=== PATIENT | male | born 1955 | race Two or more races ===

== ENCOUNTER 2022-03-31 22:49 | Emergency (ER) | payer MEDICARE, OTHER, SELFPAY ==
[2022-03-31 23:06] VITALS: BP 132/69; PULSE 73; RESP 18; TEMP 36.6; O2SAT 99; BMI 29.4
--- NOTE | 2022-04-01 00:48 | PC.NURSE ---
Pt said that he passed stool and that he no longer wanted to wait to be seen in the ER so he and his family LWBS
== END 2022-04-01 01:15 | disposition left against medical advice (07) ==
PROVIDERS: Emergency Provider Emergency Medicine; PCP Registered Nurse
DX: R10.9 Unspecified abdominal pain (principal); K59.00 Constipation, unspecified
CPT/HCPCS: 99282

== ENCOUNTER 2024-06-20 00:32 | Emergency (ER) | payer MEDICARE, OTHER, SELFPAY ==
[2024-06-20] VITALS (9 sets, daily range): BP systolic 130–186; BP diastolic 54–70; PULSE 74–101; RESP 12–17; TEMP 36.7–36.8; O2SAT 96–99; BMI 30.9
--- NOTE | ~2024-06-20 | CT_ITS ---
EXAMINATION: CT HEAD WITHOUT CONTRAST (STROKE PROTOCOL) CLINICAL INFORMATION: Stroke protocol. COMPARISON: None available. TECHNIQUE: Contiguous axial imaging was performed from the skull base to vertex without intravenous administration of contrast. This CT examination was performed using dose optimization techniques as appropriate, variously including the following: *Automated exposure control *Adjustment of mA and/or kV according to patient size (this includes techniques or standardized protocols for targeted exams where dose is matched to indication/reason for exam; i.e. extremities or head) *Use of iterative reconstruction technique DLP: 751 mGy-cm FINDINGS: There is a 2.2 x 1.8 x 3.4 cm left thalamic hemorrhage with mild surrounding diminished attenuation consistent with adjacent edema. There is hemorrhagic extension into the left lateral and third ventricle. There is underlying mild cerebral volume loss with prominence of the lateral and the third ventricles. The cortical sulci are widened appropriately. The fourth ventricle and basal cisterns are normally outlined. There is moderate bilateral periventricular and central white matter diminished attenuation. There is no midline shift. Calvarium/scalp: Intact. Maxillofacial sinuses and mastoids: There is a lobular right sphenoid sinus opacity likely a cyst or polyp. There is also a lobular mucosal thickening of the maxillary sinuses. Remaining maxillofacial sinuses and mastoids are clear. CT/CT head for stroke IMPRESSION: 1. 2.2 x 1.8 x 3.4 cm left thalamic hemorrhage with hemorrhagic extension into the left lateral and third ventricles. Mild surrounding edema. 2. Underlying mild cerebral volume loss. Moderate bilateral periventricular and central white matter diminished attenuation consistent with small vessel ischemic disease. This critical result was discussed with Dr. Tino Ambrose at 12:58 PM hours on 06/20/2024. It was ascertained that the content and urgency of the report was understood at the time of direct communication.
--- NOTE | 2024-06-20 00:36 | ECG_ITS ---
Test Reason : RULE OUT STROKE Blood Pressure : / mmHG Vent. Rate : 080 BPM Atrial Rate : 080 BPM P-R Int : 136 ms QRS Dur : 078 ms QT Int : 396 ms P-R-T Axes : 073 048 040 degrees QTc Int : 456 ms Normal sinus rhythm with sinus arrhythmia Possible Left atrial enlargement Septal infarct , age undetermined Abnormal ECG No previous ECGs available Referred By: Tino Ambrose Electronically Signed By:BRADLY AUSTIN MD
[2024-06-20 00:42] LABS: Glucose, Whole Blood 126 mg/dL (60-115)
--- NOTE | 2024-06-20 00:46 | ED.NEUROSD ---
HPI - Neuro Symptoms/Deficit General Chief Complaint: Stroke Stated Complaint: STROKE ALERT Time Seen by Provider: 06/20/24 00:35 Source: EMS Mode of arrival: EMS Limitations: no limitations History of Present Illness ED Provider: daniel GARCIA Narrative: Patient with history of diabetes, Parkinson disease with right upper extremity spasm ambulatory without assistance patient tried to walk at around 23:00 slumped down saw him going down no head injury tried to lift him up but noticed right side was weak and patient could not stand up in the past he does have right upper extremity spasm but able to move no history of CVA in the past not on any blood thinner on arrival patient had a right facial droop with significant weakness of the right side no headache patient not on any anticoagulant Related Data Home Medications ?Medication ?Instructions ?Recorded ?Confirmed aspirin 81 mg tablet 81 mg PO DAILY 03/31/22 03/31/22 atorvastatin 80 mg tablet (Lipitor) 80 mg PO DAILY 03/31/22 03/31/22 carbidopa 25 mg-levodopa 100 mg 2 tab PO TID 03/31/22 03/31/22 tablet (Sinemet) clonazepam 0.5 mg tablet 0.5 mg PO BEDTIME 03/31/22 03/31/22 insulin lispro 100 unit/mL 1 sliding scale dose subcut 03/31/22 03/31/22 subcutaneous cartridge (Humalog USEASDIRECTD U-100 Insulin) memantine 10 mg tablet 10 mg PO QPM 03/31/22 03/31/22 Allergies Allergy/AdvReac Type Severity Reaction Status Date / Time No Known Allergies Allergy Verified 06/20/24 00:41 Review of Systems Review of Systems: Yes all other systems are reviewed and are negative [facility] Past Medical History Medical History (Updated 06/20/24 @ 01:10 by Tino Ambrose MD) Hypertension Parkinsons disease Social History Social History Advance Directives: No Advance Directives Information Provided: Yes Do you have a plan to hurt others: No Plan Physical Exam Vital Signs: Vital Signs: Last Vital Signs Temp 98.3 F 06/20/24 03:14 Pulse 80 06/20/24 03:14 Resp 14 06/20/24 03:14 BP 130/55 L 06/20/24 03:14 Pulse Ox 97 06/20/24 03:14 O2 Del Method Room Air 06/20/24 03:14 BMI result Body Mass Index 30.9 Appearance: Alert. Oriented X3. No acute distress. Eyes: PERRLA, No Nystagmus ENT: Pharynx normal. Oral Mucosa moist Neck: Normal inspection. Neck supple. CVS: Normal heart rate and rhythm. Pulses normal. Respiratory: No respiratory distress. Equal air entry bilateral, no wheezing/rales/rhonchi Abdomen: Soft and nontender. Bowel sounds are present, no mass palpable, no CVA tenderness Skin: Skin warm and dry. Normal skin color. Normal skin turgor. Extremities: No lower extremity edema. No calf tenderness Neuro: Oriented X 3. right facial droop right sided dense hemiparesis Medications Administered Discontinued Medications Generic Name Dose Route Start Last Admin Trade Name Freq PRN Reason Stop Dose Admin Labetalol HCl 10 mg 06/20/24 00:55 06/20/24 01:02 Labetalol Hcl 100 Mg/20 Ml Vial IVPUSH 06/20/24 00:56 10 mg ONCE ONE Administration Labetalol HCl 10 mg 06/20/24 02:38 06/20/24 02:43 Labetalol Hcl 100 Mg/20 Ml Vial IVPUSH 06/20/24 02:39 10 mg ONCE ONE Administration Medical Decision Making Medical Decision Making [facility] Narrative: 02:30 Patient with history of hypertension and Parkinson disease comes here with right-sided dense hemiparesis CT scan showed left thalamic bleed extending to lateral ventricle blood pressure on arrival 186/66 patient not taking aspirin for last few days no other anticoagulation GCS of 15 case discussed with [facility] accepted by Dr. Shreya Art to MICU patient received 10 mg of labetalol earlier will repeat 10 more mg of labetalol for blood pressure 149/77 with target to keep systolic blood pressure in 120 range Differential Diagnosis Differential Diagnoses: The differential diagnosis associated with the presentation includes CVA/bleed/brain tumor Admission/Observation Consideration of admission/observation: Escalation of care including admission/observation considered Lab Data [facility] Lab Attestation statement: I reviewed the patient's lab results. 06/20/24 00:51 06/20/24 00:51 Labs: Lab Results 06/20/24 06/20/24 06/20/24 Range/Units 00:37 00:41 00:51 WBC 9.7 (4.8-10.8) X10*3/uL RBC 4.28 L (4.60-5.80) X10*6/uL Hgb 13.4 L (14.0-18.0) g/dl Hct 38.0 L (42.0-52.0) % MCV 88.8 (80.0-98.0) fL MCH 31.3 (27.0-33.0) pg MCHC 35.3 (31.0-36.0) g/dl RDW 13.3 (11.0-16.0) % Plt Count 145 L (160-400) X10*3/uL MPV 10.7 (9.4-12.4) fL Immature Gran % (Auto) 0.3 (0.0-0.4) % Neut % (Auto) 76.9 H (45-73) % Lymph % (Auto) 13.9 L (20-40) % [place] % (Auto) 5.9 (2-11) % Eos % (Auto) 2.3 (0-4) % Baso % (Auto) 0.7 (0-2) % Lymph # (Auto) 1.4 (1.2-4.9) X10*3/uL [place] # (Auto) 0.6 (0.1-1.2) X10*3/uL Eos # (Auto) 0.2 (0.0-0.4) X10*3/uL Baso # (Auto) 0.1 (0.0-0.2) X10*3/uL Abs Immat Gran (auto) 0.03 (0.00-0.03) X10*3/uL Absolute Neuts (auto) 7.5 (2.0-8.3) x10*3/uL Absolute Nucleated RBC 0.000 (0.0-0.012) X10*3/uL Nucleated RBC % (auto) 0.0 (0.0-0.2) /100WBC Hold Purple Top SEE NOTE PT 10.5 L (11.1-13.3) SEC Whole Blood PT 12.0 (11.1-13.5) sec INR 0.9 (0.9-1.1) Whole Blood INR 1.0 (0.9-1.1) APTT 30.0 (26.0-36.8) SEC Sodium 143 (135-145) mmol/L Potassium 3.9 (3.3-5.1) mmol/L Chloride 107 (96-108) mmol/L Carbon Dioxide 28 (22-29) mmol/L Anion Gap 12 (12-20) BUN 19 H (9-16) mg/dL Creatinine 0.96 (0.5-1.4) mg/dL Estim Creat Clear Calc 87.4 Estimated GFR > 60 POC Glucose 126 H (60-115) mg/dL Random Glucose 116 H (60-115) mg/dL Calcium 9.5 (8.4-10.2) mg/dL Troponin I High Sens 7.6 (<3.5-35.0) ng/L Triglycerides 113 (<150) mg/dL Cholesterol 146 (<200) mg/dL LDL Cholesterol, Calc 61 (<100) mg/dL HDL Cholesterol 63 (>40) mg/dL Independent Interpretation I performed an independent interpretation of an: EKG and CT Scan Interpretation: Normal sinus rhythm heart rate 80 beats per minute normal intervals normal axis poor progression of R-wave in anterior leads no acute ischemia Radiology Impression Discussion of test interpretation with radiology: I discussed test interpretation with the radiologist and I have reviewed the radiologist's reading. Radiologist Impression: [place] [id number] CT Scan Report Signed Patient: Viktor Giron MR#: [id number] : 1955 Acct:[id number] Age/Sex: 68 / M ADM Date: 06/20/24 Loc: .ED Attending Dr: Ordering Physician: Tino Ambrose MD Date of Service: 06/20/24 Procedure(s): CT head for stroke Accession Number(s): [id number] cc: Eduardo Escalera MD; Tino Ambrose MD~ EXAMINATION: CT HEAD WITHOUT CONTRAST (STROKE PROTOCOL) CLINICAL INFORMATION: Stroke protocol. COMPARISON: None available. TECHNIQUE: Contiguous axial imaging was performed from the skull base to vertex without intravenous administration of contrast. This CT examination was performed using dose optimization techniques as appropriate, variously including the following: *Automated exposure control *Adjustment of mA and/or kV according to patient size (this includes techniques or standardized protocols for targeted exams where dose is matched to indication/reason for exam; i.e. extremities or head) *Use of iterative reconstruction technique DLP: 751 mGy-cm FINDINGS: There is a 2.2 x 1.8 x 3.4 cm left thalamic hemorrhage with mild surrounding diminished attenuation consistent with adjacent edema. There is hemorrhagic extension into the left lateral and third ventricle. There is underlying mild cerebral volume loss with prominence of the lateral and the third ventricles. The cortical sulci are widened appropriately. The fourth ventricle and basal cisterns are normally outlined. There is moderate bilateral periventricular and central white matter diminished attenuation. There is no midline shift. Calvarium/scalp: Intact. Maxillofacial sinuses and mastoids: There is a lobular right sphenoid sinus opacity likely a cyst or polyp. There is also a lobular mucosal thickening of the maxillary sinuses. Remaining maxillofacial sinuses and mastoids are clear. CT/CT head for stroke IMPRESSION: 1. 2.2 x 1.8 x 3.4 cm left thalamic hemorrhage with hemorrhagic extension into the left lateral and third ventricles. Mild surrounding edema. 2. Underlying mild cerebral volume loss. Moderate bilateral periventricular and central white matter diminished attenuation consistent with small vessel ischemic disease. This critical result was discussed with Dr. Tino Ambrose at 12:58 PM hours on 06/20/2024. It was ascertained that the content and urgency of the report was understood at the time of direct communication. Dictated By: Sebastian Cavazos MD Signed By: <Electronically signed by Sebastian Cavazos MD in OV> 06/20/24 0101 NIH Stroke Scale Internal: Initial- Upon Arrival Time: 00:36 Level of Consciousness: Alert Level of Consciousness Questions: Answers both questions correctly Level of Consciousness Commands: Performs both tasks correctly Best Gaze: Normal Visual: No visual loss Facial Palsy: Partial paralysis Motor Arm (Right): No movement Motor Arm (Left): No drift Motor Leg (Right): No movement Motor Leg (Left): No drift Limb Ataxia: Absent Sensory: Normal Best Language: Mild to moderate aphasia Dysarthia: Normal Extinction and Inattention: No abnormality Score: 11 Critical Care Time Critical Care Time Critical Care Time: Yes Total Critical Care Time: 55 Attestation: The patient was critically ill with a high probability of imminent or life threatening deterioration. I spent greater than 60 ???minutes of discontinuous time evaluating the patient,delivering critical care at the bedside, discussing and evaluating pertinent data with consultants. Critical care time does not include time spent performing separately billable procedures or teaching. Total time spent performing critical care was 55???minutes. Discharge Plan Discharge Clinical Impression: Cerebrovascular accident Patient Disposition: [facility] Transfer Details: To [facility] MICU Dr. Art Prescriptions: No Action atorvastatin [Lipitor] 80 mg Tablet 80 mg PO DAILY clonazepam 0.5 mg Tablet 0.5 mg PO BEDTIME Rx Instructions: administer 30 minutes before bedtime aspirin 81 mg Tablet 81 mg PO DAILY carbidopa-levodopa [Sinemet] 25-100 mg Tablet 2 tab PO TID Humalog U-100 Insulin 100 unit/mL Cartridge 1 sliding scale dose SUBCUT USEASDIRECTD memantine 10 mg Tablet 10 mg PO QPM Interventions: Acute Care Transfer Worksheet (ED) Last Done: 06/20/24 03:14 Discharge Date/Time: 06/20/24 03:21 Print Language: Macedonian
[2024-06-20 00:56] LABS: Basophils Absolute Auto 0.1 X10*3/uL (0.0-0.2); Basophils Percent Auto 0.7 % (0-2); Eosinophils Absolute Auto 0.2 X10*3/uL (0.0-0.4); Eosinophils Percent Auto 2.3 % (0-4); Hemoglobin 13.4 g/dl (14.0-18.0); Imm Gran Abs Auto 0.03 X10*3/uL (0.00-0.03); Imm Gran Pct Auto 0.3 % (0.0-0.4); Lymphocytes Absolute Auto 1.4 X10*3/uL (1.2-4.9); Lymphocytes Percent Auto 13.9 % (20-40); MANUAL DIFF FLAG NO; Mean Corpuscular HGB Conc 35.3 g/dl (31.0-36.0); Mean Corpuscular Hemoglobin 31.3 pg (27.0-33.0); Mean Corpuscular Volume 88.8 fL (80.0-98.0); Mean Platelet Volume 10.7 fL (9.4-12.4); Monocytes Absolute Auto 0.6 X10*3/uL (0.1-1.2); Monocytes Percent Auto 5.9 % (2-11); Neutrophils Absolute Auto 7.5 x10*3/uL (2.0-8.3); Neutrophils Percent Auto 76.9 % (45-73); Platelet Count 145 X10*3/uL (160-400); Red Blood Count 4.28 X10*6/uL (4.60-5.80); Red Cell Distribution Width 13.3 % (11.0-16.0); White Blood Count 9.7 X10*3/uL (4.8-10.8)
[2024-06-20 01:01] LABS: INTERNATIONAL NORM RATIO 0.9 (0.9-1.1); Prothrombin Time 10.5 SEC (11.1-13.3)
[2024-06-20] MEDS: Labetalol HCL 100 MG/20 ML VIAL 10 MG IVPUSH ×2 (01:02→02:43)
[2024-06-20 01:07] LABS: Stroke Lab Use COMPLETE
[2024-06-20 01:09] LABS: Anion Gap 12 (12-20); Blood Urea Nitrogen 19 mg/dL (9-16); Calcium 9.5 mg/dL (8.4-10.2); Carbon Dioxide 28 mmol/L (22-29); Chloride 107 mmol/L (96-108); Cholesterol 146 mg/dL (<200); Creatinine Clr Calc Pharmacy 87.4; Estimated Glomerular Filt Rate > 60; Glucose Random 116 mg/dL (60-115); HDL Cholesterol 63 mg/dL (>40); LDL Cholesterol Calculated 61 mg/dL (<100); Potassium 3.9 mmol/L (3.3-5.1); Sodium 143 mmol/L (135-145); Triglycerides 113 mg/dL (<150)
[2024-06-20 01:15] LABS: Troponin-I High Sensitivity 7.6 ng/L (<3.5-35.0)
--- NOTE | 2024-06-20 01:39 | PC.NURSE ---
Patient BIB [facility] for evaluation of possible stroke. Patient fell at home around 11:00 pm, after the fall family noted right sided facial droop, slurred speech, and new weakness in right lower leg. Patient has history of Parkinson's Disease with baseline weakness in right upper arm. Patient arrived to ED with 18 G IV line in L AC. Dr. Nick assessed patient, patient taken to CT scan.
--- NOTE | 2024-06-20 01:40 | PC.NURSE ---
Patient returned from CT scan, patient placed on child monitor, changed into a hospital attire, labs drawn and sent to lab for processing. Per Dr. Dexter, patient has brain bleed. BP remains high 171/66. Patient medicated with Labetalol 10 mg IV push. Family at bedside, call willard in patient's/family reach.
--- NOTE | 2024-06-20 02:59 | PC.NURSE ---
Nurse to nurse report called to FRANK Guerra at MICU, [facility], patient to be transported to [facility]U by [facility].
== END 2024-06-20 03:21 | disposition short-term general hospital (02) ==
PROVIDERS: Emergency Provider Internal Medicine; PCP Family Medicine
DX: I61.0 Nontraumatic intracerebral hemorrhage in hemisphere, subcortical (principal); R29.810 Facial weakness; G81.91 Hemiplegia, unspecified affecting right dominant side; R29.711 NIHSS score 11; I10 Essential (primary) hypertension; G20.A1 Parkinson's disease without dyskinesia, without mention of fluctuations; Z79.82 Long term (current) use of aspirin; Z79.02 Long term (current) use of antithrombotics/antiplatelets; Z79.4 Long term (current) use of insulin
CPT/HCPCS: 36415; 70450; 80048; 80061; 82947; 84484; 85025; 85610; 85730; 93005; 96374; 96376; 99285; J1920

== ENCOUNTER → 2024-06-20 00:36 | Outpatient (BNV) | payer MEDICARE, OTHER, SELFPAY | PROVIDERS: Emergency Provider Internal Medicine; PCP Family Medicine; Visit Provider Internal Medicine Cardiovascular Disease | DX: R94.31 Abnormal electrocardiogram [ECG] [EKG] (principal) | CPT/HCPCS: 93010 ==

== ENCOUNTER 2024-07-27 17:49 | Emergency (ER) | payer MEDICARE, OTHER, SELFPAY ==
--- NOTE | ~2024-07-27 | CT_ITS ---
EXAMINATION: CT brain and CT cervical spine without contrast. CLINICAL INDICATION: Fall, injury. COMPARISON: CT brain 06/20/2024. TECHNIQUE: 2 mm in axial and reformatted 2 mm in sagittal coronal images of brain were obtained without contrast. Subsequently axial 3 mm and reformatted 2 mm in sagittal coronal images of cervical spine were obtained. DLP [id number] examination was performed using dose optimization technique as appropriate, variously including the following: Automated exposure control Adjustment of MA and/or KV according to patient size(this includes techniques or standardized protocols for targeted exams where dose is matched to indication/reason for exam; extremities or head. Use of iterative reconstruction techniques. FINDINGS: There is no acute intra-axial, extra-axial bleed, masses or midline shift. There is a hypodensity left thalamus from an old hemorrhagic infarct/edema. No acute infarction or lesion seen. The bartholomew-white matter differentiation is maintained normal. The lateral ventricles are symmetrical in size and configuration enlarged. Bone windows reveal no calvarial abnormality. There is no scalp soft tissue abnormality. Bilateral paranasal sinuses are well aerated with a small polyp or retention cyst right sphenoid sinus. Minimal dependent mucosal thickening seen in bilateral maxillary sinuses. Rest of the sinuses and mastoid air cells are clear. No scalp soft tissue abnormality seen. Cervical spine: There is mild reversal of cervical lordosis. There is an old C2 dens fracture with hypertrophic bony changes posterior to the dens. This results in mild narrowing of the spinal canal. No acute fracture, dislocation or subluxation seen. There is posterior C5-6 and C6/7 annular ligament calcification. There is moderate to significant right C4/5 facet joint hypertrophy and arthropathy. No aggressive lytic or sclerotic process is seen. The prevertebral and paravertebral soft tissues are normal. Thyroid lobes are symmetrical and normal. The central trachea and bronchi are widely patent. CT/CT cervical spine wo IV con IMPRESSION: No acute bleed or infarct seen. 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 There is mild reversal cervical lordosis. 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 There is hypertrophic calcification of dental ligament posterior to C2 dens. This results in minimal to mild AP canal narrowing. If patient has clinical pain or neurological weakness and MRI of this area can be performed as an outpatient. There is no acute fracture or dislocation. Electronically signed by: Zach Phan MD 07/27/2024 09:07 PM EDT RP
[2024-07-27 18:01] VITALS: BP 118/49; PULSE 70; RESP 18; TEMP 36.3; O2SAT 97; BMI 28.4
--- NOTE | 2024-07-27 18:01 | ED_ITS ---
HPI - General Adult General Chief complaint: Fall Stated complaint: fall, had stroke last month Source: patient and family (patient's and son) Mode of arrival: wheelchair Limitations: no limitations History of Present Illness ED Provider: Sandy Colvin PA-C HPI narrative: Patient is a 68 year old assigned male at with a history of recent hemorrhagic stroke with right sided deficit presenting to the emergency department today after a fall. Patient states that he got up out of bed to go to the bathroom and fell, hitting the right side of his head. Patient denies any dizziness, lightheadedness, abdominal pain, nausea, vomiting, fever, chills, blurry vision, double vision, loss of vision, chest pain, difficulty breathing, shortness of breath, back pain, night sweats, pain with urination, increased urinary frequency, increased urinary urgency, blood in his urine or stool, syncope or a near syncopal episode, bowel incontinence, bladder incontinence, or any other complaints at this time. Location: head Relieving factors: none Exacerbating factors: none Associated symptoms: denies other symptoms Treatments prior to arrival: none Related Data Home Medications ?Medication ?Instructions ?Recorded ?Confirmed aspirin 81 mg tablet 81 mg PO DAILY 03/31/22 03/31/22 atorvastatin 80 mg tablet (Lipitor) 80 mg PO DAILY 03/31/22 03/31/22 carbidopa 25 mg-levodopa 100 mg 2 tab PO TID 03/31/22 03/31/22 tablet (Sinemet) clonazepam 0.5 mg tablet 0.5 mg PO BEDTIME 03/31/22 03/31/22 insulin lispro 100 unit/mL 1 sliding scale dose subcut 03/31/22 03/31/22 subcutaneous cartridge (Humalog USEASDIRECTD U-100 Insulin) memantine 10 mg tablet 10 mg PO QPM 03/31/22 03/31/22 Allergies Allergy/AdvReac Type Severity Reaction Status Date / Time No Known Allergies Allergy Verified 07/27/24 18:05 Review of Systems Constitutional: Constitutional: Reports no additional constitutional complaints, Denies chills, Denies fever(s), Reports headache(s) and Denies night sweats Eyes: Eyes: Reports no additional eye complaints, Denies blurry vision, Denies change in vision, Denies diplopia, Denies eye discharge, Denies loss of vision and Denies eye pain ENT: Denies dizziness and Reports headache(s) Cardiovascular: Cardiovascular: Reports no additional cardiovascular complaints, Denies chest pain, Denies lightheadedness, Denies Loss of Consciousness and Denies dyspnea Respiratory: Respiratory: Reports no additional respiratory complaints and Denies dyspnea Gastrointestinal: Gastrointestinal: Reports no additional gastrointestinal complaints, Denies abdominal pain, Denies melena, Denies hematochezia, Denies change in bowel habits and Denies change in stool character Genitourinary: Genitourinary: Reports no additional male genitourinary complaints, Denies hematuria, Denies oliguria, Denies difficulty urinating, Denies dysuria, Denies urinary frequency, Denies urinary hesitancy, Denies urinary incontinence and Denies urinary urgency Musculoskeletal: Musculoskeletal: Reports no additional musculoskeletal complaints, Denies numbness and Denies tingling Neurologic: Denies dizziness, Reports headache(s), Denies loss of vision, Denies numbness and Denies tingling Comments: right sided deficit post previous hemorrhagic stroke Psychiatric: Psychiatric: Reports no additional psychiatric complaints Endocrine: Endocrine: Reports no additional endocrine complaints Hematologic/Lymphatic: Hematologic/Lymphatic: Reports no additional hematologic/lymphatic complaints Allergic/Immunologic: Allergic/Immunologic: Reports no additional allergic/immunologic complaints PMFSH Past Medical History Attestation statement: The following information was validated with the patient. (all information validated with the patient's son and ) Source: old records reviewed, obtained from family (patient's son and provided additional history and confirmed the history provided by the patient) and nursing notes reviewed Medical History Hypertension Parkinsons disease Social History Social History Advance Directives: No Advance Directives Information Provided: No Do you have a plan to hurt others: No Plan Physical Exam ED Vital Signs: BMI result Body Mass Index 28.4 Const General: cooperative, no acute distress, alert and awake Nutritional Appearance: well nourished Orientation/consciousness: patient oriented x3 Limitations: no limitations HENMT Head: Yes normal to inspection and Yes atraumatic Ears: hearing grossly normal bilaterally and external ears normal General nose exam: Normal external nose present, no nasal discharge noted and no epistaxis Face and sinus: Yes normal facial exam, No abrasion and No laceration Mouth: Normal oral and palatal mucosa present, no drooling and no muffled voice Eyes General: appearance normal, both eyes and all related structures Periorbital: periorbital findings normal Eyelids: Yes eyelids normal Conjunctivae: conjunctivae normal Pupils: Equal, round and reactive pupils present EOM: EOMs intact bilaterally Neck Neck: Yes normal visual inspection, Yes full ROM and Yes no lymphadenopathy Chest Chest palpation & inspection: normal inspection of the chest Resp Effort & Inspection: normal respiratory effort and able to speak in complete sentences GI Inspection: Yes normal to inspection Neuro Other: chronic right sided deficit post hemorrhagic sroke General: patient oriented x3 and moves all extremities Cranial nerves: Yes Equal, round and reactive pupils present Cognition (Neuro): normal cognition Extrem General: Yes normal to inspection, Yes full ROM and Yes capillary refill normal Psych Appearance: grossly normal Mental Status: mental status grossly normal Affect: normal affect Attitude: cooperative Thought process: Normal thought process present Thought content: Normal thought content present Insight: Good insight present (Psych) Course Course Course Narrative: RME performed by Sandy Colvin PA-C. Patient is a 68 year old assigned male at presenting to the emergency department after a fall. Patient states he was here a month ago for a hemorrhagic stroke and has right sided deficit. Detailed physical exam and review of systems are deferred to the targeting acquisition officer. Imaging ordered. Patient placed back in the waiting room pending room availability and results. Medical Decision Making Medical Decision Making MDM Narrative: Patient is a 68 year old assigned male at with a history of recent hemorrhagic stroke presenting to the emergency department today after a fall. Patient's limited physical exam performed in triage was unremarkable and consistent with right sided deficit post hemorrhagic CVA. Patient's CT head and c-spine showed no acute process. Patient left the department without completing treatment. Patient left the department before myself or any of the other emergency department clinicians could explain to or review with the patient; physical exam findings, test results, need or lack there of for additional testing, need or lack there of for a procedure to be performed, need or lack there of for hospital admission / transfer, need or lack there of for prescription medication, treatment options, or a treatment plan. Differential Diagnosis Differential Diagnoses: The differential diagnosis associated with the presentation includes Fall Concussion Headache Intracranial injury Admission/Observation Consideration of admission/observation: Escalation of care including admission/observation considered Patient would have been admitted to the hospital had he completed his work up and it had any findings where hospital admission was appropriate, his clinical presentation warranted hospital admission, had myself or any other emergency astronomy department chair had the ability to discuss need or lack there of for hospital admission, and the patient hadn't left the department without complet ing treatment. Independent Interpretation I performed an independent interpretation of an: CT Scan Interpretation: My interpretation is in agreement with the radiologist's impression of these imaging studies. EXAMINATION: CT brain and CT cervical spine without contrast. CLINICAL INDICATION: Fall, injury. COMPARISON: CT brain 06/20/2024. TECHNIQUE: 2 mm in axial and reformatted 2 mm in sagittal coronal images of brain were obtained without contrast. Subsequently axial 3 mm and reformatted 2 mm in sagittal coronal images of cervical spine were obtained. DLP [id number] examination was performed using dose optimization technique as appropriate, variously including the following: Automated exposure control Adjustment of MA and/or KV according to patient size(this includes techniques or standardized protocols for targeted exams where dose is matched to indication/reason for exam; extremities or head. Use of iterative reconstruction techniques. FINDINGS: There is no acute intra-axial, extra-axial bleed, masses or midline shift. There is a hypodensity left thalamus from an old hemorrhagic infarct/edema. No acute infarction or lesion seen. The bartholomew-white matter differentiation is maintained normal. The lateral ventricles are symmetrical in size and configuration enlarged. Bone windows reveal no calvarial abnormality. There is no scalp soft tissue abnormality. Bilateral paranasal sinuses are well aerated with a small polyp or retention cyst right sphenoid sinus. Minimal dependent mucosal thickening seen in bilateral maxillary sinuses. Rest of the sinuses and mastoid air cells are clear. No scalp soft tissue abnormality seen. Cervical spine: There is mild reversal of cervical lordosis. There is an old C2 dens fracture with hypertrophic bony changes posterior to the dens. This results in mild narrowing of the spinal canal. No acute fracture, dislocation or subluxation seen. There is posterior C5-6 and C6/7 annular ligament calcification. There is moderate to significant right C4/5 facet joint hypertrophy and arthropathy. No aggressive lytic or sclerotic process is seen. The prevertebral and paravertebral soft tissues are normal. Thyroid lobes are symmetrical and normal. The central trachea and bronchi are widely patent. CT/CT cervical spine wo IV con IMPRESSION: No acute bleed or infarct seen. 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 There is mild reversal cervical lordosis. 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 There is hypertrophic calcification of dental ligament posterior to C2 dens. This results in minimal to mild AP canal narrowing. If patient has clinical pain or neurological weakness and MRI of this area can be performed as an outpatient. There is no acute fracture or dislocation. Electronically signed by: Zach Phan MD 07/27/2024 09:07 PM EDT RP Dictated By: Zach Phan MD Signed By: Electronically signed by Zach Phan MD 07/27/242106 Radiology Impression Discussion of test interpretation with radiology: I have reviewed the radiologist's reading. Independent Historian Clinical information obtained from an independent historian. History obtained from or confirmed by: Other (patient's and son provided additional history and confirmed the history provided by the patient.) Discharge Plan Discharge Clinical Impression: Fall, Headache Patient Disposition: Left W/O Completing Treatment Prescriptions: No Action atorvastatin [Lipitor] 80 mg Tablet 80 mg PO DAILY clonazepam 0.5 mg Tablet 0.5 mg PO BEDTIME Rx Instructions: administer 30 minutes before bedtime aspirin 81 mg Tablet 81 mg PO DAILY carbidopa-levodopa [Sinemet] 25-100 mg Tablet 2 tab PO TID Humalog U-100 Insulin 100 unit/mL Cartridge 1 sliding scale dose SUBCUT USEASDIRECTD memantine 10 mg Tablet 10 mg PO QPM Discharge Date/Time: 07/28/24 00:55
--- OUTSIDE RECORDS SUMMARY | 2024-07-27 22:08 | XMS_ITS | Continuity of Care Document ---
Author Organization [facility] Carmelo Green Tk lt Address [address] [place] [address]- Care Team Providers Care Pharmaceutical Sales Specialist Name Role Phone Lali BARBER, Eduardo Clayton Primary Care Physician Encounter [facility] Date(s): 05/28/24 - 06/27/24 [facility] Adult [address] [place] [address]- Allergies, Adverse Reactions, Alerts Substance Reaction Severity Status Jardiance Active Immunizations Given and Recorded Vaccine Date Status Refusal Reason influenza virus vaccine, inactivated 09/11/23 Bernabe rded influenza virus vaccine, inactivated 1 09/07/22 Gi janelle influenza virus vaccine, inactivated 09/26/21 Give n influenza virus vaccine, inactivated 09/01/20 Give n influenza virus vaccine, inactivated 2 10/26/13 Gi janelle SARS-CoV-2(COVID-19)mRNA-LNP vac([id number]) 09/11/23 Recorded [id number] bivalent booster vax 08/23/22 Recorded SARS-CoV-2 (COVID-19) mRNA-1273 vaccine 04/10/22 R ecorded SARS-CoV-2 (COVID-19) mRNA-1273 vaccine 10/31/21 R ecorded SARS-CoV-2 (COVID-19) mRNA-1273 vaccine 03/14/21 R ecorded SARS-CoV-2 (COVID-19) mRNA-1273 vaccine 02/12/21 R ecorded pneumococcal 13-valent vaccine 09/26/21 Given tetanus/diphtheria/pertussis, acel(Tdap) 04/22/13 Given Influenza Inactive (IM) (oldterm) 10/27/09 Given Influenza Inactive (IM) (oldterm) 3 10/10/08 Given Pneumococcal Vaccine (oldterm) 12/10/08 Given tetanus-diphtheria toxoids (Td) 08/04/07 Given 1Result Comment: [facility] 2[place] [id number] 2Admin Note: pt declines 3Admin Note: rcvd elsewhere Medications amLODIPine 10 mg oral tablet 10 mg, By Mouth, Daily, Refills 0, Maintenance, 06/27/24 12:03:00 EDT, Partial fill upon patient request if the prescription is for a schedule II opioid drug. Start Date: 06/27/24 Status: Ordered atorvastatin 80 mg oral tablet See Instructions, TAKE ONE TABLET BY MOUTH EVERY DAY, # 90 tablet, 3 Refills, Maintenance, 244:14:00 EST, [facility], 177.8, cm, 10/16/23 15:08:00 EST, Height Start Date: 02/08/24 Status: Ordered Clonazepam = 0.25 mg, By Mouth, Daily at bedtime, 0 Refills, Maintenance, 12/03/17 6:47:50 Start Date: 12/03/17 Status: Ordered FREESTYLE VICKIE 14 MEDI-B Miscellaneous FREESTYLE VICKIE 14 MEDI-B Miscellaneous, See Instructions, # 1 Unknown, 5 Refills, Maintenance, CHANGE EVERY 14 DAYS, 06/23/24 12:55:00 EDT, 175, cm, 06/20/24 3:40:00 EDT, Height, 94.5, kg, 06/20/24 3:40:00 EDT, Dry Weight Start Date: 06/23/24 Status: Ordered Freestyle Vickie 14 sensor Freestyle Vickie 14 sensor, See Instructions, # 6 each, Refills 11, Tot. Refills 11, Maintenance, DM2 E11.9 3 months supply change every 14 days, 1 hour warm up, 06/25/24 4:08:00 EDT, 3 month supply, Compound, 175, cm, 06/20/24 3:40:00 EDT, Height, 94... Start Date: 06/25/24 Status: Ordered hydrALAZINE 25 mg oral tablet 50 mg, By Mouth, 3 times a day, Refills 0, Maintenance, 06/27/24 12:03:00 EDT, Partial fill upon patient request if the prescription is for a schedule II opioid drug. Start Date: 06/27/24 Status: Ordered Insulin Glargine Inj 0.42 mL = 42 units, Subcutaneous Injection, Daily, 0 Refills, Maintenance, 06/27/24 12:05:00 EDT, Injection, Partial fill upon patient request if the prescription is for a schedule II opioid drug. Start Date: 06/27/24 Status: Ordered insulin lispro 100 units/mL injectable solution 3-13 units, Subcutaneous Injection, 3 times a day before meals, << Sliding Scale Comments >> 100 - 149 3 units Call if less than 70 150 - 199 5 units 200 - 249 7 units 250 - 299 9 units 300 - 349 11 units 350 - 399 13 units Call... Start Date: 06/27/24 Status: Ordered Insulin LISPRO Inj 0.02 mL = 2 units, Subcutaneous Injection, Daily at bedtime, PRN Other, prn for bedtime snack, 0 Refills, Maintenance, 06/27/24 12:03:00 EDT, Injection, Partial fill upon patient request if the prescription is for a schedule II opioid drug. Start Date: 06/27/24 Status: Ordered lisinopril 20 mg oral tablet 40 mg, By Mouth, Daily, Refills 0, Maintenance, 06/27/24 12:03:00 EDT, Partial fill upon patient request if the prescription is for a schedule II opioid drug. Start Date: 06/27/24 Status: Ordered melatonin 3 mg oral tablet = 3 mg, By Mouth, Daily at bedtime, PRN Insomnia, 0 Refills, Maintenance, 06/27/24 12:04:00 EDT, Tablet, Partial fill upon patient request if the prescription is for a schedule II opioid drug. Start Date: 06/27/24 Status: Ordered memantine 10 mg oral tablet 1 tablet = 10 mg, By Mouth, Daily, # 90 tablet, 3 Refills, Maintenance, 04/12/23 7:26:00 EDT, Tablet, [facility], Partial fill upon patient request if the prescription is for a schedule II opioid drug., 177.8, cm, 04/12/23 6:48:00 EDT... Start Date: 5/12/23 Status: Ordered Sinemet 25 mg-100 mg oral tablet 2 tablet, By Mouth, 3 times a day, # 90 tablet, 0 Refills, Maintenance, 08/19/17 7:00:26, Tablet Start Date: 08/19/17 Status: Ordered traZODone 50 mg oral tablet 25 mg, By Mouth, Daily at bedtime, Refills 0, Maintenance, 06/27/24 12:04:00 EDT, Partial fill uponpatient request if the prescription is for a schedule II opioid drug. Start Date: 06/27/24 Status: Ordered Tylenol 325 mg oral tablet 325 mg, By Mouth, Every 4 hours, PRN, Refills 0, Maintenance, Pain , Mild, 06/27/24 12:04:00 EDT, Partial fill upon patient request if the prescription is for a schedule II opioid drug. Start Date: 06/27/24 Status: Ordered Zoloft 100 mg oral tablet 1 tablet = 100 mg, By Mouth, Daily, 0 Refills, Maintenance, 05/06/24 15:11:00 EDT, Partial fill upon patient request if the prescription is for a schedule II opioid drug. Start Date: 05/06/24 Status: Ordered Problem List Condition Confirmation Course Effective Dates Status Health Status Informant Aortic insufficiency trace 1 Confirmed 08/08/17 Active Aortic stenosis mild echo 2019 2021 Confirmed 02/08/20 Active Diabetes Mellitus without Mention of Complication 2 Confirmed 01/14/06 Active Diverticulosis Confirmed Active Erectile dysfunction/urology Confirmed Active History of herpes zoster c& RT Confirmed 08/10/19 Active Hypercholesterolemia Confirmed Active Insulin long-term use Confirmed Active Obese class I Confirmed Active PD (Parkinson's disease) 3, 4 Confirmed Active 1refer echocardiogram 2DR Karosconyi Endocrinology managing 3MRI brain and JAYJAY scan pending 4diagnosed by neurology 09/2016. started on azilect Social History Social History Type Response Smoking Status Former smoker; Type: Cigarettes; Other: quit 2015; Tobacco use times per day: 0.5 PPD; Number of years: 28; Total pack years: 14; Started at age: 25; entered on: 07/03/16 Sex Patient Care team information Care Team Personnel Name: Elin Franz NP Position: S PCO Associate Professional Member Role: Lifetime Consulting Provider Address: Address: [address] [place] [id number]- Name: Jonny Portillo RN Position: S RN Member Role: Primary Care Nurse Name: Eduardo Escalera MD Position: [facility] Physician - Primary Care Member Role: PCP Address: Address: [address] [place] [address]- Name: Doris Hamilton RN Position: S RN Member Role: Primary Care Nurse Name: Manuel Melgar RN Position: S RN Member Role: Primary Care Nurse Name: Aliza Lorenzo RN Position: S RN Member Role: Primary Care Nurse Care Team Related Persons Name: GABINOSHONNA BEBETO Address: home [address] [place] [address]
--- OUTSIDE RECORDS SUMMARY | 2024-07-27 22:08 | XMS_ITS | Continuity of Care Document ---
Author Organization [facility] [address] Address [address] [place] [address]- Care Team Providers Care Doorkeeper Name Role Phone Francesco Dobbins MD Primary Care Physician [phone] Encounter [facility] Date(s): 09/30/19 - 01/28/20 [facility] Adult [address] [place] [address]- [facility] Attending Physician: Francesco Dobbins MD Allergies, Adverse Reactions, Alerts Substance Reaction Severity Status Jardiance Active Immunizations Given and Recorded Vaccine Date Status Refusal Reason influenza virus vaccine, inactivated 1 10/26/13 Gi janelle tetanus/diphtheria/pertussis, acel(Tdap) 04/22/13 Given Influenza Inactive (IM) (oldterm) 10/27/09 Given Influenza Inactive (IM) (oldterm) 2 10/10/08 Given Pneumococcal Vaccine (oldterm) 12/10/08 Given tetanus-diphtheria toxoids (Td) 08/04/07 Given 1Admin Note: pt declines 2Admin Note: rcvd elsewhere Medications aspirin 81 mg oral enteric coated tablet See Instructions, 0, 0, 01/14/06 17:25:16, By Mouth Daily, Print LISSET Number, Constant Indicator Start Date: 01/14/06 Status: Ordered atorvastatin 80 mg oral tablet See Instructions, # 90 tablet, Refills 1 Tot. Refills 1, TAKE 1 TABLET BY MOUTH EVERY DAY, [id number] Start Date: 09/21/19 Status: Ordered Azilect = 1 mg, By Mouth, Daily, 0 Refills, Maintenance, 05/17/17 6:55:53 Start Date: 05/17/17 Status: Ordered Botox 0 Refills, Maintenance, 04/21/18 14:35:54 EDT Start Date: 04/21/18 Status: Ordered Clonazepam = 0.25 mg, By Mouth, Daily at bedtime, 0 Refills, Maintenance, 12/03/17 6:47:50 Start Date: 12/03/17 Status: Ordered Free Style 14 day reader Free Style 14 day reader, See Instructions, # 1 each, Refills 0, Tot. Refills 0, Maintenance, DM2 E11.9 REPLACING 7 DAY READER, 02/13/19 10:39:30 EDT, Compound Start Date: 02/13/19 Status: Ordered Freestyle Vickie 14 sensor Freestyle Vickie 14 sensor, See Instructions, # 6 each, Refills 11, Tot. Refills 11, Maintenance, DM2 E11.9 3 months supply change every 14 days, 1 hour warm up, 08/27/19 15:28:47 EDT, 3 month supply,Compound Start Date: 08/27/19 Status: Ordered Glucose Test Strips See Instructions, 50, 5, 5, 01/14/06 17:13:54, daily, diabetes, [facility], [address] [place] [id number] Start Date: 01/14/06 Status: Ordered Humalog 100 u/ml subcutaneous injection See Instructions, MAX DOSE 100 to be used daily with VGO 30 DX: E11.9, # 3 vials, 11 Refills, Maintenance, 03/31/19 8:18:10 EDT Start Date: 03/31/19 Status: Ordered Insulin Syringe, BD Ultra-Fine 1 cc 31 G x 8 mm (5/16in) See Instructions, # 300 applicator, Refills 1, Tot. Refills 1, Maintenance, dx: 250.00 for insulin use 3-4x/day, 08/22/15 16:14:18, Compound Start Date: 08/22/15 Status: Ordered Insulin Syringe, BD Ultra-Fine 1 cc 31 G x 8 mm (5/16in) See Instructions, # 100 units, Refills 6, Tot. Refills 6, USE TO GIVE INSULIN, 11/23/09 13:35:21, [place], [facility] Start Date: 11/23/09 Status: Ordered metFORMIN 500 mg oral tablet, extended release 2 tablet = 1,000 mg, By Mouth, 2 times a day, # 360 tablet, 2 Refills, Maintenance, 08/09/17 9:11:19, ER Tablet Start Date: 08/09/17 Stop Date: 05/06/18 Status: Ordered [facility] Rx Jardiance 10mg, See Instructions, # 90 Doses, Refills 2, Tot. Refills 2, Maintenance, one pill oncea day by mouth. REPLACES 30 DAY SUPPLY, 08/22/15 15:44:28, Compound Start Date: 08/22/15 Status: Ordered nitroglycerin 0.4 mg sublingual tablet 1 tablet = 0.4 mg, Sublingual, Every 5 minutes, PRN for chest pain, If chest pain not relieved in 5minutes after first dose, seek immediate medical attention, # 25 tablet, 0 Refills, Maintenance, 01/07/20 14:50:00 EST, Tablet, [facility][id number], 176... Start Date: 01/07/20 Status: Ordered One Touch Ultra Test Strips See Instructions, # 300 strip(s), Maintenance, use to test BS 3-4 times a day for DX 250.00, 11/15/17 9:11:42, Compound Start Date: 11/15/17 Stop Date: 02/13/18 Status: Ordered One Touch Ultra Test Strips See Instructions, # 3 box, Refills 3, Tot. Refills 3, Maintenance, test sugar three times daily as directed, diabetes, 05/27/14 14:37:44 Start Date: 05/27/14 Stop Date: 05/27/15 Status: Ordered [place], 31 G x 5 mm BD Ultra Fine III See Instructions, # 30 pack/packet, Refills 11, Tot. Refills 11, use with lantus solostar, diabetes, 07/13/09 15:43:10, [facility] Start Date: 07/13/09 Status: Ordered pregabalin 75 mg oral capsule See Instructions, 1 hs 7 days then stop, # 90 capsule, 0 Refills, Maintenance, 01/07/20 14:57:00 EST, Capsule Start Date: 01/07/20 Status: Ordered Sinemet 25 mg-100 mg oral tablet 2 tablet, By Mouth, 3 times a day, # 90 tablet, 0 Refills, Maintenance, 08/19/17 7:00:26, Tablet Start Date: 08/19/17 Status: Ordered trihexyphenidyl 2 mg oral tablet TAKE 1/2 TABLET BY MOUTH AT BEDTIME FOR 7 DAYS THEN TAKE 1/2 TABLET TWICE A DAY Start Date: 06/15/19 Status: Ordered V-GO 40 V-GO 40, See Instructions, # 90 each, Refills 6, Tot. Refills 6, Maintenance, V- GO delivery 40 VGO pharmacy contact [phone] to be used daily with humalog, 08/27/19 15:29:21 EDT, 3 months supply VGO 40, Compound Start Date: 08/27/19 Status: Ordered Problem List Condition Effective Dates Status Health Status Inform ant Aortic insufficiency trace(C onfirmed) 1 08/08/17 Active Chest pain(Confirmed) Active Diabetes Mellitus without Me ntion of Complication(Confirmed) 2 01/14/06 Active Diverticulosis(Confirmed) Active History of herpes zoster c& RT(Confirmed) 08/10/19 Active Hypercholesterolemia(Confirmed) Active Ineffective self health management(Confirmed) 3 Active Neck pain(Confirmed) Active PD (Parkinson's disease)(Con firmed) 4, 5 Active Joint synovitis rt wrist(Confirmed) Active 1refer echocardiogram 2DR [facility] Endocrin[facility] managing 3refer gain;colonoscopy aware Cancer screening 4MRI brain and JAYJAY scan pending 5diagnosed by neurology 09/2016. started on azilect Social History Social History Type Response Smoking Status Former smoker; Type: Cigarettes; Other: quit 2015; Tobacco use times per day: 0.5 PPD; Number of years: 28; Total pack years: 14; Started at age: 25; entered on: 07/03/16 Sex
--- OUTSIDE RECORDS SUMMARY | 2024-07-27 22:08 | XMS_ITS | Continuity of Care Document ---
Author Organization [facility] Carmelo Green Tk Address [address] [place] [address]- Care Team Providers Care Regulatory Compliance Engineer Name Role Phone Eduardo Escalera MD Primary Care Physician [phone] Encounter [facility] [place](s): 05/06/24 - 05/13/24 [facility] Adult [address] [place] [address]- Encounter Diagnosis Fatigue(Discharge Diagnosis) - 05/06/24 Diabetes Mellitus without Mention of Complication(Discharge Diagnosis) - 05/06/24 PD (Parkinson's disease)(Discharge Diagnosis) - 05/06/24 Hypercholesterolemia(Discharge Diagnosis) - 05/06/24 Aortic stenosis mild echo 2019 2021(Discharge Diagnosis) - 05/06/24 Attending Physician: Eduardo Escalera MD Allergies, Adverse Reactions, Alerts Substance Reaction Severity Status Jardiance Active Immunizations Given and Recorded Vaccine Date Status Refusal Reason influenza virus vaccine, inactivated 09/11/23 Bernabe rded influenza virus vaccine, inactivated 1 09/07/22 Gi janelle influenza virus vaccine, inactivated 09/26/21 Give n influenza virus vaccine, inactivated 09/01/20 Give n influenza virus vaccine, inactivated 2 10/26/13 Gi janelle SARS-CoV-2(COVID-19)mRNA-LNP vac([id number]) 09/11/23 Recorded [id number] bivalent booster vax 08/23/22 Recorded SARS-CoV-2 (COVID-19) [...] tetanus-diphtheria toxoids (Td) 08/04/07 Given 1Result Comment: [facility] [id number] 2Admin Note: pt declines 3Admin Note: rcvd elsewhere Medications aspirin 81 mg oral enteric coated tablet See Instructions, 0, 0, 01/14/06 17:25:16, By Mouth Daily, Print LISSET Number, Constant Indicator Start Date: 01/14/06 Status: Ordered atorvastatin 80 mg oral tablet See Instructions, TAKE ONE TABLET BY MOUTH EVERY DAY, # 90 tablet, 3 Refills, Maintenance, 244:14:00 EST, [facility], 177.8, cm, 10/16/23 15:08:00 EST, Height Start Date: 02/08/24 Status: Ordered atorvastatin 80 mg oral tablet 1 tablet, By Mouth, Daily, # 90 tablet, 1 Refills, Maintenance, 07/24/23 20:26:00 EDT, [facility], 177.8, cm, 04/12/23 6:48:00 EDT, Height Start Date: 07/24/23 Status: Ordered Botox 0 Refills, Maintenance, 04/21/18 [...] EDT, Compound Start Date: 02/13/19 Status: Ordered Free Style VICKIE SENSORS Free Style VICKIE SENSORS, See Instructions, # 6 each, Refills 5, Tot. Refills 5, Maintenance, Free Style Vickie SENSORS-90 day supply change every 14 days DM 2 , E11.9, 04/17/23 11:12:00 EDT, emailed the [facility] also, Supply, 177.8, cm, 04/12/23 6:48:00... Start Date: 04/17/23 Status: Ordered FREESTYLE VICKIE 14 MEDI-B Miscellaneous FREESTYLE VICKIE 14 MEDI-B Miscellaneous, See Instructions, # 1 Unknown, 5 Refills, Maintenance, CHANGE EVERY 14 DAYS, 04/21/24 12:37:00 EDT, 177.8, cm, 10/16/23 15:08:00 EST, Height Start Date: 04/21/24 Status: Ordered Freestyle Vickie 14 sensor Freestyle Vickie 14 sensor, See Instructions, # 6 each, Refills 1, Tot. Refills 1, Maintenance, DM2 E11.9 3 months supply change every 14 days, 1 hour warm up, 05/11/22 11:16:00 EDT, 3 month supply, Compound, 176, cm, 04/04/22 11:11:00 EDT, Height Start Date: 05/11/22 Status: Ordered FREESTYLE VICKIE SENSOR MEDB Miscellaneous FREESTYLE VICKIE SENSOR MEDB Miscellaneous, See Instructions, # 1 Unknown, 11 Refills, CHANGE EVERY 14 DAYS, 176, cm, 04/04/22 11:11:00 EDT, Height Start Date: 05/11/22 Status: Ordered FREESTYLE VICKIE SENSOR MEDB Miscellaneous FREESTYLE VICKIE SENSOR MEDB Miscellaneous, See Instructions, # 1 Unknown, 11 Refills, Maintenance, CHANGE EVERY 14 DAYS, 1 HOUR WARM UP, 176, cm, 05/02/21 10:38:00 EDT, Height Start Date: 05/02/21 Status: Ordered Glucose Test Strips See Instructions, 50, 5, 5, 01/14/06 17:13:54, daily, diabetes, [facility], [address] [place] [address] Start Date: 01/14/06 Status: Ordered Humalog 100 u/ml subcutaneous injection See Instructions, use with VGO 30 up to 100 units a day vials LISPRO please dispense lispro generic, # 90 mL, 11 Refills, Maintenance, 08/01/23 7:46:00 EDT, [facility] #[id number], Partial fill upon patient request if the prescription is for a... Start Date: 08/01/23 Status: Ordered insulin lispro 100 u/ml subcutaneous injection See Instructions, USE WITH VGO 30 UP TO 100 UNITS A DAY, # 90 mL, 0 Refills, Maintenance, 08/02/23 5:04:00 EDT, [facility] #[id number], 177.8, cm, 04/12/23 6:48:00 EDT, Height Start Date: 08/02/23 Status: Ordered Insulin Syringe, BD Ultra-Fine 1 [...] 6, USE TO GIVE INSULIN, 11/23/09 13:35:21, Bethel Cummings, [facility] Start Date: 11/23/09 Status: Ordered memantine 10 mg oral tablet 1 tablet = 10 mg, By Mouth, Daily, # 90 tablet, 3 Refills, Maintenance, 04/12/23 7:26:00 EDT, Tablet, [facility], Partial fill upon patient request if the prescription is for a schedule II opioid drug., 177.8, cm, 04/12/23 6:48:00 EDT... Start Date: 04/12/23 Status: Ordered Misc Rx Jardiance 10mg, See Instructions, # 90 Doses, Refills 2, Tot. Refills 2, Maintenance, one pill oncea day by mouth. REPLACES 30 DAY SUPPLY, 08/22/15 15:44:28, Compound Start Date: 08/22/15 Status: Ordered One Touch Ultra Test Strips See Instructions, # 3 box, Refills 3, Tot. Refills 3, Maintenance, test sugar three times daily as directed, diabetes, 05/27/14 14:37:44 Start Date: 05/27/14 Stop Date: 05/27/15 Status: Ordered One Touch Ultra Test Strips See Instructions, # 300 strip(s), Maintenance, use to test BS 3-4 times a day for DX 250.00, 11/15/17 9:11:42, Compound Start Date: 11/15/17 Stop Date: 02/13/18 Status: Ordered Pen [place], 31 G x 5 mm BD Ultra Fine III See Instructions, # 30 pack/packet, Refills 11, Tot. Refills 11, use with lantus solelierar, diabetes, 07/13/09 15:43:10, [facility] Start Date: 07/13/09 Status: Ordered sildenafil 100 mg oral tablet 1 tablet = 100 mg, By Mouth, Daily, Take 1 hour before sexual activity as instructed. Start with 1/2 tablet. Use not more than once daily, # 30 tablet, 3 Refills, Maintenance, 11/01/23 8:05:00 EST, Tablet, [facility] # [id number], Partial fill upon pa... Start Date: 11/01/23 Status: Ordered Sinemet 25 mg-100 mg oral tablet 2 tablet, By Mouth, 3 times a day, # 90 tablet, 0 Refills, Maintenance, 08/19/17 7:00:26, Tablet Start Date: 08/19/17 Status: Ordered V-GO 30 V-GO 30, See Instructions, # 90 each, Refills 6, Tot. Refills 6, Maintenance, V- GO delivery 30 O pharmacy contact [phone] to be used daily with Novolog, 10/04/22 15:30:00 EDT, he is switching to VGO 30, Compound, 176, cm, 09/07/22 7:30:00 EDT... Start Date: 10/04/22 Status: Ordered Zoloft 100 mg oral tablet [...] 4diagnosed by neurology 09/2016. started on azilect Diagnosis Diagnosis Type Effective Dates Health Status Clinical Service Informant Fatigue Discharge Diagnosis 05/06/24 Diabetes Mellitus without Mention of Complication Discharge Diagnosis 05/06/24 PD (Parkinson's disease) Discharge Diagnosis 05/06/24 Hypercholesterolemia Discharge Diagnosis 05/06/24 Aortic stenosis mild echo 2019 2021 Discharge Diagnosis 05/06/24 Vital Signs Most recent to oldest [Reference Range]: 1 2 3 Height 177.8 cm (05/07/24 9:24 AM) 177.8 cm (05/06/24 3:15 PM) 177.8 cm (05/06/24 3:11 PM) Weight 98.7 kg (05/07/24 9:24 AM) 98.7 kg (05/06/24 3:11 PM) Oxygen Saturation [94-100 %] 99 % (05/06/24 3:11 PM) Pulse Rate [55-90 bpm] 70 bpm (05/06/24 3:11 PM) Body Mass Index [18.5-24.99 kg/m2] 31.22 kg/m2 *>HHI* (05/06/24 3:11 PM) Blood Pressure [90-138/55-84 mm Hg] 137/62mm Hg (05/06/24 3:15 PM) 148/62mm Hg *H* (05/06/24 3:11 PM) Mode of Delivery (Oxygen) Room air (05/06/24 3:11 PM) Blood pressure sites Arm, right (05/06/24 3:15 PM) Arm, right (05/06/24 3:11 PM) Weight Obtained Via Standing scale (05/06/24 3:11 PM) Social History Social History Type Response Smoking Status Former smoker; Type: Cigarettes; Other: quit 2015; Tobacco use times per day: 0.5 PPD; Number of years: 28; Total pack years: 14; Started at age: 25; entered on: 07/03/16 Sex Note * Rose Huerta: PERFORM Event Display: Patient Education/Instruction Authored Date: [id number] Ambulatory Adult Visit Summary [facility] [address] [place] [address] Name: MILKA DE DIOS : 1955?? Visit: 05/06/2024 15:04?? Ambulatory Visit Instructions ?? Your Care Team Primary Care Provider Eduardo Escalera MD? This Visit Provider Eduardo Escalera MD Your Diagnosis Fatigue Diabetes Mellitus without Mention of Complication PD (Parkinson's disease) Hypercholesterolemia Aortic stenosis mild echo 2019 2021 Vitals Signs Pulse Rate: 70 bpm Height: 177.8 cm Systolic Blood Pressure: 137 mm Hg Weight: 98.7 kg Diastolic Blood Pressure: 62 mm Hg Body Mass Index:??31.22 kg/m2??Critical Oxygen Saturation: 99 % Body surface area: 2.21 What to do next Follow-Up Appointments Follow Up with??Eduardo Escalera MD Why: 6 months Where: [address] [place] [id number]- Future Orders PSA - Once, *Est. 08/29/24 +/- 28 days, Single or Recurring Future Order?? CBC w/ Differential - Routine, Once, *Est. 03/18/24, Future Order?? Comprehensive Metabolic Panel - Routine, Once, *Est. 03/18/24, Future Order?? Hemoglobin A1C (Monitoring) - Routine, Once, *Est. 03/18/24, Future Order?? Lipid Panel - Routine, Once, *Est. 03/18/24, Future Order?? CBC w/ Differential - Routine, Once, 05/06/24 15:36:00 EDT, Order for Today, [facility], Blood?? Comprehensive Metabolic Panel - Routine, Once, 05/06/24 15:36:00 EDT, Order for Today, [facility], Blood?? Hemoglobin A1C (Monitoring) - Routine, Once, 05/06/24 15:36:00 EDT, Order for Today, [facility], Blood?? TSH Rfx on Abnormal to Free T4 - Routine, Once, 05/06/24 15:36:00 EDT, Order for Today, [facility], Blood?? Ferritin - Routine, Once, 05/06/24 15:36:00 EDT, Order for Today, [facility], Blood?? Folate Level - Routine, Once, 05/06/24 15:36:00 EDT, Order for Today, [facility], Blood?? Iron + Iron Binding Capacity - Routine, Once, 05/06/24 15:36:00 EDT, Order for Today, [facility], Blood?? Vitamin B12 Level - Routine, Once, 05/06/24 15:36:00 EDT, Order for Today, [facility], Blood?? Methylmalonic Acid - Routine, Once, 05/06/24 15:37:00 EDT, Order for Today, [facility], Blood?? Medications The list below reflects the information in our records and provided by you today along with any changes made during this visit. Please continue your medications until treatment is completed or stopped by your provider. If this is different from the information you have or there are other questions,please contact the prescribing provider. What How Much When Why Instructions Unchanged Aspirin (aspirin 81 mg oral enteric coated tablet) See Instructions By Mouth Daily ?? Unchanged Atorvastatin (atorvastatin 80 mg oral tablet) 1 tab(s) Oral Daily Unchanged Atorvastatin (atorvastatin 80 mg oral tablet) See instructions TAKE ONE TABLET BY MOUTH EVERY DAY ?? Unchanged Carbidopa-Levodopa (Sinemet 25 mg-100 mg oral tablet) 2 tab(s) Oral 3 times a day Unchanged Clonazepam 0.25 Milligram Oral Daily at Bedtime Unchanged Durable Medical Equipment (Free Style VICKIE SENSORS) See instructions Free Style Vickie SENSORS-90 day supply change every 14 days DM 2 , E11.9 ?? Unchanged Durable Medical Equipment (Glucose Test Strips) See Instructions diabetes daily ?? Unchanged Durable Medical Equipment (Insulin Syringe, BD Ultra-Fine 1 cc 31 G x 8 mm (5/ 16in)) Seeinstructions dx: 250.00 for insulin use 3-4x/ day ?? Unchanged Durable Medical Equipment (Insulin Syringe, BD Ultra-Fine 1 cc 31 G x 8 mm (5/ 16in)) SeeInstructions USE TO GIVE INSULIN ?? Unchanged Durable Medical Equipment (One Touch Ultra Test Strips) See instructions diabetes test sugar three times daily as directed ?? Unchanged Durable Medical Equipment (One Touch Ultra Test Strips) See instructions Duration: 90 Days use to test BS 3-4 times a day for DX 250.00 ?? Unchanged Durable Medical Equipment (Pen [place], 31 G x 5 mm BD Ultra Fine III) See Instructions diabetes use with lantus solostar ?? Unchanged Durable Medical Equipment (V-GO 30) See instructions V-GO delivery 30 VGO pharmacy contact [phone] to be used daily with Novolog ?? Unchanged Insulin Lispro (Humalog 100 u/ ml subcutaneous injection) See instructions Type 2 diabetes mellitus use with VGO 30 up to 100 units a day vials LISPRO please dispense lispro generic ?? Unchanged Insulin Lispro (insulin lispro 100 u/ ml subcutaneous injection) See instructions USE WITH VGO 30 UP TO 100 UNITS A DAY ?? Unchanged Memantine (memantine 10 mg oral tablet) 1 tab(s) Oral Daily Memory deficit PD (Parkinson's disease) Unchanged Miscellaneous Rx (Free Style 14 day reader) See instructions DM2 E11.9 REPLACING 7 DAY READER ?? Unchanged Miscellaneous Rx (FREESTYLE VICKIE 14 MEDI-B Miscellaneous) See instructions CHANGE EVERY 14 DAYS ?? Unchanged Miscellaneous Rx (Freestyle Vickie 14 sensor) See instructions DM2 E11.9 3 months supply change every 14 days, 1 hour warm up ?? Unchanged Miscellaneous Rx (FREESTYLE VICKIE SENSOR MEDB Miscellaneous) See instructions CHANGE EVERY 14 DAYS, 1 HOUR WARM UP ?? Unchanged Miscellaneous Rx (FREESTYLE VICKIE SENSOR MEDB Miscellaneous) See instructions CHANGE EVERY 14 DAYS ?? Unchanged Miscellaneous Rx (Misc Rx) See instructions one pill once a day by mouth. REPLACES 30 DAY SUPPLY ?? Unchanged onabotulinumtoxinA (Botox) Unchanged Sertraline (Zoloft 100 mg oral tablet) 1 tab(s) Oral Daily Unchanged Sildenafil (sildenafil 100 mg oral tablet) 1 tab(s) Oral Daily Take 1 hour before sexual activity as instructed. ??Start with 1/ 2 tablet. ??Use not more than once daily ?? Test Performed Below is a partial list of the tests performed during your Visit. You may have had other tests and procedures not included in this list. Please discuss all test results with your provider. CBC w/ Differential?-- Results Pending -- Comprehensive Metabolic Panel?-- Results Pending -- Ferritin?-- Results Pending -- Folate Level?-- Results Pending -- Hemoglobin A1C (Monitoring)?-- Results Pending -- Iron + Iron Binding Capacity?-- Results Pending -- Methylmalonic Acid?-- Results Pending -- TSH Rfx on Abnormal to Free T4?-- Results Pending -- Vitamin B12 Level?-- Results Pending -- You will be contacted within 72 hours with your results. Medications and Immunizations Administered Medications Given During Visit No medications given during this visit.?? Allergies (NKA means No Known Allergies) Jardiance Common Emergency Awareness Tips IS IT A STROKE? Act FAST and Check for these signs: FACE Does the face look uneven? ARM Does one arm drift down? SPEECH Does their speech sound strange? TIME Call at any sign of stroke ?? Heart Attack Signs Chest discomfort: Most heart attacks involve discomfort in the center of the chest and lasts more than a few minutes, or goes away and comes back. It can feel like uncomfortable pressure, squeezing, fullness or pain. Discomfort in upper body: Symptoms can include pain or discomfort in one or both arms, back, neck, jaw or stomach. Shortness of breath: With or without discomfort. Other signs: Breaking out in a cold sweat, nausea, or lightheaded. Remember, MINUTES DO MATTER. If you experience any of these heart attack warning signs, call to get immediate medical attention! ?? Smoking can increase your chances of developing chronic health problems and can cause harmful effects to other family members in your house. If you smoke, you are strongly encouraged to quit. Please call [facility] at [phone] or [phone] ([phone]) or log in to [email or web address] for referrals to smoking cessation programs. ?? The National Suicide Prevention Hotline is available 24/06 if you or someone you know needs to find a reason to keep living. By calling 5-209-958-dneg (7945) you'll be connected to a skilled, trained counselor at a crisis center in your area. [facility] Portal You can view and manage your care through the patient portal or by using a health care alida of your choosing. [email or web address] is a website that allows you to securely view your medical information including your hospital discharge summary, office visit summaries, medications and follow-up visits. You can also request appointments, renew medications, and request access to your medical information using a health care alida of your choosing, or just ask a question. You can enroll at [email or web address] or register during your next office visit. [facility], in keeping with [facility] guidance, no longer requires face masks for staff, patientsor visitors in most situations. Similiar to time spent indoors at other locations, there is the chance that you were exposed to repiratory viruses during your time with us (such as flu or COVID-19). If you develop symptoms concerning for a viral respiratory infection, please seek testing (and treatment if indicated) from your medical provider or home test kit. ?? Disclaimer: The information provided is of a general nature and is intended to be used in conjunction with the recommendations and advice of your health care practitioner. Every effort has been made to ensure that the information provided is accurate and complete at the time it is provided to you however, as your needs change, or, as new information becomes available, different or additional instructions may be required. ?? If you have questions, please consult with your primary care provider or pharmacist, as appropriate. This information is not intended to serve as substitution for assessment and evaluation by a qualified health care provider. If you do not have a primary care provider, you may find a [facility] provider by calling [facility] at [phone]. Patient Care team information Care Team Personnel Name: Elin Franz NP Position: [facility] PCO Associate Professional Member Role: [employer] Provider Address: Address: [address] [place] [id number]- [place] Name: Eduardo Escalera MD Position: [facility] Physician - Primary Care Member Role: PCP Address: Address: [address] [place] [address]- Care Team Related Persons Name: BEBETO WIN Address: home [address] [place] [address]
--- OUTSIDE RECORDS SUMMARY | 2024-07-27 22:08 | XMS_ITS | Continuity of Care Document ---
Author Organization [facility] Carmelo Green Tk lt Address [address] [place] [address]- Care Team Providers Care Beer Cooler Name Role Phone Francesco Dobbins MD Primary Care Physician [phone] [facility] [facility] [place]13[place]21 - 03/20/21 [facility] Carmelo Green Adult [address] [place] [address]- Encounter Diagnosis Welcome to Medicare preventive visit(Discharge Diagnosis) - 03/12/21 Diabetes Mellitus without Mention of Complication(Discharge Diagnosis) - 03/12/21 Hypercholesterolemia(Discharge Diagnosis) - 03/12/21 PD (Parkinson's disease)(Discharge Diagnosis) - 03/12/21 Aortic stenosis mild(Discharge Diagnosis) - 03/12/21 Aortic insufficiency trace(Discharge Diagnosis) - 03/12/21 Diverticulosis(Discharge Diagnosis) - 03/12/21 Attending Physician: Francesco Dobbins MD Allergies, Adverse Reactions, Alerts Substance Reaction Severity Status Jardiance Active Immunizations Given and Recorded Vaccine Date Status Refusal Reason SARS-CoV-2 (COVID-19) mRNA-1273 vaccine 03/14/21 R ecorded SARS-CoV-2 (COVID-19) mRNA-1273 vaccine 02/12/21 R ecorded influenza virus vaccine, inactivated 09/01/20 Give n influenza virus vaccine, inactivated 1 10/26/13 Gi janelle tetanus/diphtheria/pertussis, acel(Tdap) 04/22/13 Given Influenza Inactive (IM) (oldterm) 10/27/09 Given Influenza Inactive (IM) (oldterm) 2 10/10/08 Given Pneumococcal Vaccine (oldterm) 1/9/09 Given tetanus-diphtheria toxoids (Td) 08/04/07 Given 1Admin Note: pt declines 2Admin Note: rcvd elsewhere Medications aspirin 81 mg oral enteric coated tablet See Instructions, 0, 0, 01/14/06 17:25:16, By Mouth Daily, Print LISSET Number, Constant Indicator Start Date: 01/14/06 Status: Ordered atorvastatin 80 mg oral tablet 1 tablet, By Mouth, Daily, # 90 tablet, 1 Refills, Maintenance, 01/11/21 10:48:00 EST, [facility], 176, cm, 09/01/20 11:23:00 EDT, Height Start Date: 01/11/21 Status: Ordered Botox 0 Refills, Maintenance, 04/21/18 [...] every 14 days, 1 hour warm up, 04/13/20 15:37:00 EDT, 3 month supply,Compound, 176, cm, 02/17/20 15:52:00 EDT, Height Start Date: 04/13/20 Status: Ordered Glucose Test Strips See Instructions, 50, 5, 5, 01/14/06 17:13:54, daily, diabetes, ADS [facility], [address] [place] [address] Start Date: 01/14/06 Status: Ordered insulin lispro 100 u/ml subcutaneous injection See Instructions, generic insulin lispro ONLY use with V-go up to 100 units per day, # 60 mL, 11 Refills, Maintenance, 10/10/20 12:29:00 EST, [facility], generic insulin lispro ONLY;replacing brand name humalog, 176, cm, 09/01/20 11... Start Date: 10/10/20 Status: Ordered Insulin Syringe, BD Ultra-Fine 1 [...] 6, USE TO GIVE INSULIN, 11/23/09 13:35:21, Carmelo Singer [address] Start Date: 11/23/09 Status: Ordered memantine 10 mg oral tablet 1 tablet = 10 mg, By Mouth, Daily, # 30 tablet, 0 Refills, Maintenance, 03/13/21 13:52:00 EDT, Tablet, Partial fill upon patient request if the prescription is for a schedule II opioid drug. Start Date: 03/13/21 Status: Or[place] [facility] [place]ardiance 10mg, See Instructions, # 90 [...] Refills, Maintenance, 01/07/20 14:50:00 EST, Tablet, [facility] #[id number], 176... Start Date: 01/07/20 Status: Ordered One Touch Ultra Test Strips See Instructions, # 3 box, Refills 3, Tot. Refills 3, Maintenance, test sugar three times daily as directed, diabetes, 05/27/14 14:37:44 Start Date: 05/27/14 Stop Date: 05/27/15 Status: Ordered One Touch Ultra Test Strips See Instructions, # 300 strip(s), Maintenance, use to test BS 3-4 times a day for DX 250.00, 12/15/17 9:11:42, Compound Start Date: 11/15/17 Stop Date: 02/13/18 Status: Ordered Pen [place], 31 G x 5 mm BD Ultra Fine III See Instructions, # 30 pack/packet, Refills 11, Tot. Refills 11, use with lantus solostar, diabetes, 07/13/09 15:43:10, [facility] [address] Start Date: 07/13/09 Status: Ordered Sinemet 25 mg-100 mg oral [...] V- GO delivery 40 VGO pharmacy contact [phone] to be used daily with humalog dx:e11.9, 04/13/20 15:36:00 EDT, 3 months supply VGO 40, Compound, 176, cm, 02/17/20... Start Date: 04/13/20 Status: Ordered Problem List Condition Effective Dates Status Health Status Inform ant Aortic insufficiency trace(C onfirmed) 1 08/08/17 Active Aortic stenosis mild(Confirmed) 02/08/20 Active Diabetes Mellitus without Me ntion of Complication(Confirmed) 2 01/14/06 Active Diverticulosis(Confirmed) Active History of herpes zoster c& RT(Confirmed) 08/10/19 Active Hypercholesterolemia(Confirmed) Active Ineffective self health management(Confirmed) 3 Active Neck pain(Confirmed) Active PD (Parkinson's disease)(Con firmed) 4, 5 Active Peripheral edema(Confirmed) Active Joint synovitis rt wrist(Confirmed) Active 1refer echocardiogram 2DR Karosconyi Endocrinology managing 3refer gain;colonoscopy aware Cancer screening 4MRI brain and JAYJAY scan pending 5diagnosed by neurology 09/2016. started on azilect Diagnosis Diagnosis Type Effective Dates Health Status Clinical Service Informant Welcome to Medicare preventive visit Discharge Diagnosis 03/12/21 Diabetes Mellitus without Mention of Complication Discharge Diagnosis 03/12/21 Hypercholesterolemia Discharge Diagnosis 03/12/21 PD (Parkinson's disease) Discharge Diagnosis 03/12/21 Aortic stenosis mild Discharge Diagnosis 03/12/21 Aortic insufficiency trace Discharge Diagnosis 03/12/21 Diverticulosis Discharge Diagnosis 03/12/21 Vital Signs Most recent to oldest [Reference Range]: 1 2 3 Height 176.00 cm (03/13/21 2:22 PM) 176.00 cm (03/13/21 1:55 PM) 176.00 cm (03/13/21 1:49 PM) Weight 104.7 kg (03/13/21 1:49 PM) Oxygen Saturation [94-100 %] 98 % (03/13/21 1:49 PM) Pulse Rate [55-90 bpm] 82 bpm (03/13/21 1:49 PM) Body Mass Index [18.5-24.99] 33.8 *>HHI* (03/13/21 1:49 PM) Blood Pressure [90-138/55-84 mm Hg] 120/58mm Hg (03/13/21 2:22 PM) 154/76mm Hg *H* (03/13/21 1:55 PM) 158/60mm Hg *H* (03/13/21 1:49 PM) Respiratory Rate [16-30 br/min] 16 br/min (03/13/21 1:49 PM) Blood pressure sites Arm, left (03/13/21 2:22 PM) Arm, left (03/13/21 1:55 PM) Arm, left (03/13/21 1:49 PM) Social History Social History Type Response Smoking Status Former smoker; Type: Cigarettes; Other: quit 2015; Tobacco use times per day: 0.5 PPD; Number of years: 28; Total pack years: 14; Started at age: 25; entered on: 07/03/16 Sex
--- OUTSIDE RECORDS SUMMARY | 2024-07-27 22:08 | XMS_ITS | Continuity of Care Document ---
Author Organization [facility] Address [address] [place] [address]- Care Team Providers Care Lay Out Technician Name Role Phone Lali BARBER, Eduardo Clayton Primary Care Physician [phone] [place] [facility](s): 12/04/22 - 01/03/23 [facility] [address] [place] [address]- [place] Allergies, Adverse Reactions, Alerts Substance Reaction Severity Status Jardiance Active Immunizations Given and Recorded Vaccine Date Status Refusal Reason influenza virus vaccine, inactivated 1 09/07/22 Gi janelle influenza virus vaccine, inactivated 09/26/21 Give n influenza virus vaccine, inactivated 09/01/20 Give n influenza virus vaccine, inactivated 2 10/26/13 Gi janelle SARS-CoV-2 (COVID-19) mRNA-1273 vaccine 04/10/22 R ecorded SARS-CoV-2 (COVID-19) mRNA-1273 vaccine 10/31/21 R ecorded SARS-CoV-2 (COVID-19) mRNA-1273 vaccine 03/14/21 R ecorded SARS-CoV-2 (COVID-19) mRNA-1273 vaccine 02/12/21 R ecorded pneumococcal 13-valent vaccine 09/26/21 Given tetanus/diphtheria/pertussis, acel(Tdap) 04/22/13 Given Influenza Inactive (IM) (oldterm) 10/27/09 Given Influenza Inactive (IM) (oldterm) 3 10/10/08 Given Pneumococcal Vaccine (oldterm) 12/10/08 Given tetanus-diphtheria toxoids (Td) 08/04/07 Given 1Result Comment: [facility] [id number] 2Admin Note: pt declines 3Admin Note: rcvd elsewhere Medications aspirin 81 mg oral enteric coated tablet See Instructions, 0, 0, 01/14/06 17:25:16, By Mouth Daily, Print LISSET Number, Constant Indicator Start Date: 01/14/06 Status: Ordered atorvastatin 80 mg oral tablet 1 tablet, By Mouth, Daily, # 90 tablet, 1 Refills, Maintenance, 12/14/22 13:31:00 EST, [id number], 177.8, cm, 11/30/22 8:00:00 EST, Height Start Date: 12/14/22 Status: Ordered Botox 0 Refills, Maintenance, 04/21/18 [...] SENSORS, See Instructions, # 6 each, Refills 11, Tot. Refills 11, Maintenance, Free Style Vickie SENSORS-90 day supply change every 14 days DM 2 , E11.9, 05/15/22 10:31:00 EDT, emailed the O also, Supply, 176, cm, 04/04/22 11:11:00... Start Date: 05/15/22 Status: Ordered Freestyle Vickie 14 sensor Freestyle [...] 5, 5, 01/14/06 17:13:54, daily, diabetes, ADS [facility], [address] [place] [address] Start Date: 01/14/06 Status: Ordered Humalog 100 u/ml subcutaneous injection See Instructions, use with VGO 30 up to 100 units a day vials LISPRO please dispense lispro generic, # 90 mL, 11 Refills, Maintenance, 03/07/22 13:34:00 EDT, [facility] #[id number], Partial fillupon patient request if the prescription is for a... Start Date: 03/07/22 Status: Ordered Insulin Syringe, BD Ultra-Fine 1 [...] USE TO GIVE INSULIN, 11/23/09 13:35:21, [place] , [facility] Start Date: 11/23/09 Status: Ordered memantine 10 mg oral tablet 1 tablet = 10 mg, By Mouth, Daily, # 30 tablet, 0 Refills, Maintenance, 03/13/21 13:52:00 EDT, Tablet, Partial fill upon patient request if the prescription is for a schedule II opioid drug. Start Date: 03/13/21 Status: Ordered Misc Rx Jardiance 10mg, See [...] 11/15/17 Stop Date: 02/13/18 Status: Ordered Pen [place], 31 G x 5 mm BD Ultra Fine III See Instructions, # 30 pack/packet, Refills 11, Tot. Refills 11, use with lantus mahajan, diabetes, 07/13/09 15:43:10, Herb and Ike Girard [facility] Start Date: 07/13/09 Status: Ordered sildenafil 100 mg oral tablet 1 tablet = 100 mg, By Mouth, Daily, Take 1 hour before sexual activity as instructed. Start with 1/2 tablet. Use not more than once daily, # 30 tablet, 3 Refills, Maintenance, 08/29/22 14:04:00 EDT, Tablet, [facility] # [id number], Partial fill upon p... Start Date: 08/29/22 Status: Ordered Sinemet 25 mg-100 mg oral tablet 2 tablet, By Mouth, 3 times a day, # 90 tablet, 0 Refills, Maintenance, 08/19/17 7:00:26, Tablet Start Date: 08/19/17 Status: Ordered V-GO 30 V-GO 30, See Instructions, # 90 each, Refills 6, Tot. Refills 6, Maintenance, V- GO delivery 30 O pharmacy contact [phone] to be used daily with Novolog, 10/04/22 15:30:00 EDT, he is switching to VGO 30, Compound, 176, cm, 09/07/22 7:30:00 EDT... Start Date: 10/04/22 Status: Ordered Problem List Condition Confirmation Course Effective Dates Status Health Status Informant Aortic insufficiency trace 1 Confirmed 08/08/17 Active Aortic stenosis mild echo 2019 2021 Confirmed 02/08/20 Active Diabetes Mellitus without Mention of Complication 2 Confirmed 01/14/06 Active Diverticulosis Confirmed Active Erectile dysfunction/urology Confirmed Active History of herpes zoster c& RT Confirmed 08/10/19 Active Hypercholesterolemia Confirmed Active Insulin long-term use Confirmed Active PD (Parkinson's disease) 3, 4 [...] Team Personnel Name: Elin Franz NP Position: [facility] PCO Associate Professional Member Role: Lifetime Consulting Provider Address: Address: [address] [place] [address]- Name: Eduardo Escalera MD Position: [facility] Primary Care Physician Member Role: PCP Address: Address: [address] [place] [address]- Care Team Related Persons Name: BEBETO WIN Address: home [address] [place] [id number]
--- OUTSIDE RECORDS SUMMARY | 2024-07-27 22:08 | XMS_ITS | Continuity of Care Document ---
Author Organization [facility] Peter Tk Address [address] [place] [address]- Care Team Providers Care Headhunter Name Role Phone Lali BARBER, Eduardo Clayton Primary Care Physician [phone] [place] [facility] [place](s): 04/21/24 - 05/21/24 [facility] Adult [address] [place] [address]- Allergies, Adverse Reactions, Alerts Substance Reaction Severity Status Jardiance Active Immunizations Given and Recorded Vaccine Date Status Refusal Reason influenza virus vaccine, inactivated 09/11/23 Bernabe rded influenza virus vaccine, inactivated 1 09/07/22 Gi janelle influenza virus vaccine, inactivated 09/26/21 Give n influenza virus vaccine, inactivated 09/01/20 Give n influenza virus vaccine, inactivated 2 10/26/13 Gi janelle SARS-CoV-2(COVID-19)mRNA-LNP vac([id number]) 09/11/23 Recorded [id number] bivalent booster vax 08/23/22 Recorded SARS-CoV-2 (COVID-19) [...] tetanus-diphtheria toxoids (Td) 08/04/07 Given 1Result Comment: [facility] [id number] 2Admin Note: pt declines 3Admin Note: rcvd elsewhere Medications aspirin 81 mg oral enteric coated tablet See Instructions, 0, 0, 01/14/06 17:25:16, By Mouth Daily, Print LISSET Number, Constant Indicator Start Date: 01/14/06 Status: Ordered atorvastatin 80 mg oral tablet See Instructions, TAKE ONE TABLET BY MOUTH EVERY DAY, # 90 tablet, 3 Refills, Maintenance, 244:14:00 EST, [id number], 177.8, cm, 10/16/23 15:08:00 EST, Height Start Date: 02/08/24 Status: Ordered atorvastatin 80 mg oral tablet 1 tablet, By Mouth, Daily, # 90 tablet, 1 Refills, Maintenance, 07/24/23 20:26:00 EDT, [facility], 177.8, cm, 04/12/23 6:48:00 EDT, [...] , E11.9, 04/17/23 11:12:00 EDT, emailed the O also, Supply, 177.8, cm, 04/12/23 6:48:00... Start Date: 04/17/23 Status: Ordered FREESTYLE VICKEI 14 MEDI-B Miscellaneous FREESTYLE VICKIE 14 MEDI-B [...] 5, 5, 01/14/06 17:13:54, daily, diabetes, [facility] [address] [place] [address] Start Date: 01/14/06 Status: Ordered Humalog 100 u/ml subcutaneous injection See Instructions, use with VGO 30 up to 100 units a day vials LISPRO please dispense lispro generic, # 90 mL, 11 Refills, Maintenance, 08/01/23 7:46:00 EDT, [facility][id number], Partial fill upon patient request if the prescription is for a... Start Date: 08/01/23 Status: Ordered insulin lispro 100 u/ml subcutaneous injection See Instructions, USE WITH VGO 30 UP TO 100 UNITS A DAY, # 90 mL, 0 Refills, Maintenance, 08/02/23 5:04:00 EDT, [id number], 177.8, cm, 04/12/23 6:48:00 EDT, Height Start [...] TO GIVE INSULIN, 11/23/09 13:35:21, Carmelo Singer [facility] Start Date: 11/23/09 Status: Ordered memantine 10 mg oral tablet 1 tablet = 10 mg, By Mouth, Daily, # 90 tablet, 3 Refills, Maintenance, 04/12/23 7:26:00 EDT, Tablet, [facility], Partial fill upon patient [...] 11/15/17 Stop Date: 02/13/18 Status: Ordered Pen [place], 31 G x 5 mm BD Ultra Fine III See Instructions, # 30 pack/packet, Refills 11, Tot. Refills 11, use with lantus solostar, diabetes, 07/13/09 15:43:10, [facility] Ike [facility] Start Date: 07/13/09 Status: Ordered sildenafil 100 mg oral tablet 1 tablet = 100 mg, By Mouth, Daily, Take 1 hour before sexual activity as instructed. Start with 1/2 tablet. Use not more than once daily, # 30 tablet, 3 Refills, Maintenance, 11/01/23 8:05:00 EST, Tablet, [facility] # [id number], Partial fill upon pa... Start Date: 11/01/23 Status: Ordered Sinemet 25 mg-100 mg oral tablet 2 tablet, By Mouth, 3 times a day, # 90 tablet, 0 Refills, Maintenance, 08/19/17 7:00:26, Tablet Start Date: 08/19/17 Status: Ordered V-GO 30 V-GO 30, See Instructions, # 90 each, Refills 6, Tot. Refills 6, Maintenance, V- GO delivery 30 O pharmacy contact [phone] to be used daily with Novolog, 10/04/22 [...] Care team information Care Team Personnel Name: Osei CHURCHILL, Elin Lang Position: [facility] PCO Associate Professional Member Role: Lifetime Consulting Provider Address: Address: [address] [place] [address]- Name: Eduardo Escalera MD Position: [facility] Physician - Primary Care Member Role: PCP Address: Address: [address] [place] [address]- Care Team Related Persons Name: BEBETO WIN Address: home [address] [place] [address]
--- OUTSIDE RECORDS SUMMARY | 2024-07-27 22:08 | XMS_ITS | Continuity of Care Document ---
Author Organization [facility] Peter Tk Address [address] [place] [address]- Care Team Providers Care Sample Collector Name Role Phone Mu BARBER, Francesco Llanes Primary Care Physician [phone] [place] [facility] [place](s): 03/30/20 - 04/29/20 [facility] Adult [address] [place] [address]- [facility] Attending Physician: Admtr, Ar8 Admitting Physician: Admtr, Ar8 Referring Physician: Admtr, Ar8 Allergies, Adverse Reactions, Alerts Substance Reaction Severity [...] Daily, # 90 tablet, 1 Refills, Maintenance, 03/10/20 11:48:00 EDT, [id number], 176, cm, 02/17/20 15:52:00 EDT, Height Start Date: 03/10/20 Status: Ordered Botox 0 Refills, Maintenance, 04/21/18 [...] 5, 5, 01/14/06 17:13:54, daily, diabetes, [facility] [address] [place] [address] Start Date: 01/14/06 Status: Ordered Humalog 100 u/ml subcutaneous injection See Instructions, MAX DOSE 100 to be used daily with VGO 30 DX: E11.9, # 15 mL, 11 Refills, Maintenance, 04/14/20 10:59:00 EDT, [facility], 176, cm, 02/17/20 15:52:00 EDT, Height Start Date: 04/14/20 Status: Ordered Insulin Syringe, BD Ultra-Fine 1 [...] TO GIVE INSULIN, 11/23/09 13:35:21, Bethel Cummings, Carmelo Green, Natanael Spann Start Date: 11/23/09 Status: Ordered [facility] [place] Jardiance 10mg, See Instructions, # 90 [...] 0 Refills, Maintenance, 01/07/20 14:50:00 EST, Tablet, [facility] #[id number], 176... Start Date: 01/07/20 Status: Ordered [...] 05/27/14 Stop Date: 05/27/15 Status: Ordered Pen [place], 31 G x 5 mm BD Ultra Fine III See Instructions, # 30 pack/packet, Refills 11, Tot. Refills 11, use with lantus solostar, diabetes, 07/13/09 15:43:10, [facility] Ike [facility] Start Date: 07/13/09 Status: Ordered Sinemet 25 [...] V- GO delivery 40 VGO pharmacy contact [phone] to be used daily with humalog dx:e11.9, 04/13/20 15:36:00 EDT, 3 months supply VGO 40, Compound, 176, cm, 02/17/20... Start Date: 04/13/20 Status: Ordered Problem List Condition Effective Dates Status Health Status Inform ant Aortic insufficiency trace(C onfirmed) 1 08/08/17 Active Aortic stenosis mild(Confirmed) 02/08/20 Active Chest pain(Confirmed) Active Diabetes Mellitus without [...] 5diagnosed by neurology 09/2016. started on azilect Procedures Procedure Date Related Diagnosis Body Site Status Reference (Outside) Laboratory 1, 2 05/14/11 Completed Reference (Outside) Laboratory 3 07/18/10 Completed Reference (Outside) Laboratory 4, 5 03/14/10 Completed labs 6 11/15/09 Completed labs 7 09/15/09 Completed 1fbs 113 ldl 109 tg 66 hdl 61 ualb neg no lfts done 2a1c 7.3 3a1c 7.2 4lfts normal,,neg Ualb, tc 167, TG 85, LDL 98, HDL 52 5a1c 7.0 6A1C 7.0.psa 0.9 7A1c 7.3 Ualb neg,creat 0.9, ldl 104,hdl 58.TG 77.lfts normal, Social History Social History Type Response Smoking Status Former smoker; Type: Cigarettes; Other: quit 2015; Tobacco use times per day: 0.5 PPD; Number of years: 28; Total pack years: 14; Started at age: 25; entered on: 07/03/16 Sex
--- OUTSIDE RECORDS SUMMARY | 2024-07-27 22:08 | XMS_ITS | Continuity of Care Document ---
Author Organization [facility] Carmelo Freeman Tk Address [address] [place] [address]- Care Team Providers Care Investigative Research Specialist Name Role Phone Lali BARBER, Eduardo Clayton Primary Care Physician Encounter [facility] Date(s): 10/02/22 - 11/01/22 [facility] Adult [address] [place] [address]- Allergies, Adverse Reactions, Alerts Substance Reaction Severity [...] tetanus-diphtheria toxoids (Td) 08/04/07 Given 1Result Comment: [facility] [id number] 2Admin Note: pt declines 3Admin Note: rcvd elsewhere Medications aspirin 81 mg oral enteric coated tablet See Instructions, 0, 0, 01/14/06 17:25:16, By Mouth Daily, Print LISSET Number, Constant Indicator Start Date: 01/14/06 Status: Ordered atorvastatin 80 mg oral tablet 1 tablet, By Mouth, Daily, # 90 tablet, 1 Refills, Maintenance, 05/23/22 12:26:00 EDT, [facility] #[id number], 176, cm, 04/04/22 11:11:00 EDT, Height Start Date: 05/23/22 Status: Ordered Botox 0 Refills, Maintenance, 04/21/18 [...] 11, Tot. Refills 11, Maintenance, Free Style Vcikie SENSORS-90 day supply change every 14 days DM 2 , E11.9, 05/15/22 10:31:00 EDT, emailed the [facility] also, Supply, 176, cm, 04/04/22 11:11:00... Start [...] 5, 5, 01/14/06 17:13:54, daily, diabetes, [facility], [address] [place] [address] Start Date: 01/14/06 Status: Ordered Humalog 100 u/ml subcutaneous injection See Instructions, use with VGO 30 up to 100 units a day vials LISPRO please dispense lispro generic, # 90 mL, 11 Refills, Maintenance, 03/07/22 13:34:00 EDT, [id number], Partial fillupon patient request if the prescription [...] GIVE INSULIN, 11/23/09 13:35:21, Carmelo [facility] Start Date: 11/23/09 Status: Ordered memantine 10 [...] 15:44:28, Compound Start Date: 08/22/15 Status: Ordered NuLYTELY with Flavor Packs oral powder for reconstitution See Instructions, Drink 240mL every 15-20 minutes until first half is gone. Repeat 6 hours prior toprocedure., # 4,000 mL, 0 Refills, Maintenance, 06/26/22 11:46:00 EDT, [facility] #[id number],Partial fill upon patient request if the prescript... Start Date: 06/26/22 Status: Ordered One Touch Ultra Test Strips [...] 11/15/17 Stop Date: 02/13/18 Status: Ordered Pen [place], 31 G x 5 mm BD Ultra Fine III See Instructions, # 30 pack/packet, Refills 11, Tot. Refills 11, use with lantus solostar, diabetes, 07/13/09 15:43:10, Herb and Ike [facility]ard [facility] Start Date: 07/13/09 Status: Ordered sildenafil 100 mg oral tablet 1 tablet = 100 mg, By Mouth, Daily, Take 1 hour before sexual activity as instructed. Start with 1/2 tablet. Use not more than once daily, # 30 tablet, 3 Refills, Maintenance, 08/29/22 14:04:00 EDT, Tablet, [facility] # [id number], Partial fill upon p... [...] DAY Start Date: 06/15/19 Status: Ordered V-GO 30 V-GO 30, See Instructions, # 90 each, Refills 6, Tot. Refills 6, Maintenance, V- GO delivery 30 VGO pharmacy contact [phone] to be used daily with Novolog, 10/04/22 [...] Team Personnel Name: Elin Franz NP Position: [facility] PCO Associate Professional Member Role: Lifetime Consulting Provider Address: Address: [address] [place] [address]- Name: Eduardo Escalera MD Position: [facility] Primary Care Physician Member Role: PCP Address: Address: [address] [place] [address]- Care Team Related Persons Name: BEBETO WIN Address: [address] [place] [address]
--- OUTSIDE RECORDS SUMMARY | 2024-07-27 22:08 | XMS_ITS | Continuity of Care Document ---
Author Organization [facility] Tk Address [address] [place] [address]- Care Team Providers Care Transit Vehicle Inspector Name Role Phone Mu BARBER, Francesco Llanes Primary Care Physician [phone] Encounter [facility] Date(s): 05/11/22 - 06/10/22 [facility] Adult [address] [place] [address]- Allergies, Adverse Reactions, Alerts Substance Reaction Severity Status Jardiance Active Immunizations Given and Recorded Vaccine Date Status Refusal Reason SARS-CoV-2 (COVID-19) mRNA-1273 vaccine 10/31/21 R ecorded SARS-CoV-2 (COVID-19) mRNA-1273 vaccine 03/14/21 R ecorded SARS-CoV-2 (COVID-19) mRNA-1273 vaccine 02/12/21 R ecorded pneumococcal 13-valent vaccine 09/26/21 Given influenza virus vaccine, inactivated 09/26/21 Give n [...] enteric coated tablet See Instructions, 0, 0, 02/13/06 17:25:16, By Mouth Daily, Print LISSET Number, Constant Indicator Start Date: 01/14/06 Status: Ordered atorvastatin 80 mg oral tablet 1 tablet, By Mouth, Daily, # 90 tablet, 1 Refills, Maintenance, 05/23/22 12:26:00 EDT, [facility] #[id number], 176, cm, 04/04/22 11:11:00 EDT, Height Start [...] , E11.9, 05/15/22 10:31:00 EDT, emailed the [facility] also, Supply, 176, cm, 04/04/22 11:11:00... [...] 5, 5, 01/14/06 17:13:54, daily, diabetes, ADS OPPTHS, [address] [place] [address] Start Date: 01/14/06 Status: Ordered Humalog 100 u/ml subcutaneous injection See Instructions, use with VGO 30 up to 100 units a day vials LISPRO please dispense lispro generic, # 90 mL, 11 Refills, Maintenance, 03/07/22 13:34:00 EDT, [facility] #[id number], Partial fillupon patient request if the prescription [...] TO GIVE INSULIN, 11/23/09 13:35:21, [place] , [facility] Start Date: 11/23/09 Status: Ordered memantine [...] 11/15/17 Stop Date: 02/13/18 Status: Ordered Pen [place], 31 G x 5 mm BD Ultra Fine III See Instructions, # 30 pack/packet, Refills 11, Tot. Refills 11, use with lantus solostar, diabetes, 07/13/09 15:43:10, [facility] Start Date: 07/13/09 Status: Ordered sildenafil 100 mg oral tablet 1 tablet = 100 mg, By Mouth, Daily, Take 1 hour before sexual activity as instructed. Start with 1/2 tablet. Use not more than once daily, # 10 tablet, 3 Refills, Maintenance, 05/02/21 15:56:00 EDT, Tablet, [facility], Partial fill... Start Date: 05/02/21 Status: Ordered Sinemet 25 mg-100 mg oral [...] Refills 6, Maintenance, V- GO delivery 30 [facility] pharmacy contact [phone] to be used daily with Novolog, 07/18/21 11:17:00 EDT, he is switching to VGO 30, Compound, 176, cm, 05/02/21 10:38:00 ED... Start Date: 07/18/21 Status: Ordered Problem List Condition Effective Dates Status Health Status Inform ant Aortic insufficiency trace(C onfirmed) 1 08/08/17 Active Aortic stenosis mild echo 2020(Confirmed) 02/08/20 Active Diabetes Mellitus without Me ntion of Complication(Confirmed) 2 01/14/06 Active Diverticulosis(Confirmed) Active Erectile dysfunction/urology(Confirmed) Active History of herpes zoster c& RT(Confirmed) 08/10/19 Active Hypercholesterolemia(Confirmed) Active Insulin long-term use(Confirmed) Active PD (Parkinson's disease)(Con firmed) 3, 4 Active 1refer echocardiogram 2DR Karosconyi Endocrinology managing [...]
--- OUTSIDE RECORDS SUMMARY | 2024-07-27 22:08 | XMS_ITS | Continuity of Care Document ---
Author Organization [facility] Carmelo Green Tk lt Address [address] [place] [address]- Care Team Providers Care Car Rental Clerk Name Role Phone Lali BARBER, Eduardo Clayton Primary Care Physician Encounter [facility] Date(s): 09/07/22 - 09/14/22 [facility] Carmelo Adameley Adult [address] [place] [address]- Encounter Diagnosis Diabetes Mellitus without Mention of Complication(Discharge Diagnosis) - 09/05/22 Hypercholesterolemia(Discharge Diagnosis) - 09/05/22 Insulin long-term use(Discharge Diagnosis) - 09/05/22 Aortic stenosis mild echo 2019 2021(Discharge Diagnosis) - 09/05/22 Attending Physician: Francesco Dobbins MD Allergies, Adverse [...] tetanus-diphtheria toxoids (Td) 08/04/07 Given 1Result Comment: [facility] [id number] 2Admin Note: pt declines 3Admin Note: rcvd elsewhere Medications aspirin 81 mg oral enteric coated tablet See Instructions, 0, 0, 01/14/06 17:25:16, By Mouth Daily, Print LISSET Number, Constant Indicator Start Date: 01/14/06 Status: Ordered atorvastatin 80 mg oral tablet 1 tablet, By Mouth, Daily, # 90 tablet, 1 Refills, Maintenance, 05/23/22 12:26:00 EDT, [facility] #[id number], 176, cm, 04/04/22 11:11:00 EDT, Height Start [...] , E11.9, 05/15/22 10:31:00 EDT, emailed the [facility] also, Supply, 176, cm, 04/04/22 11:11:00... Start [...] 5, 01/14/06 17:13:54, daily, diabetes, ADS OPPTHS, [address] [place] [address] Start Date: 01/14/06 Status: Ordered Humalog 100 u/ml subcutaneous injection See Instructions, use with VGO 30 up to 100 units a day vials LISPRO please dispense lispro generic, # 90 mL, 11 Refills, Maintenance, 03/07/22 13:34:00 EDT, [facility] #[id number], Partial fillupon patient request if the prescription [...] USE TO GIVE INSULIN, 11/23/09 13:35:21, [place] [facility] [address] Start Date: 11/23/09 Status: Ordered memantine 10 mg oral tablet 1 tablet = 10 mg, By Mouth, Daily, # 30 tablet, 0 Refills, Maintenance, 03/13/21 13:52:00 EDT, Tablet, Partial fill upon patient request if the prescription is for a schedule II opioid drug. Start Date: 03/13/21 Status: Ordered [facility] Rx Jardiance 10mg, See Instructions, # 90 [...] mL, 0 Refills, Maintenance, 06/26/22 11:46:00 EDT, [facility] #[id number],Partial fill upon patient request if the prescript... [...] 11/15/17 Stop Date: 02/13/18 Status: Ordered Pen [place], 31 G x 5 mm BD Ultra [...] 3 Refills, Maintenance, 08/29/22 14:04:00 EDT, Tablet, [facility] # [id number], Partial fill upon p... [...] V- GO delivery 30 VGO pharmacy contact [phone] to be used daily with Novolog, 07/18/21 11:17:00 EDT, he is switching to VGO 30, Compound, 176, cm, 05/02/21 10:38:00 ED... Start Date: 07/18/21 Status: Ordered Problem List Condition Confirmation Course [...] Effective Dates Health Status Clinical Service Informant Diabetes Mellitus without Mention of Complication Discharge Diagnosis 09/05/22 Hypercholesterolemia Discharge Diagnosis 09/05/22 Insulin long-term use Discharge Diagnosis 09/05/22 Aortic stenosis mild echo 2019 2021 Discharge Diagnosis 09/05/22 Vital Signs Most recent to oldest [Reference Range]: 1 Height 176 cm (09/07/22 7:30 AM) Weight 96.3 kg (09/07/22 7:30 AM) Oxygen Saturation [94-100 %] 97 % (09/07/22 7:30 AM) Pulse Rate [55-90 bpm] 68 bpm (09/07/22 7:30 AM) Body Mass Index [18.5-24.99 kg/m2] 31.09 kg/m2 *>HHI* (09/07/22 7:30 AM) Blood Pressure [90-138/55-84 mm Hg] 120/ 78mm Hg (09/07/22 7:30 AM) Mode of Delivery (Oxygen) Room air (09/07/22 7:30 AM) Blood pressure sites Arm, right (09/07/22 7:30 AM) Weight Obtained Via Standing scale (09/07/22 7:30 AM) Social History Social History Type Response Smoking Status Former smoker; Type: Cigarettes; Other: quit 2015; Tobacco use times per day: 0.5 PPD; Number of years: 28; Total pack years: 14; Started at age: 25; entered on: 07/03/16 Sex Patient Care team information Personnel Name: Lali BARBER, Eduardo Clayton Address: Address: [address] [place] [address]
--- OUTSIDE RECORDS SUMMARY | 2024-07-27 22:08 | XMS_ITS | Continuity of Care Document ---
Author Organization [facility] ter Address [address] [place] [address]- Care Team Providers Care Police Manager Name Role Phone Francesco Dobbins MD Primary Care Physician [place] [id number] Date(s): 01/04/20 - 01/04/[address] [address]- [facility] Attending Physician: Francesco Dobbins MD [...] TAKE 1 TABLET BY MOUTH EVERY DAY, [facility]/pharmacy #[id number] Start Date: 09/21/19 Status: Ordered Azilect [...] 5, 01/14/06 17:13:54, daily, diabetes, ADS OPPTHS, [address] [place] [address] Start Date: 01/14/06 Status: Ordered Humalog 100 [...] TO GIVE INSULIN, 11/23/09 13:35:21, [place] [facility] Start Date: 11/23/09 Status: Ordered metFORMIN 500 mg oral tablet, extended release 2 tablet = 1,000 mg, By Mouth, 2 times a day, # 360 tablet, 2 Refills, Maintenance, 08/09/17 9:11:19, ER Tablet Start Date: 08/09/17 Stop Date: 05/06/18 Status: Ordered Misc Rx Jardiance 10mg, See [...] 05/27/14 Stop Date: 05/27/15 Status: Ordered Pen [place], 31 G x 5 mm BD Ultra Fine III See Instructions, # 30 pack/packet, Refills 11, Tot. Refills 11, use with lantus solostar, diabetes, 07/13/09 15:43:10, [facility] Start Date: 07/13/09 Status: Ordered pregabalin 75 mg oral capsule See Instructions, 1 capsule By Mouth 2 times a day for 1 week. If pain inadequately controlled, call office for titration instructions., # 90 capsule, 0 Refills, Maintenance, 08/13/19 12:41:03 EDT, Capsule Start Date: 08/13/19 Status: Ordered Sinemet 25 mg-100 mg oral [...] Refills 6, Maintenance, V- GO delivery 40 O pharmacy contact [phone] to be used daily with humalog, 08/27/19 15:29:21 EDT, 3 months supply VGO 40, Compound Start Date: 08/27/19 Status: Ordered Problem List Condition Effective Dates Status Health Status Inform ant Aortic insufficiency trace(C onfirmed) 1 08/08/17 Active Diabetes Mellitus without Me ntion of Complication(Confirmed) 2 01/14/06 Active Diverticulosis(Confirmed) Active Hypercholesterolemia(Confirmed) Active Ineffective self health management(Confirmed) [...]
--- OUTSIDE RECORDS SUMMARY | 2024-07-27 22:08 | XMS_ITS | Continuity of Care Document ---
Author Organization [facility] Carmelo Green Tk lt Address [address] [place] [address]- Care Team Providers Care Head Machinist Name Role Phone Mu BARBER, Francesco Llanes Primary Care Physician Encounter [facility] Date(s): 03/09/21 - 04/08/21 [facility] Adult [address] [place] [address]- Allergies, Adverse Reactions, Alerts Substance Reaction Severity [...] tablet, 1 Refills, Maintenance, 01/11/21 10:48:00 EST, [facility], 176, cm, 09/01/20 11:23:00 EDT, Height [...] 01/14/06 17:13:54, daily, diabetes, ADS OPPTHS, [address] [place] [address] Start Date: 01/14/06 Status: Ordered insulin lispro 100 u/ml subcutaneous injection See Instructions, generic insulin lispro ONLY use with V-go up to 100 units per day, # 60 mL, 11 Refills, Maintenance, 10/10/20 12:29:00 EST, [facility], generic insulin lispro ONLY;replacing brand name humalog, 176, meredith, 09/01/20 11... Start Date: 10/10/20 Status: Ordered [...] USE TO GIVE INSULIN, 11/23/09 13:35:21, Bethel Emiliano Carmelo Natanael Green Start Date: 11/23/09 Status: Ordered memantine 10 mg oral tablet 1 tablet = 10 mg, By Mouth, Daily, # 30 tablet, 0 Refills, Maintenance, 03/13/21 13:52:00 EDT, Tablet, Partial fill upon patient request if the prescription is for a schedule II opioid drug. Start Date: 03/13/21 Status: Ordered [facility] Rx Jardiance 10mg, See Instructions, # 90 [...] 0 Refills, Maintenance, 01/07/20 14:50:00 EST, Tablet, [facility]/pharmacy #[id number], 176... Start Date: 01/07/20 Status: Ordered One [...] 11/15/17 Stop Date: 02/13/18 Status: Ordered Pen [place], 31 G x 5 mm BD Ultra [...] V- GO delivery 40 VGO pharmacy contact [phone] to be used daily with humalog dx:e11.9, [...]
--- OUTSIDE RECORDS SUMMARY | 2024-07-27 22:08 | XMS_ITS | Continuity of Care Document ---
Author Organization [facility] Peter Tk lt Address [address] [place] [address]- Care Team Providers Care Train Starter Name Role Phone Lali BARBER, Eduardo Clayton Primary Care Physician [place] [facility] [place] 04/21/24 - 05/21/24 [facility] Adult [address] [place] [address]- Allergies, Adverse Reactions, Alerts Substance Reaction Severity Status Jardiance Active Immunizations Given and Recorded Vaccine Date Status Refusal Reason influenza virus vaccine, inactivated 09/11/23 Bernabe rded influenza virus vaccine, inactivated 1 09/07/22 Gi janelle influenza virus vaccine, inactivated 09/26/21 Give n influenza virus vaccine, inactivated 09/01/20 Give n influenza virus vaccine, inactivated 2 10/26/13 Gi janelle SARS-CoV-2(COVID-19)mRNA-LNP vac([id number]) 09/11/23 Recorded [id number] bivalent booster vax 08/23/22 Recorded SARS-CoV-2 (COVID-19) mRNA-1273 vaccine 04/10/22 R ecorded SARS-CoV-2 (COVID-19) mRNA-1273 vaccine 10/31/21 R ecorded SARS-CoV-2 (COVID-19) mRNA-1273 vaccine 03/14/21 R ecorded SARS-CoV-2 (COVID-19) mRNA-1273 vaccine 02/12/21 R ecorded pneumococcal 13-valent vaccine 09/26/21 Given tetanus/diphtheria/pertussis, acel(Tdap) 5/22/13 Given Influenza Inactive (IM) (oldterm) 10/27/09 Given Influenza Inactive (IM) (oldterm) 3 10/10/08 Given Pneumococcal Vaccine (oldterm) 12/10/08 Given tetanus-diphtheria toxoids (Td) 08/04/07 Given 1Result Comment: [facility] [id number] 2Admin Note: pt declines 3Admin Note: rcvd elsewhere Medications aspirin 81 mg oral enteric coated tablet See Instructions, 0, 0, 01/14/06 17:25:16, By Mouth Daily, Print LISSET Number, Constant Indicator Start Date: 01/14/06 Status: Ordered atorvastatin 80 mg oral tablet See Instructions, TAKE ONE TABLET BY MOUTH EVERY DAY, # 90 tablet, 3 Refills, Maintenance, 244:14:00 EST, [facility] #[id number], 177.8, cm, 10/16/23 15:08:00 EST, Height Start Date: 02/08/24 Status: Ordered atorvastatin 80 mg oral tablet 1 tablet, By Mouth, Daily, # 90 tablet, 1 Refills, Maintenance, 07/24/23 20:26:00 EDT, [facility] #[id number], 177.8, cm, 04/12/23 6:48:00 EDT, [...] , E11.9, 04/17/23 11:12:00 EDT, emailed the [facility] also, Supply, 177.8, cm, 04/12/23 6:48:00... Start [...] 5, 5, 01/14/06 17:13:54, daily, diabetes, [facility], [address] [place] [address] Start Date: 01/14/06 Status: Ordered Humalog 100 u/ml subcutaneous injection See Instructions, use with VGO 30 up to 100 units a day vials LISPRO please dispense lispro generic, # 90 mL, 11 Refills, Maintenance, 08/01/23 7:46:00 EDT, [facility] #[id number], Partial fill upon patient request if the prescription is for a... Start Date: 08/01/23 Status: Ordered insulin lispro 100 u/ml subcutaneous injection See Instructions, USE WITH VGO 30 UP TO 100 UNITS A DAY, # 90 mL, 0 Refills, Maintenance, 08/02/23 5:04:00 EDT, [id number], 177.8, cm, 04/12/23 6:48:00 EDT, Height Start [...] TO GIVE INSULIN, 11/23/09 13:35:21, Carmelo Singer [facility] Start Date: 11/23/09 Status: Ordered memantine 10 mg oral tablet 1 tablet = 10 mg, By Mouth, Daily, # 90 tablet, 3 Refills, Maintenance, 04/12/23 7:26:00 EDT, Tablet, [facility], Partial fill upon patient [...] 11/15/17 Stop Date: 02/13/18 Status: Ordered Pen [place], 31 G x 5 mm BD Ultra Fine III See Instructions, # 30 pack/packet, Refills 11, Tot. Refills 11, use with lant solostar, diabetes, 07/13/09 15:43:10[facility] Start Date: 07/13/09 Status: Ordered sildenafil 100 mg oral tablet 1 tablet = 100 mg, By Mouth, Daily, Take 1 hour before sexual activity as instructed. Start with 1/2 tablet. Use not more than once daily, # 30 tablet, 3 Refills, Maintenance, 11/01/23 8:05:00 EST, Tablet, [id number], Partial fill upon pa... Start Date: 11/01/23 Status: Ordered Sinemet 25 mg-100 mg oral tablet 2 tablet, By Mouth, 3 times a day, # 90 tablet, 0 Refills, Maintenance, 08/19/17 7:00:26, Tablet Start Date: 08/19/17 Status: Ordered V-GO 30 V-GO 30, See Instructions, # 90 each, Refills 6, Tot. Refills 6, Maintenance, V- GO delivery 30 VGO pharmacy contact [phone] to be used daily with Novolog, 10/04/22 [...] Personnel Name: Osei CHURCHILL, Elin Lang Position: [facility] PCO Associate Professional Member Role: Lifetime Consulting Provider Address: Address: [address] [place] [id number]- Name: Eduardo Escalera MD Position: [facility] Physician - Primary Care Member Role: PCP Address: Address: [address] [place] [address]- Care Team Related Persons Name: BEBETO WIN Address: home [address] [place] [id number]
--- OUTSIDE RECORDS SUMMARY | 2024-07-27 22:08 | XMS_ITS | Continuity of Care Document ---
Author Organization [facility] Carmelo Freeman Tk lt Address [address] [place] [address]- Care Team Providers Care Professor Of Literature Name Role Phone Lali BARBER, Eduardo Clayton Primary Care Physician En[facility] Date(s): 10/02/22 - 11/01/22 [facility] Adult [address] [place] [address]- Allergies, Adverse Reactions, Alerts Substance Reaction Severity [...] tetanus-diphtheria toxoids (Td) 08/04/07 Given 1Result Comment: [facility] [id number] 2Admin Note: pt declines 3Admin Note: rcvd elsewhere Medications aspirin 81 mg oral enteric coated tablet See Instructions, 0, 0, 01/14/06 17:25:16, By Mouth Daily, Print LISSET Number, Constant Indicator Start Date: 01/14/06 Status: Ordered atorvastatin 80 mg oral tablet 1 tablet, By Mouth, Daily, # 90 tablet, 1 Refills, Maintenance, 05/23/22 12:26:00 EDT, [facility] #[id number], 176, cm, 04/04/22 11:11:00 EDT, Height Start [...] , E11.9, 05/15/22 10:31:00 EDT, emailed the [facility] also, Supply, 176, cm, 04/04/22 11:11:00... [...] 5, 5, 01/14/06 17:13:54, daily, diabetes, [facility], [address] [place] [address] Start Date: 01/14/06 Status: Ordered Humalog 100 u/ml subcutaneous injection See Instructions, use with VGO 30 up to 100 units a day vials LISPRO please dispense lispro generic, # 90 mL, 11 Refills, Maintenance, 03/07/22 13:34:00 EDT, [facility] #[id number], Partial fillupon patient request if the prescription [...] mL, 0 Refills, Maintenance, 06/26/22 11:46:00 EDT, [facility] #[id number],Partial fill upon patient request if the prescript... [...] 11/15/17 Stop Date: 02/13/18 Status: Ordered Pen [place], 31 G x 5 mm BD Ultra [...] Refills, Maintenance, 08/29/22 14:04:00 EDT, Tablet, [facility] # [id number], Partial fill upon [...] V- GO delivery 30 VGO pharmacy contact [phone] to be used daily with Novolog, 10/04/22 [...] Personnel Name: Osei CHURCHILL, Elin Lang Position: [facility] PCO Associate Professional Member Role: Lifetime Consulting Provider Address: Address: [address] [place] [id number]- Name: Eduardo Escalera MD Position: [facility] Primary Care Physician Member Role: PCP Address: Address: [address] [place] [address]- Care Team Related Persons Name: BEBETO WIN Address: [address] [place] [address]
--- OUTSIDE RECORDS SUMMARY | 2024-07-27 22:08 | XMS_ITS | Continuity of Care Document ---
Author Organization [facility] Peter Tk lt Address [address] [place] [address]- Care Team Providers Care It Portfolio Manager Name Role Phone Mu BARBER, Francesco Llanes Primary Care Physician Encounter [facility] Date(s): 05/04/21 - 06/03/21 [facility] Adult [address] [place] [address]- Allergies, Adverse Reactions, Alerts Substance Reaction Severity [...] tablet, 1 Refills, Maintenance, 01/11/21 10:48:00 EST, [facility], 176, cm, 09/01/20 11:23:00 [...] every 14 days, 1 hour warm up, 05/02/21 13:44:00 EDT, 3 month supply,Compound, 176, cm, 05/02/21 10:38:00 EDT, Height Start Date: 05/02/21 Status: Ordered [facility] Miscellaneous [facility] Miscellaneous, See Instructions, # 1 Unknown, 11 Refills, Maintenance, CHANGE EVERY 14 DAYS, 1 HOUR WARM UP, 176, cm, 05/02/21 10:38:00 EDT, Height Start Date: 05/02/21 Status: Ordered Glucose Test Strips See Instructions, 50, 5, 5, 01/14/06 17:13:54, daily, diabetes, [facility] [address] [place] [address] Start Date: 01/14/06 Status: Ordered insulin lispro 100 u/ml subcutaneous injection See Instructions, generic insulin lispro ONLY use with V-go up to 100 units per day, # 60 mL, 11 Refills, Maintenance, 10/10/20 12:29:00 EST, [facility], generic insulin lispro ONLY;replacing [...] TO GIVE INSULIN, 11/23/09 13:35:21, Carmelo Singer [facility] Start Date: 11/23/09 Status: Ordered memantine 10 mg oral tablet 1 tablet = 10 mg, By Mouth, Daily, # 30 tablet, 0 Refills, Maintenance, 03/13/21 13:52:00 EDT, Tablet, Partial fill upon patient request if the prescription is for a schedule II opioid drug. Start Date: 03/13/21 Status: Ordered [facility] Rx Jardiance 10mg, [...] 11/15/17 Stop Date: 02/13/18 Status: Ordered Pen [place], 31 G x 5 mm BD Ultra [...] 3 Refills, Maintenance, 05/02/21 15:56:00 EDT, Tablet, [facility], Partial fill... Start Date: [...] V- GO delivery 40 VGO pharmacy contact [phone] to be used daily with humalog dx:e11.9, [...]
--- OUTSIDE RECORDS SUMMARY | 2024-07-27 22:08 | XMS_ITS | Continuity of Care Document ---
Author Organization [facility] Peter Tk lt Address [address] [place] [address]- Care Team Providers Care Meteorologist Liaison Name Role Phone Mu BARBER, Francesco Llanes Primary Care Physician [facility] Date(s): 07/18/21 - 08/17/21 [facility] Adult [address] [place] [address]- Allergies, Adverse Reactions, Alerts Substance Reaction Severity [...] Daily, # 90 tablet, 1 Refills, Maintenance, 07/20/21 11:01:00 EDT, [facility], 176, cm, 05/02/21 10:38:00 EDT, Height Start Date: 07/20/21 Status: Ordered Botox 0 Refills, Maintenance, 04/21/18 [...] 01/14/06 17:13:54, daily, diabetes, [facility] [address] [place] [address] Start Date: 01/14/06 Status: Ordered insulin lispro 100 u/ml subcutaneous injection See Instructions, generic insulin lispro ONLY use with V-go up to 100 units per day, # 60 mL, 11 Refills, Maintenance, 10/10/20 12:29:00 EST, [facility], generic insulin lispro [...] 11/15/17 Stop Date: 02/13/18 Status: Ordered Pen [place], 31 G x 5 mm BD Ultra [...] 3 Refills, Maintenance, 05/02/21 15:56:00 EDT, Tablet, [facility], Partial fill... Start [...] V- GO delivery 30 VGO pharmacy contact [phone] to be used daily with Novolog, 07/18/21 [...]
--- OUTSIDE RECORDS SUMMARY | 2024-07-27 22:08 | XMS_ITS | Continuity of Care Document ---
Author Organization [facility]rol[facility] Address [address] [facility] [place] [address]- Care Team Providers Care Electrical Tests Supervisor Name Role Phone Francesco Dobbins MD Primary Care Physician Encounter [facility] [place] Date(s): 08/29/22 - 09/05/22 [facility] [address] [place] [address]- Attending Physician: Tong Cedeno MD Admitting Physician: Tong Cedeno MD Referring Physician: Francesco Dobbins MD Allergies, Adverse Reactions, [...] tablet, 1 Refills, Maintenance, 05/23/22 12:26:00 EDT, [facility] #[id number], 176, cm, 04/04/22 11:11:00 EDT, Height Start [...] 5, 5, 01/14/06 17:13:54, daily, diabetes, [facility] [address] [place] [address] Start Date: 01/14/06 Status: Ordered Humalog 100 u/ml subcutaneous injection See Instructions, use with VGO 30 up to 100 units a day vials LISPRO please dispense lispro generic, # 90 mL, 11 Refills, Maintenance, 03/07/22 13:34:00 EDT, [facility] #[id number], Partial fillupon patient request if the prescription [...] TO GIVE INSULIN, 11/23/09 13:35:21, Bethel Cummings, [place], [facility] Start Date: 11/23/09 Status: Ordered memantine [...] mL, 0 Refills, Maintenance, 06/26/22 11:46:00 EDT, [facility] #[id number],Partial fill upon patient request if the prescript... [...] 11/15/17 Stop Date: 02/13/18 Status: Ordered Pen [place], 31 G x 5 mm BD Ultra Fine III See Instructions, # 30 pack/packet, Refills 11, Tot. Refills 11, use with lantus solostar, diabetes, 07/13/09 15:43:10[facility] Start Date: 07/13/09 Status: Ordered sildenafil 100 mg oral tablet 1 tablet = 100 mg, By Mouth, Daily, Take 1 hour before sexual activity as instructed. Start with 1/2 tablet. Use not more than once daily, # 30 tablet, 3 Refills, Maintenance, 08/29/22 14:04:00 EDT, Tablet, [facility] # [id number], Partial fill upon p... [...] V- GO delivery 30 VGO pharmacy contact [phone] to be used daily with Novolog, 07/18/21 [...] 4diagnosed by neurology 09/2016. started on azilect Vital Signs Most recent to oldest [Reference Range]: 1 Height 176 cm (08/29/22 1:53 PM) Social History Social History Type Response Smoking Status Former smoker; Type: Cigarettes; Other: quit 2015; Tobacco use times per day: 0.5 PPD; Number of years: 28; Total pack years: 14; Started at age: 25; entered on: 07/03/16 Sex Patient Care team information Personnel Name: Mu BARBER, Francesco Llanes Address: Address: [address] [place] [id number]
--- OUTSIDE RECORDS SUMMARY | 2024-07-27 22:08 | XMS_ITS | Continuity of Care Document ---
Author Organization [facility] Tk lt Address [address] [place] [address]- Care Team Providers Care Marketing Operations Intern Name Role Phone Mu BARBER, Francesco Llanes Primary Care Physician [phone] Encounter [facility] [place] Date(s): 09/26/21 - 10/26/21 [facility] Adult [address] [place] [address]- Allergies, Adverse Reactions, Alerts Substance Reaction Severity Status Jardiance Active Immunizations Given and Recorded Vaccine Date Status Refusal Reason pneumococcal 13-valent vaccine 09/26/21 Given influenza virus vaccine, inactivated 09/26/21 Give n influenza virus vaccine, inactivated 09/01/20 Give n influenza virus vaccine, inactivated 1 10/26/13 Gi janelle SARS-CoV-2 (COVID-19) mRNA-1273 vaccine 03/14/21 R ecorded SARS-CoV-2 (COVID-19) mRNA-1273 vaccine 02/12/21 R ecorded tetanus/diphtheria/pertussis, acel(Tdap) 04/22/13 Given Influenza Inactive (IM) [...] tablet, 1 Refills, Maintenance, 07/20/21 11:01:00 EDT, [facility], 176, cm, 05/02/21 10:38:00 [...] 01/14/06 17:13:54, daily, diabetes, ADS OPP[facility], [address] [place] [address] Start Date: 01/14/06 Status: Ordered insulin lispro 100 u/ml subcutaneous injection See Instructions, generic insulin lispro ONLY use with V-go up to 100 units per day, # 60 mL, 11 Refills, Maintenance, 10/10/20 12:29:00 EST, [facility], generic insulin lispro ONLY;replacing [...] opioid drug. Start Date: 03/13/21 Status: Ordered [facility] Rx Jardiance 10mg, See Instructions, # [...] 11/15/17 Stop Date: 02/13/18 Status: Ordered Pen [place], 31 G x 5 mm BD Ultra [...] 3 Refills, Maintenance, 05/02/21 15:56:00 EDT, Tablet, [facility], Partial fill... Start Date: [...] V- GO delivery 30 VGO pharmacy contact [phone] to be used daily with Novolog, 07/18/21 [...] Active Ineffective self health management(Confirmed) 3 Active Insulin long-term use(Confirmed) Active Neck pain(Confirmed) Active PD (Parkinson's disease)(Con [...]
--- OUTSIDE RECORDS SUMMARY | 2024-07-27 22:09 | XMS_ITS | Continuity of Care Document ---
Author Organization [facility] Address [address] [facility] [place] [address]- Care Team Providers Care Content Creation Manager Name Role Phone Lali BARBER, Eduardo Clayton Primary Care Physician Encounter [facility] [place] Date(s): 11/01/23 - 12/01/23 [facility] [address] [place] [address]- Allergies, Adverse Reactions, Alerts Substance Reaction Severity Status Jardiance Active Immunizations Given and Recorded Vaccine Date Status Refusal Reason influenza virus vaccine, inactivated 09/11/23 Bernabe rded influenza virus vaccine, inactivated 1 09/07/22 Gi janelle influenza virus vaccine, inactivated 09/26/21 Give n influenza virus vaccine, inactivated 09/01/20 Give n influenza virus vaccine, inactivated 2 10/26/13 Gi janelle SARS-CoV-2(COVID-19)mRNA-LNP vac([id number]) 09/11/23 Recorded [id number] bivalent booster vax 08/23/22 Recorded SARS-CoV-2 (COVID-19) [...] tetanus-diphtheria toxoids (Td) 08/04/07 Given 1Result Comment: [facility] [id number] 2Admin Note: pt declines 3Admin Note: rcvd elsewhere Medications aspirin 81 mg oral enteric coated tablet See Instructions, 0, 0, 01/14/06 17:25:16, By Mouth Daily, Print LISSET Number, Constant Indicator Start Date: 01/14/06 Status: Ordered atorvastatin 80 mg oral tablet 1 tablet, By Mouth, Daily, # 90 tablet, 1 Refills, Maintenance, 07/24/23 20:26:00 EDT, [facility] #[id number], 177.8, cm, 04/12/23 6:48:00 EDT, [...] , E11.9, 04/17/23 11:12:00 EDT, emailed the [facility] also, Supply, 177.8, cm, 04/12/23 6:48:00... Start Date: 04/17/23 Status: Ordered Freestyle Vickie 14 sensor Freestyle [...] 5, 5, 01/14/06 17:13:54, daily, diabetes, [facility], [address] [place] [address] Start Date: 01/14/06 Status: Ordered Humalog 100 u/ml subcutaneous injection See Instructions, use with VGO 30 up to 100 units a day vials LISPRO please dispense lispro generic, # 90 mL, 11 Refills, Maintenance, 08/01/23 7:46:00 EDT, [facility] #[id number], Partial fill upon patient request if the prescription is for a... Start Date: 08/01/23 Status: Ordered insulin lispro 100 u/ml subcutaneous injection See Instructions, USE WITH VGO 30 UP TO 100 UNITS A DAY, # 90 mL, 0 Refills, Maintenance, 08/02/23 5:04:00 EDT, [facility] #[id number], 177.8, cm, 04/12/23 6:48:00 EDT, Height Start [...] GIVE INSULIN, 11/23/09 13:35:21, Bethel Emiliano Carmelo Green [facility] Start Date: 11/23/09 Status: Ordered memantine 10 mg oral tablet 1 tablet = 10 mg, By Mouth, Daily, # 90 tablet, 3 Refills, Maintenance, 04/12/23 7:26:00 EDT, Tablet, [facility], Partial fill upon patient request if the prescription is for a schedule II opioid drug., 177.8, cm, 04/12/23 6:48:00 EDT... Start Date: 04/12/23 Status: Ordered [facility] Rx Jardiance 10mg, See [...] 11/15/17 Stop Date: 02/13/18 Status: Ordered Pen [place], 31 G x 5 mm BD Ultra [...] 3 Refills, Maintenance, 11/01/23 8:05:00 EST, Tablet, [facility] # [id number], Partial fill upon pa... Start Date: 11/01/23 Status: Ordered Sinemet 25 mg-100 mg oral tablet 2 tablet, By Mouth, 3 times a day, # 90 tablet, 0 Refills, Maintenance, 08/19/17 7:00:26, Tablet Start Date: 08/19/17 Status: Ordered V-GO 30 V-GO 30, See Instructions, # 90 each, Refills 6, Tot. Refills 6, Maintenance, V- GO delivery 30 VGO pharmacy contact [phone] to be used daily with Novolog, 10/04/22 [...] Team Personnel Name: Elin Franz NP Position: [facility] PCO Associate Professional Member Role: Lifetime Consulting Provider Address: Address: [address] [place] [address]- Name: Eduardo Escalera MD Position: [facility] Physician - Primary Care Member Role: PCP Address: Address: [address] [place] [address]- Care Team Related Persons Name: BEBETO WIN Address: home [address] [place] [address]
--- OUTSIDE RECORDS SUMMARY | 2024-07-27 22:09 | XMS_ITS | Continuity of Care Document ---
Author Organization [facility] Tk Address [address] [place] [address]- Care Team Providers Care Correspondent Name Role Phone Mu BARBER, Francesco Llanes Primary Care Physician Encounter [facility] [place] Date(s): 05/14/22 - 06/13/22 [facility] Adult [address] [place] [address]- Allergies, Adverse Reactions, Alerts Substance Reaction Severity [...] tablet, 1 Refills, Maintenance, 05/23/22 12:26:00 EDT, [facility] #[id number], 176, cm, 04/04/22 11:11:00 EDT, Height Start [...] , E11.9, 05/15/22 10:31:00 EDT, emailed the [facility] also, Supply, 176, cm, 04/04/22 11:11:00... [...] 01/14/06 17:13:54, daily, diabetes, ADS [facility], [address] [place] [address] Start Date: 01/14/06 Status: Ordered Humalog 100 u/ml subcutaneous injection See Instructions, use with VGO 30 up to 100 units a day vials LISPRO please dispense lispro generic, # 90 mL, 11 Refills, Maintenance, 03/07/22 13:34:00 EDT, [facility] #[id number], Partial fillupon patient request if the prescription [...] 6, USE TO GIVE INSULIN, 11/23/09 13:35:21, [facility] Start Date: 11/23/09 Status: Ordered memantine 10 [...] 11/15/17 Stop Date: 02/13/18 Status: Ordered Pen [place], 31 G x 5 mm BD Ultra [...] 3 Refills, Maintenance, 05/02/21 15:56:00 EDT, Tablet, [facility], Partial fill... Start Date: 05/02/21 [...] Refills 6, Maintenance, V- GO delivery 30 [facility] pharmacy contact [phone] to be used daily with Novolog, 07/18/21 [...]
--- OUTSIDE RECORDS SUMMARY | 2024-07-27 22:09 | XMS_ITS | Continuity of Care Document ---
Author Organization [facility] Tk Address [address] [place] [address]- Care Team Providers Care Tar Worker Name Role Phone Mu BARBER, Francesco Llanes Primary Care Physician [phone] [place] [facility] [place] 02/15/20 [facility] Adult [address] [place] [address]- [facility] Attending Physician: Admtr, Ar8 Admitting Physician: Admtr, [...] 01/14/06 17:13:54, daily, diabetes, ADS [facility], [address] [place] [address] Start Date: 01/14/06 Status: Ordered Humalog 100 u/ml subcutaneous injection See Instructions, MAX DOSE 100 to be used daily with VGO 30 DX: E11.9, # 15 mL, 11 Refills, Maintenance, 02/15/20 8:15:00 EDT, [facility] #[id number], 176, cm, 01/07/20 14:33:00 EST, Height Start Date: 02/15/20 Status: Ordered Insulin Syringe, BD Ultra-Fine 1 [...] USE TO GIVE INSULIN, 11/23/09 13:35:21, Carmelo Singer, [place] Start Date: 11/23/09 Status: Ordered metFORMIN 500 [...] 0 Refills, Maintenance, 01/07/20 14:50:00 EST, Tablet, [facility] #[id number], 176... Start Date: 01/07/20 Status: [...] 05/27/14 Stop Date: 05/27/15 Status: Ordered Pen [place], 31 G x 5 mm BD Ultra [...] V- GO delivery 40 VGO pharmacy contact [phone] to be used daily with humalog, 08/27/19 [...]
--- OUTSIDE RECORDS SUMMARY | 2024-07-27 22:09 | XMS_ITS | Continuity of Care Document ---
Author Organization [facility] Address [address] [facility] [place] [address]- Care Team Providers Care Storage Consultant Name Role Phone Francesco Dobbins MD Primary Care Physician Encounter [facility] [place] Date(s): 05/02/21 - 05/09/21 [facility] [address] [facility] [place] [address]- Attending Physician: Tong Cedeno MD Admitting Physician: [...] tablet, 1 Refills, Maintenance, 01/11/21 10:48:00 EST, [facility], 176, cm, 09/01/20 11:23:00 [...] 01/14/06 17:13:54, daily, diabetes, ADS OPPT, [address] [place] [address] Start Date: 01/14/06 Status: Ordered insulin lispro 100 u/ml subcutaneous injection See Instructions, generic insulin lispro ONLY use with V-go up to 100 units per day, # 60 mL, 11 Refills, Maintenance, 10/10/20 12:29:00 EST, [facility], generic insulin lispro ONLY;replacing [...] opioid drug. Start Date: 03/13/21 Status: Ordered [facility] Rx Jardiance 10mg, See Instructions, # 90 [...] 11/15/17 Stop Date: 02/13/18 Status: Ordered Pen [place], 31 G x 5 mm BD Ultra [...] 3 Refills, Maintenance, 05/02/21 15:56:00 EDT, Tablet, [facility], Partial fill... Start Date: [...] V- GO delivery 40 VGO pharmacy contact [phone] to be used daily with humalog dx:e11.9, [...] 5diagnosed by neurology 09/2016. started on azilect Vital Signs Most recent to oldest [Reference Range]: 1 Height 176.00 cm (05/02/21 10:38 AM) Pulse Rate [55-90 bpm] 55 bpm (05/02/21 10:38 AM) Blood Pressure [90-138/55-84 mm Hg] 140/ 67mm Hg *H* (05/02/21 10:38 AM) Respiratory Rate [16-30 br/min] 16 br/mi n (05/02/21 10:38 AM) Temperature [96.8-100.4 DegF] 97.6 DegF (05/02/21 10:38 AM) Blood pressure sites Arm, right (05/02/21 10:38 AM) Temperature Route Oral (05/02/21 10:38 AM) Social History Social History Type Response Smoking Status Former smoker; Type: Cigarettes; Other: quit 2015; Tobacco use times per day: 0.5 PPD; Number of years: 28; Total pack years: 14; Started at age: 25; entered on: 07/03/16 Sex
--- OUTSIDE RECORDS SUMMARY | 2024-07-27 22:09 | XMS_ITS | Continuity of Care Document ---
Author Organization [facility] Tk Address [address] [place] [address]- Care Team Providers Care Scientific Programmer Analyst Name Role Phone Mu BARBER, Francesco Llanes Primary Care Physician [phone] En[place] [facility] [place] Date(s): 03/07/22 - 04/06/22 [facility] Adult [address] [place] [address]- Allergies, Adverse Reactions, Alerts Substance Reaction Severity [...] tablet, 1 Refills, Maintenance, 07/20/21 11:01:00 EDT, [facility], 176, cm, 05/02/21 10:38:00 EDT, [...] 01/14/06 17:13:54, daily, diabetes, [facility] [address] [place] [address] Start Date: 01/14/06 Status: Ordered Humalog 100 u/ml subcutaneous injection See Instructions, use with VGO 30 up to 100 units a day vials LISPRO please dispense lispro generic, # 90 mL, 11 Refills, Maintenance, 03/07/22 13:34:00 EDT, [facility] #[id number], Partial fillupon patient request if the prescription [...] TO GIVE INSULIN, 11/23/09 13:35:21, Carmelo Singer Peter, [facility] Start Date: 11/23/09 Status: Ordered memantine 10 [...] 11/15/17 Stop Date: 02/13/18 Status: Ordered Pen [place], 31 G x 5 mm BD Ultra Fine III See Instructions, # 30 pack/packet, Refills 11, Tot. Refills 11, use with lantus solostar, diabetes, 07/13/09 15:43:10, [facility] Start Date: 07/13/09 Status: Ordered sildenafil 100 mg oral tablet 1 tablet = 100 mg, By Mouth, Daily, Take 1 hour before sexual activity as instructed. Start with 1/2 tablet. Use not more than once daily, # 10 tablet, 3 Refills, Maintenance, 05/02/21 15:56:00 EDT, Tablet, [facility], Partial fill... Start Date: 05/02/21 [...] V- GO delivery 30 VGO pharmacy contact [phone] to be used daily with Novolog, 07/18/21 [...]
--- OUTSIDE RECORDS SUMMARY | 2024-07-27 22:09 | XMS_ITS | Continuity of Care Document ---
Author Organization [facility] Carmelo Green Tk lt Address [address] [place] [address]- Care Team Providers Care Microbiology Technologist Name Role Phone Eduardo Escalera MD Primary Care Physician Encounter [facility] [place] Date(s): 10/16/23 - 10/23/23 [facility] Carmelo Adameley Adult [address] [place] [address]- Encounter Diagnosis Medicare annual wellness visit, subsequent(Discharge Diagnosis) - 10/20/23 PD (Parkinson's disease)(Discharge Diagnosis) - 10/20/23 Diabetes Mellitus without Mention of Complication(Discharge Diagnosis) - 10/20/23 Insulin long-term use(Discharge Diagnosis) - 10/20/23 Aortic stenosis mild echo 2019 2021(Discharge Diagnosis) - 10/20/23 Attending Physician: Eduardo Escalera MD Allergies, Adverse Reactions, Alerts Substance Reaction Severity Status Jardiance Active Immunizations Given and Recorded Vaccine Date Status Refusal Reason influenza virus vaccine, inactivated 09/11/23 Bernabe rded influenza virus vaccine, inactivated 1 09/07/22 Gi janelle influenza virus vaccine, inactivated 09/26/21 Give n influenza virus vaccine, inactivated 09/01/20 Give n influenza virus vaccine, inactivated 2 10/26/13 Gi janelle SARS-CoV-2(COVID-19)mRNA-LNP vac([id number]) 09/11/23 Recorded [id number] bivalent booster vax 08/23/22 Recorded SARS-CoV-2 (COVID-19) [...] 08/04/07 Given 1Result Comment: [facility] [id number] 2Admin Note: pt declines 3Admin Note: rcvd [...] , E11.9, 04/17/23 11:12:00 EDT, emailed the [facility] also, Supply, 177.8, cm, 04/12/23 6:48:00... Start [...] 5, 01/14/06 17:13:54, daily, diabetes, ADS OPPTHS, [address] [place] [address] Start Date: 01/14/06 Status: Ordered Humalog 100 u/ml subcutaneous injection See Instructions, use with VGO 30 up to 100 units a day vials LISPRO please dispense lispro generic, # 90 mL, 11 Refills, Maintenance, 08/01/23 7:46:00 EDT, [facility] #[id number], Partial fill upon patient request if the prescription is for a... Start Date: 08/01/23 Status: Ordered insulin lispro 100 u/ml subcutaneous injection See Instructions, USE WITH VGO 30 UP TO 100 UNITS A DAY, # 90 mL, 0 Refills, Maintenance, 08/02/23 5:04:00 EDT, [facility] #[id number], 177.8, cm, 04/12/23 6:48:00 EDT, Height Start [...] Singer, [place] Start Date: 11/23/09 Status: Ordered memantine 10 mg oral tablet 1 tablet = 10 mg, By Mouth, Daily, # 90 tablet, 3 Refills, Maintenance, 04/12/23 7:26:00 EDT, Tablet, [facility], Partial fill upon patient [...] 11/15/17 Stop Date: 02/13/18 Status: Ordered Pen [place], 31 G x 5 mm BD Ultra [...] daily, # 30 tablet, 3 Refills, Maintenance, 08/29/23 13:18:00 EDT, Tablet, [facility] # [id number], Partial fill upon p... Start Date: 08/29/23 Status: Ordered Sinemet 25 mg-100 mg oral tablet 2 tablet, By Mouth, 3 times a day, # 90 tablet, 0 Refills, Maintenance, 08/19/17 7:00:26, Tablet Start Date: 08/19/17 Status: Ordered V-GO 30 V-GO 30, See Instructions, # 90 each, Refills 6, Tot. Refills 6, Maintenance, V- GO delivery 30 VGO pharmacy contact [phone] to be used daily with Novolog, 10/04/22 [...] Effective Dates Health Status Clinical Service Informant Medicare annual wellness visit, subsequent Discharge Diagnosis 10/20/23 PD (Parkinson's disease) Discharge Diagnosis 10/20/23 Diabetes Mellitus without Mention of Complication Discharge Diagnosis 10/20/23 Insulin long-term use Discharge Diagnosis 10/20/23 Aortic stenosis mild echo 2019 2021 Discharge Diagnosis 10/20/23 Vital Signs Most recent to oldest [Reference Range]: 1 2 Height 177.8 cm (10/16/23 3:08 PM) 177.8 cm (10/16/23 2:58 PM) Weight 95.6 kg (10/16/23 2:58 PM) Oxygen Saturation [94-100 %] 99 % (10/16/23 2:58 PM) Pulse Rate [55-90 bpm] 64 bpm (10/16/23 2:58 PM) Body Mass Index [18.5-24.99 kg/m2] 30.24 kg/m2 *>HHI* (10/16/23 2:58 PM) Blood Pressure [90-138/55-84 mm Hg] 146/ 65mm Hg *H* (10/16/23 3:08 PM) 150/69mm Hg *H* (10/16/23 2:58 PM) Mode of Delivery (Oxygen) Room air (10/16/23 2:58 PM) Blood pressure sites Arm, right (10/16/23 3:08 PM) Arm, right (10/16/23 2:58 PM) Weight Obtained Via Standing scale (10/16/23 2:58 PM) Social History Social History Type Response Smoking Status Former smoker; Type: Cigarettes; Other: quit 2015; Tobacco use times per day: 0.5 PPD; Number of years: 28; Total pack years: 14; Started at age: 25; entered on: 07/03/16 Sex Patient Care team information Care Team Personnel Name: Elin Franz NP Position: [facility] PCO Associate Professional Member Role: Lifetime Consulting Provider Address: Address: [address] [place] [address]- Name: Eduardo Escalera MD Position: [facility] Physician - Primary Care Member Role: PCP Address: Address: [address] [place] [address]- Care Team Related Persons Name: BEBETO WIN Address: home [address] [place] [address]
--- OUTSIDE RECORDS SUMMARY | 2024-07-27 22:09 | XMS_ITS | Continuity of Care Document ---
Author Organization [facility]rol[facility] Address [address] [facility] [place] [address]- Care Team Providers Care Varnish Maker Name Role Phone Francesco Dobbins MD Primary Care Physician [place] [facility] [facility] [place] - 06/01/22 [facility] [address] [place] [address]- Attending Physician: Tong Cedeno MD Admitting Physician: [...] tablet, 1 Refills, Maintenance, 05/23/22 12:26:00 EDT, [facility] #[id number], 176, cm, 04/04/22 11:11:00 EDT, Height Start [...] , E11.9, 05/15/22 10:31:00 EDT, emailed the [facility] also, Supply, 176, cm, 04/04/22 11:11:00... [...] 5, 01/14/06 17:13:54, daily, diabetes, [facility], [address] [place] [address] Start Date: 01/14/06 Status: Ordered Humalog 100 u/ml subcutaneous injection See Instructions, use with VGO 30 up to 100 units a day vials LISPRO please dispense lispro generic, # 90 mL, 11 Refills, Maintenance, 03/07/22 13:34:00 EDT, [facility] #[id number], Partial fillupon patient request if the prescription [...] 11/15/17 Stop Date: 02/13/18 Status: Ordered Pen [place], 31 G x 5 mm BD Ultra Fine III See Instructions, # 30 pack/packet, Refills 11, Tot. Refills 11, use with lantus zaina, diabetes, 07/13/09 15:43:10, [facility] Ike Gir[facility] Start Date: 07/13/09 Status: Ordered sildenafil 100 mg oral tablet 1 tablet = 100 mg, By Mouth, Daily, Take 1 hour before sexual activity as instructed. Start with 1/2 tablet. Use not more than once daily, # 10 tablet, 3 Refills, Maintenance, 05/02/21 15:56:00 EDT, Tablet, [facility], Partial fill... Start Date: [...] Refills 6, Maintenance, V- GO delivery 30 [facility] pharmacy contact [phone] to be used daily with Novolog, 07/18/21 [...]
--- OUTSIDE RECORDS SUMMARY | 2024-07-27 22:09 | XMS_ITS | Continuity of Care Document ---
Author Organization [facility] Carmelo Green Tk lt Address [address] [place] [address]- Care Team Providers Care Milieu Technician Name Role Phone Lali BARBER, Eduardo Clayton Primary Care Physician [phone] Encounter [facility] Date(s): 08/01/23 - 08/31/23 [facility] Adult [address] [place] [address]- Allergies, Adverse Reactions, Alerts Substance Reaction Severity [...] tetanus-diphtheria toxoids (Td) 08/04/07 Given 1Result Comment: [facility] [id number] 2Admin Note: pt declines 3Admin Note: rcvd [...] , E11.9, 04/17/23 11:12:00 EDT, emailed the [facility] also, Supply, 177.8, cm, 04/12/23 6:48:00... Start Date: 04/17/23 Status: Ordered Freestyle Vickie 14 sensor Freestyle Vicike 14 sensor, See Instructions, # 6 each, [...] 5, 01/14/06 17:13:54, daily, diabetes, ADS OPP[facility]S, [address] [place] [id number] Start Date: 01/14/06 Status: Ordered Humalog 100 u/ml subcutaneous injection See Instructions, use with VGO 30 up to 100 units a day vials LISPRO please dispense lispro generic, # 90 mL, 11 Refills, Maintenance, 08/01/23 7:46:00 EDT, [facility] #[id number], Partial fill upon patient request if the prescription is for a... Start Date: 08/01/23 Status: Ordered insulin lispro 100 u/ml subcutaneous injection See Instructions, USE WITH VGO 30 UP TO 100 UNITS A DAY, # 90 mL, 0 Refills, Maintenance, 08/02/23 5:04:00 EDT, [facility] #[id number], 177.8, cm, 04/12/23 6:48:00 EDT, Height Start [...] 3 Refills, Maintenance, 04/12/23 7:26:00 EDT, Tablet, [facility], Partial fill upon patient request if the prescription is for a schedule II opioid drug., 177.8, cm, 04/12/23 6:48:00 EDT... Start Date: 04/12/23 Status: Ordered [facility] Rx Jardiance 10mg, See [...] 11/15/17 Stop Date: 02/13/18 Status: Ordered Pen [place], 31 G x 5 mm BD Ultra Fine III See Instructions, # 30 pack/packet, Refills 11, Tot. Refills 11, use with lantus solblaise, diabetes, 07/13/09 15:43:10, [facility] Start Date: 07/13/09 Status: Ordered sildenafil 100 mg oral tablet 1 tablet = 100 mg, By Mouth, Daily, Take 1 hour before sexual activity as instructed. Start with 1/2 tablet. Use not more than once daily, # 30 tablet, 3 Refills, Maintenance, 08/29/23 13:18:00 EDT, Tablet, [facility] # [id number], Partial fill upon p... Start Date: 08/29/23 Status: Ordered Sinemet 25 mg-100 mg oral tablet 2 tablet, By Mouth, 3 times a day, # 90 tablet, 0 Refills, Maintenance, 08/19/17 7:00:26, Tablet Start Date: 08/19/17 Status: Ordered V-GO 30 V-GO 30, See Instructions, # 90 each, Refills 6, Tot. Refills 6, Maintenance, V- GO delivery 30 VGO pharmacy contact [phone] to be used daily with Novolog, 10/04/22 [...] Team Personnel Name: Elin Franz NP Position: [facility] PCO Associate Professional Member Role: Lifetime Consulting Provider Address: Address: [address] [place] [address]- Name: Eduardo Escalera MD Position: [facility] Physician - Primary Care Member Role: PCP Address: Address: [address] [place] [address]- Care Team Related Persons Name: CELESTERUDYSHONNA BEBETO Address: home [address] [place] [address]
--- OUTSIDE RECORDS SUMMARY | 2024-07-27 22:09 | XMS_ITS | Continuity of Care Document ---
Author Organization [facility] Tk lt Address [address] [place] [address]- Care Team Providers Care Assistant Community Manager Name Role Phone Lali BARBER, Eduardo Clayton Primary Care Physician [phone] Encounter [facility] Date(s): 10/29/23 - 11/28/23 [facility] Adult [address] [place] [address]- Allergies, Adverse Reactions, Alerts Substance Reaction Severity Status Jardiance Active Immunizations Given and Recorded Vaccine Date Status Refusal Reason influenza virus vaccine, inactivated 09/11/23 Bernabe rded influenza virus vaccine, inactivated 1 09/07/22 Gi janelle influenza virus vaccine, inactivated 09/26/21 Give n influenza virus vaccine, inactivated 09/01/20 Give n influenza virus vaccine, inactivated 2 10/26/13 Gi janelle SARS-CoV-2(COVID-19)mRNA-LNP vac([id number]) 09/11/23 Recorded [id number] bivalent booster vax 08/23/22 Recorded SARS-CoV-2 (COVID-19) [...] tetanus-diphtheria toxoids (Td) 08/04/07 Given 1Result Comment: [facility] [id number] 2Admin Note: pt declines 3Admin Note: rcvd [...] Ordered FREESTYLE VICKIE SENSOR MEDB Miscellaneous FREESTYLE VICKEI SENSOR MEDB Miscellaneous, See Instructions, # 1 [...] 5, 5, 01/14/06 17:13:54, daily, diabetes, [facility], [address] [place] [address] Start Date: 01/14/06 Status: Ordered Humalog 100 u/ml subcutaneous injection See Instructions, use with VGO 30 up to 100 units a day vials LISPRO please dispense lispro generic, # 90 mL, 11 Refills, Maintenance, 08/01/23 7:46:00 EDT, [facility] #[id number], Partial fill upon patient request if the prescription is for a... Start Date: 08/01/23 Status: Ordered insulin lispro 100 u/ml subcutaneous injection See Instructions, USE WITH VGO 30 UP TO 100 UNITS A DAY, # 90 mL, 0 Refills, Maintenance, 08/02/23 5:04:00 EDT, [facility] #[id number], 177.8, cm, 04/12/23 6:48:00 EDT, Height Start [...] GIVE INSULIN, 11/23/09 13:35:21, [facility] Carmelo GreenNatanael Start Date: 11/23/09 Status: Ordered memantine 10 mg oral tablet 1 tablet = 10 mg, By Mouth, Daily, # 90 tablet, 3 Refills, Maintenance, 04/12/23 7:26:00 EDT, Tablet, [facility], Partial fill upon patient request if the prescription is for a schedule II opioid drug., 177.8, cm, 04/12/23 6:48:00 EDT... Start Date: 04/12/23 Status: Ordered [facility] Rx Jardiance 10mg, See Instructions, # 90 [...] 11/15/17 Stop Date: 02/13/18 Status: Ordered Pen [place], 31 G x 5 mm BD Ultra [...] 3 Refills, Maintenance, 11/01/23 8:05:00 EST, Tablet, [facility] # [id number], Partial fill upon pa... Start Date: 11/01/23 Status: Ordered Sinemet 25 mg-100 mg oral tablet 2 tablet, By Mouth, 3 times a day, # 90 tablet, 0 Refills, Maintenance, 08/19/17 7:00:26, Tablet Start Date: 08/19/17 Status: Ordered V-GO 30 V-GO 30, See Instructions, # 90 each, Refills 6, Tot. Refills 6, Maintenance, V- GO delivery 30 VGO pharmacy contact [phone] to be used daily with Novolog, 10/04/22 [...] Team Personnel Name: Elin Franz NP Position: [facility] PCO Associate Professional Member Role: Lifetime Consulting Provider Address: Address: [address] [place] [address]- Name: Eduardo Escalera MD Position: [facility] Physician - Primary Care Member Role: PCP Address: Address: [address] [place] [address]- Care Team Related Persons Name: BEBETO WIN Address: home [address] [place] [address]
--- OUTSIDE RECORDS SUMMARY | 2024-07-27 22:09 | XMS_ITS | Continuity of Care Document ---
Author Organization [facility] Carmelo Green Tk lt Address [address] [place] [address]- Care Team Providers Care Fork Assembler Name Role Phone Eduardo Escalera MD Primary Care Physician En[place] [facility] Date(s): 04/12/23 - 04/19/23 [facility] Adult [address] [place] [address]- Encounter Diagnosis Aortic stenosis mild echo 2019 2021(Discharge Diagnosis) - 04/12/23 Diabetes Mellitus without Mention of Complication(Discharge Diagnosis) - 04/12/23 Insulin long-term use(Discharge Diagnosis) - 04/12/23 PD (Parkinson's disease)(Discharge Diagnosis) - 04/12/23 Memory deficit(Discharge Diagnosis) - 04/12/23 Attending Physician: Eduardo Escalera MD Allergies, Adverse [...] tetanus-diphtheria toxoids (Td) 08/04/07 Given 1Result Comment: [facility] [id number] 2Admin Note: pt declines 3Admin Note: rcvd elsewhere Medications aspirin 81 mg oral enteric coated tablet See Instructions, 0, 0, 01/14/06 17:25:16, By Mouth Daily, Print LISSET Number, Constant Indicator Start Date: 01/14/06 Status: Ordered atorvastatin 80 mg oral tablet 1 tablet, By Mouth, Daily, # 90 tablet, 1 Refills, Maintenance, 12/14/22 13:31:00 EST, [facility] #[id number], 177.8, cm, 11/30/22 8:00:00 EST, Height Start [...] 01/14/06 17:13:54, daily, diabetes, ADS OPPTHS, [address] [place] [address] Start Date: 01/14/06 Status: Ordered Humalog 100 u/ml subcutaneous injection See Instructions, use with VGO 30 up to 100 units a day vials LISPRO please dispense lispro generic, # 90 mL, 11 Refills, Maintenance, 04/12/23 7:00:00 EDT, [facility] #[id number], Partial fill upon patient request if the prescription is for a... Start Date: 04/12/23 Status: Ordered Insulin Syringe, BD Ultra-Fine 1 [...] TO GIVE INSULIN, 11/23/09 13:35:21, [facility] [place], Carmelo Green, [place] Start Date: 11/23/09 Status: Ordered memantine 10 mg oral tablet 1 tablet = 10 mg, By Mouth, Daily, # 90 tablet, 3 Refills, Maintenance, 04/12/23 7:26:00 EDT, Tablet, [facility], Partial fill upon patient request [...] 11/15/17 Stop Date: 02/13/18 Status: Ordered Pen [place], 31 G x 5 mm BD Ultra Fine III See Instructions, # 30 pack/packet, Refills 11, Tot. Refills 11, use with lantus solostcecilia, diabetes, 07/13/09 15:43:10, [facility] Start Date: 07/13/09 Status: Ordered sildenafil 100 mg oral tablet 1 tablet = 100 mg, By Mouth, Daily, Take 1 hour before sexual activity as instructed. Start with 1/2 tablet. Use not more than once daily, # 30 tablet, 3 Refills, Maintenance, 08/29/22 14:04:00 EDT, Tablet, [facility] # 302, Partial fill upon p... Start Date: 08/29/22 Status: Ordered Sinemet 25 mg-100 mg oral tablet 2 tablet, By Mouth, 3 times a day, # 90 tablet, 0 Refills, Maintenance, 08/19/17 7:00:26, Tablet Start Date: 08/19/17 Status: Ordered V-GO 30 V-GO 30, See Instructions, # 90 each, Refills 6, Tot. Refills 6, Maintenance, V- GO delivery 30 VGO pharmacy contact [phone] to be used daily with Novolog, 10/04/22 [...] Effective Dates Health Status Clinical Service Informant Aortic stenosis mild echo 2019 2021 Discharge Diagnosis 04/12/23 Diabetes Mellitus without Mention of Complication Discharge Diagnosis 04/12/23 Insulin long-term use Discharge Diagnosis 04/12/23 PD (Parkinson's disease) Discharge Diagnosis 04/12/23 Memory deficit Discharge Diagnosis 04/12/23 Vital Signs Most recent to oldest [Reference Range]: 1 Height 177.8 cm (04/12/23 6:48 AM) Weight 94.8 kg (04/12/23 6:48 AM) Oxygen Saturation [94-100 %] 97 % (04/12/23 6:48 AM) Pulse Rate [55-90 bpm] 64 bpm (04/12/23 6:48 AM) Body Mass Index [18.5-24.99 kg/m2] 29.99 kg/m2 *H* (04/12/23 6:48 AM) Blood Pressure [90-138/55-84 mm Hg] 130/ 60mm Hg (04/12/23 6:48 AM) Blood pressure sites Arm, left (04/12/23 6:48 AM) Weight Obtained Via Standing scale (04/12/23 6:48 AM) Social History Social History Type Response Smoking Status Former smoker; Type: Cigarettes; Other: quit 2015; Tobacco use times per day: 0.5 PPD; Number of years: 28; Total pack years: 14; Started at age: 25; entered on: 07/03/16 Sex Patient Care team information Care Team Personnel Name: Elin Franz NP Position: [facility] PCO Associate Professional Member Role: Lifetime Consulting Provider Address: Address: [address] [place] [address]- Name: Eduardo Escalera MD Position: [facility] Primary Care Physician Member Role: PCP Address: Address: [address] [place] [address] Care Team Related Persons Name: BEBETO WIN Address: home [address] [place] [id number]
--- OUTSIDE RECORDS SUMMARY | 2024-07-27 22:09 | XMS_ITS | Continuity of Care Document ---
Author Organization [facility] [place] Address [address] [place] [address]- Care Team Providers Care Corporate Travel Expert Name Role Phone Mu BARBER, Francesco Llanes Primary Care Physician Encounter [facility] Date(s): 06/26/22 - 07/26/22 [facility] [address] [place], [place] [address] Attending Physician: Admtr, Ar8 Admitting Physician: Admtr, [...] tablet, 1 Refills, Maintenance, 05/23/22 12:26:00 EDT, [facility] #[id number], 176, cm, 04/04/22 11:11:00 EDT, Height Start [...] 5, 5, 01/14/06 17:13:54, daily, diabetes, [facility] [address] [place] [address] Start Date: 01/14/06 Status: Ordered Humalog 100 u/ml subcutaneous injection See Instructions, use with VGO 30 up to 100 units a day vials LISPRO please dispense lispro generic, # 90 mL, 11 Refills, Maintenance, 03/07/22 13:34:00 EDT, [facility] #[id number], Partial fillupon patient request if the prescription [...] TO GIVE INSULIN, 11/23/09 13:35:21, [facility] Cummings, [place], [facility] Start Date: 11/23/09 Status: Ordered [...] mL, 0 Refills, Maintenance, 06/26/22 11:46:00 EDT, [facility] #[id number],Partial fill upon patient request if the prescript... [...] 11/15/17 Stop Date: 02/13/18 Status: Ordered Pen [place], 31 G x 5 mm BD Ultra Fine III See Instructions, # 30 pack/packet, Refills 11, Tot. Refills 11, use with lantus solostar, diabetes, 07/13/09 15:43:10, [facility] Start Date: 07/13/09 Status: Ordered sildenafil 100 mg oral tablet 1 tablet = 100 mg, By Mouth, Daily, Take 1 hour before sexual activity as instructed. Start with 1/2 tablet. Use not more than once daily, # 10 tablet, 3 Refills, Maintenance, 05/02/21 15:56:00 EDT, Tablet, [facility], Partial fill... Start Date: [...] V- GO delivery 30 VGO pharmacy contact [phone] to be used daily with Novolog, 07/18/21 11:17:00 EDT, he is switching to VGO 30, Compound, 176, cm, 05/02/21 10:38:00 ED... Start Date: 07/18/21 Status: Ordered Problem List Condition Effective Dates Status Health Status Inform ant Aortic insufficiency trace(C onfirmed) 1 08/08/17 Active Aortic stenosis mild echo 2021(Confirmed) 02/08/20 Active Diabetes Mellitus without Me ntion [...] at age: 25; entered on: 07/03/16 Sex Care Team Personnel Name: Mu BARBER, Francesco Llanes Address: [address] [place] [address]
--- OUTSIDE RECORDS SUMMARY | 2024-07-27 22:09 | XMS_ITS | Continuity of Care Document ---
Author Organization [facility] Carmelo Green Tk lt Address [address] [place] [address]- Care Team Providers Care Breakfast Cook Name Role Phone Francesco Dobbins MD Primary Care Physician [phone] [place] [facility] [place]/07/20 - 01/14/20 [facility] Carmelo Green Adult [address] [place] [address]- [facility] Encounter Diagnosis Diabetes Mellitus without Mention of Complication(Discharge Diagnosis) - 01/05/20 Hypercholesterolemia(Discharge Diagnosis) - 01/05/20 Aortic insufficiency trace(Discharge Diagnosis) - 01/05/20 Diverticulosis(Discharge Diagnosis) - 01/05/20 PD (Parkinson's disease)(Discharge Diagnosis) - 01/05/20 Chest pain(Discharge Diagnosis) - 01/07/20 Edema leg(Discharge Diagnosis) - 01/07/20 Attending Physician: Francesco Dobbins MD Allergies, Adverse [...] TAKE 1 TABLET BY MOUTH EVERY DAY, [facility]/pharmacy #[id number] Start Date: 09/21/19 Status: Ordered [...] 01/14/06 17:13:54, daily, diabetes, ADS OPPT, [address] [place] [address] Start Date: 01/14/06 Status: Ordered Humalog 100 [...] TO GIVE INSULIN, 11/23/09 13:35:21, [facility] Cumm[facility] Carmelo GreenNatanael Start Date: 11/23/09 Status: Ordered metFORMIN 500 [...] 0 Refills, Maintenance, 01/07/20 14:50:00 EST, Tablet, [facility]/pharmacy #[id number], 176... Start Date: 01/07/20 Status: Ordered One [...] 05/27/14 Stop Date: 05/27/15 Status: Ordered Pen [place], 31 G x 5 mm BD Ultra [...] V- GO delivery 40 VGO pharmacy contact [phone] to be used daily with humalog, 08/27/19 [...] Mellitus without Mention of Complication Discharge Diagnosis 01/05/20 Hypercholesterolemia Discharge Diagnosis 01/05/20 Aortic insufficiency trace Discharge Diagnosis 01/05/20 Diverticulosis Discharge Diagnosis 01/05/20 PD (Parkinson's disease) Discharge Diagnosis 01/05/20 Chest pain Discharge Diagnosis 01/07/20 Edema leg Discharge Diagnosis 01/07/20 Vital Signs Most recent to oldest [Reference Range]: 1 2 Height 176.00 cm (01/07/20 2:33 PM) 176.00 cm (01/07/20 2:13 PM) Weight 103.1 kg (01/07/20 2:13 PM) Oxygen Saturation [94-100 %] 98 % (01/07/20 2:13 PM) Pulse Rate [55-90 bpm] 68 bpm (01/07/20 2:13 PM) Body Mass Index [18.5-24.99] 33.28 *>HHI* (01/07/20 2:13 PM) Blood Pressure [90-138/55-84 mm Hg] 136/ 68mm Hg (01/07/20 2:33 PM) 144/62mm Hg *H* (01/07/20 2:13 PM) Respiratory Rate [16-30 br/min] 18 br/mi n (01/07/20 2:13 PM) Blood pressure sites Arm, left (01/07/20 2:33 PM) Arm, left (01/07/20 2:13 PM) Social History Social History Type Response Smoking Status Former smoker; Type: Cigarettes; Other: quit 2015; Tobacco use times per day: 0.5 PPD; Number of years: 28; Total pack years: 14; Started at age: 25; entered on: 07/03/16 Sex
--- OUTSIDE RECORDS SUMMARY | 2024-07-27 22:09 | XMS_ITS | Continuity of Care Document ---
Author Organization [facility] Peter [facility] Address [address] [place] [address]- Care Team Providers Care Battery Container Finishing Hand Name Role Phone Francesco Dobbins MD Primary Care Physician [phone] [place] [facility] [place]04[place]22 [place] 04/11/22 [facility] Adult [address] [place] [address]- Encounter Diagnosis Medicare annual wellness visit, subsequent(Discharge Diagnosis) - 04/02/22 Diabetes Mellitus without Mention of Complication(Discharge Diagnosis) - 04/02/22 Insulin long-term use(Discharge Diagnosis) - 04/02/22 Hypercholesterolemia(Discharge Diagnosis) - 04/02/22 PD (Parkinson's disease)(Discharge Diagnosis) - 04/02/22 Diverticulosis(Discharge Diagnosis) - 04/02/22 Aortic stenosis mild echo 2020(Discharge Diagnosis) - 04/02/22 Aortic insufficiency trace(Discharge Diagnosis) - 04/02/22 Blood in stool(Discharge Diagnosis) - 04/04/22 Grief(Discharge Diagnosis) - 04/04/22 Impacted cerumen of right ear(Discharge Diagnosis) - 04/04/22 Erectile dysfunction/urology(Discharge Diagnosis) - 04/04/22 Attending Physician: Francesco Dobbins MD Allergies, Adverse [...] tablet, 1 Refills, Maintenance, 07/20/21 11:01:00 EDT, [facility], 176, cm, 05/02/21 10:38:00 EDT, [...] 01/14/06 17:13:54, daily, diabetes, ADS OPPTHS, [address] [place] [address] Start Date: 01/14/06 Status: Ordered Humalog 100 u/ml subcutaneous injection See Instructions, use with VGO 30 up to 100 units a day vials LISPRO please dispense lispro generic, # 90 mL, 11 Refills, Maintenance, 03/07/22 13:34:00 EDT, [facility] #[id number], Partial fillupon patient request if the prescription [...] TO GIVE INSULIN, 11/23/09 13:35:21, Bethel Cummings, [place], [facility] Start Date: 11/23/09 Status: Ordered [...] 11/15/17 Stop Date: 02/13/18 Status: Ordered Pen [place], 31 G x 5 mm BD Ultra Fine III See Instructions, # 30 pack/packet, Refills 11, Tot. Refills 11, use with lantus solostar, diabetes, 07/13/09 15:43:10, [facility] Start Date: 07/13/09 Status: Ordered sildenafil 100 mg oral tablet 1 tablet = 100 mg, By Mouth, Daily, Take 1 hour before sexual activity as instructed. Start with 1/2 tablet. Use not more than once daily, # 10 tablet, 3 Refills, Maintenance, 05/02/21 15:56:00 EDT, Tablet, [facility], Partial fill... Start Date: 05/02/21 [...] V- GO delivery 30 O pharmacy contact [phone] to be used daily with Novolog, 07/18/21 11:17:00 EDT, he is switching to VGO 30, Compound, 176, cm, 05/02/21 10:38:00 ED... Start Date: 07/18/21 Status: Ordered Problem List Condition Effective Dates Status Health Status Inform ant Aortic insufficiency trace(C onfirmed) 1 08/08/17 Active Aortic stenosis mild echo 2019(Confirmed) 02/08/20 Active Diabetes Mellitus without Me ntion [...] Medicare annual wellness visit, subsequent Discharge Diagnosis 04/02/22 Diabetes Mellitus without Mention of Complication Discharge Diagnosis 04/02/22 Insulin long-term use Discharge Diagnosis 04/02/22 Hypercholesterolemia Discharge Diagnosis 04/02/22 PD (Parkinson's disease) Discharge Diagnosis 04/02/22 Diverticulosis Discharge Diagnosis 04/02/22 Aortic stenosis mild echo 2019 Discharge Diagnosis 04/02/22 Aortic insufficiency trace Discharge Diagnosis 04/02/22 Blood in stool Discharge Diagnosis 04/04/22 Grief Discharge Diagnosis 04/04/22 Impacted cerumen of right ear Discharge Diagnosis 04/04/22 Erectile dysfunction/urology Discharge Diagnosis 04/04/22 Vital Signs Most recent to oldest [Reference Range]: 1 2 Height 176 cm (04/04/22 11:11 AM) 176.00 cm (04/04/22 7:25 AM) Weight 92.6 kg (04/04/22 11:11 AM) 92.6 kg (04/04/22 7:25 AM) Oxygen Saturation [94-100 %] 98 % (04/04/22 7:25 AM) Pulse Rate [55-90 bpm] 62 bpm (04/04/22 7:25 AM) Body Mass Index [18.5-24.99] 29.89 *H* (04/04/22 7:25 AM) Blood Pressure [90-138/55-84 mm Hg] 118/ 60mm Hg (04/04/22 7:25 AM) Respiratory Rate [16-30 br/min] 14 br/mi n *L* (04/04/22 7:25 AM) Temperature [96.8-100.4 DegF] 98.4 DegF (04/04/22 7:25 AM) Mode of Delivery (Oxygen) Room air (04/04/22 7:25 AM) Blood pressure sites Arm, right (04/04/22 7:25 AM) Temperature Route Oral (04/04/22 7:25 AM) Weight Obtained Via Standing scale (04/04/22 7:25 AM) Social History Social History Type Response Smoking Status Former smoker; Type: Cigarettes; Other: quit 2015; Tobacco use times per day: 0.5 PPD; Number of years: 28; Total pack years: 14; Started at age: 25; entered on: 07/03/16 Sex
--- OUTSIDE RECORDS SUMMARY | 2024-07-27 22:09 | XMS_ITS | Continuity of Care Document ---
Author Organization [facility] Carmelo Green Tk lt Address [address] [place] [address]- Care Team Providers Care Painting Supervisor Name Role Phone Francesco Dobbins MD Primary Care Physician [phone] Encounter [facility] Date(s): 09/01/20 - 09/08/20 [facility] Carmelo Green Adult [address] [place] [address]- [facility] Encounter Diagnosis Diabetes Mellitus without Mention of Complication(Discharge Diagnosis) - 08/30/20 Hypercholesterolemia(Discharge Diagnosis) - 08/30/20 Aortic insufficiency trace(Discharge Diagnosis) - 08/30/20 Aortic stenosis mild(Discharge Diagnosis) - 08/30/20 Diverticulosis(Discharge Diagnosis) - 08/30/20 BMI 33.0-33.9,adult(Discharge Diagnosis) - 09/01/20 Attending Physician: Francesco Dobbins MD Allergies, Adverse Reactions, Alerts Substance Reaction Severity Status Jardiance Active Immunizations Given and Recorded Vaccine Date Status Refusal Reason influenza virus vaccine, inactivated 09/01/20 Give n [...] Daily, # 90 tablet, 1 Refills, Maintenance, 05/19/20 15:38:00 EDT, [facility], 176, cm, 02/17/20 15:52:00 EDT, Height Start Date: 05/19/20 Status: Ordered Botox 0 Refills, Maintenance, 04/21/18 [...] 17:13:54, daily, diabetes, [facility], [address] [place] [id number] Start Date: 01/14/06 Status: Ordered Humalog 100 u/ml subcutaneous injection See Instructions, MAX DOSE 100 to be used daily with VGO 30 DX: E11.9, # 15 mL, 11 Refills, Maintenance, 04/14/20 10:59:00 EDT, [facility], 176, cm, 02/17/20 15:52:00 EDT, Height [...] USE TO GIVE INSULIN, 11/23/09 13:35:21, [place] EmilianoCarmelo PeterNatanael Start Date: 11/23/09 Status: Ordered Misc Rx Jardiance 10mg, See [...] 0 Refills, Maintenance, 01/07/20 14:50:00 EST, Tablet, [facility] #[id number], 176... Start Date: 01/07/20 Status: Ordered [...] 05/27/14 Stop Date: 05/27/15 Status: Ordered Pen [place], 31 G x 5 mm BD Ultra Fine III See Instructions, # 30 pack/packet, Refills 11, Tot. Refills 11, use with lantus solostar, diabetes, 07/13/09 15:43:10, Ike Ferrara [facility] Start Date: 07/13/09 Status: Ordered Sinemet [...] V- GO delivery 40 VGO pharmacy contact [phone] to be used daily with humalog dx:e11.9, [...] Mellitus without Mention of Complication Discharge Diagnosis 08/30/20 Hypercholesterolemia Discharge Diagnosis 08/30/20 Aortic insufficiency trace Discharge Diagnosis 08/30/20 Aortic stenosis mild Discharge Diagnosis 08/30/20 Diverticulosis Discharge Diagnosis 08/30/20 BMI 33.0-33.9,adult Discharge Diagnosis 09/01/20 Vital Signs Most recent to oldest [Reference Range]: 1 Height 176.00 cm (09/01/20 11:23 AM) Weight 104.5 kg (09/01/20 11:23 AM) Oxygen Saturation [94-100 %] 98 % (09/01/20 11:23 AM) Pulse Rate [55-90 bpm] 64 bpm (09/01/20 11:23 AM) Body Mass Index [18.5-24.99] 33.74 *>HHI* (09/01/20 11:23 AM) Blood Pressure [90-138/55-84 mm Hg] 136/ 60mm Hg (09/01/20 11:23 AM) Respiratory Rate [16-30 br/min] 16 br/mi n (09/01/20 11:23 AM) Temperature [96.8-100.4 DegF] 97.8 DegF (09/01/20 11:23 AM) Blood pressure sites Arm, left (09/01/20 11:23 AM) Temperature Route Oral (09/01/20 11:23 AM) Social History Social History Type Response Smoking Status Former smoker; Type: Cigarettes; Other: quit 2015; Tobacco use times per day: 0.5 PPD; Number of years: 28; Total pack years: 14; Started at age: 25; entered on: 07/03/16 Sex
--- OUTSIDE RECORDS SUMMARY | 2024-07-27 22:09 | XMS_ITS | Continuity of Care Document ---
Author Organization [facility] Peter Tk Address [address] [place] [address]- Care Team Providers Care Ob Gyn Name Role Phone Lali BARBER, Eduardo Clayton Primary Care Physician [phone] Encounter [facility] Date(s): 02/04/24 - 03/05/24 [facility] [place] Adult [address] [place] [address]- Allergies, Adverse Reactions, Alerts Substance Reaction Severity Status Jardiance Active Immunizations Given and Recorded Vaccine Date Status Refusal Reason influenza virus vaccine, inactivated 09/11/23 Bernabe rded influenza virus vaccine, inactivated 1 09/07/22 Gi janelle influenza virus vaccine, inactivated 09/26/21 Give n influenza virus vaccine, inactivated 09/01/20 Give n influenza virus vaccine, inactivated 2 10/26/13 Gi janelle SARS-CoV-2(COVID-19)mRNA-LNP vac([id number]) 09/11/23 Recorded [id number] bivalent booster vax 08/23/22 Recorded SARS-CoV-2 (COVID-19) [...] tetanus-diphtheria toxoids (Td) 08/04/07 Given 1Result Comment: [facility] [id number] 2Admin Note: pt declines 3Admin Note: rcvd elsewhere Medications aspirin 81 mg oral enteric coated tablet See Instructions, 0, 0, 01/14/06 17:25:16, By Mouth Daily, Print LISSET Number, Constant Indicator Start Date: 01/14/06 Status: Ordered atorvastatin 80 mg oral tablet See Instructions, TAKE ONE TABLET BY MOUTH EVERY DAY, # 90 tablet, 3 Refills, Maintenance, 244:14:00 EST, [id number], 177.8, cm, 10/16/23 15:08:00 EST, Height Start Date: 02/08/24 Status: Ordered atorvastatin 80 mg oral tablet 1 tablet, By Mouth, Daily, # 90 tablet, 1 Refills, Maintenance, 07/24/23 20:26:00 EDT, [facility], 177.8, cm, 04/12/23 6:48:00 EDT, [...] 5, 5, 01/14/06 17:13:54, daily, diabetes, [facility], [address] [place] [address] Start Date: 01/14/06 Status: Ordered Humalog 100 u/ml subcutaneous injection See Instructions, use with VGO 30 up to 100 units a day vials LISPRO please dispense lispro generic, # 90 mL, 11 Refills, Maintenance, 08/01/23 7:46:00 EDT, [id number], Partial fill upon patient request if the prescription is for a... Start Date: 08/01/23 Status: Ordered insulin lispro 100 u/ml subcutaneous injection See Instructions, USE WITH VGO 30 UP TO 100 UNITS A DAY, # 90 mL, 0 Refills, Maintenance, 08/02/23 5:04:00 EDT, [facility][id number], 177.8, cm, 04/12/23 6:48:00 EDT, Height Start [...] GIVE INSULIN, 11/23/09 13:35:21, Bethel Cummings, Carmelo Livingston [facility] Start Date: 11/23/09 Status: Ordered memantine 10 mg oral tablet 1 tablet = 10 mg, By Mouth, Daily, # 90 tablet, 3 Refills, Maintenance, 04/12/23 7:26:00 EDT, Tablet, [facility], Partial fill upon patient request if the prescription is for a schedule II opioid drug., 177.8, cm, 04/12/23 6:48:00 EDT... Start Date: 04/12/23 Status: Ordered [facility] Rx Jardiance 10mg, [...] 11/15/17 Stop Date: 02/13/18 Status: Ordered Pen [place], 31 G x 5 mm BD Ultra [...] 3 Refills, Maintenance, 11/01/23 8:05:00 EST, Tablet, [facility] # [id number], Partial fill upon pa... Start Date: 11/01/23 Status: Ordered Sinemet 25 mg-100 mg oral tablet 2 tablet, By Mouth, 3 times a day, # 90 tablet, 0 Refills, Maintenance, 08/19/17 7:00:26, Tablet Start Date: 08/19/17 Status: Ordered V-GO 30 V-GO 30, See Instructions, # 90 each, Refills 6, Tot. Refills 6, Maintenance, V- GO delivery 30 VGO pharmacy contact [phone] to be used daily with Novolog, 10/04/22 [...] Member Role: Lifetime Consulting Provider Address: Address: [address] [place] [id number] Name: Lali BARBER, Eduardo Clayton Position: S Physician - Primary Care Member Role: PCP Address: Address: [address] [facility] [place], [facility] [place] [address]- Care Team Related Persons Name: BEBETO WIN Address: home [address] [place] [address]
--- OUTSIDE RECORDS SUMMARY | 2024-07-27 22:09 | XMS_ITS | Continuity of Care Document ---
Author Organization [facility] Peter Tk lt Address [address] [place] [address]- Care Team Providers Care Sales Project Manager Name Role Phone Mu BARBER, Francesco Llanes Primary Care Physician En[place] [facility] Date(s): 05/02/21 - 06/01/21 [facility] Peter Adult [address] [place] [address]- Allergies, Adverse Reactions, Alerts Substance Reaction Severity [...] tablet, 1 Refills, Maintenance, 01/11/21 10:48:00 EST, [facility], 176, cm, 09/01/20 11:23:00 [...] [facility], [address] [place] [address] Start Date: 01/14/06 Status: Ordered insulin lispro 100 u/ml subcutaneous injection See Instructions, generic insulin lispro ONLY use with V-go up to 100 units per day, # 60 mL, 11 Refills, Maintenance, 10/10/20 12:29:00 EST, [facility], generic insulin lispro ONLY;replacing [...] GIVE INSULIN, 11/23/09 13:35:21, Carmelo Singer Peter, [facility] Start Date: 11/23/09 Status: Ordered memantine 10 [...] 11/15/17 Stop Date: 02/13/18 Status: Ordered Pen [place], 31 G x 5 mm BD Ultra [...] 3 Refills, Maintenance, 05/02/21 15:56:00 EDT, Tablet, [facility], Partial fill... Start Date: [...] V- GO delivery 40 VGO pharmacy contact [phone] to be used daily with humalog dx:e11.9, [...]
--- OUTSIDE RECORDS SUMMARY | 2024-07-27 22:09 | XMS_ITS | Continuity of Care Document ---
Author Organization [facility] Address [address] [facility] [place] [address]- Care Team Providers Care Maid Supervisor Name Role Phone Mu BARBER, Francesco Llanes Primary Care Physician En[facility] Date(s): 05/02/22 - 06/01/22 [facility] [address] [place] [address]- Attending Physician: Admtr, [id number] Admitting Physician: Admtr, [...] tablet, 1 Refills, Maintenance, 05/23/22 12:26:00 EDT, [facility] #[id number], 176, cm, 04/04/22 11:11:00 EDT, Height Start [...] 5, 01/14/06 17:13:54, daily, diabetes, ADS [facility], [address] [place] [address] Start Date: 01/14/06 Status: Ordered Humalog 100 u/ml subcutaneous injection See Instructions, use with VGO 30 up to 100 units a day vials LISPRO please dispense lispro generic, # 90 mL, 11 Refills, Maintenance, 03/07/22 13:34:00 EDT, [facility] #[id number], Partial fillupon patient request if the prescription [...] 11/15/17 Stop Date: 02/13/18 Status: Ordered Pen [place], 31 G x 5 mm BD Ultra Fine III See Instructions, # 30 pack/packet, Refills 11, Tot. Refills 11, use with lantus zaina, diabetes, 07/13/09 15:43:10, Herb and Ike Girard [facility] Start Date: 07/13/09 Status: Ordered sildenafil 100 mg oral tablet 1 tablet = 100 mg, By Mouth, Daily, Take 1 hour before sexual activity as instructed. Start with 1/2 tablet. Use not more than once daily, # 10 tablet, 3 Refills, Maintenance, 05/02/21 15:56:00 EDT, Tablet, [facility], Partial fill... Start Date: [...] Refills 6, Maintenance, V- GO delivery 30 [facility] pharmacy contact [phone] to be used daily with Novolog, 07/18/21 [...]
--- OUTSIDE RECORDS SUMMARY | 2024-07-27 22:09 | XMS_ITS | Continuity of Care Document ---
Author Organization [facility] Tk Address [address] [place] [address]- Care Team Providers Care Wood Veneer Taper Name Role Phone Mu BARBER, Francesco Llanes Primary Care Physician Encounter [facility] Date(s): 05/14/22 - 06/13/22 [facility] Adult [address] [place] [address]- Allergies, Adverse Reactions, Alerts Substance Reaction Severity [...] tablet, 1 Refills, Maintenance, 05/23/22 12:26:00 EDT, [facility] #[id number], 176, cm, 04/04/22 11:11:00 EDT, Height Start [...] , E11.9, 05/15/22 10:31:00 EDT, emailed the [facility] also, Supply, 176, cm, 04/04/22 11:11:00... [...] 01/14/06 17:13:54, daily, diabetes, ADS [facility], [address] [place] [address] Start Date: 01/14/06 Status: Ordered Humalog 100 u/ml subcutaneous injection See Instructions, use with VGO 30 up to 100 units a day vials LISPRO please dispense lispro generic, # 90 mL, 11 Refills, Maintenance, 03/07/22 13:34:00 EDT, [facility] #[id number], Partial fillupon patient request if the prescription [...] 6, USE TO GIVE INSULIN, 11/23/09 13:35:21, [facility] Start Date: 11/23/09 Status: Ordered memantine 10 [...] 11/15/17 Stop Date: 02/13/18 Status: Ordered Pen [place], 31 G x 5 mm BD Ultra [...] 3 Refills, Maintenance, 05/02/21 15:56:00 EDT, Tablet, [facility], Partial fill... Start [...] Refills 6, Maintenance, V- GO delivery 30 [facility] pharmacy contact [phone] to be used daily with Novolog, 07/18/21 [...]
--- OUTSIDE RECORDS SUMMARY | 2024-07-27 22:09 | XMS_ITS | Continuity of Care Document ---
Author Organization [facility] Tk Address [address] [place] [address]- Care Team Providers Care Manager Art Name Role Phone Mu BARBER, Francesco Llanes Primary Care Physician [facility] Date(s): 05/21/22 - 06/20/22 [facility] Adult [address] [place] [address]- Allergies, Adverse Reactions, Alerts Substance Reaction Severity [...] tablet, 1 Refills, Maintenance, 05/23/22 12:26:00 EDT, [facility] #[id number], 176, cm, 04/04/22 11:11:00 EDT, Height Start [...] , E11.9, 05/15/22 10:31:00 EDT, emailed the [facility] also, Supply, 176, cm, 04/04/22 11:11:00... [...] 01/14/06 17:13:54, daily, diabetes, ADS [facility], [address] [place] [address] Start Date: 01/14/06 Status: Ordered Humalog 100 u/ml subcutaneous injection See Instructions, use with VGO 30 up to 100 units a day vials LISPRO please dispense lispro generic, # 90 mL, 11 Refills, Maintenance, 03/07/22 13:34:00 EDT, [facility] #[id number], Partial fillupon patient request if the prescription [...] TO GIVE INSULIN, 11/23/09 13:35:21, [place] , [facility] Start Date: 11/23/09 Status: Ordered memantine 10 [...] 11/15/17 Stop Date: 02/13/18 Status: Ordered Pen [place], 31 G x 5 mm BD Ultra Fine III See Instructions, # 30 pack/packet, Refills 11, Tot. Refills 11, use with lantus solostar, diabetes, 07/13/09 15:43:10, Herb and Ike Girard [facility] Start Date: 07/13/09 Status: Ordered sildenafil 100 mg oral tablet 1 tablet = 100 mg, By Mouth, Daily, Take 1 hour before sexual activity as instructed. Start with 1/2 tablet. Use not more than once daily, # 10 tablet, 3 Refills, Maintenance, 05/02/21 15:56:00 EDT, Tablet, [facility], Partial fill... Start Date: [...] Refills 6, Maintenance, V- GO delivery 30 [facility] pharmacy contact [phone] to be used daily with Novolog, 07/18/21 [...]
--- OUTSIDE RECORDS SUMMARY | 2024-07-27 22:09 | XMS_ITS | Continuity of Care Document ---
Author Organization [facility] Tk Address [address] [place] [address]- Care Team Providers Care Supervisor [place] Name Role Phone Mu BAREBR, Francesco Llanes Primary Care Physician [place] [facility] [place] 12/05/21 - 01/04/22 [facility] [address] [place] [address]- Allergies, Adverse Reactions, Alerts Substance Reaction Severity [...] tablet, 1 Refills, Maintenance, 07/20/21 11:01:00 EDT, [facility], 176, cm, 05/02/21 10:38:00 EDT, [...] 5, 5, 01/14/06 17:13:54, daily, diabetes, [facility], [address] [place] [address] Start Date: 01/14/06 Status: Ordered Humalog 100 u/ml subcutaneous injection See Instructions, use with VGO 30 up to 100 units a day replaces lispro, # 60 mL, 11 Refills, Maintenance, 11/28/21 14:25:00 EST, [facility], Partial fill upon patient request if theprescription is for a schedule II opioid drug. rep... Start Date: 11/28/21 Status: Ordered Insulin Syringe, BD Ultra-Fine 1 [...] 11/15/17 Stop Date: 02/13/18 Status: Ordered Pen [place], 31 G x 5 mm BD Ultra [...] 3 Refills, Maintenance, 05/02/21 15:56:00 EDT, Tablet, [facility], Partial fill... Start [...] V- GO delivery 30 [facility] pharmacy contact [phone] to be used daily with Novolog, 07/18/21 [...]
--- OUTSIDE RECORDS SUMMARY | 2024-07-27 22:09 | XMS_ITS | Continuity of Care Document ---
Author Organization [facility] Peter Tk lt Address [address] [place] [address]- Care Team Providers Care Supervisor Fertilizer Processing Name Role Phone Francesco Dobbins MD Primary Care Phys[id number] Adult [address] [place] [address]- [facility] Attending Physician: Francesco Dobbins MD Allergies, Adverse [...] [id number] Start Date: 09/21/19 Status: Ordered Botox 0 Refills, Maintenance, 04/21/18 [...] 01/14/06 17:13:54, daily, diabetes, [facility]S [facility], [address] [place] [address] Start Date: 01/14/06 Status: Ordered Humalog 100 u/ml subcutaneous injection See Instructions, MAX DOSE 100 to be used daily with VGO 30 DX: E11.9, # 15 mL, 11 Refills, Maintenance, 02/15/20 8:15:00 EDT, [facility] #[id number], 176, cm, 01/07/20 14:33:00 EST, Height [...] TO GIVE INSULIN, 11/23/09 13:35:21, Bethel Cummings, [facility] Start Date: 11/23/09 Status: Ordered Misc Rx [...] 0 Refills, Maintenance, 01/07/20 14:50:00 EST, Tablet, [facility] #[id number], 176... Start Date: 01/07/20 Status: [...] 05/27/14 Stop Date: 05/27/15 Status: Ordered Pen [place], 31 G x 5 mm BD Ultra Fine III See Instructions, # 30 pack/packet, Refills 11, Tot. Refills 11, use with lanrachel mahajan, diabetes, 07/13/09 15:43:10[facility] Start Date: 07/13/09 Status: Ordered Sinemet [...] V- GO delivery 40 [facility] pharmacy contact [phone] to be used daily with humalog, 08/27/19 [...]
--- OUTSIDE RECORDS SUMMARY | 2024-07-27 22:10 | XMS_ITS | Continuity of Care Document ---
Author Organization [facility] Peter Tk Address [address] [place] [address]- Care Team Providers Care Slag Mixer Name Role Phone Lali BARBER, Eduardo Clayton Primary Care Physician Encounter [facility] Date(s): 02/03/24 - 03/04/24 [facility] Adult [address] [place] [address]- Allergies, Adverse Reactions, Alerts Substance Reaction Severity Status Jardiance Active Immunizations Given and Recorded Vaccine Date Status Refusal Reason influenza virus vaccine, inactivated 09/11/23 Bernabe rded influenza virus vaccine, inactivated 1 09/07/22 Gi janelle influenza virus vaccine, inactivated 09/26/21 Give n influenza virus vaccine, inactivated 09/01/20 Give n influenza virus vaccine, inactivated 2 10/26/13 Gi janelle SARS-CoV-2(COVID-19)mRNA-LNP vac([id number]) 09/11/23 Recorded [id number] bivalent booster vax 08/23/22 Recorded SARS-CoV-2 (COVID-19) [...] toxoids (Td) 08/04/07 Given 1Result Comment: [facility] [id number] 2Admin Note: pt declines 3Admin Note: rcvd elsewhere Medications aspirin 81 mg oral enteric coated tablet See Instructions, 0, 0, 01/14/06 17:25:16, By Mouth Daily, Print LISSET Number, Constant Indicator Start Date: 01/14/06 Status: Ordered atorvastatin 80 mg oral tablet See Instructions, TAKE ONE TABLET BY MOUTH EVERY DAY, # 90 tablet, 3 Refills, Maintenance, 244:14:00 EST, [facility], 177.8, cm, 10/16/23 15:08:00 EST, Height Start Date: 02/08/24 Status: Ordered atorvastatin 80 mg oral tablet 1 tablet, By Mouth, Daily, # 90 tablet, 1 Refills, Maintenance, 07/24/23 20:26:00 EDT, [facility], 177.8, cm, 04/12/23 6:48:00 EDT, [...] 5, 01/14/06 17:13:54, daily, diabetes, [facility], [address] [place] [address] Start Date: 01/14/06 Status: Ordered Humalog 100 u/ml subcutaneous injection See Instructions, use with VGO 30 up to 100 units a day vials LISPRO please dispense lispro generic, # 90 mL, 11 Refills, Maintenance, 08/01/23 7:46:00 EDT, [facility] #[id number], Partial fill upon patient request if the prescription is for a... Start Date: 08/01/23 Status: Ordered insulin lispro 100 u/ml subcutaneous injection See Instructions, USE WITH VGO 30 UP TO 100 UNITS A DAY, # 90 mL, 0 Refills, Maintenance, 08/02/23 5:04:00 EDT, [facility] #[id number], 177.8, cm, 04/12/23 6:48:00 EDT, Height Start [...] GIVE INSULIN, 11/23/09 13:35:21, Bethel Cummings, Carmelo Covelo [facility] Start Date: 11/23/09 Status: Ordered memantine 10 mg oral tablet 1 tablet = 10 mg, By Mouth, Daily, # 90 tablet, 3 Refills, Maintenance, 04/12/23 7:26:00 EDT, Tablet, [facility], Partial fill upon patient request if the prescription is for a schedule II opioid drug., 177.8, cm, 04/12/23 6:48:00 EDT... Start Date: 04/12/23 Status: Ordered [facility] [place] Jardiance 10mg, See Instructions, # 90 [...] 11/15/17 Stop Date: 02/13/18 Status: Ordered Pen [place], 31 G x 5 mm BD Ultra [...] 3 Refills, Maintenance, 11/01/23 8:05:00 EST, Tablet, [facility] # [id number], Partial fill upon pa... Start Date: 11/01/23 Status: Ordered Sinemet 25 mg-100 mg oral tablet 2 tablet, By Mouth, 3 times a day, # 90 tablet, 0 Refills, Maintenance, 08/19/17 7:00:26, Tablet Start Date: 08/19/17 Status: Ordered V-GO 30 V-GO 30, See Instructions, # 90 each, Refills 6, Tot. Refills 6, Maintenance, V- GO delivery 30 [facility] pharmacy contact [phone] to be used daily with Novolog, 10/04/22 [...] Member Role: Lifetime Consulting Provider Address: Address: [address] [place] [id number] Name: Lali BARBER, Eduardo Clayton Position: S Physician - Primary Care Member Role: PCP Address: Address: [address] [facility] [place] [address]- Care Team Related Persons Name: BEBETO WIN Address: home [address] [place] [address]
--- OUTSIDE RECORDS SUMMARY | 2024-07-27 22:10 | XMS_ITS | Continuity of Care Document ---
Author Organization [facility] [address]elo Green Tk lt Address [address] [place] [address]- Care Team Providers Care Airport Location Manager Name Role Phone Lali BARBER, Eduardo Clayton Primary Care Physician [phone] Encounter [facility] Date(s): 05/29/24 - 06/28/24 [facility] [address] [place] [address]- Allergies, Adverse Reactions, Alerts Substance Reaction Severity Status Jardiance Active Immunizations Given and Recorded Vaccine Date Status Refusal Reason influenza virus vaccine, inactivated 09/11/23 Bernabe rded influenza virus vaccine, inactivated 1 09/07/22 Gi janelle influenza virus vaccine, inactivated 09/26/21 Give n influenza virus vaccine, inactivated 09/01/20 Give n influenza virus vaccine, inactivated 2 10/26/13 Gi janelle SARS-CoV-2(COVID-19)mRNA-LNP vac([id number]) 09/11/23 Recorded [id number] bivalent booster vax 08/23/22 Recorded SARS-CoV-2 (COVID-19) [...] tetanus-diphtheria toxoids (Td) 08/04/07 Given 1Result Comment: [facility] [id number] 2Admin Note: pt declines 3Admin Note: rcvd [...] 3 Refills, Maintenance, 04/12/23 7:26:00 EDT, Tablet, [facility], Partial fill upon patient request [...] Member Role: Lifetime Consulting Provider Address: Address: [address] [place] [id number]- Name: Jonny Portillo RN Position: S RN Member Role: Primary Care Nurse Name: Eduardo Escalera MD Position: [facility] Physician - Primary Care Member Role: PCP Address: Address: [address] [place] [address]- Name: Doris Hamilton RN Position: S RN Member Role: Primary Care Nurse Name: Manuel Melgar RN Position: S RN Member Role: Primary Care Nurse Name: Aliza Lorenzo RN Position: S RN Member Role: Primary Care Nurse Care Team Related Persons Name: GABINOSHONNA BEBETO Address: home [address] [place] [address]
--- OUTSIDE RECORDS SUMMARY | 2024-07-27 22:10 | XMS_ITS | Continuity of Care Document ---
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 Name Role Phone Lali BARBER, Eduardo Clayton Primary Care Physician Encounter [facility] NBR [id number] Date(s): 06/20/24 - 06/27/[address] [id number] Encounter Diagnosis Memory deficit(Discharge Diagnosis) - 06/20/24 PD (Parkinson's disease)(Discharge Diagnosis) - 06/20/24 Discharge Disposition: Transferred to short-term general hospit Attending Physician: Wilian Sarabia MD Admitting Physician: Ovi Cash MD Referring Physician: Ovi Cash MD Allergies, Adverse Reactions, Alerts Substance Reaction Severity Status Jardiance Active Immunizations Given and Recorded Vaccine Date Status Refusal Reason influenza virus vaccine, inactivated 09/11/23 Bernabe rded influenza virus vaccine, inactivated 1 09/07/22 Gi janelle influenza virus vaccine, inactivated 09/26/21 Give n influenza virus vaccine, inactivated 09/01/20 Give n influenza virus vaccine, inactivated 2 10/26/13 Gi janelle SARS-CoV-2(COVID-19)mRNA-LNP vac([id number]) 09/11/23 Recorded [id number] bivalent booster vax 08/23/22 Recorded SARS-CoV-2 (COVID-19) [...] toxoids (Td) 08/04/07 Given 1Result Comment: [facility] [id number] 2Admin Note: pt declines 3Admin Note: rcvd elsewhere Medications amLODIPine 10 mg oral tablet 10 mg, Tablet, By Mouth, 06/27/24 9:00:00 EDT Start Date: 06/27/24 Stop Date: 06/27/24 Status: Completed amLODIPine 10 mg oral tablet 10 mg, [...] 6:47:50 Start Date: 12/03/17 Status: Ordered FREESTYLE ALYX 14 MEDI-B Miscellaneous FREESTYLE ALYX 14 MEDI-B Miscellaneous, See Instructions, # 1 Unknown, 5 Refills, Maintenance, CHANGE EVERY 14 DAYS, 06/23/24 12:55:00 EDT, 175, cm, 06/20/24 3:40:00 EDT, Height, 94.5, kg, 06/20/24 3:40:00 EDT, Dry Weight Start Date: 06/23/24 Status: Ordered Freestyle Alyx 14 sensor Freestyle Alyx 14 sensor, See Instructions, # 6 each, Refills 11, Tot. Refills 11, Maintenance, DM2 E11.9 3 months supply change every 14 days, 1 hour warm up, 06/25/24 4:08:00 EDT, 3 month supply, Compound, 175, cm, 06/20/24 3:40:00 EDT, Height, 94... Start Date: 06/25/24 Status: Ordered hydrALAZINE 25 mg oral tablet 50 mg, Tablet, By Mouth, 06/27/24 9:00:00 EDT Start Date: 06/27/24 Stop Date: 06/27/24 Status: Completed hydrALAZINE 25 mg oral tablet 50 mg, [...] lisinopril 20 mg oral tablet 40 mg, Tablet, By Mouth, 06/27/24 9:00:00 EDT, Stop date 06/27/24 9:00:00 EDT Start Date: 06/27/24 Stop Date: 06/27/24 Status: Completed lisinopril 20 mg oral tablet 40 mg, [...] 3 Refills, Maintenance, 04/12/23 7:26:00 EDT, Tablet, [facility], Partial fill upon patient request if the prescription is for a schedule II opioid drug., 177.8, cm, 04/12/23 6:48:00 EDT... Start Date: 04/12/23 Status: Ordered Sinemet 25 mg-100 mg oral [...] 3, 4 Confirmed Active 1[facility] echocardi[facility] 3MRI brain and JAYJAY scan pending 4diagnosed by neurology 09/2016. started on azilect Diagnosis Diagnosis Type Effective Dates Health Status Cl inical Service Informant Memory deficit Discharge Diagnosis 06/20/24 Non-Specified PD (Parkinson's disease) Discharge Diagnosis 06/20/24 Non-Specified Results Radiology Reports * Exam Date Time Procedure Performing Provider Status 06/26/24 9:[address] Head/Brain W/O Contrast Giana-Amie Segovia (Verified) Notes: (CT Head/Brain W/O Contrast) Reason For Exam: Change in mentation - Left thalamic IPH;Other: RESULT: CT Head/Brain W/O Contrast CT of the head dated June 26, 2024. Comparison films are from June 20, 2024. HISTORY: Change in mental status. Follow-up intraparenchymal hemorrhage. FINDINGS: CT imaging was performed with multislice acquisition from the foramen magnum through the vertex. No intravenous contrast material was utilized. Axial, coronal, and sagittal reconstruction was performed. A weight based protocol using automatic tube modulation was used to optimize exposure parameters. Examination of the posterior fossa shows a normal size midline fourth ventricle. No mass, hemorrhage, or abnormal extra axial fluid collection is identified. Supratentorially, there is a persistent left thalamic intraparenchymal hemorrhage. The angle of theslices different on today's examination however, measuring as closely as I can with the original itmeasures 2.8 x 1.3 x 2.6 cm compared with 2.3 x 1.6 x 2.8 cm this is not significantly changed. There is slightly more surrounding edema. Once again, there is extension into the left lateral and third ventricles with some dependent blood within the atria of the lateral ventricles bilaterally. This is slightly more prominent on the left. No new hemorrhage is seen. There is a mild amount of mass effect with a minimal 2 mm [id number] midline shift. Overall, the density of the hemorrhage has decreased. Today, it measures approximately 49 Hounsfield units compared with 67 Hounsfield units on the previous study. The paranasal sinuses once again show mild mucosal thickening and mucous retention cysts in the maxillary, sphenoid, and ethmoid sinuses. The mastoid air cells are clear. IMPRESSION: Overall, no significant interval change. There is slightly more edema surrounding the thalamic hemorrhage. Mass effect is unchanged. Slight increase in blood in the dependent portion of the left lateral ventricle. Examination [id number]. Thank you for allowing me to participate in the care of this patient. WSN: [id number] Ordering Physician: Joyce Randhawa Dictated By: Johnathon Perez MD Dictated Date/Time: 06/26/24 10:12 a Reviewed By: Johnathon Perez MD Signed By: Johnathon Perez MD Signed Date/Time: 06/26/24 10:12 am Transcribed By: LASHAUN Transcribed Date/Time: 06/26/24 9:58 am * Exam Date Time Procedure Performing Provider Status 06/25/24 4:11 AM MRI Cervical Spine W/O Contrast Karyna Sunshine; Maryam (Verified) Notes: (MRI Cervical Spine W/O Contrast) Reason For Exam: weakness, ?cord compression on CTA;Other: RESULT: MRI Cervical Spine W/O Contrast MRI Cervical Spine W/O Contrast Reason: Other:; weakness, ?cord compression on CTA; Clinical Question(s): Cord Cauda Equina Compression; Order Comment: Please see Reference Text for complete list of contraindications Cord/Cauda Equina Compression TECHNIQUE: MRI of the cervical spine was performed without intravenous contrast utilizing sagittal T1, sagittal T2, sagittal STIR, axial gradient echo, axial T1, and axial T2-weighted sequences. COMPARISON: CTA neck 06/20/2024. FINDINGS: Multiple images are degraded by motion artifact, which obscures fine detail. LOCALIZER: Localizer images include large [id number] sagittal T2 weighted sequence through the entire spine. The thoracic and lumbar spine on the localizer images demonstrates preserved vertebral body heights, morphology, and alignment, with no evidence of high-grade spinal stenosis. 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 No epidural fluid collection is seen. In the remainder of the cervical spine, there is straightening of the typical cervical lordosis without subluxation. Vertebral body heights are preserved. There is no gross marrow signal abnormality. Intervertebral discs are desiccated but fairly well maintained in height. POSTERIOR FOSSA AND CORD: Visualized posterior fossa is normal. The cervical cord is slightly posterior deflected at the level of C1-C2, but remains normal in signal and caliber throughout. PARASPINAL TISSUES: Grossly unremarkable. FINDINGS BY LEVEL: C1-C2: Posterior positioning of the os odontoideum and adjacent dural calcification results in moderate central stenosis, as seen on CT. There is posterior deflection of the cord, but no evidence of cord compression or cord signal abnormality, with preserved surrounding rim of CSF space. There is no significant central spinal stenosis at any other level in the cervical spine. Small posterior disc bulges are noted at C4-5 and C5-6. Neural foramina are not well assessed due to motion on axial images. IMPRESSION: Posterior positioning of the os odontoideum with adjacent calcification results in moderate centralstenosis with slight posterior deflection of the cord, but preserved rim of CSF space surrounding the cord, with no cord compression or cord signal abnormality. WSN: [id number] Ordering Physician: Sunil Read Dictated By: Saumya Norman MD Dictated Date/Time: 06/25/24 10:01 a Reviewed By: Saumya Norman MD Signed By: Saumya Norman MD Signed Date/Time: 06/25/24 10:01 am Transcribed By: LASHAUN Transcribed Date/Time: 06/25/24 9:53 am * Exam Date Time Procedure Performing Provider Status 06/25/24 4:11 AM MRI Brain W+W/O Contrast Taran Brid; Auth (Verified) Notes: (MRI Brain W+W/O Contrast) Reason For Exam: R weakness, parkinson's disease. Recent thalamic IPH;Hemiparesis RESULT: MRI Brain W+W/O Contrast MRI Brain W+W/O Contrast INDICATION / CLINICAL QUESTION: Reason: Hemiparesis; R weakness, parkinson's disease. Recent thalamic IPH; Clinical Question(s): Infarction; Order Comment: Please see Reference Text for complete listof contraindications Infarction TECHNIQUE: MRI of the brain was performed with and without contrast utilizing sagittal and axial T1, axial T2, axial FLAIR, axial SWAN, and axial DWI sequences, and post-contrast 3D T1 TAN with multiplanar reformats. 20 mL of Clariscan was administered intravenously. COMPARISON: CT head 06/20/2024 FINDINGS: Examination is moderately degraded by motion, which obscures fine detail. BRAIN and EXTRA-AXIAL SPACES: Intraparenchymal hemorrhage is present in the left thalamus, as seen on CT, predominantly T2 hypointense with mixed T1 hyperintense and isointense signal. This measures approximately 2.6 x 1.9 x 2.8 cm, fairly similar to prior CT examination when accounting for difference in slice angulation and modality. Approximately 3 mm rightward shift of the septum pellucidum is again noted. There is no effacement of basal cisterns. There is surrounding edema in the thalamus and adjacent deep white matter,including the posterior limb of left internal capsule. Extension of hemorrhage into the left lateral ventricle is again noted, with redistributed layering blood noted in both occipital horns. No gross abnormal enhancement is seen, though sensitivity is significantly degraded by motion artifact on the postcontrast series. On diffusion weighted imaging, there is distortion of signal by susceptibility effect from the above-described areas of hemorrhage, but no regions of true parenchymal restricted diffusion to indicatean acute or subacute infarct. Moderate patchy foci of T2 prolongation are seen in the periventricular, deep, and subcortical white matter. The midline structures are unremarkable. Ventricles, cisterns, and sulci are mildly prominent, consistent with volume loss. There is no change in ventricular size to suggest hydrocephalus. No abnormal extra-axial fluid collections are seen.Meningeal surfaces are normal. Major intracranial flow voids are present. EXTRACRANIAL SOFT TISSUES: Orbits are unremarkable. Right maxillary mucous retention cyst and surrounding mucosal thickening is noted. There is minimal scattered mucosal thickening in the remaining paranasal sinuses. Mastoids are unremarkable. BONES: Marrow signal is preserved. IMPRESSION: Acute/early subacute left thalamic hematoma again noted, with surrounding edema and intraventricular extension of hemorrhage, similar to the prior study. WSN: [id number] Ordering Physician: Sunil Read Dictated By: Saumya Norman MD Dictated Date/Time: 06/25/24 10:02 a Reviewed By: Saumya Norman MD Signed By: Saumya Norman MD Signed Date/Time: 06/25/24 10:02 am Transcribed By: LASHAUN Transcribed Date/Time: 06/25/24 9:50 am * Exam Date Time Procedure Performing Provider Status 06/20/24 6:[address] Angio Head Meenakshi Prater; Auth (Verified) Notes: (CT Angio Head) Reason For Exam: Hemorrahgic stroke;Other: RESULT: CT Angio Head CT Angio Neck, CT Angio Head Reason: Other:; hemorrhagic stroke; Clinical Question(s): Other: / Other: TECHNIQUE: CT angiogram of the head and neck was performed after bolus administration of intravenous contrast. 100 mL of Omnipaque 300 was administered intravenously. Coronal and sagittal MIP reformatted images were obtained. Additional 3-D images were created on a separate workstation under concurrent supervision by the attending radiologist. All stenoses are measured using NASCET criteria. Weight-based protocol using automatic tube modulation was used to optimize exposure parameters. RADIATION DOSE PARAMETERS: CTDIvol Head: 42.01 mGy, DLP Head: 1357 mGy*cm. COMPARISON: CT scan of the head 06/20/2024. FINDINGS: Multiple images are degraded by patient motion which diminishes detail, and interpretation was made in light of this technical confine. CTA OF THE NECK: Arch: There is a three vessel aortic arch. There is mild atherosclerotic plaque of the aortic arch,but origins of the supra aortic vessels are patent. Right carotid system: The right common carotid artery is patent. The right carotid bulb and proximal right ICA are degraded by motion artifact. Calcification of the right carotid bulb and proximal right ICA. The right carotid bulb and proximal right ICA cannot be accurately assessed due to motion, but mild stenosis may be present. The remainder of the cervical right ICA is unremarkable. Left carotid system: Calcification of the proximal left common carotid artery. The left common carotid arteries are patent. The distal left CCA and left carotid bifurcation are significantly degradedby motion and cannot be accurately assessed. Calcification is noted. The more distal cervical left ICA is unremarkable (0% stenosis by NASCET criteria). Right vertebral: Calcification at the origin, which is blurred. Severe stenosis may be present. Theremainder of the cervical right vertebral artery is unremarkable. Left vertebral: Calcification is noted at the origin, which is mildly enlarged. The remainder of the cervical left vertebral artery is unremarkable. Other: Soft tissues and bones: No evidence of lymphadenopathy or mass. The thyroid is unremarkable. The lungs are degraded by motion, but emphysematous changes are noted. Left coronary artery calcification. An os odontoideum is noted. Calcification/ossification behind the C2 vertebra measures 14 mm SI by 6 mm AP. This results in moderate central canal narrowing and possible cord compression. CTA OF THE HEAD: Anterior circulation: Multifocal calcifications of the intracranial internal carotid arteries. There is moderate stenosis of the horizontal petrous right ICA. Mild-moderate narrowing of the distal ophthalmic right ICA. At least moderate stenosis of the cavernous segment of the left ICA. Mild-moderate to moderate stenosis of the ophthalmic left ICA. The ICA termini are maintained, and the A1 and A2 segments of the anterior cerebral arteries are patent. The M1 segments of the middle cerebral arteries and M2 branch origins are patent. Posterior circulation: The intracranial vertebral arteries and basilar artery are patent. There is a near type right posterior cerebral artery, which is patent. Severe focal stenosis of the P3 segment of the left posterior cerebral artery. Veins: Major dural venous sinuses are patent. Other: Soft tissues and bones: A left thalamic intra-axial hematoma with surrounding edema and intraventricular extension is again noted. This measures up to 25 mm. There is no evidence of active extravasation of contrast related to the hematoma. There is an 8 mm soft tissue nodule involving the left inferior periorbital soft tissues/eyelid. This can be correlated with physical examination. Scattered retention cysts. IMPRESSION: 1. No evidence of active extravasation of contrast related to a LEFT thalamic intra-axial hematoma. 2. 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 Severe focal stenosis of the P3 segment of the left posterior cerebral artery. 3. Motion degraded CTA of the neck. 4. 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 Mild cord compression is suspected. MRI of the cervical spine can be obtained for further evaluation. A preliminary report was issued to the emergency room by the [facility] service 06/20/2024 at 8:27 PM. This did not note the finding in impression #4. An actionable message ([place]) has been communicated via the [employer] system on 06/21/2024 9:54 AM, Message ID [id number]. WSN: [id number] Ordering Physician: Alvino Dias Dictated By: Chay Carrera MD Dictated Date/Time: 06/21/24 9:55 am Reviewed By: Chay Carrera MD Signed By: Chay Carrera MD Signed Date/Time: 06/21/24 9:55 am Transcribed By: LASHAUN Transcribed Date/Time: 06/21/24 9:25 am * Exam Date Time Procedure Performing Provider Status 06/20/24 6:[address] Angio Neck Meenakshi Prater; Auth (Verified) Notes: (CT Angio Neck) Reason For Exam: hemorrhagic stroke;Other: RESULT: CT Angio Neck CT Angio Neck, CT Angio Head Reason: Other:; hemorrhagic stroke; Clinical Question(s): Other: / Other: TECHNIQUE: CT angiogram of the head and neck was performed after bolus administration of intravenous contrast. 100 mL of Omnipaque 300 was administered intravenously. Coronal and sagittal MIP reformatted images were obtained. Additional 3-D images were created on a separate workstation under concurrent supervision by the attending radiologist. All stenoses are measured using NASCET criteria. Weight-based protocol using automatic tube modulation was used to optimize exposure parameters. RADIATION DOSE PARAMETERS: CTDIvol Head: 42.01 mGy, DLP Head: 1357 mGy*cm. COMPARISON: CT scan of the head 06/20/2024. FINDINGS: Multiple images are degraded by patient motion which diminishes detail, and interpretation was made in light of this technical confine. CTA OF THE NECK: Arch: There is a three vessel aortic arch. There is mild atherosclerotic plaque of the aortic arch,but origins of the supra aortic vessels are patent. Right carotid system: The right common carotid artery is patent. The right carotid bulb and proximal right ICA are degraded by motion artifact. Calcification of the right carotid bulb and proximal right ICA. The right carotid bulb and proximal right ICA cannot be accurately assessed due to motion, but mild stenosis may be present. The remainder of the cervical right ICA is unremarkable. Left carotid system: Calcification of the proximal left common carotid artery. The left common carotid arteries are patent. The distal left CCA and left carotid bifurcation are significantly degradedby motion and cannot be accurately assessed. Calcification is noted. The more distal cervical left ICA is unremarkable (0% stenosis by NASCET criteria). Right vertebral: Calcification at the origin, which is blurred. Severe stenosis may be present. Theremainder of the cervical right vertebral artery is unremarkable. Left vertebral: Calcification is noted at the origin, which is mildly enlarged. The remainder of the cervical left vertebral artery is unremarkable. Other: Soft tissues and bones: No evidence of lymphadenopathy or mass. The thyroid is unremarkable. The lungs are degraded by motion, but emphysematous changes are noted. Left coronary artery calcification. An os odontoideum is noted. Calcification/ossification behind the C2 vertebra measures 14 mm SI by 6 mm AP. This results in moderate central canal narrowing and possible cord compression. CTA OF THE HEAD: Anterior circulation: Multifocal calcifications of the intracranial internal carotid arteries. There is moderate stenosis of the horizontal petrous right ICA. Mild-moderate narrowing of the distal ophthalmic right ICA. At least moderate stenosis of the cavernous segment of the left ICA. Mild-moderate to moderate stenosis of the ophthalmic left ICA. The ICA termini are maintained, and the A1 and A2 segments of the anterior cerebral arteries are patent. The M1 segments of the middle cerebral arteries and M2 branch origins are patent. Posterior circulation: The intracranial vertebral arteries and basilar artery are patent. There is a near type right posterior cerebral artery, which is patent. Severe focal stenosis of the P3 segment of the left posterior cerebral artery. Veins: Major dural venous sinuses are patent. Other: Soft tissues and bones: A left thalamic intra-axial hematoma with surrounding edema and intraventricular extension is again noted. This measures up to 25 mm. There is no evidence of active extravasation of contrast related to the hematoma. There is an 8 mm soft tissue nodule involving the left inferior periorbital soft tissues/eyelid. This can be correlated with physical examination. Scattered retention cysts. IMPRESSION: 1. No evidence of active extravasation of contrast related to a LEFT thalamic intra-axial hematoma. 2. 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 Severe focal stenosis of the P3 segment of the left posterior cerebral artery. 3. Motion degraded CTA of the neck. 4. 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 Mild cord compression is suspected. MRI of the cervical spine can be obtained for further evaluation. A preliminary report was issued to the emergency room by the [facility] service 06/20/2024 at 8:27 PM. This did not note the finding in impression #4. An actionable message ([place]) has been communicated via the [employer] system on 06/21/2024 9:54 AM, Message ID [id number]. WSN: [id number] Ordering Physician: Alvino Dias Dictated By: Chay Carrera MD Dictated Date/Time: 06/21/24 9:55 am Reviewed By: Chay Carrera MD Signed By: Chay Carrera MD Signed Date/Time: 06/21/24 9:55 am Transcribed By: LASHAUN Transcribed Date/Time: 06/21/24 9:25 am * Exam Date Time Procedure Performing Provider Status 06/20/24 5:[address] Head/Brain W/O Contrast Michelle Campbell n; Auth (Verified) Notes: (CT Head/Brain W/O Contrast) Reason For Exam: Hemiparesis RESULT: CT Head/Brain W/O Contrast CT Head/Brain W/O Contrast INDICATION: Reason: Hemiparesis; Clinical Question(s): Other:; intrathalamic bleed; Order Comment: TECHNIQUE: Noncontrast head CT using axial technique and reconstructed in axial and coronal planes.Iterative reconstruction techniques are used to optimize dose and image quality. CTDIvol Head: 45.40 mGy, DLP Head: 773 mGy*cm. COMPARISON: [facility] images series 06/20/2024. FINDINGS: BRAIN AND EXTRA-AXIAL SPACES: Similar to 2.3 x 1.6 x 2.8 cm left thalamic bleed with ventricular extension into the left lateral ventricle and third ventricle. (Series 202, image 63) (series 205, image 30). (Previously measured 2.5 x 1.6 x 2.8 cm when measured in same plane) Similar severe effacement of the body of the left lateral ventricle with approximately 3 mm midlineshift at the level of the septum pellucidum. Negative insular ribbon sign. Atherosclerotic vascular calcification of the carotid arteries but negative hyperdense vessel sign. No subarachnoid hemorrhage. No subdural or epidural collection. CALVARIUM, SKULL BASE, AND SOFT TISSUES: No fractures or suspicious bony lesions. Mild mucosal thickening of bilateral ethmoidal, left frontal, right sphenoidal and right maxillary sinuses. Visualized orbits and globes are intact. The extracranial soft tissues are unremarkable. IMPRESSION: Similar 2.8 cm left thalamic hemorrhage with ventricular extension into the left lateral and third ventricle with effacement of the body of left lateral ventricle and 3 mm right-sided midline shift at the level of septum pellucidum. Preliminary results were conveyed via secure message by Dr. Lemus to Dr. Cely Guadarrama DO on 06/20/2024 at 5:32 AM with understanding acknowledged. I have personally reviewed the images and I agree with this report. WSN: [id number] Ordering Physician: Cely Guadarrama Dictated By: Marcy Lemus MD Dictated Date/Time: 06/20/24 6:44 am Reviewed By: Bhumi Fernandez MD Signed By: Bhumi Fernandez MD Signed Date/Time: 06/20/24 6:49 am Transcribed By: LASHAUN Transcribed Date/Time: 06/20/24 5:34 am Vital Signs Most recent to oldest [Reference Range]: 1 2 3 4 5 Height 175 cm (06/27/24 3:00 PM) 175 cm (06/27/24 11:00 AM) 175 cm (06/27/24 7:00 AM) Weight 94.7 kg (06/25/24 5:00 PM) 98.9 kg (06/23/24 8:00 AM) 97.4 kg (06/20/24 3:38 AM) Oxygen Saturation [94-100 %] 98 % (06/27/24 3:00 PM) 100 % (06/27/24 11:00 AM) 100 % (06/27/24 7:00 AM) Pulse Rate [55-90 bpm] 78 bpm (06/27/24 3:00 PM) 69 bpm (06/27/24 11:00 AM) 77 bpm (06/27/24 7:00 AM) Body Mass Index [18.5-24.99 kg/m2] 31.8 kg/m2 *>HHI* (06/20/24 3:38 AM) Blood Pressure [90-138/55-84 mm Hg] 156/75mm Hg *H* (06/27/24 3:00 PM) 133/83mm Hg (06/27/24 11:00 AM) 161/57mm Hg *H* (06/27/24 8:11 AM) 161/57mm Hg *H* (06/27/24 8:11 AM) 161/57mm Hg *H* (06/27/24 8:11 AM) Respiratory Rate [16-30 br/min] 18 br/min (06/27/24 3:00 PM) 18 br/min (06/27/24 11:00 AM) 19 br/min (06/27/24 7:00 AM) Temperature [96.8-100.4 DegF] 97.6 DegF (06/27/24 3:00 PM) 97.5 DegF (06/27/24 11:00 AM) 97.2 DegF (06/27/24 7:00 AM) Mode of Delivery (Oxygen) Room air (06/27/24 3:00 PM) Room air (06/27/24 11:00 AM) Room air (06/27/24 7:00 AM) Blood pressure sites Arm, left (06/27/24 3:00 PM) Leg, left (06/27/24 11:00 AM) Arm, left (06/27/24 7:00 AM) Temperature Route Temporal (06/27/24 3:00 PM) Temporal (06/27/24 11:00 AM) Temporal (06/27/24 7:00 AM) Dry Weight 94.5 kg (06/20/24 3:38 AM) Weight Obtained Via Bed scale (06/23/24 8:00 AM) Bed scale (06/20/24 3:38 AM) Dry Weight Obtained Via Patient/family stated (06/20/24 3:38 AM) Social History Social History Type Response Smoking Status Former smoker; Type: Cigarettes; Other: quit 2016; Tobacco use times per day: 0.5 PPD; Number of years: 28; Total pack years: 14; Started at age: 25; entered on: 07/03/16 Sex Admission evaluation note * Doretha Guzman DO: PERFORM, MODIFY, MODIFY, MODIFY, MODIFY, MODIFY, MODIFY, MODIFY, MODIFY, MODIFY, MODIFY, MODIFY Event Display: Admission Note Authored Date: [id number] Patient: ??MLIKA SANTORO ? Age:??68 Years?Sex:??Male?:??1955?? 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 SBP was 185. CTH images reviewed showed an acute 5cc L thalamic IPH withL ventricular IVH, some ventriculomegaly (ex vacuo) but no hydrocephalus. He was transferred to [facility] for further management. Repeat CTH images reviewed show stable IPH and IVH volume with no increase in ventricle size. Weaned of Nicardipine gtt and optimizing PO EUSEBIO. Downgrade to acute medicinefor q4h neuro checks. ?? Milka is feeling well, no complaints. No headache, dizziness, new neurological defects that he can appreciate, pain. ?? Review of Systems Pertinent negative and positives included in subjective above.?? Objective Vital Signs?? Temperature: 98.6 DegF (06/25/24 12:00:00) Temperature Route: Oral (06/25/24 12:00:00) Heart Rate Monitored: 72 bpm (06/25/24 12:00:00) Respiratory Rate:??13 br/min??Low (06/25/24 12:00:00) Systolic Blood Pressure: 132 mm Hg (06/25/24 12:00:00) Diastolic Blood Pressure: 68 mm Hg (06/25/24 12:00:00) Blood pressure sites: Arm, left (06/25/24 12:00:00) Pulse Pressure: 64 mm Hg (06/25/24 12:00:00) Oxygen Saturation: 99 % (06/25/24 12:00:00) Mode of Delivery (Oxygen): Room air (06/25/24 12:00:00) Early Warning Score: 0 (06/25/24 16:40:37) ? Intake/Output? 06/20 03:33 06/25 07:00 06/24 07:00 06/23 07:00 06/22 07:00 ?? 06/25 17:54 06/25 17:54 06/25 06:59 06/24 06:59 06/23 06:59 Intake ? 4294.3 ?677 ?780 ?334.6 ? 1336.7 Output ? 6750 ?300 ? 2000 ? 1750 ?700 Net Total ?-2455.7 ?377 ?-1220 ?-1415.4 ?636.7 ? Urine Count ?8 ?0 ?0 ?1 ?3 ?? Physical Exam Constitutional: Alert, in no distress. Mental Status: Oriented to person, place Respiratory: Breathing comfortably on room air. Lungs clear to auscultation. Cardiovascular: S1 S2 regular.??+Systolic murmur. Gastrointestinal: Abdomen soft, non-tender, non-distended. Normal bowel sounds. Neurologic: Speech is fluent, appropriate?? but with moderate dysarthria. Names well. Follows simple and complex commands. Cranial Nerves: PERRL, EOMI without nystagmus, VFF. R facial droop Motor: 5/5 LUE, LLE/ 3/5 RUE, RLE.?R??pronator drift. Normal bulk and tone.?? Psychiatric: Normal mood and affect. 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 SBP was 185. CTH images reviewed showed an acute 5cc L thalamic IPH withL ventricular IVH, some ventriculomegaly (ex vacuo) but no hydrocephalus. He was transferred to [facility] for further management. Repeat CTH images reviewed show stable IPH and IVH volume with no increase in ventricle size. Weaned of Nicardipine gtt and optimizing PO EUSEBIO. Downgrade to acute medicinefor q4h neuro checks. ?? 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 Per family, may have fractured the C2 vertebrae 35 years ago in an accident of some sort left thalamic IPH with IVH, location most consistent with hypertensive hemorrhage. CTA with no underlying vascular malformation, possible left [employer]ELDER stenosis, cannot rule out stroke with hemorrhagic conversion??vs??amyloid angiopathy. MRI consistent with acute/early subacute left thalamic hematoma with surrounding edema and intraventricular extension of the hemorrhage similar to before, MRI cervical spine shows os odontoideum withadjacent calcification results in moderate central stenosis with slight posterior deflection of thecord, but preserved rim of CSF space surrounding the cord, with no cord compression or cord signal abnormality. ?? PLAN: -Continue to hold home Aspirin- appears to be for primary prophylaxis, recommend discontinuing upondischarge -DVT??ppx with??Heparin -Goal SBP <150, optimize to Lisinopril 40mg PO QD -Dysphagia level??3 diet per speech rechs -q4 hour neuro=checks -Continue home Carbidopa 25mg/Levodopa 100mg, Memantine 10mg, Sertraline 100mg daily -PT/OT and PMR following -FU with stroke clinic, neurology to arrange ?? Hypertension (I10) Murmur??(R01.1) Likely had baseline hypertension that may have lead to hemorrhagic stroke, although??son does not believe there was??concern of serious HTN. Due to hemorrhagic stroke will need to keep SBP <150, s/p??Nicardipine drip. Previous??ECHO in??2022 showed mild , repeat ECHO done here unremarkable. Given??difficulty controlling??blood pressure with oral medication,??MICU??decided to investigate??causes of secondary HTN although do not have high concern for this given that BP is controlled on one agent and would anticipate elevated BP after??brain bleed. ?? PLAN: -Lisinopril 40mg PO QD, goal SBP <150 -Renal duplex ordered ?? T2DM (E11.9) Uses insulin pump due to difficulty controlling sugars with basal/bolus insulin. A1c 6.1%. S/p ICU Insulin gtt in ggt. BIDS consulted, appreciate recommendations ?? PLAN: -Lantus 42U daily with sliding scale??(MICU touched base with??BIDS??fellow, they will see effect of Lantus 42U and recommend further) -POC glucose??TID before meals and at bedtime with ISS -Hypoglycemia emergency protocol??ordered ? [employer]: Code Status: FULL VTE ppx: Heparin subQ TID Diet: Dysphagia level 3 with 1:1 assist AM labs: CBC, BMP, Mg, Phos OMN:??Hemorrhagic stroke Dispo: Likely home w/ services in 1-2 days, PT consulted ? Patient reviewed with supervising??attending Dr. Hill. ?? Doretha Guzman, DO Internal Medicine, PGY-3 Pager# [phone] Histories Allergies Allergies ?(Active and Proposed Allergies Only) Jardiance? (Severity: Unknown severity, Onset: Unknown) ? Past Medical History/Problem List Active Problems(10) Aortic insufficiency trace Aortic stenosis mild echo 2019 2021 Diabetes Mellitus without Mention of Complication Diverticulosis Erectile dysfunction/urology History of herpes zoster c& RT Hypercholesterolemia Insulin long-term use Obese class I PD (Parkinson's disease) ? Past Surgical History Colonoscopy and extirpation of lesion of colon: 11/30/22 Echocardiogram ef 60-65% mild aortic stenosis: 06/20/22 Electrocardiogram sinsu: 03/13/21 Reference laboratory nomrmal bone alk phos: 01/18/21 Chest X-ray lefvt ribs: 03/30/20 Echocardiogram mild as ef 65-70%: 02/08/20 Radioisotope myocardial perfusion stress study normal: 01/25/20 Polysomnogram: 11/11/18 Cardiac echo: 08/08/17 Hand X-ray right: 03/11/17 Abnormal brain MRI spect: 09/26/16 MRI of brain and brain stem: 09/14/16 EMG - Electromyography normal: 08/31/16 MRI of cervical spine: 07/19/16 Radiologic examination, spine, cervical; 3 views or less: 07/05/16 Chest X-ray: 07/05/16 Right wrist X-RAY: 07/05/16 Electrocardiogram, routine ECG with at least 12 leads; with interpretation and report: 06/19/11 Reference (Outside) Laboratory: 05/14/11 Reference (Outside) Laboratory: 07/18/10 Reference (Outside) Laboratory: 03/14/10 labs: 11/15/09 labs: 09/15/09 [id number]/[id number]/03 ? Social History Alcohol Details:??Use: Never. Employment/School Details:??Status: Disabled. 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 Exercise Details:??Self assessment: Good condition. ??Other: WALKS DAILY. ??Regular exercise: No. ??Exercisefrequency: Daily. ??Exercise type: Walking. Home/Environment Details:??Living situation: Home/Independent. ??Lives with: Spouse. ??Feels unsafe at home: No. Nutrition/Health Details:??Diet: Regular, Diabetic. Other Details:??Name: uses seat belt. Substance Abuse Details:??Use: Never. Tobacco Details:??Former smoker, Other: quit 2016. ??Type: Cigarettes. ??Tobacco use times per day: 0.5 ??PPD. ??28 Number of years:. ??Total pack years: 14. ??Started at age: 25 Years. ? Family History Father??(): ASHD - Atherosclerotic heart disease; Hyperlipidemia Brother??(): Diabetes mellitus type II; Hyperlipidemia Other: Diabetes mellitus type II (mutiple on fathrtrs side) ? Medications Home Medications Aspirin (aspirin 81 mg oral enteric coated tablet)?See Instructions?By Mouth Daily Atorvastatin (atorvastatin 80 mg oral tablet)?See Instructions?TAKE ONE TABLET BY MOUTH EVERYDAY Carbidopa-Levodopa (Sinemet 25 mg-100 mg oral tablet)?2?tab(s)?By Mouth?3 times a day Clonazepam?0.25?Milligram?By Mouth?Daily at bedtime Insulin Lispro (insulin lispro 100 u/ml subcutaneous injection)?See Instructions?USE WITH VGO30 UP TO 100 UNITS A DAY Memantine (memantine 10 mg oral tablet)?1?tab(s)?10?Milligram?By Mouth?Daily Miscellaneous Rx (FREESTYLE ALYX 14 MEDI-B Miscellaneous)?See Instructions?CHANGE EVERY 14 DAYS Miscellaneous Rx (Freestyle Alyx 14 sensor)?See Instructions?DM2 E11.9 3 months supplychangeevery 14 days, 1 hour warm up Sertraline (Zoloft 100 mg oral tablet)?1?tab(s)?100?Milligram?By Mouth?Daily ? Inpatient Medications Medications (19) Active SCHEDULED: (11) Atorvastatin 80 mg Tablet (atorvastatin 80 mg oral tablet) ??80 mg, By Mouth, Daily at bedtime Carbidopa 25 mg / Levodopa 100 mg Tablet (Sinemet 25 mg-100 mg oral tablet) ??2 tablet, By Mouth, 3times a day Clonazepam 0.5 mg Tablet (clonazePAM 0.5 mg oral tablet) ??0.25 mg, By Mouth, Daily at bedtime Heparin 5000 units/mL Inj (1 mL) (Heparin Inj) ??5,000 units 1 mL, Subcutaneous Injection, 3 times a day Insulin Glargine 100 units/mL Inj (Insulin Glargine Inj) ??42 units 0.42 mL, Subcutaneous Injection, Daily Insulin Lispro 100 units/mL Inj (Insulin LISPRO Sliding Scale) ??3-15 units, Subcutaneous Injection, 3 times a day before meals Lisinopril 20 mg Tablet (lisinopril 20 mg oral tablet) ??40 mg, By Mouth, Daily Memantine 10 mg Tablet (memantine 10 mg oral tablet) ??10 mg, By Mouth, Daily Polyethylene Glycol 17 Gm Powder (Polyethylene Glycol Powder) ??17 Gm 1 pack/packet, By Mouth, Daily Senna Tablet (Senna 8.6 mg oral tablet) ??17.2 mg 2 tablet, By Mouth, Daily Sertraline 50 mg Tablet (Zoloft 50 mg oral tablet) ??100 mg, By Mouth, Daily CONTINUOUS: (0) PRN: (8) Acetaminophen 325 mg Tablet (Tylenol 325 mg oral tablet) ??325 mg, By Mouth, Every 4 hours Dextrose Inj Syringe (Dextrose 50% Inj Syringe (25Gm)) ??12.5 Gm, IV Push Slowly, Every 20 minutes Dextrose Inj Syringe (Dextrose 50% Inj Syringe (25Gm)) ??25 Gm, IV Push Slowly, Every 15 minutes Glucagon 1 mg Inj (Glucagon Inj) ??1 mg, Intramuscular, Once Glucose 40% Gel (15 Gm) (Glucose Gel) ??15 Gm, By Mouth, Every 20 minutes Glucose 40% Gel (15 Gm) (Glucose Gel) ??30 Gm, By Mouth, Every 20 minutes Melatonin 3 mg Tablet (Melatonin Tablet) ??3 mg, By Mouth, Daily at bedtime NaCl 0.9% Flush 3ml (NaCL 0.9% Flush) ??3 mL, IV Push, Every 8 hours ? Results Recent Labs BLOOD COUNT & DIFF WBC 7.3 k/mm3 ()?? 06/25/2024 04:50 RBC 4.45 m/mm3 (Low)?? 06/25/2024 04:50 Hgb 13.4 Gm/dL (Low)?? 06/25/2024 04:50 Hct 39.6 % (Low)?? 06/25/2024 04:50 MCV 89.0 femtoliters ()?? 06/25/2024 04:50 MCH 30.1 pg ()?? 06/25/2024 04:50 MCHC 33.8 g/dL ()?? 06/25/2024 04:50 Platelet Count 182 k/mm3 ()?? 06/25/2024 04:50 RDW-SD 42.8 femtoliters ()?? 06/25/2024 04:50 MPV 11.6 femtoliters ()?? 06/25/2024 04:50 Nucleated RBC (Automated) 0.0 #/100 WBC'S ()?? 06/25/2024 04:50 Abs. NRBC 0.0 k/mm3 ()?? 06/25/2024 04:50 Abs. Neut 5.3 k/mm3 ()?? 06/25/2024 04:50 Abs. Lymph 1.2 k/mm3 ()?? 06/25/2024 04:50 Abs. Howell 0.6 k/mm3 ()?? 06/25/2024 04:50 Abs. Eo 0.1 k/mm3 ()?? 06/25/2024 04:50 Abs. Baso 0.0 k/mm3 ()?? 06/25/2024 04:50 Neut % 73.1 % ()?? 06/25/2024 04:50 Lymph % 16.6 % ()?? 06/25/2024 04:50 Howell % 8.0 % ()?? 06/25/2024 04:50 Eos % 1.4 % ()?? 06/25/2024 04:50 Baso % 0.6 % ()?? 06/25/2024 04:50 Imm Gran 0.3 % ()?? 06/25/2024 04:50 Abs. Imm Gran 0.0 k/mm3 ()?? 06/25/2024 04:50 ?? CHEM GENERAL Sodium 138 mmol/L ()?? 06/25/2024 04:50 Potassium 4.6 mmol/L ()?? 06/25/2024 04:50 Chloride 100 mmol/L ()?? 06/25/2024 04:50 Bicarbonate Level 26 mmol/L ()?? 06/25/2024 04:50 Anion Gap 12 ()?? 06/25/2024 04:50 Glucose Level 127 mg/dL (High)?? 06/25/2024 04:50 Glucose, POC 129 mg/dL (High)?? 06/25/2024 16:38 BUN 18 mg/dL ()?? 06/25/2024 04:50 Creatinine-Blood 0.83 mg/dL ()?? 06/25/2024 04:50 Estimated GFR Creatinine 96 ML/MIN/1.73 M2 ()?? 06/25/2024 04:50 Calcium 9.1 mg/dL ()?? 06/25/2024 04:50 Phosphorus 3.2 mg/dL ()?? 06/25/2024 04:50 Magnesium 1.7 mg/dL ()?? 06/25/2024 04:50 Protein, Total 6.7 Gm/dL ()?? 06/24/2024 07:00 Albumin 3.8 Gm/dL ()?? 06/24/2024 07:00 AG Ratio 1.3 ()?? 06/24/2024 07:00 Alkaline Phosphatase 72 units/L ()?? 06/24/2024 07:00 AST (SGOT) 43 units/L (High)?? 06/24/2024 07:00 ALT (SGPT) 15 units/L ()?? 06/24/2024 07:00 Bilirubin, Total 0.6 mg/dL ()?? 06/24/2024 07:00 ?? URINE OTHER Est Creatinine Clearance 86.08 mL/min ()?? 06/25/2024 05:45 ? * Cely Guadarrama DO: PERFORM, MODIFY, MODIFY, MODIFY, MODIFY Event Display: Admission Note Authored Date: Patient: ??MILKA SANTORO ? Age:??68 Years?Sex:??Male?:??1955?? Chief Complaint/Reason for Consultation intrathalamic bleed History of Present Illness Patient is a 53-year-old male with a history of diabetes, Parkinson's disease who was trying to walk around 2300 and slumped down.? 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 His son is an Anesthesiologist currently doing a??pain program/fellowship in [place]. ?? His saw him and denies any head injury.?She noted his??right side was weak and patient cannot stand prompting call to EMS and transfer to [place]. ?? He does have history of right upper extremity spasm but no history of CVA in the past.?? On any blood thinners, just on aspirin.?? Also had right facial droop.?? Was taken to CT scan which showed a left thalamic bleed extended lateral ventricle mild surrounding edema was present.?? Blood pressure was 186/66 on arrival, he received 2 labetalol pushes at [place].?? Due to intrathalamic hemorrhage she was transferred to [facility] ICU. ?? On presentation to [facility], patient is speaking, speech slightly slurred.?? Not reporting any chest pain, shortness of breath, flank pain, leg swelling.?? He reports his right arm feels heavy but he still has sensation. Review of Systems A full review of systems was completed and is otherwise negative except as mentioned in history of present illness. Objective Vital Signs?? Temperature: 98.5 DegF (06/20/24 03:38:00) Temperature Route: Oral (06/20/24 03:38:00) Pulse Rate: 80 bpm (06/20/24 03:38:00) Respiratory Rate: 18 br/min (06/20/24 03:38:00) Systolic Blood Pressure:??167 mm Hg??High (06/20/24 03:38:00) Diastolic Blood Pressure: 78 mm Hg (06/20/24 03:38:00) Blood pressure sites: Arm, right (06/20/24 03:38:00) Mean Arterial Pressure: 108 mm Hg (06/20/24 03:38:00) Pulse Pressure: 89 mm Hg (06/20/24 03:38:00) Oxygen Saturation: 98 % (06/20/24 03:38:00) Mode of Delivery (Oxygen): Room air (06/20/24 03:38:00) ? Physical Exam ?? General: Patient in no acute distress?? HEENT: normocephalic, atraumatic, Respiratory: bilateral equal air entry, clear to auscultation with no wheezes or crackles. Adequaterespiratory rate and effort on room air.?? CVS: regular rate and rhythm, S1 and S2 present, presented decrescendo murmur??right upper sternal border Abdomen: soft, non tender, non distended, Extremities: no cyanosis. No edema noted b/l.?? Neuro: alert and oriented x3. Cranial nerves II-XII grossly intact. weakness on right side, 4/5 in lower extremitiy, weaked in upper extremity. Sensation intact in upper and lower extremity. Slight right sided facial droop. Derm: No signs of infection, surrounding skin is intact with no evidence of erythema, no purulent discharge, no tenderness?? Psych: Normal mood and affect?? Assessment/Plan Patient is a 68-year-old male with a history of diabetes, Parkinson's who was noted to have new onset right-sided weakness at 23:00 presented to the [place] emergency room where he was found to have intra and thalamic hemorrhage which was transferred to [facility] ICU. ?? Intra thalamic hemorrhage with extension into the ventricle Patient??only on aspirin??no other anticoagulation at home. Acute??hemorrhagic stroke??at 2300??appreciated on CT at [place]. Right-sided weakness and facial droop, patient??able to speak and alert and oriented. ?Repeat stat CT head Noncon ??? Nicardipine drip for blood pressure goal 120-140 ?Hold aspirin ??? Every hour neurochecks ??? N.p.o. until swallow eval ??? Continue high-dose statin??when able to swallow ?? DM2 Patient on an insulin pump at home with a hemoglobin A1c of 6.1. With acute hemorrhagic stroke, will hold off on the insulin pump while he is here. ??? Slight scale insulin ?? Lines/Tubes/Prevention Head of bed >30 degrees: y DVT: pcds, holding chemical with intrathalamic hemorrhage Diet: npo until swallow Code:??full ?? Patient discussed with attending physician, Dr. Shreya Guadarrama, DO Internal Medicine PGY3 ?? Histories Allergies Allergies ?(Active and Proposed Allergies Only) Jardiance? (Severity: Unknown severity, Onset: Unknown) ? Past Medical History/Problem List Active Problems(10) Aortic insufficiency trace Aortic stenosis mild echo 2019 2021 Diabetes Mellitus without Mention of Complication Diverticulosis Erectile dysfunction/urology History of herpes zoster c& RT Hypercholesterolemia Insulin long-term use Obese class I PD (Parkinson's disease) ? Past Surgical History Colonoscopy and extirpation of lesion of colon: 11/30/22 Echocardiogram ef 60-65% mild aortic stenosis: 06/20/22 Electrocardiogram sinsu: 03/13/21 Reference laboratory nomrmal bone alk phos: 01/18/21 Chest X-ray lefvt ribs: 03/30/20 Echocardiogram mild as ef 65-70%: 02/08/20 Radioisotope myocardial perfusion stress study normal: 01/25/20 Polysomnogram: 11/11/18 Cardiac echo: 08/08/17 Hand X-ray right: 03/11/17 Abnormal brain MRI spect: 09/26/16 MRI of brain and brain stem: 09/14/16 EMG - Electromyography normal: 08/31/16 MRI of cervical spine: 07/19/16 Radiologic examination, spine, cervical; 3 views or less: 07/05/16 Chest X-ray: 07/05/16 Right wrist X-RAY: 07/05/16 Electrocardiogram, routine ECG with at least 12 leads; with interpretation and report: 06/19/11 Reference (Outside) Laboratory: 05/14/11 Reference (Outside) Laboratory: 07/18/10 Reference (Outside) Laboratory: 03/14/10 labs: 11/15/09 labs: 09/15/09 [id number]/[id number]/03 ? Social History Alcohol Details:??Use: Never. Employment/School Details:??Status: Disabled. 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 Exercise Details:??Self assessment: Good condition. ??Other: WALKS DAILY. ??Regular exercise: No. ??Exercisefrequency: Daily. ??Exercise type: Walking. Home/Environment Details:??Living situation: Home/Independent. ??Lives with: Spouse. ??Feels unsafe at home: No. Nutrition/Health Details:??Diet: Regular, Diabetic. Other Details:??Name: uses seat belt. Substance Abuse Details:??Use: Never. Tobacco Details:??Former smoker, Other: quit 2016. ??Type: Cigarettes. ??Tobacco use times per day: 0.5 ??PPD. ??28 Number of years:. ??Total pack years: 14. ??Started at age: 25 Years. ? Family History Father??(): ASHD - Atherosclerotic heart disease; Hyperlipidemia Brother??(): Diabetes mellitus type II; Hyperlipidemia Other: Diabetes mellitus type II (mutiple on fathrtrs side) ? Medications Home Medications Aspirin (aspirin 81 mg oral enteric coated tablet)?See Instructions?By Mouth Daily Atorvastatin (atorvastatin 80 mg oral tablet)?See Instructions?TAKE ONE TABLET BY MOUTH EVERYDAY Carbidopa-Levodopa (Sinemet 25 mg-100 mg oral tablet)?2?tab(s)?By Mouth?3 times a day Clonazepam?0.25?Milligram?By Mouth?Daily at bedtime Insulin Lispro (insulin lispro 100 u/ml subcutaneous injection)?See Instructions?USE WITH VGO30 UP TO 100 UNITS A DAY Memantine (memantine 10 mg oral tablet)?1?tab(s)?10?Milligram?By Mouth?Daily Sertraline (Zoloft 100 mg oral tablet)?1?tab(s)?100?Milligram?By Mouth?Daily ? Inpatient Medications Medications (10) Active SCHEDULED: (8) Atorvastatin 80 mg Tablet (atorvastatin 80 mg oral tablet) ??80 mg, By Mouth, Daily at bedtime Carbidopa 25 mg / Levodopa 100 mg Tablet (Sinemet 25 mg-100 mg oral tablet) ??2 tablet, By Mouth, 3times a day Clonazepam 0.5 mg Tablet (clonazePAM 0.5 mg oral tablet) ??0.25 mg, By Mouth, Daily at bedtime Insulin Lispro 100 units/mL Inj (Insulin LISPRO Sliding Scale) ??2-10 units, Subcutaneous Injection, Every 6 hours Memantine 10 mg Tablet (memantine 10 mg oral tablet) ??10 mg, By Mouth, Daily Polyethylene Glycol 17 Gm Powder (Polyethylene Glycol Powder) ??17 Gm 1 pack/packet, By Mouth, Daily Senna Tablet (Senna 8.6 mg oral tablet) ??17.2 mg 2 tablet, By Mouth, Daily Sertraline 50 mg Tablet (Zoloft 50 mg oral tablet) ??100 mg, By Mouth, Daily CONTINUOUS: (1) NICARdipine 2.5 mg/mL Cont IV 25 mg + NaCL 0.9% (250 mL) Cont IV 250 mL (NiCARDipine Cont IV 25 mg + NaCL 0.9% for Titration 250 mL) ??250 mL, IV Infusion PRN: (1) NaCl 0.9% Flush 3ml (NaCL 0.9% Flush) ??3 mL, IV Push, Every 8 hours ? Results Recent Labs CHEM GENERAL Glucose, POC 213 mg/dL (High)?? 06/20/2024 04:01 ? * Shreya BARBER, Ovi Piña: PERFORM Event Display: Admission Note Authored Date: MICU Attending Attestation ?? I have seen and evaluated??MILKA DE DIOS. I have personally reviewed the HPI, PMFSH, and ROS. I have personally reviewed the lab, radiography, and study results from this admission. Reviewed outside hospital??CT head.??I have discussed the case with Dr. Guadarrama and agree with the findings, assessment, and plan as documented below with the following highlights, clarifications, and addenda. ?? 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 ?? Assessment: # Left Thalamic Intraparenchymal Hemorrhage with Ventricular Extension: Right- sided weakness and paresthesias plus expressive aphasia noted on examination. Likely due to uncontrolled hypertension in this location. # Hypertensive Emergency: Complicated by intraparenchymal hemorrhage as above requiring nicardipineinfusion to maintain SBP at goal 120-140mmHg. # Diabetes Mellitus Type 2: Hyperglycemic on admission but well controlled at baseline (HgbA1c 6.1%). # Parkinson's Disease: Chronic with functional impairment at baseline. ?? Plan: - q1h neuro checks - continue home carbidopa-levodopa - Neuro crit consult - Nicardipine gtt??goal SBP 120-140mmHg - Hold home ASA - PM&R and NEEDLE LOOM TENDER - Keep insulin pump off for now - SSI, monitor glucose and consider glargine if needed - VTE Prophylaxis: SCDs ?? I discussed with patient's and son at the bedside upon arrival to the MICU. ?? Remainder as below ?? NASSER SILVER DE DIOS??is critically ill due to the problems and diagnoses listed above, with a high probability of life-threatening deterioration or . I personally spent??45 minutes of non-overlapping critical care time evaluating and managing the patient, excluding time spent teaching??or performing separately billable procedures. ?? Ovi Cash MD Critical Care Medicine Attending [facility] * Event Display: Echocardiogram - Complete Authored Date: [id number] Transthoracic Echocardiography Report (TTE) Patient Demographics Patient Name MILKA SANTORO Date of Study 06/25/2024 Corporate Gender Male Facility Race Ethnicity Date of 1955 Height: 68.9 inches Age 68 year(s) Weight: 218.26 pounds Accession Number [id number] BSA: 2.14 m2 Room Number [id number] BMI: 32.33 kg/m2 Referring Physician Jacek Barber MD Interpreting Lilliam CASH Physician OVI Piña Injection Molding Machine Tender Megan Ndiaye Indications CVA. Clinical History , CVA, obesity Study Data Type of Study TTE procedure:Echo Complete-Doppler, Colorflow, M-Mode. Study Date06/25/2024 Start Time: 07:23 AM Study Location: [facility] Echo Study Status: ICU/CCU Patient Status: Routine Technical Quality: Adequate Blood Pressure:146/73 mmHg EKG: Normal sinus rhythm HR: 76 bpm 2D Measurements LV Diastolic Dimension: 4.7 cm LV Systolic Dimension: 3 cm LV Septum Diastolic: 0.9 cm LV PW Diastolic: 1 cm AO Root Dimension: 3.7 cm LA Dimension: 3.5 cm LA ESV (BP):45.4 ml LVOT Stroke Volume: 75.76 ml LA ESV Index: 21 ml/m2 Stroke Volume Index35.4 ml/m2 LVOT: 2.2 cm Cardiac Index:2.69 l/min/m2 Ascending Aorta:3.3 cm Doppler Measurements AV Peak Velocity: 261 cm/s MV Peak E-Wave: 63.7 cm/s AV Peak Gradient: 27.25 mmHg MV Peak A-Wave: 60.9 cm/s AV Mean Gradient: 14 mmHg MV E/A Ratio: 1.05 AV VTI:56.1 cm MV P1/2t: 75 msec LVOT Peak Velocity: 106 cm/s LVOT VTI19.94 cm MV Deceleration Time: 256 msec AV Area (Continuity):1.35 cm2 MV Area (PHT): 2.93 cm2 E' Septal Velocity: 7.29 cm/s E' Lateral Velocity: 12.8 cm/s E/Med E':[id number] E/Lat E':4.319873 Cardiac Anatomy Left Ventricle/Interventricular Septum The left ventricular size is normal. Left ventricular wall thickness is normal. Normal LV systolic function. Ejection fraction is 55-65%. There are no regional wall motion abnormalities. Normal diastolic function. Left Atrium/Interatrial Septum The left atrium is normal in size (foreshortened images). Aortic Valve The aortic valve is poorly visualized. The aortic valve appears moderately calcified. There is mild aortic stenosis. The mean gradient is 14 mmHg. Mitral Valve The mitral valve appears grossly normal. There is trace mitral regurgitation. Aorta The aortic root is normal in size. The ascending aorta is not well visualized. Right Ventricle The right ventricle is normal in size and function. Right Atrium The right atrium is normal in size. Pulmonic Valve The pulmonic valve is poorly visualized. Tricuspid Valve The tricuspid valve is poorly visualized. Pumonary Artery An accurate pulmonary artery pressure could not be obtained. Venous Structures The inferior vena cava appears normal. Pericardium/Extracardiac There is no significant pericardial effusion. Summary The left ventricular size is normal. Left ventricular wall thickness is normal. Normal LV systolic function. Ejection fraction is 55-65%. There are no regional wall motion abnormalities. Normal diastolic function. The aortic valve is poorly visualized. The aortic valve appears moderately calcified. There is mild aortic stenosis. The mean gradient is 14 mmHg. The right ventricle is normal in size and function. There is no significant pericardial effusion. Comparison Comparison is made to the study report of May 25, 2024. There is no significant change, images not available. Signature * Event Display: Echocardiogram - Complete Authored Date: [id number] Cardiology * Event Display: Cardiac Rhythm Strips Authored Date: * Event Display: VL Renal Artery Doppler Authored Date: [id number] Demographics Procedure Information Patient name: SILVER JARQUIN Procedure date: 06/26/2024 8:38 AM Corporate Proc. sub type: Abdominal: Renal, Arterial Duplex Complete Renal. Gender: Male Accession No: [id number] Date of : 1955 Account No: [id number] Age: 68 year(s) Patient status: Routine Admit Status: Inpatient Procedure Staff Probe: C 1-6 Ordering physician: Jacek Barber MD Technical quality: Poor visualization Referring Physician: Jacek Piña Limitation reason: Poor patient cooperation Attending Physician: SHREYA Piña Facility: [facility] Admitting Physician: SHREYA Piña Study location: [facility] [facility] Additional report to: SHREYA Piña Procedure consent obtained: Injection Molding Machine Tender: Herb Jurado Interpreting physician: Ynes Mcguire Indications Hypertension. Aorta Findings AP DIAM Location PSV (cm/s) EDV (cm/s) (cm) Trans Diam (cm) Wave Description Prox Aorta 136.7 Renal Artery Findings Right Left Location PSV (cm/s) EDV (cm/s) RAR PSV (cm/s) EDV (cm/s) RAR Dist Renal 97.2 25.9 0.71 Right kidney RAR: 0.71 Arcuate Arteries Right kidney length: 10.65 cm Physician Conclusions Summary: Right side: There is stenosis < 60% within the distal Renal Artery, based on peak systolic velocities and Renal / Aortic Ratio. The Renal/ Aortic Ratio is normal . Renal parenchymal size is normal . The Renal Vein is patent. The right proximal/ mid renal artery is not seen. The left renal artery and kidney is not seen due to shadowing. Limited exam heavy bowel gas and poor patient cooperation. * Event Display: VL Renal Artery Doppler Authored Date: [id number] * Event Display: Cardiac Rhythm Strips Authored Date: Hospital Progress note * Moise Lucio MDwi: PERFORM Event Display: Progress Note Hospital Authored Date: Patient: ??MILAK SANTORO ? Age:??68 Years?Sex:??Male?:??1955?? 68-year-old male with past medical history of type 2 diabetes mellitus, Parkinson's disease currently admitted to the hospital for management intrathalamic hemorrhage in the setting of uncontrolled hypertension. [facility] has been consulted for assistance with management of patient's type 2 diabetes gracy itus. ?? Current Inpatient glycemic history and management: -Basal insulin:??Lantus 42 units to -Prandial insulin:??Humalog sliding scale starting at 3 units for blood sugar 100mg/dL??with interval increase of 2 units for every 50mg/dL,??3 times daily AC -Diet:??Dysphagia diet ?? Glycemic trends reviewed: Patient has blood sugars ranging between??128-344mg/dL in the past 24 hours. His??FBS this morning was 274mg/dL from 128mg/dL yesterday. He received a total of 42u of??Lantus and??18U of Humalog in the past 24 hours. ?? Type 2 diabetes mellitus Patient has highly variable??oral intake due to which??there is an insulin carbohydrate mismatch leading to highly variable blood sugars. ?Continue Lantus 42 units daily ??? Continue Humalog sliding scale starting at 3 units for blood sugar 100mg/dL??with interval increase of 2 units for every 50mg/dL,??3 times daily AC ??? Add Humalog 2 units??as needed for bedtime snack ?? Plan of care discussed with Dr. Casarez, addendum to follow. ?? Leanne Lucio MD PGY V Endocrinology, Diabetes, & Metabolism?? * Yajaira Oneill: VERIFY, PERFORM, SIGN Event Display: Progress Note Hospital Authored Date: Patient: MILKA SANTORO Age: 68 years Sex: Male : 1955 Associated Diagnoses: None Author: Yajaira Oneill Findings Problem Related to Alteration in Neurological : Alteration in Neurological Function/new 06/26/2024 20:00 EDT Alteration in Neuro status Related to Other: left thalamic IPH Goals & Outcomes, Neurological Pt is safe with transfers & activities, Pt will be hemodynamically stable, Pt will be Neurologically stable, Pt will maintain intact skin integrity, Pt/caregiver will state understanding of rehab plan, Pt/caregiver will state strategies to reduce risk factors,Pt/caregiver will state understanding aspiration precautions, Pt/caregiver will state understandingdietary modifications Interventions, Neurological Assess/monitor for increased Intracranial Pressure, Assess/monitor neurologic status, Assess/monitor VS per unit standards & prn, Call/Report variances in assessments to provider, Collaborate w/ provider to implement appropriate guidelines, Collaborate with Nutrition, Collaborate with provider re: medication regime, Document & Monitor O2 Sats; Administer O2 as o rdered, Emergency airway equipment at bedside, Identify psychosocial issues related to diagnosis/illness, If no bowel movement in 3 days activate bowel regime, [place] alternate means of communication, Keep patient's head & body in good alignment, Maintain HOB at least 30 deg, Maintain normothermia, report temp >101.5 F, Maintain patient safety if unsteady gait, Maintain strict intake & output, Monitor Fluid & Electrolytes, Serum Osmolarity, Monitor for headaches, nausea, vomiting, Monitor speech fluency, aphasia, word finding difficulty, Physical assessment per unit standards, Provide emotional support to Pt/caregiver, Resolved problem, Interventions no longer in effect, Teach & encourage deep breath & cough exercises, Teach and encourage use of Incentive spirometer, Teach pt/caregiver on plan of care, treatment, s/s & meds, Teach pt/caregiver on use of pain scale BH Goals/Interventions, Neurological Yes Neurological, Problem Start 06/20/2024 7:00 Reviewed plan with, Neurological Patient Patient Progression, Neurological Pt progressing according to plan . Nursing Data Neurological Data. : Neurological Data. 06/26/2024 20:15 EDT Tongue Disposition Midline Neurological Symptoms Alteration in level of consciousness, Difficulty swallowing, Memory loss, Unsteady gait/Ataxia, Weakness or loss of muscle strength Level of Consciousness Confusion Orientated to person, place, time Person, Place Facial Symmetry Intact Characteristics of Speech Clear and normal Swallowing Difficulty None Pupil description, left Regular Pupil description, right Regular Pupil reaction, left Brisk Pupil reaction, right Brisk Pupil Size, Left 3 mm Pupil Size, Right 3 mm Strength LUE 5-Active movement against gravity & full resistance Strength RUE 3-Active movement against gravity Strength LLE 5-Active movement against gravity & full resistance Strength RLE 4-Active movement against gravity & some resistance Tone LUE Normal Tone RUE Normal Tone LLE Normal Tone RLE Normal Sensation LUE Intact Sensation RUE Intact Sensation LLE Intact Sensation RLE Intact Movement LUE Spontaneous, To command Movement RUE Spontaneous, To command Movement LLE Spontaneous, To command Movement RLE Spontaneous, To command Gait Unable to assess Response Eye Opening Spontaneously Motor Response-Adult Obeys commands Verbal Response-Adult Disoriented and converses Gulshan Coma Score 14 1 - 10 Pain Scale Score 0 Neuro WNL except Corneal/Blink Reflex Intact right, Intact left Eyes and Movements Conjugate gaze: Move in same direction at same speed Memory Short term loss Swallow - Neuro Normal . Evaluation Pt awake and alert to self; otherwise confused.pt occasionally gets impulsive, but redirectable. Ptable to follow simple command. Face and smile symmetric with tongue midline. pt denies numbness, tingling, or pain. Lungs sounds clear on room air, pt denies sob or chest pain. No distress noted. pt move all ext spontaneous and to commands. Right side weakness noted.pt able to move RUE/RLE 3/5 and LUE/LLE 5/5; unable to assess gait. Active bowel sounds x4, soft and non-tender abd. pt tolerates a dysphagia diet and take meds crush in apple sauce. No acute event noted or reported during shift. Bed in the lowest position, call willard within reach. Safety maintained . * Arelis Stuart MD: PERFORM Event Display: Progress Note Hospital Authored Date: [id number] Patient: ??MILKA SANTORO ? Age:??68 Years?Sex:??Male?:??1955?? 53-year-old male with a history of??T2DM on VG30, Parkinson's disease who was transferred from [place] to [facility] for management of intraparenchymal bleed likely due to uncontrolled hypertension.?? BIDS controlled for management of hyperglycemia in a patient who normally uses a pump at??home.Patient was??initially managed with ??on insulin drip and now on??basal bolus regimen??as pump is currently ??off.x ?? Current Inpatient glycemic history and management: -Basal insulin:42 -Prandial insulin: plus -Diet:thin liquid ?? Glycemic trends reviewed: Patient has blood sugars ranging between 72 and 196?mg/dL in the past 24 hours. His??FBS this morning was 157??mg/dL from mg/dL 197yesterday. He received a total of 42??Lantus and??9 of Humalog in the past 24 hours. ?? Assessment:Patient had a low yesterday before lunch probably because the patient is??not eating as much as he will normally do..Will adjust his correction factor and continue to monitor closely ?? Recommendations?? -Continue Lantus??42 units daily. For??prandial insulin, 3 units lispro for blood sugar 100 and??2 units lispro for every 50 mg/dL increase in blood sugar. -Patient will need??outpatient follow up with us which will be arranged on discharge -We will continue to follow glycemic??trends and??make??changes as necessary. -Discussed with Dr. Casarez ? Arelis Stuart MD PGY-4 Endocrinology, Diabetes and Metabolism? Note * Henrique Hanson RN: PERFORM Event Display: Discharge/Transfer Note Hospital Authored Date: [id number] Nursing Discharge Note Entered On: 06/27/2024 12:49 EDT Performed On: 06/27/2024 12:49 EDT by Henrique Hanson RN Nursing Discharge Note 2 Discharge Time : 06/27/2024 15:40 EDT Henrique Hanson RN - 06/27/2024 15:40 EDT Discharge Level of Care at Discharge : Inpatient Rehab Facility/Unit Discharge Nursing Homes/Rehab Facilities : [facility] Patient Left Unit Via : Ambulance Patient Accompanied Off Unit with : Ambulance/Chair Van Personnel Handover Given to Transport Personnel : Yes DC Instructions Provided & Signed by Pt : No Patient Understands D/C Instructions : No Patient Instructions Discharge Signed : No Did Pt have Specialty Bed or Wound Vac : No Henrique Hanson RN - 06/27/2024 12:49 EDT * Linsey BARBER, Bryce Arguelles: PERFORM Event Display: Discharge/Transfer Note Hospital Authored Date: Patient: ??MILKA SANTORO ? Age:??68 Years?Sex:??Male?:??1955?? Patient Information Discharge Location: D5A Primary Care Physician: Eduardo Escalera MD Admit Date/Time: 06/20/24 03:33 Discharge Disposition Discharge Disposition: Shelter Facility/Rehab Discharge Diagnosis ?? Primary diagnosis: ?? 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, midline shift (I62.9) ?? PD (Parkinson's disease) (G20.A1) Parkinson's disease without dyskinesia, unspecified whether manifestations fluctuate (G20.A1) Impaired mobility and activities of daily living (Z74.09) Other specified health status (Z78.9) Spasticity (R25.2) Oropharyngeal dysphagia (R13.12) Intracranial hemorrhage (I62.9) Anxiety (F41.9) Depression (F32.A) Cord compression (G95.20) Hypertension (I10) Murmur (R01.1) Type 2 diabetes mellitus (E11.9) Spondylolisthesis, cervical region (M43.12) Nontraumatic subcortical hemorrhage of left cerebral hemisphere (I61.0) Aphasia (R47.01) Intracranial bleed (I62.9) Memory deficit (R41.3) _ Discharge Medications Acetaminophen (Tylenol 325 mg oral tablet)?325?Milligram?By Mouth?Every 4 hours?as needed?Pain , Mild Amlodipine (amLODIPine 10 mg oral tablet)?10?Milligram?By Mouth?Daily Atorvastatin (atorvastatin 80 mg oral tablet)?See Instructions?TAKE ONE TABLET BY MOUTH EVERYDAY Carbidopa-Levodopa (Sinemet 25 mg-100 mg oral tablet)?2?tab(s)?By Mouth?3 times a day Clonazepam?0.25?Milligram?By Mouth?Daily at bedtime hydrALAZINE (hydrALAZINE 25 mg oral tablet)?50?Milligram?By Mouth?3 times a day Insulin Glargine (Insulin Glargine Inj)?0.42?Milliliter?42?unit(s)?Subcutaneous Injection?Daily Insulin Lispro (Insulin LISPRO Inj)?0.02?Milliliter?2?unit(s)?Subcutaneous Injection?Daily at bedtime?as needed?Other?prn for bedtime snack Insulin Lispro (insulin lispro 100 units/mL injectable solution)?3-13 units?Subcutaneous Injection?3 times a day before meals?<< Sliding Scale Comments >>100 - 149 ?? 3 units Call if less than [id number] - 199 ?? 5 units 200 - 249 ?? 7 units 250 - 299 ?? 9 units 300 - 349 ?? 11 units 350 - 399 ?? 13 units Call if greater than 400<< Sliding Scale Comments >> Lisinopril (lisinopril 20 mg oral tablet)?40?Milligram?By Mouth?Daily Melatonin (melatonin 3 mg oral tablet)?3?Milligram?By Mouth?Daily at bedtime?as needed?Insomnia Memantine (memantine 10 mg oral tablet)?1?tab(s)?10?Milligram?By Mouth?Daily Miscellaneous Rx (FREESTYLE ALYX 14 MEDI-B Miscellaneous)?See Instructions?CHANGE EVERY 14 DAYS Miscellaneous Rx (Freestyle Alyx 14 sensor)?See Instructions?DM2 E11.9 3 months supplychangeevery 14 days, 1 hour warm up Sertraline (Zoloft 100 mg oral tablet)?1?tab(s)?100?Milligram?By Mouth?Daily Trazodone (traZODone 50 mg oral tablet)?25?Milligram?By Mouth?Daily at bedtime ? Quality Measures Stroke Quality Measures:?Discharged on Antithrombotic Therapy:??Hemorrhagic Stroke ?Statin Prescribed at Discharge:??Hemorrhagic Stroke ? Medications Started Trazadone 25 mg daily at bedtime hydrALAZINE (hydrALAZINE 25 mg oral tablet)?50?Milligram?By Mouth?3 times a day Insulin Glargine (Insulin Glargine Inj)?0.42?Milliliter?42?unit(s)?Subcutaneous Injection?Daily Insulin Lispro (Insulin LISPRO Inj)?0.02?Milliliter?2?unit(s)?Subcutaneous Injection?Daily at bedtime?as needed?Other?prn for bedtime snack Insulin Lispro (insulin lispro 100 units/mL injectable solution)?3-13 units?Subcutaneous Injection?3 times a day before meals?<< Sliding Scale Comments >>100 - 149 ?? 3 units Call if less than [id number] - 199 ?? 5 units 200 - 249 ?? 7 units 250 - 299 ?? 9 units 300 - 349 ?? 11 units 350 - 399 ?? 13 units Call if greater than 400<< Sliding Scale Comments >> Amlodipine (amLODIPine 10 mg oral tablet) Lisinopril (lisinopril 20 mg oral tablet)?40?Milligram?By Mouth?Daily PCP Follow-Up/Heads-Up Please followup post rehab Future Appointments Saturday 12:30 PM EDT ?? With: Greg BARBER, Fco Where: [facility] [address] [facility] [address] Floor, [address] [place] [id number]- Status: Pending 2023 1:00 PM EDT ?? 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 SBP was 185. CTH images reviewed showed an acute 5cc L thalamic IPH with L ventricular IVH, some ventriculomegaly (ex vacuo) but no hydrocephalus. He was transferred to [facility] MICU for further management. Repeat CTH images reviewed show stable IPH and IVH volume with no increase in ventricle size. Weaned of Nicardipine gtt and optimizing PO EUSEBIO. Further managed for mild hyponatremia and hypertension. Prior to stroke patient used insulin pump however is not currently able tomanage it, so BIDS were consulted and have provided recommendations for insulin. Discharged to rehab. ?? 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 Per family, may have fractured the C2 vertebrae 35 years ago in an accident of some sort ??left thalamic IPH with IVH, location most consistent with hypertensive hemorrhage. CTA with no underlying vascular malformation, possible left MARINE STRUCTURAL WELDER stenosis, cannot rule out stroke with hemorrhagic conversion vs amyloid angiopathy. ??MRI consistent with acute/early subacute left thalamic hematoma with surrounding edema and intraventricular extension of the hemorrhage similar to before, MRI cervical spine shows os odontoideum with adjacent calcification results in moderate central stenosis with slight posterior deflection of the cord, but preserved rim of CSF space surrounding the cord, with no cord compression or cord signal abnormality. Had some concern for change in mental status on 06/[address] head??was stable??w/o changeand his mentition??improved quickly to baseline. ?? Recommendations: -D/c ASA as was for primary prevention, and patient had IPH. -Target normotension -Dysphagia level 3 diet per speech; cont to work on at rehab. -q4 hour neuro=checks -Continue home Carbidopa 25mg/Levodopa 100mg, Memantine 10mg, Sertraline 100mg daily -Trazadone 25 mg daily added for insomnia, titrate up if need be to 50 mg daily. ??-FU with stroke clinic, neurology to arrange ?? Hypertension (I10) Murmur (R01.1) Likely had baseline hypertension that may have lead to hemorrhagic stroke, although son does not believe there was concern of serious HTN. Due to hemorrhagic stroke will need to keep SBP <150, s/p Nicardipine drip. Previous ECHO in 2022 showed mild , repeat ECHO done here unremarkable. Given difficulty controlling blood pressure with oral medication, MICU decided to investigate causes of secondary HTN although do not have high concern for this given that BP is controlled on one agent and would anticipate elevated BP after brain bleed. ?? Recommendations: -Lisinopril 40mg PO daily -Amlodipine 10 mg daily - note will start to take effect over next couple of days. If SBP starts tobecome soft can decrease or stop hydralazine. -hydralazine 50 mg tid ? T2DM (E11.9) Uses insulin pump due to difficulty controlling sugars with basal/bolus insulin. A1c 6.1%. S/p ICU Insulin gtt in ggt. BIDS consulted, appreciate recommendations Patient has highly variable oral intake due to which there is an insulin carbohydrate mismatch leading to highly variable blood sugars. ??? Continue Lantus 42 units daily ??? Continue Humalog sliding scale starting at 3 units for blood sugar 100mg/dL with interval increase of 2 units for every 50mg/dL, 3 times daily AC ??? Add Humalog 2 units as needed for bedtime snack ?? Hyponatremia, mild Mild hyponatremia in setting of poor solute intake at moment and likely degree of perfusion independent ADH release -Encourage solute intake w/ food and ensures between meals if needed -Repeat Na in 1-2 days at rehab. -If Na down trending, start 1 L fluid restriction. ? Objective Assessment and Plan Discharge Planning:? Vital Signs?? Temperature: 97.5 DegF (06/27/24 11:00:00) Temperature Route: Temporal (06/27/24 11:00:00) Pulse Rate: 69 bpm (06/27/24 11:00:00) Respiratory Rate: 18 br/min (06/27/24 11:00:00) Systolic Blood Pressure: 133 mm Hg (06/27/24 11:00:00) Diastolic Blood Pressure: 83 mm Hg (06/27/24 11:00:00) Blood pressure sites: Leg, left (06/27/24 11:00:00) Mean Arterial Pressure: 100 mm Hg (06/27/24 11:00:00) Pulse Pressure: 50 mm Hg (06/27/24 11:00:00) Oxygen Saturation: 100 % (06/27/24 11:00:00) Mode of Delivery (Oxygen): Room air (06/27/24 11:00:00) Early Warning Score: 2 (06/27/24 12:01:53) ? . Physical Exam General Appearance: The patient appears stable Cardiovascular: S1 and S2 heard with no M/R/G. No JVD. Respiratory: ??Breath sounds clear to auscultation bilaterally. No added sounds, equal air entry GI: Soft. Nontender and nondistended. Normal bowel sounds present throughout abdomen.?? MS: ??No edema or erythema in the lower extremities. No wounds seen on the feet. Peripheral sensation intact.?? Neuro:?some expressive aphasia, some noted impairment to memory but follows along acutely in conversation. On my assessment he had??fair strength of RUE 3- 4/5, 5/5 LUE, /5 RLE, /5 LLE Psych: Alert. Likely some mild confusion from poor sleep and being in hopsital, difficult to??better qualify given his aphasia. ?? Consultants Chioma Salinas MD, Opal [facility], Amandeep - PM&R Pending Results No Pending Results Patient Instructions NEUROLOGY APPT ABOVE [address] [phone] Home Health Face to Face ^HomeHealthFTF Results Discharge Labs BLOOD COUNT & DIFF WBC 7.9 k/mm3 ()?? 06/26/2024 02:04 RBC 4.54 m/mm3 (Low)?? 06/26/2024 02:04 Hgb 13.7 Gm/dL ()?? 06/26/2024 02:04 Hct 39.9 % (Low)?? 06/26/2024 02:04 MCV 87.9 femtoliters ()?? 06/26/2024 02:04 MCH 30.2 pg ()?? 06/26/2024 02:04 MCHC 34.3 g/dL ()?? 06/26/2024 02:04 Platelet Count 171 k/mm3 ()?? 06/26/2024 02:04 RDW-SD 41.2 femtoliters ()?? 06/26/2024 02:04 MPV 11.7 femtoliters ()?? 06/26/2024 02:04 Nucleated RBC (Automated) 0.0 #/100 WBC'S ()?? 06/26/2024 02:04 Abs. NRBC 0.0 k/mm3 ()?? 06/26/2024 02:04 Abs. Neut 5.3 k/mm3 ()?? 06/25/2024 04:50 Abs. Lymph 1.2 k/mm3 ()?? 06/25/2024 04:50 Abs. Howell 0.6 k/mm3 ()?? 06/25/2024 04:50 Abs. Eo 0.1 k/mm3 ()?? 06/25/2024 04:50 Abs. Baso 0.0 k/mm3 ()?? 06/25/2024 04:50 Neut % 73.1 % ()?? 06/25/2024 04:50 Lymph % 16.6 % ()?? 06/25/2024 04:50 Howell % 8.0 % ()?? 06/25/2024 04:50 Eos % 1.4 % ()?? 06/25/2024 04:50 Baso % 0.6 % ()?? 06/25/2024 04:50 Imm Gran 0.3 % ()?? 06/25/2024 04:50 Abs. Imm Gran 0.0 k/mm3 ()?? 06/25/2024 04:50 ?? CHEM GENERAL Sodium 130 mmol/L (Low)?? 06/27/2024 02:13 Potassium 4.4 mmol/L ()?? 06/27/2024 02:13 Chloride 94 mmol/L (Low)?? 06/27/2024 02:13 Bicarbonate Level 23 mmol/L ()?? 06/27/2024 02:13 Anion Gap 13 ()?? 06/27/2024 02:13 Glucose Level 207 mg/dL (High)?? 06/27/2024 02:13 Glucose, POC 210 mg/dL (High)?? 06/27/2024 11:44 Hemoglobin A1C (Monitoring) 6.1 % (High)?? 06/20/2024 04:23 BUN 18 mg/dL ()?? 06/27/2024 02:13 Creatinine-Blood 0.80 mg/dL ()?? 06/27/2024 02:13 Estimated GFR Creatinine 97 ML/MIN/1.73 M2 ()?? 06/27/2024 02:13 Calcium 9.3 mg/dL ()?? 06/27/2024 02:13 Phosphorus 3.5 mg/dL ()?? 06/26/2024 02:04 Magnesium 1.7 mg/dL ()?? 06/26/2024 02:04 Protein, Total 6.7 Gm/dL ()?? 06/24/2024 07:00 Albumin 3.8 Gm/dL ()?? 06/24/2024 07:00 AG Ratio 1.3 ()?? 06/24/2024 07:00 Alkaline Phosphatase 72 units/L ()?? 06/24/2024 07:00 AST (SGOT) 43 units/L (High)?? 06/24/2024 07:00 ALT (SGPT) 15 units/L ()?? 06/24/2024 07:00 Bilirubin, Total 0.6 mg/dL ()?? 06/24/2024 07:00 Lactate 1.6 mmol/L ()?? 06/20/2024 04:23 ?? COAG INR 1.0 ()?? 06/21/2024 04:42 Protime (PT) 10.9 seconds ()?? 06/21/2024 04:42 ?? HEME OTHER Hold Lavender Top SPECIMEN DISCARDED AFTER 24 HOURS. ()?? 06/27/2024 02:13 ? URINE OTHER Est Creatinine Clearance 89.30 mL/min ()?? 06/27/2024 03:19 ? VIROLOGY COVID-19 PCR Specimen Source NASAL ()?? 06/20/2024 05:30 COVID-19 PCR Result NEGATIVE ()?? 06/20/2024 05:30 ? Microbiology ?? COVID-19 (2019 Novel Coronavirus) PCR?? Completed?? Source: Nasal Body Site: Nose Collected Dt/Tm: 06/20/2024 05:28 Last Updated Dt/Tm: 06/20/2024 06:16 ? Bryce Stiles MD Internal Medicine PGY3; Pager: #[phone] ?? Precepted with attending physician,??Dr. Sarabia ? _ minutes spent on discharge * Cornell BARBER, Wilian: PERFORM Event Display: Discharge/Transfer Note Hospital Authored Date: 68 year-old man with Parkinson's, insulin-dependent type 2 diabetes, who presented with acute rightweakness and dysarthria found to have??left thalamic intraparenchymal hemorrhage and left ventricular hemorrhage status post MICU course nicardipine drip discharged to rehab. ?? 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, midline shift Parkinson's disease Generalized anxiety disorder Major depressive disorder Insulin-dependent type 2 diabetes ?? Vitals reviewed and significant for Hypertension and otherwise unremarkable. Labwork reviewed and significant for??Hyponatremia with BMP otherwise unremarkable. I personally reviewed the Endocrinology consult note with the recommendations summarized as follows: 42U lantus QD, Humalog SSI, add Humalog 2U PRN bedtime snack. ?? Recommendations: ??- PCP FU in 3-5 days after DC from rehab ??- OP Neurology FU ?? PCP to repeat the following labwork at the next PCP appointment in 3-5 days: BMP. ?? I evaluated the patient on date of service 06/27/2024. I saw and evaluated this patient with Dr. Stiles and agree with the??resident???s findings and plan of care as documented by the resident or edited by me. I spent 37 minutes on the following: preparing to see the patient (eg, review of tests), obtaining and/or reviewing separately obtained history, performing a medically appropriate examination and/or evaluation and counseling and educating the patient/family/caregiver ?? * Parent Olivia MARIE: VERIFY, PERFORM, SIGN Event Display: Case Management Discharge Plan Authored Date: Patient: MILKA SANTORO Age: 68 years Sex: Male : 1955 Associated Diagnoses: None Author: Parent Olivia MARIE Discharge Plan Case Management Discharge Plan : Case Management Discharge Plan Data 06/27/2024 11:47 EDT Discharge Level of Care at Discharge Inpatient Rehab Facility/Unit Discharge Nursing Homes/Rehab Facilities [facility] [place] Discharge Transportation Arranged [facility] [id number] [phone] Discharge Arranged Transport Date/Time 06/27/2024 13:30 Mode of Transportation Arranged Ambulance Name of Agency #1 [facility] Service Categories #1 Occupational Therapy, Physical Therapy, Shelter Service Comments #1 You have been accepted to [facility] for post-acute rehab. An ambulance has beenarranged to bring you there today at 130p. Name of Person Notified of Transfer Patient's Bebeto Mata Henrique Hanson RN: PERFORM Event Display: Patient Education/Instruction Authored Date: Inpatient Adult Discharge Instructions. [address] [address] Name: MILKA DE DIOS : 1955?? Visit: 06/20/2024 03:33?? Current Date: 06/27/2024 12:21 ?? Account: [id number]?? Inpatient Adult Discharge Instructions We would like to thank you for allowing us to assist you with your healthcare needs. The following includes patient education materials and information regarding your injury/illness. Our entire staffstrives to provide an excellent experience for our patients and their families. PLEASE ENSURE YOU FOLLOW-UP PER THE INSTRUCTIONS BELOW! ?? YOUR OPINION IS IMPORTANT TO US! Please complete the survey you may receive by mail or email. Your feedback will be used to make improvements to the healthcare experiences of our patients and their families. Surveys are administered by [employer] ?? If further treatment with your primary care physician or another doctor is recommended, it is important for you to keep the appointment. Call your primary care physician or return to the Emergency Department immediately if your condition worsens, fails to improve, or new symptoms develop. If you need to find a doctor, you can call [facility] Link for a referral at [phone] or toll free at [phone]) or log in to [email or web address].. ?? [facility], in keeping with [facility] guidance, no longer requires face masks for [...] medical provider or home test kit. ?? You can view and manage your care through the patient portal or by using a health care alida of your choosing. [email or web address] is a website that allows you to securely view your medical information including your hospital discharge summary, office visit summaries, medications and follow-up visits. You can also request appointments, renew medications, and request access to your medical information using a health care alida of your choosing, or just ask a question. You can enroll at [email or web address] or register during your next office visit. You have been discharged from [facility], Patient Care Unit: D5A??. If you have any questions regarding these instructions, including results of studies pending, afteryou leave, please call us and we will be happy to assist you 24/06. [facility] Your Care Team Attending Physician Wilian Sarabia MD?? Consulting Providers Wilian Sarabia MD?? Discharging Providers Bryce Stiles MD Reason for Your Visit R weakness, dysarthria?? Your Diagnosis Parkinson's disease without dyskinesia, unspecified whether manifestations fluctuate PD (Parkinson's disease) Impaired mobility and activities of daily living Other specified health status Spasticity Oropharyngeal dysphagia Intracranial hemorrhage Anxiety Depression Cord compression Hypertension Murmur Type 2 diabetes mellitus Spondylolisthesis, cervical region Nontraumatic subcortical hemorrhage of left cerebral hemisphere Aphasia Intracranial bleed Memory deficit PD (Parkinson's disease) Tests Performed Below is a partial list of the tests performed during your hospitalization. You may have had other tests and procedures not included in this list. Please discuss all test results with your provider. Basic Metabolic Panel CBC CBC w/ Differential Comprehensive Metabolic Panel COVID-19 (2019 Novel Coronavirus) PCR GLUCOSE POC HEMOGLOBIN A1C HOLD LAVENDER TUBE Lactate Level Lytes Magnesium Level Phosphorus Level PT (INR) Cervical Spine MRI W/O Contrast CT Angio Head CT Angio Neck CT Head/Brain W/O Contrast CT Head/Brain W/O IV Contrast MRI Brain W+W/O Contrast Basic Metabolic Panel?? CBC?? CBC w/ Differential?? COVID-19 (2019 Novel Coronavirus) PCR?? CT Angio Head?? CT Angio Neck?? CT Head/Brain W/O Contrast?? Comprehensive Metabolic Panel?? Electrolytes (Lytes)?? Glucose POC?? Hemoglobin A1C (Monitoring) (HEMOGLOBIN A1C)?? Hold Lavender Top Tube (HOLD LAVENDER TUBE)?? INR (PT (INR))?? Lactic Acid Level (Lactate Level)?? MRI Brain W+W/O Contrast?? MRI Cervical Spine W/O Contrast (Cervical Spine MRI W/O Contrast)?? Magnesium Level?? Phosphorus Level?? Primary Care Provider Lali BARBER, Eduardo Clayton? Advance Directive Health Care Proxy on File Yes - Health Care Proxy Discharge Vitals Temperature: 97.5 DegF Height: 175 cm Pulse Rate: 69 bpm Weight: 94.7 kg Respiratory Rate: 18 br/min Body Mass Index:??31.8 kg/m2??Critical Systolic Blood Pressure: 133 mm Hg Body surface area: 2.18 Diastolic Blood Pressure: 83 mm Hg ?? Oxygen Saturation: 100 % ?? Studies Pending All studies ordered during this hospital stay have been completed unless listed below. Please discuss all pending results with your provider listed above in these instructions. ?? No incomplete studies found?? What to do next Instructions From Your Doctor NEUROLOGY APPT ABOVE [address] [facility]?? [address] [phone] ?? Orders? 06/27/24 12:19:00 EDT?? Scheduled Follow-Up Appointments Saturday 12:30 PM EDT ?? With: Greg BARBER, Fco Where: [facility] Neurology [address] [facility] 3rd Floor, [address] [place] [id number]- Status: Pending 2023 1:00 PM EDT ?? With: Wilian BARBER, Tong Reed Where: [facility] [address] [place] [address]- Status: Pending Discharge Medications MILKA SANTORO :1955 Visit Date:06/20/2024 Medications: Please continue your medications until treatment is completed or stopped by your provider. Medications not listed below should be discontinued. Discuss any questions related to medications with your provider. What How Much When Why Instructions Next Dose New Acetaminophen (Tylenol 325 mg oral tablet) 325 Milligram Oral Every 4 hours as needed for Pain , Mild As needed New Amlodipine (amLODIPine 10 mg oral tablet) 10 Milligram Oral Daily Tomorrow AM New hydrALAZINE (hydrALAZINE 25 mg oral tablet) 50 Milligram Oral 3 times a day Tonight New Insulin Glargine (Insulin Glargine Inj) 42 unit(s) Subcutaneous Injection Daily Tomorrow AM New Lisinopril (lisinopril 20 mg oral tablet) 40 Milligram Oral Daily Tomorrow AM New Melatonin (melatonin 3 mg oral tablet) 3 Milligram Oral Daily at Bedtime as needed for Insomnia Tonight New Trazodone (traZODone 50 mg oral tablet) 25 Milligram Oral Daily at Bedtime Tonight Changed Atorvastatin (atorvastatin 80 mg oral tablet) See instructions TAKE ONE TABLET BY MOUTH EVERY DAY ?? Tomorrow AM Changed Insulin Lispro (insulin lispro 100 units/ mL injectable solution) 3-13 units Subcutaneous Injection 3 times a day before meals << Sliding Scale Comments >> 100 - 149 ?? 3 units Call if less than 70 150 - 199 ?? 5 units 200 - 249 ?? 7 units 250 - 299 ?? 9 units 300 - 349 ?? 11 units 350 - 399 ?? 13 units Call if greater than 400 << Sliding Scale Comments >> ?? This evening before dinner Changed Insulin Lispro (Insulin LISPRO Inj) 2 unit(s) Subcutaneous Injection Daily at Bedtime as needed for Other prn for bedtime snack ?? Tonight Changed Miscellaneous Rx (FREESTYLE ALYX 14 MEDI-B Miscellaneous) See instructions CHANGE EVERY 14 DAYS ?? As instructed Changed Miscellaneous Rx (Freestyle Alyx 14 sensor) See instructions DM2 E11.9 3 months supply change every 14 days, 1 hour warm up ?? As instructed Unchanged Carbidopa-Levodopa (Sinemet 25 mg-100 mg oral tablet) 2 tab(s) Oral 3 times a day Tonight Unchanged Clonazepam 0.25 Milligram Oral Daily at Bedtime Tonight Unchanged Memantine (memantine 10 mg oral tablet) 1 tab(s) Oral Daily Memory deficit PD (Parkinson's disease) Tomorrow AM Unchanged Sertraline (Zoloft 100 mg oral tablet) 1 tab(s) Oral Daily Tomorrow AM ?? What How Much When Why Comments Stop Taking Aspirin (aspirin 81 mg oral enteric coated tablet) See Instructions By Mouth Daily ?? Stop Taking Durable Medical Equipment (Free Style ALYX SENSORS) See instructions Free Style Alyx SENSORS-90 day supply change every 14 days DM 2 , E11.9 ?? Stop Taking Durable Medical Equipment (Glucose Test Strips) See Instructions diabetes daily ?? Stop Taking Durable Medical Equipment (Insulin Syringe, BD Ultra-Fine 1 cc 31 G x 8 mm (5/ 16in)) See instructions dx: 250.00 for insulin use 3-4x/ day ?? Stop Taking Durable Medical Equipment (Insulin Syringe, BD Ultra-Fine 1 cc 31 G x 8 mm (5/ 16in)) See Instructions USE TO GIVE INSULIN ?? Stop Taking Durable Medical Equipment (One Touch Ultra Test Strips) See instructions diabetes test sugar three times daily as directed ?? Stop Taking Durable Medical Equipment (One Touch Ultra Test Strips) See instructions Duration: 90 Days use to test BS 3-4 times a day for DX 250.00 ?? Stop Taking Durable Medical Equipment ([place], 31 G x 5 mm BD Ultra Fine III) See Instructions diabetes use with lantus solostar ?? Stop Taking Durable Medical Equipment (V-GO 30) See instructions V-GO delivery 30 VGO pharmacy contact [phone] to be used daily with Novolog ?? Stop Taking onabotulinumtoxinA (Botox) Stop Taking Sildenafil (sildenafil 100 mg oral tablet) 1 tab(s) Oral Daily Take 1 hour before sexual activity as instructed. ??Start with 1/ 2 tablet. ??Use not more than once daily ?? Prescription Given During Visit No new medications prescribed at time of discharge.?? Laboratory Results Below is a partial list of the most recent Laboratory test results done prior to this discharge. You may have had other tests and procedures not included in this list. Please discuss all test resultswith your provider. Est Creatinine Clearance - 89.30 mL/min (06/27/2024) Basic Metabolic Panel (06/27/2024) ???Sodium - 130 mmol/L???Potassium - 4.4 mmol/L???Chloride - 94 mmol/L???Bicarbonate Level - 23 mmol/L???Anion Gap - 13???Glucose Level - 207 mg/dL???BUN - 18 mg/dL???Creatinine-Blood - 0.80 mg/dL???Estimated GFR Creatinine - 97 ML/MIN/1.73 M2???Calcium - 9.3 mg/dL CBC (06/26/2024) ???WBC - 7.9 k/mm3???RBC - 4.54 m/mm3???Hgb - 13.7 Gm/dL???Hct - 39.9 %???MCV - 87.9 femtoliters???MCH - 30.2 pg???MCHC - 34.3 g/dL???Platelet Count - 171 k/mm3???RDW-SD - 41.2 femtoliters???MPV - 11.7 femtoliters???Nucleated RBC (Automated) - 0.0 #/100 WBC'S???Abs. NRBC - 0.0 k/mm3 CBC w/ Differential (06/25/2024) ???WBC - 7.3 k/mm3???RBC - 4.45 m/mm3???Hgb - 13.4 Gm/dL???Hct - 39.6 %???MCV - 89.0 femtoliters???MCH - 30.1 pg???MCHC - 33.8 g/dL???Platelet Count - 182 k/mm3???RDW-SD - 42.8 femtoliters???MPV - 11.6 femtoliters???Nucleated RBC (Automated) - 0.0 #/100 WBC'S???Abs. NRBC - 0.0 k/mm3???Abs. Neut - 5.3 k/mm3???Abs. Lymph - 1.2 k/mm3???Abs. Howell - 0.6 k/mm3???Abs. Eo - 0.1 k/mm3???Abs. Baso - 0.0 k/mm3???Neut % - 73.1 %???Lymph % - 16.6 %???Howell % - 8.0 %???Eos % - 1.4 %???Baso % - 0.6 %???Imm Gran - 0.3 %???Abs. Imm Gran - 0.0 k/mm3 Comprehensive Metabolic Panel (06/24/2024) ???Sodium - 136 mmol/L???Potassium - 4.4 mmol/L???Chloride - 99 mmol/L???Bicarbonate Level - 25 mmol/L???Anion Gap - 12???Glucose Level - 142 mg/dL???BUN - 18 mg/dL???Creatinine-Blood - 0.71 mg/dL???Estimated GFR Creatinine - 101 ML/MIN/1.73 M2???Calcium - 9.1 mg/dL???Protein, Total - 6.7 Gm/dL???Albumin - 3.8 Gm/dL???AG Ratio - 1.3???Alkaline Phosphatase - 72 units/L???AST (SGOT) - 43 units/L???ALT (SGPT) - 15 units/L???Bilirubin, Total - 0.6 mg/dL COVID-19 (2019 Novel Coronavirus) PCR (06/20/2024) ???COVID-19 PCR Specimen Source - NASAL???COVID-19 PCR Result - NEGATIVE GLUCOSE POC (06/27/2024) ???Glucose, POC - 210 mg/dL HEMOGLOBIN A1C (06/20/2024) ???Hemoglobin A1C (Monitoring) - 6.1 % HOLD LAVENDER TUBE (06/27/2024) ???Hold Lavender Top - SPECIMEN DISCARDED AFTER 24 HOURS. Lactate Level (06/20/2024) ???Lactate - 1.6 mmol/L Lytes (06/26/2024) ???Sodium - 132 mmol/L???Potassium - 4.9 mmol/L???Chloride - 95 mmol/L???Bicarbonate Level - 21 mmol/L???Anion Gap - 16 Magnesium Level (06/26/2024) ???Magnesium - 1.7 mg/dL Phosphorus Level (06/26/2024) ???Phosphorus - 3.5 mg/dL PT (INR) (06/21/2024) ???INR - 1.0???Protime (PT) - 10.9 seconds You will be contacted within 72 hours with your results. Allergies (NKA means No Known Allergies) Jardiance Problems Active Problems??(11) Aortic insufficiency trace?? Aortic stenosis mild echo 2019 2021?? Diabetes Mellitus without Mention of Complication?? Diverticulosis?? Erectile dysfunction/urology?? History of herpes zoster c& RT?? Hypercholesterolemia?? Insulin long-term use?? Obese class I?? PD (Parkinson's disease)?? Presence of implanted infusion pump?? Education Materials Below is the list of Educational Leaflet Providered with your Discharge Instructions. Valuables and Belongings I fully understand and agree that [facility] accepts no responsibility for all my personal property including clothing, toilet articles, radios, jewelry, dentures, hearing aids, rings, money, or any other property that is in my possession or is brought to me after admission. I understand certain valuables may be placed in a hospital safe for a short period of time. I understand that the hospital is not liable for loss or damage due to accident, fire, or other natural occurrence while said property is in the safe. I accept full responsibility for any personal property that I keep with me, and will not hold the hospital responsible in case of loss or disappearance. I acknowledge that i have been encouraged to send valuables and belongings home. ?? Review of Valuable and Belonging List: With witness Date for Pt to Sign Valuables/Belongings: 06/27/24 12:20:00 ?? Other Discharge Information ? Case Management Discharge Plan?? Discharge Plan?? Discharge Agency Information?? Discharge Level of Care at Discharge: Inpatient Rehab Facility/Unit Name of Agency #1: [facility] Discharge Rx Program: Discharge Prescription Program Service Categories #1: Occupational Therapy, Physical Therapy, Shelter Discharge Transportation Arranged: [facility] [address] [phone] Service Comments #1: You have been accepted to [facility] for post-acute rehab. An ambulance has been arranged to bring you there today at 130p. Mode of Transportation Arranged: Ambulance Name of Person Notified of Transfer: Patient's Reem Discharge Arranged Transport Date/Time: 06/27/24 13:30:00 ?? Discharge Nursing Homes/Rehab Facilities: [facility] ? Pulmonary Rehab Status?? Pulmonary Rehab Discharge Status?? Respiratory Rate: 18 br/min ? Common Emergency Awareness Tips IS IT A [...] are strongly encouraged to quit. Please call [facility] Link at [phone] or [phone]) or log in to [email or web address] for referrals to smoking cessation programs. ?? 475 Suicide & Crisis Lifeline is available 24/06 if you or someone you know needs to find a reason to keep living. By calling 346 you'll be connected to a skilled, trained counselor at a crisis center in your area. INPATIENT DISCHARGE INSTRUCTIONS SIGNATURE PAGE MILKA SANTORO Location:[facility] Registration Date and Time:06/20/2024 03:33 EDT Primary Care Physician: Lali BARBER, Eduardo Clayton, Attending Physician: Wilian Sarabia MD, I MILKA SANTORO, have received the above patient education materials/instructions and have verbalized understanding. If ambulance or transport services are being used I further acknowledge being given a choice of service. ?? If you need to contact me, please call me at this number: . Patient/Electronic Tech Name: Patient/Electronic Tech Signature: Relationship to Patient: Witness Name/Signature: Date: * Event Display: Provider Clarification Note Please click on pdf link to open report Consult note * Arelis Stuart MD: PERFORM, MODIFY Event Display: Consultation Note Authored Date: Patient: ??SILVER JAIROMATT MILKA ? Age:??68 Years?Sex:??Male?:??1955?? Reason for Consultation Consult type:BIDS Reason for consultation:Hyperglycemia Requesting provider:Sunil Read MD History of Present Illness 53-year-old male with a history of?? T2DM on VG30, Parkinson's disease who was transferred from [place] to [facility] for management of intraparenchymal bleed likely due to uncontrolled hypertension.?? BIDS controlled for management of hyperglycemia in a patient who normally uses a pump at??home. Family was at bedside(Son and ) ? Review of Systems Slurred speech present,difficulty swallowing,right sided weakness Denies any?vision changes,,no sensory changes, no imbalance, no dizziness, no headaches, no numbness, no paresthesias? Diabetes History: Age of diagnosis/DM duration: Type 2 DM ?? Outpatient diabetes medications:?? Insulin pump:VGO 30 ?? Home blood glucose monitoring: Free style alyx ?? Home blood glucose control:?? NA ?? HbA1C:?? 6.1 ?? Hypoglycemia:?? NA Complications: Retinopathy:none Nephropathy:none Neuropathy: none Ulcer(s)/amputation(s):none ASCVD:HTN,,CVA Gastroparesis:none ?? Outpatient DM provider:Yes? Current Inpatient glycemic history and management: ?- Diet:Thin liquid,ground food ?- IVF: Insulin??drip at 5units/hr ?? Glycemic trends reviewed: Blood glucose range in the past 24 hours?? between 172 to 300 on insulin drip. ?? Review of Systems 12 point ROS was performed and is negative except for as mentioned above Physical Exam Vitals & Measurements T:??99.3?F?? TMIN:??97.7?F?? TMAX:??99.3?F?? HR:??87??(Monitored)?? RR:??18?? BP:??163/62?? SpO2:??98%?? Assessment/Plan Assessment:??53-year-old male with a history of??T2DM on VG30, Parkinson's disease who was transferred from [place] to [facility] for management of intraparenchymal bleed likely due to uncontrolled hypertension.?? BIDS controlled for management of hyperglycemia in a patient who normally uses a pump at??home.Patient was started on insulin drip as pump was off.Sugars have been running high but he is not in DKA therefore can be transitioned to SC later today ?? Recommendations?? -If patient is eating, transition to subcutaneous insulin. Can start with Lantus??42 units daily. For??prandial insulin, 3 units lispro for blood sugar 100 and 3 units lispro for every 50 mg/dL increase in blood sugar. -Patient will need??outpatient follow up with us which will be arranged on discharge -We will continue to follow glycemic??trends and??make??changes as necessary. -Discussed with Dr. Casarez ?? MICU team has been made aware of the above recommendations. ?? Arelis Stuart MD PGY-4 Endocrinology, Diabetes and Metabolism? Discharge Planning:? Problem List/Past Medical History Ongoing Aortic insufficiency trace Aortic stenosis mild echo 2019 2021 Diabetes Mellitus without Mention of Complication Diverticulosis Erectile dysfunction/urology Ex-cigarette smoker History of herpes zoster c& RT Hypercholesterolemia Insulin long-term use Obese class I PD (Parkinson's disease) Medications Inpatient atorvastatin 80 mg oral tablet, 80 mg, By Mouth, Daily at bedtime captopril 12.5 mg oral tablet, 18.75 mg, By Mouth, 3 times a day clonazePAM 0.5 mg oral tablet, 0.25 mg, By Mouth, Daily at bedtime Dextrose 50% Inj Syringe (25Gm), 12.5 Gm, IV Push Slowly, Every 20 minutes, PRN Dextrose 50% Inj Syringe (25Gm), 25 Gm, IV Push Slowly, Every 15 minutes, PRN Glucagon Inj, 1 mg, Intramuscular, Once, PRN Glucose Gel, 15 Gm, By Mouth, Every 20 minutes, PRN Glucose Gel, 30 Gm, By Mouth, Every 20 minutes, PRN Heparin Inj, 5000 units= 1 mL, Subcutaneous Injection, 3 times a day Insulin R 100 units in 100 mL Premix 100 units [2 units/hr] + NaCL 0.9% Premixed IV 100 mL memantine 10 mg oral tablet, 10 mg, By Mouth, Daily NaCL 0.9% Flush, 3 mL, IV Push, Every 8 hours, PRN NiCARDipine Cont IV 25 mg + NaCL 0.9% for Titration 250 mL Polyethylene Glycol Powder, 17 Gm= 1 pack/packet, By Mouth, Daily Senna 8.6 mg oral tablet, 17.2 mg= 2 tablet, By Mouth, Daily Sinemet 25 mg-100 mg oral tablet, 2 tablet, By Mouth, 3 times a day Tylenol 325 mg oral tablet, 325 mg, By Mouth, Every 4 hours, PRN Zoloft 50 mg oral tablet, 100 mg, By Mouth, Daily Home aspirin 81 mg oral enteric coated tablet, See Instructions atorvastatin 80 mg oral tablet, See Instructions, 3 refills Clonazepam, 0.25 mg, By Mouth, Daily at bedtime insulin lispro 100 u/ml subcutaneous injection, See Instructions memantine 10 mg oral tablet, 10 mg= 1 tablet, By Mouth, Daily, 3 refills Sinemet 25 mg-100 mg oral tablet, 2 tablet, By Mouth, 3 times a day Zoloft 100 mg oral tablet, 100 mg= 1 tablet, By Mouth, Daily Allergies Jardiance Social History Alcohol Use: Never. Employment/School Status: Disabled. 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 Exercise Self assessment: Good condition. Other: WALKS DAILY. Regular exercise: No. Exercise frequency: Daily. Exercise type: Walking. Home/Environment Living situation: Home/Independent. Lives with: Spouse. Feels unsafe at home: No. Nutrition/Health Diet: Regular, Diabetic. Other Name: uses seat belt. Substance Abuse Use: Never. Tobacco Former smoker, Other: quit 2015. Type: Cigarettes. Tobacco use times per day: 0.5 PPD. 28 Number ofyears:. Total pack years: 14. Started at age: 25 Years. Family History AAA - Abdominal aortic aneurysm: Negative: Mother, Father, Sister, Brother, Brother, Son, Son, Son and Other. ASHD - Atherosclerotic heart disease: Father. Alzheimer's disease: Negative: Mother, Father, Sister, Brother, Brother, Son, Son, Son and Other. Asthma: Negative: Mother, Father, Sister, Brother, Brother, Son, Son, Son and Other. COPD: Negative: Mother, Father, Sister, Brother, Brother, Son, Son, Son and Other. Cancer of breast: Negative: Mother, Father, Sister, Brother, Brother, Son, Son, Son and Other. Cancer of colon: Negative: Mother, Father, Sister, Brother, Brother, Son, Son, Son and Other. Cancer of prostate: Negative: Mother, Father, Sister, Brother, Brother, Son, Son, Son and Other. Depression: Negative: Mother, Father, Sister, Brother, Brother, Son, Son, Son and Other. Diabetes mellitus type II: Brother and Other. Hyperlipidemia: Father and Brother.Negative: Mother, Sister, Brother, Son, Son, Son and Other. Hypertension: Negative: Mother, Father, Sister, Brother, Brother, Son, Son, Son and Other. Stroke: Negative: Mother, Father, Sister, Brother, Brother, Son, Son, Son and Other. Thyroid disease: Negative: Mother, Father, Sister, Brother, Brother, Son, Son, Son and Other. Immunizations Vaccine Date Status influenza virus vaccine, inactivated 09/11/2023 Recorded SARS-CoV-2(COVID-19)mRNA-LNP vac([id number]) 09/11/2023 Recorded influenza virus vaccine, inactivated 09/07/2022 Given Comments : [facility] [id number] bivalent booster vax 08/23/2022 Recorded SARS-CoV-2 (COVID-19) mRNA-1273 vaccine 04/10/2022 Recorded SARS-CoV-2 (COVID-19) mRNA-1273 vaccine 10/31/2021 Recorded pneumococcal 13-valent vaccine 09/26/2021 Given influenza virus vaccine, inactivated 09/26/2021 Given SARS-CoV-2 (COVID-19) mRNA-1273 vaccine 03/14/2021 Recorded SARS-CoV-2 (COVID-19) mRNA-1273 vaccine 02/12/2021 Recorded influenza virus vaccine, inactivated 09/01/2020 Given influenza virus vaccine, inactivated 2013 Given Comments : pt declines tetanus/diphtheria/pertussis, acel(Tdap) 04/22/2013 Given Influenza Inactive (IM) (oldterm) 10/27/2009 Given Pneumococcal Vaccine (oldterm) 12/10/2008 Given Influenza Inactive (IM) (oldterm) 10/10/2008 Given Comments : rcvd elsewhere tetanus-diphtheria toxoids (Td) 08/04/2007 Given * Donna Casarez MD: PERFORM Event Display: Consultation Note Authored Date: ??I have seen and evaluated this patient. ??I have discussed the case and its management with the fellow ??and agree with the findings and plan as documented in the fellow s note. * Amandeep Diaz MD: PERFORM Event Display: Consultation Note Authored Date: Patient: ??SILVER VA MILKA ? Age:??68 Years?Sex:??Male?:??1955?? History of Present Illness 53-year-old male with a history of diabetes and??Parkinson's disease who was trying to walk around 2300 and slumped down.? 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 His son is an Anesthesiologist currently doing a??pain program/fellowship in [place]. ?? His saw him and denies any head injury.?She noted his??right side was weak, he had a right facial droop, and he could not stand prompting call to EMS and transfer to [place]. ?? He does have history of right upper extremity spasm but no history of CVA in the past.?? Not??on any blood thinners, just on aspirin.?? Also had right facial droop.?? Head??CT showed a left thalamic bleed extended lateral ventricle mild surrounding edema was present.?? Blood pressure was 186/66 on arrival, he received 2 labetalol pushes at [place].?? Due to intrathalamic hemorrhage she was transferred to [facility] ICU. ?? On presentation to [facility], patient is speaking, speech slightly slurred.?? Not reporting any chest pain, shortness of breath, flank pain, leg swelling.?? He reports his right arm feels heavy but he still has sensation. ?? Social history:??At baseline he has some mild??memory and word finding difficulties??and at least mild??mobility impairment though he is essentially independent.?? He lives with his and adultson. Physical Exam Vitals & Measurements T:??97.3?F?? HR:??86??(Monitored)?? RR:??18?? BP:??124/74?? SpO2:??96%?? HT:??175??cm?? WT:??97.4??kg?? BMI:??31.8?? Measurements?? Height: 175 cm (06/20/24) Weight: 97.4 kg (06/20/24) Dry Weight: 94.5 kg (06/20/24) Body Mass Index:??31.8 kg/m2??Critical (06/20/24) ?? General:??Slightly sleepy.?? No apparent distress. Psychiatric: Mood:??Affect Flat??Pleasant & Cooperative. ??A little restless. Oriented X 3??with cues except for year. ?? HEENT: Cranial Nerves II-XII:??Right Central Facial Droop.?? EOMI.?? Blinks to threat??minimal bilaterally Visual beckham:??Somewhat difficult and inconsistent exam but appears to be intact bilaterally??withsome right inattention and left gaze preference. ?? No disconjugate gaze. ??No nystagmus. ?? Tracks:??Bilaterally ?? Extremities:?? Edema:??None.?? Passive ROM:??Normal all limbs.? Neurologic? Follows Commands:??1 step well? Memory:??Mildly impaired??[_.?? Language:??Likely expressive aphasia. ?Naming:??Moderately Impaired.?Dysarthria:??Moderate. ??Dysphonia:??None.? Motor Exam:??Motor strength proximal 5/5??on left,??2-3 out of 5 right upper extremity??at least 3 out of 5 right lower extremity.?? Sensory Exam: light touch??extinction to double simultaneous stimulation right lower extremity, notright upper extremity.??_ Coordination Exam: Severely impaired in the right arm ?? Spasticity Exam:??MASh 2 right UE (versus rigidity but there is no cogwheeling and it does appear to be velocity dependent).? Mobility Exam: Deferred at this time Swallow(performed at:??1100): ?Purees:??Slight delay.?No signs or symptoms of aspiration ?He coughed on thin liquids ? Assessment/Plan Assessment:??53-year-old right-handed disabled??with diabetes and Parkinson's??(affecting right side)??presenting with??right hemiparesis,??altered mental status,??dysarthria??and some aphasia??and or opharyngeal dysphagia??due to left basal ganglia hemorrhage. ?? Overall prognosis??for very significant right??recovery??is quite good??with the caveat that he has??premorbid functional issues. ?? Recommendations: ?? Activity:??Mobilize with PT??when cleared for out of bed. Bowel Regimen:??Monitor on current regimen Bladder:??Monitor for retention Cognition/psychopharmacology:??Avoid benzos, anticholinergics and antihistaminergics..?He appears to be on nighttime??clonazepam.??This should be reassessed.??If he was on it for a long time??consider??gentle wean.??As a down would be a much better medication for sleep for him. ?? DVT prophylaxis:??Deferred to neurocritical care team ?? Neurology:??Appreciate Neurology Note.??Discussed with Dr. Pollard Pain Management:??Appears comfortable.? Spasticity:??He seems to have some right upper extremity spasticity though his reports chronicrigidity.??This may be early spasticity is sometimes seen with ICH.??Will continue to follow clinically. ?? Swallow:??I changes n.p.o. orders to allow for meds crushed in applesauce. I expect he can take??a dysphagia diet??today??but since speech therapy will be able to evaluate him today,??I will await their recommendations. Discussed with speech therapy ?? Current rehab treatment & further recommendations: Occupational Therapy:??Can start in a few days. Physical Therapy:??Ordered Speech Therapy:??Evaluation pending ?? Disposition: Acute Inpatient Rehab Facility (IRF). Discussed with his .??She may be interested in [facility]. ?? Code Status:??Full Resuscitation HCP:??Has HCP in [facility] Problem List/Past Medical History Ongoing Aortic insufficiency trace Aortic stenosis mild echo 2019 2021 Diabetes Mellitus without Mention of Complication Diverticulosis Erectile dysfunction/urology Ex-cigarette smoker History of herpes zoster c& RT Hypercholesterolemia Insulin long-term use Obese class I PD (Parkinson's disease) Procedure/Surgical History Colonoscopy and extirpation of lesion of colon: 11/30/22 Echocardiogram ef 60-65% mild aortic stenosis: 06/20/22 Electrocardiogram sinsu: 03/13/21 Reference laboratory nomrmal bone alk phos: 01/18/21 Chest X-ray lefvt ribs: 03/30/20 Echocardiogram mild as ef 65-70%: 02/08/20 Radioisotope myocardial perfusion stress study normal: 01/25/20 Polysomnogram: 11/11/18 Cardiac echo: 08/08/17 Hand X-ray right: 03/11/17 Abnormal brain MRI spect: 09/26/16 MRI of brain and brain stem: 09/14/16 EMG - Electromyography normal: 08/31/16 MRI of cervical spine: 07/19/16 Radiologic examination, spine, cervical; 3 views or less: 07/05/16 Chest X-ray: 07/05/16 Right wrist X-RAY: 07/05/16 Electrocardiogram, routine ECG with at least 12 leads; with interpretation and report: 06/19/11 Reference (Outside) Laboratory: 05/14/11 Reference (Outside) Laboratory: 07/18/10 Reference (Outside) Laboratory: 03/14/10 labs: 11/15/09 labs: 09/15/09 [id number] Home Medications Aspirin: See Instructions, By Mouth Daily Atorvastatin: See Instructions, TAKE ONE TABLET BY MOUTH EVERY DAY Carbidopa-Levodopa: 2 tablet, By Mouth, 3 times a day Clonazepam: 0.25 mg, By Mouth, Daily at bedtime Insulin Lispro: See Instructions, USE WITH VGO 30 UP TO 100 UNITS A DAY Memantine: 10 mg = 1 tablet, By Mouth, Daily Sertraline: 100 mg = 1 tablet, By Mouth, Daily Hospital Medications Medications (16) Active SCHEDULED: (8) Atorvastatin 80 mg Tablet (atorvastatin 80 mg oral tablet) ??80 mg, By Mouth, Daily at bedtime Carbidopa 25 mg / Levodopa 100 mg Tablet (Sinemet 25 mg-100 mg oral tablet) ??2 tablet, By Mouth, 3times a day Clonazepam 0.5 mg Tablet (clonazePAM 0.5 mg oral tablet) ??0.25 mg, By Mouth, Daily at bedtime Insulin Lispro 100 units/mL Inj (Insulin LISPRO Sliding Scale) ??2-10 units, Subcutaneous Injection, 3 times a day before meals Memantine 10 mg Tablet (memantine 10 mg oral tablet) ??10 mg, By Mouth, Daily Polyethylene Glycol 17 Gm Powder (Polyethylene Glycol Powder) ??17 Gm 1 pack/packet, By Mouth, Daily Senna Tablet (Senna 8.6 mg oral tablet) ??17.2 mg 2 tablet, By Mouth, Daily Sertraline 50 mg Tablet (Zoloft 50 mg oral tablet) ??100 mg, By Mouth, Daily CONTINUOUS: (1) NICARdipine 2.5 mg/mL Cont IV 25 mg + NaCL 0.9% (250 mL) Cont IV 250 mL (NiCARDipine Cont IV 25 mg + NaCL 0.9% for Titration 250 mL) ??250 mL, IV Infusion PRN: (7) Acetaminophen 325 mg Tablet (Tylenol 325 mg oral tablet) ??325 mg, By Mouth, Every 4 hours Dextrose Inj Syringe (Dextrose 50% Inj Syringe (25Gm)) ??12.5 Gm, IV Push Slowly, Every 20 minutes Dextrose Inj Syringe (Dextrose 50% Inj Syringe (25Gm)) ??25 Gm, IV Push Slowly, Every 15 minutes Glucagon 1 mg Inj (Glucagon Inj) ??1 mg, Intramuscular, Once Glucose 40% Gel (15 Gm) (Glucose Gel) ??15 Gm, By Mouth, Every 20 minutes Glucose 40% Gel (15 Gm) (Glucose Gel) ??30 Gm, By Mouth, Every 20 minutes NaCl 0.9% Flush 3ml (NaCL 0.9% Flush) ??3 mL, IV Push, Every 8 hours Lab Results PM&R Labs WBC: 9.1 k/mm3 (06/20/24) Platelet Count:??148 k/mm3??Low (06/20/24) Sodium: 141 mmol/L (06/20/24) BUN: 18 mg/dL (06/20/24) BUN: 15 mg/dL (05/06/24) Creatinine-Blood: 0.82 mg/dL (06/20/24) AST (SGOT): 23 units/L (06/20/24 04:23:00) AST (SGOT): 20 IU/L (05/06/24 15:53:00) ALT (SGPT): 15 units/L (06/20/24 04:23:00) ALT (SGPT): 15 IU/L (05/06/24 15:53:00) * Anjali Pollard MD: MODIFY, PERFORM Event Display: Consultation Note Authored Date: NEUROCRITICAL CARE CONSULTATION NOTE: HD: 1 Aircraft Manager: Alvino Dias DO Reason for consult: IPH, IVH, midline shift, brain compression HPI: 68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 Patient had been in his USOH until ~23:00 when he was walking and experienced worse R weakness causing him to fall (no head strike). called EMS after he could not stand up. At OSH patient was awake/alertwith notable R weakness, SBP was 185. 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 He was given labetalol IVP and transferred to [facility] MICU for further management. Repeat CTH images reviewed show stable IPH and IVH volume with no increase in ventricle size. He passed a swallow eval for PMR this morning. History: Aortic stenosis mild echo 2019 2021 History of herpes zoster c& RT Aortic insufficiency trace Diabetes Mellitus without Mention of Complication Diverticulosis Erectile dysfunction/urology Hypercholesterolemia Insulin long-term use Obese class I PD (Parkinson's disease) Presence of implanted infusion pump Colonoscopy and extirpation of lesion of colon: 11/30/22 Echocardiogram ef 60-65% mild aortic stenosis: 06/20/22 Electrocardiogram sinsu: 03/13/21 Reference laboratory nomrmal bone alk phos: 01/18/21 Chest X-ray lefvt ribs: 03/30/20 Echocardiogram mild as ef 65-70%: 02/08/20 Radioisotope myocardial perfusion stress study normal: 01/25/20 Polysomnogram: 11/11/18 Cardiac echo: 08/08/17 Hand X-ray right: 03/11/17 Abnormal brain MRI spect: 09/26/16 MRI of brain and brain stem: 09/14/16 EMG - Electromyography normal: 08/31/16 MRI of cervical spine: 07/19/16 Radiologic examination, spine, cervical; 3 views or less: 07/05/16 Chest X-ray: 07/05/16 Right wrist X-RAY: 07/05/16 Electrocardiogram, routine ECG with at least 12 leads; with interpretation and report: 06/19/11 Reference (Outside) Laboratory: 05/14/11 Reference (Outside) Laboratory: 07/18/10 Reference (Outside) Laboratory: 03/14/10 labs: 11/15/09 labs: 09/15/09 [id number] Medication List Active Medications Ordered Acetaminophen: 325 mg, By Mouth, Every 4 hours, PRN: Pain , Mild. Atorvastatin: 80 mg, By Mouth, Daily at bedtime. Carbidopa-Levodopa: 2 tablet, By Mouth, 3 times a day. Clonazepam: 0.25 mg, By Mouth, Daily at bedtime. Dextrose 50% in Water: 12.5 Gm, IV Push Slowly, Every 20 minutes, PRN: Blood Glucose. Dextrose 50% in Water: 25 Gm, IV Push Slowly, Every 15 minutes, PRN: Blood Glucose. Glucagon: 1 mg, Intramuscular, Once, PRN: Other. Glucose: 15 Gm, By Mouth, Every 20 minutes, PRN: Blood Glucose. Glucose: 30 Gm, By Mouth, Every 20 minutes, PRN: Blood Glucose. Insulin Lispro: 2-10 units, Subcutaneous Injection, 3 times a day before meals. Memantine: 10 mg, tablet, By Mouth, Daily. NiCARdipine 25 mg + Sodium Chloride 0.9% 250 mL: Titrate, IV Infusion. Polyethylene Glycol 3350: 17 Gm, 1 pack/packet, By Mouth, Daily. Senna: 17.2 mg, 2 tablet, By Mouth, Daily. Sertraline: 100 mg, tablet, By Mouth, Daily. Sodium Chloride: 3 mL, IV Push, Every 8 hours, PRN: Other. Prescribed Atorvastatin: See Instructions, TAKE ONE TABLET BY MOUTH EVERY DAY, 90 tablet, 3 Refill(s). Insulin Lispro: See Instructions, USE WITH VGO 30 UP TO 100 UNITS A DAY, 90 mL, 0 Refill(s). Memantine: 10 mg, 1 tablet, By Mouth, Daily, 90 tablet, 3 Refill(s). Documented Aspirin: See Instructions, 0, 0, 01/14/06 17:25:16, By Mouth Daily, Print LISSET Number, Constant Indicator. Carbidopa-Levodopa: 2 tablet, By Mouth, 3 times a day, 90 tablet, 0 Refill(s). Clonazepam: 0.25 mg, By Mouth, Daily at bedtime, 0 Refill(s). Sertraline: 100 mg, 1 tablet, By Mouth, Daily, 0 Refill(s). Medications Inactivated in the Last 72 Hours Atorvastatin: 1 tablet, By Mouth, Daily, 90 tablet, 1 Refill(s). Durable Medical Equipment: See Instructions, Free Style Alyx SENSORS- 90 day supply change every 14 days DM 2 , E11.9, 6 each, 5 Refill(s). Durable Medical Equipment: See Instructions, test sugar three times daily as directed, 3 box. Durable Medical Equipment: See Instructions, use with lantus solostar, 30 pack/packet. Durable Medical Equipment: See Instructions, for 90 days, use to test BS 3-4 times a day for DX 250.00, 300 strip(s). Durable Medical Equipment: See Instructions, 50, 5, 5, 01/14/06 17:13:54, daily, diabetes, [facility], [address] [place] [id number]. Durable Medical Equipment: See Instructions, V-GO delivery 30 VGO pharmacy contact [phone] to be used daily with Novolog, 90 each, 6 Refill(s). Durable Medical Equipment: See Instructions, dx: 250.00 for insulin use 3-4x/day, 300 applicator, 1 Refill(s). Durable Medical Equipment: See Instructions, USE TO GIVE INSULIN, 100 units. Insulin Lispro: See Instructions, use with VGO 30 up to 100 units a day vials LISPRO please dispense lispro generic, 90 mL, 11 Refill(s). Insulin Lispro: 2-10 units, Subcutaneous Injection, Every 6 hours. Insulin Regular Human 100 units [2 units/hr] + Sodium Chloride 0.9% 100 mL: 2 mL/hr, IV Infusion. Insulin Regular Human 100 units [2 units/hr] + Sodium Chloride 0.9% 100 mL: 2 mL/hr, IV Infusion. Miscellaneous Rx: See Instructions, CHANGE EVERY 14 DAYS, 1 Unknown, 5 Refill(s). Miscellaneous Rx: See Instructions, CHANGE EVERY 14 DAYS, 1 HOUR WARM UP, 1 Unknown, 11 Refill(s). Miscellaneous Rx: See Instructions, DM2 E11.9 REPLACING 7 DAY READER, 1 each, 0 Refill(s). Miscellaneous Rx: See Instructions, DM2 E11.9 3 months supply change every 14 days, 1 hour warm up, 6 each, 1 Refill(s). Miscellaneous Rx: See Instructions, CHANGE EVERY 14 DAYS, 1 Unknown, 11 Refill(s). Miscellaneous Rx: See Instructions, one pill once a day by mouth. REPLACES 30 DAY SUPPLY, 90 Doses, 2 Refill(s). onabotulinumtoxinA: 0 Refill(s). Sildenafil: 100 mg, 1 tablet, By Mouth, Daily, Take 1 hour before sexual activity as instructed. Start with 1/2 tablet. Use not more than once daily, 30 tablet, 3 Refill(s). Allergies (Active and Proposed Allergies Only) Jardiance (Severity: Unknown severity, Onset: Unknown) Patient is aphasic and unable to provide history or review of systems Exam today shows: Temperature 97.3 (08:47) Systolic Blood Pressure 124 (11:33) Diastolic Blood Pressure 74 (11:33) Pulse 86 (11:33) SpO2 96 (11:33) Respiratory Rate 17 (11:46) GEN - awake, alert, not oriented to place/time (suspect due to aphasia), NAD, follows simple commands and cooperates with exam; expressive aphasia, cannot name any items on stroke card aside from alvarez ; moderate dysarthria CN - PERRL, EOMI, no BTT bilaterally (likely due to parkinsons), R NLF flattening but more symmetric with smile, tongue midline MOTOR: RUE/RLE 2/5; LUE/LLE 5/5; RUE increased tone SENSATION: grimaces to nbp on L not R CEREBELLUM: no nystagmus CV/PULM - RRR, +HSM; lungs CTAB BLOOD COUNT & DIFF WBC 9.1 k/mm3 () 06/20/2024 04:23 RBC 4.25 m/mm3 (Low) 06/20/2024 04:23 Hgb 12.9 Gm/dL (Low) 06/20/2024 04:23 Hct 38.6 % (Low) 06/20/2024 04:23 MCV 90.8 femtoliters () 06/20/2024 04:23 MCH 30.4 pg () 06/20/2024 04:23 MCHC 33.4 g/dL () 06/20/2024 04:23 Platelet Count 148 k/mm3 (Low) 06/20/2024 04:23 RDW-SD 44.1 femtoliters () 06/20/2024 04:23 MPV 11.4 femtoliters () 06/20/2024 04:23 Nucleated RBC (Automated) 0.0 #/100 WBC'S () 06/20/2024 04:23 Abs. NRBC 0.0 k/mm3 () 06/20/2024 04:23 Abs. Neut 7.1 k/mm3 (High) 06/20/2024 04:23 Abs. Lymph 1.2 k/mm3 () 06/20/2024 04:23 Abs. Howell 0.5 k/mm3 () 06/20/2024 04:23 Abs. Eo 0.1 k/mm3 () 06/20/2024 04:23 Abs. Baso 0.0 k/mm3 () 06/20/2024 04:23 Neut % 78.9 % (High) 06/20/2024 04:23 Lymph % 13.1 % (Low) 06/20/2024 04:23 Howell % 5.8 % () 06/20/2024 04:23 Eos % 1.4 % () 06/20/2024 04:23 Baso % 0.4 % () 06/20/2024 04:23 Imm Gran 0.4 % () 06/20/2024 04:23 Abs. Imm Gran 0.0 k/mm3 () 06/20/2024 04:23 CHEM GENERAL Sodium 141 mmol/L () 06/20/2024 04:23 Potassium 4.3 mmol/L () 06/20/2024 04:23 Chloride 104 mmol/L () 06/20/2024 04:23 Bicarbonate Level 24 mmol/L () 06/20/2024 04:23 Anion Gap 13 () 06/20/2024 04:23 Glucose Level 233 mg/dL (High) 06/20/2024 04:23 Glucose, POC 210 mg/dL (High) 06/20/2024 09:20 Hemoglobin A1C (Monitoring) 6.1 % (High) 06/20/2024 04:23 BUN 18 mg/dL () 06/20/2024 04:23 Creatinine-Blood 0.82 mg/dL () 06/20/2024 04:23 Estimated GFR Creatinine 96 ML/MIN/1.73 M2 () 06/20/2024 04:23 Calcium 9.2 mg/dL () 06/20/2024 04:23 Phosphorus 2.6 mg/dL () 06/20/2024 04:23 Magnesium 1.7 mg/dL () 06/20/2024 04:23 Protein, Total 6.5 Gm/dL () 06/20/2024 04:23 Albumin 4.1 Gm/dL () 06/20/2024 04:23 AG Ratio 1.7 () 06/20/2024 04:23 Alkaline Phosphatase 59 units/L () 06/20/2024 04:23 AST (SGOT) 23 units/L () 06/20/2024 04:23 ALT (SGPT) 15 units/L () 06/20/2024 04:23 Bilirubin, Total 0.4 mg/dL () 06/20/2024 04:23 Lactate 1.6 mmol/L () 06/20/2024 04:23 URINE OTHER Est Creatinine Clearance 87.13 mL/min () 06/20/2024 05:14 VIROLOGY COVID-19 PCR Specimen Source NASAL () 06/20/2024 05:30 COVID-19 PCR Result NEGATIVE () 06/20/2024 05:30 A/P: acute 5cc L thalamic IPH with IVH; ICH score 1 on presentation (for IVH); etiology likely hypertensive based on location and SBP 185 on arrival to OSH; PBD1 - q1h neuro checks days; ok for q2 nights to avoid delirium - consider CTA head - see if done at OSH, if so then no need to repeat - PMR following - continue home sinemet - SBP goal <150 - resume home lisinopril to wean off nicardipine - hold antiplatelet/AC - f/up swallow eval, ok to feed if passes - hold SQH until PBD2 - dispo: MICU for now Anjali Pollard MD Neuro-critical Care Attending Patient Care team information Care Team Personnel Name: Elin rFanz NP Position: [facility] PCO Associate Professional Member Role: Lifetime Consulting Provider Address: Address: [address] [place] [address]- Name: Jonny Portillo RN Position: [facility] RN Member Role: Primary Care Nurse Name: Eduardo Escalera MD Position: [facility] Physician - Primary Care Member Role: PCP Address: Address: [address] [place] [address]- Name: Doris Hamilton RN Position: [facility] RN Member Role: Primary Care Nurse Name: Manuel Melgar RN Position: [facility] RN Member Role: Primary Care Nurse Name: Aliza Lorenzo RN Position: [facility] RN Member Role: Primary Care Nurse Care Team Related Persons Name: BEBETO WIN Address: home [address] [place] [address]
--- OUTSIDE RECORDS SUMMARY | 2024-07-27 22:10 | XMS_ITS | Continuity of Care Document ---
Author Organization [facility] Tk Address [address] [place] [address]- Care Team Providers Care Rail Technician Name Role Phone Mu BARBER, Francesco Llanes Primary Care Physician Encounter [facility] Date(s): 03/07/22 - 04/06/22 [facility] Adult [address] [place] [address]- Allergies, Adverse Reactions, Alerts Substance Reaction Severity [...] tablet, 1 Refills, Maintenance, 07/20/21 11:01:00 EDT, [facility], 176, cm, 05/02/21 10:38:00 [...] diabetes, [facility] [address] [place] [address] Start Date: 01/14/06 Status: Ordered Humalog 100 u/ml subcutaneous injection See Instructions, use with VGO 30 up to 100 units a day vials LISPRO please dispense lispro generic, # 90 mL, 11 Refills, Maintenance, 03/07/22 13:34:00 EDT, [facility] #[id number], Partial fillupon patient request if the prescription [...] GIVE INSULIN, 11/23/09 13:35:21, Carmelo Singer Peter, [facility] Start Date: 11/23/09 Status: Ordered [...] 11/15/17 Stop Date: 02/13/18 Status: Ordered Pen [place], 31 G x 5 mm BD Ultra [...] V- GO delivery 30 VGO pharmacy contact [phone] to be used daily with Novolog, 07/18/21 [...]
--- OUTSIDE RECORDS SUMMARY | 2024-07-27 22:10 | XMS_ITS | Continuity of Care Document ---
Author Organization [facility] lt Address [address] [place] [address]- Care Team Providers Care Laundry Housekeeping Aide Name Role Phone Mu BARBER, Francesco Llanes Primary Care Physician [phone] Encounter [facility] Date(s): 04/03/22 - 05/03/22 [facility] Adult [address] [place] [address]- Allergies, Adverse Reactions, Alerts Substance Reaction Severity [...] tablet, 1 Refills, Maintenance, 07/20/21 11:01:00 EDT, [facility], 176, cm, 05/02/21 10:38:00 EDT, [...] 5, 5, 01/14/06 17:13:54, daily, diabetes, [facility], [address] [place] [address] Start Date: 01/14/06 Status: Ordered Humalog 100 u/ml subcutaneous injection See Instructions, use with VGO 30 up to 100 units a day vials LISPRO please dispense lispro generic, # 90 mL, 11 Refills, Maintenance, 03/07/22 13:34:00 EDT, [facility] #[id number], Partial fillupon patient request if the prescription [...] GIVE INSULIN, 11/23/09 13:35:21, Carmelo Singer Peter, [facility] Start Date: 11/23/09 Status: Ordered memantine 10 [...] 11/15/17 Stop Date: 02/13/18 Status: Ordered Pen [place], 31 G x 5 mm BD [...] 3 Refills, Maintenance, 05/02/21 15:56:00 EDT, Tablet, [facility], Partial fill... Start Date: 05/02/21 [...] V- GO delivery 30 VGO pharmacy contact [phone] to be used daily with Novolog, 07/18/21 [...]
--- OUTSIDE RECORDS SUMMARY | 2024-07-27 22:10 | XMS_ITS | Continuity of Care Document ---
Author Organization [facility] Tk Address [address] [place] [address]- Care Team Providers Care Motor Builder Winder Name Role Phone Francesco Dobbins MD Primary Care Physician Encounter [facility] Date(s): 01/02/22 - 05/02/22 [facility] Adult [address] [place] [address]- Attending Physician: Francesco Dobbins MD Allergies, Adverse [...] tablet, 1 Refills, Maintenance, 07/20/21 11:01:00 EDT, [facility], 176, cm, 05/02/21 [...] 17:13:54, daily, diabetes, [facility], [address] [place] [address] Start Date: 01/14/06 Status: Ordered Humalog 100 u/ml subcutaneous injection See Instructions, use with VGO 30 up to 100 units a day vials LISPRO please dispense lispro generic, # 90 mL, 11 Refills, Maintenance, 03/07/22 13:34:00 EDT, [facility] #[id number], Partial fillupon patient request if the prescription [...] TO GIVE INSULIN, 11/23/09 13:35:21, Carmelo Singer [facility] Start Date: 11/23/09 Status: Ordered memantine 10 [...] 11/15/17 Stop Date: 02/13/18 Status: Ordered Pen [place], 31 G x 5 mm BD Ultra [...] 3 Refills, Maintenance, 05/02/21 15:56:00 EDT, Tablet, [facility], Partial fill... Start [...] V- GO delivery 30 VGO pharmacy contact [phone] to be used daily with Novolog, 07/18/21 [...]
--- OUTSIDE RECORDS SUMMARY | 2024-07-27 22:10 | XMS_ITS | Continuity of Care Document ---
Author Organization [facility] Peter Tk lt Address [address] [place] [address]- Care Team Providers Care Coroner'S Juror Name Role Phone Mu BARBER, Francesco Llanes Primary Care Physician Encounter [facility] Date(s): 08/16/20 - 09/15/20 [facility] Adult [address] [place] [address]- [facility] Allergies, Adverse Reactions, Alerts Substance Reaction Severity [...] tablet, 1 Refills, Maintenance, 05/19/20 15:38:00 EDT, [facility], 176, cm, 02/17/20 15:52:00 [...] 01/14/06 17:13:54, daily, diabetes, ADS [facility], [address] [place] [address] Start Date: 01/14/06 Status: Ordered Humalog 100 u/ml subcutaneous injection See Instructions, MAX DOSE 100 to be used daily with VGO 30 DX: E11.9, # 15 mL, 11 Refills, Maintenance, 04/14/20 10:59:00 EDT, [facility], 176, cm, 02/17/20 15:52:00 [...] Singer [place] Start Date: 11/23/09 Status: Ordered [facility] Rx Jardiance 10mg, See Instructions, # 90 [...] 0 Refills, Maintenance, 01/07/20 14:50:00 EST, Tablet, [id number], 176... Start Date: 01/07/20 Status: Ordered [...] 05/27/14 Stop Date: 05/27/15 Status: Ordered Pen [place], 31 G x 5 mm BD Ultra [...] V- GO delivery 40 VGO pharmacy contact [phone] to be used daily with humalog dx:e11.9, [...]
--- OUTSIDE RECORDS SUMMARY | 2024-07-27 22:10 | XMS_ITS | Continuity of Care Document ---
Author Organization [facility] Address [address] [place] [address]- Care Team Providers Care Patient Intake Representative Name Role Phone Lali BARBER, Eduardo Clayton Primary Care Physician En[facility] Date(s): 09/11/22 - 10/11/22 [facility] [address] [place], [place] [address] Allergies, Adverse Reactions, Alerts Substance Reaction Severity [...] tetanus-diphtheria toxoids (Td) 08/04/07 Given 1Result Comment: [facility] [id number] 2Admin Note: pt declines 3Admin Note: rcvd elsewhere Medications aspirin 81 mg oral enteric coated tablet See Instructions, 0, 0, 01/14/06 17:25:16, By Mouth Daily, Print LISSET Number, Constant Indicator Start Date: 01/14/06 Status: Ordered atorvastatin 80 mg oral tablet 1 tablet, By Mouth, Daily, # 90 tablet, 1 Refills, Maintenance, 05/23/22 12:26:00 EDT, [facility] #[id number], 176, cm, 04/04/22 11:11:00 EDT, Height Start [...] 5, 5, 01/14/06 17:13:54, daily, diabetes, [facility], [address] [place] [address] Start Date: 01/14/06 Status: Ordered Humalog 100 u/ml subcutaneous injection See Instructions, use with VGO 30 up to 100 units a day vials LISPRO please dispense lispro generic, # 90 mL, 11 Refills, Maintenance, 03/07/22 13:34:00 EDT, [id number], Partial fillupon patient request if the prescription [...] mL, 0 Refills, Maintenance, 06/26/22 11:46:00 EDT, [facility] #[id number],Partial fill upon patient request if the prescript... [...] 11/15/17 Stop Date: 02/13/18 Status: Ordered Pen [place], 31 G x 5 mm BD Ultra Fine III See Instructions, # 30 pack/packet, Refills 11, Tot. Refills 11, use with lantus solostar, diabetes, 07/13/09 15:43:10, Herb and Ike Girard [facility] Start Date: 07/13/09 Status: Ordered sildenafil 100 mg oral tablet 1 tablet = 100 mg, By Mouth, Daily, Take 1 hour before sexual activity as instructed. Start with 1/2 tablet. Use not more than once daily, # 30 tablet, 3 Refills, Maintenance, 08/29/22 14:04:00 EDT, Tablet, [facility] # [id number], Partial fill upon p... [...] V- GO delivery 30 VGO pharmacy contact [phone] to be used daily with Novolog, 10/04/22 [...] Team Personnel Name: Elin Franz NP Position: [facility] PCO Associate Professional Member Role: Lifetime Consulting Provider Address: Address: [address] [place] [address]- Name: Eduardo Escalera MD Position: [facility] Primary Care Physician Member Role: PCP Address: Address: [address] [place] [address]- Care Team Related Persons Name: BEBETO WIN Address: [address] [place] [address]
--- OUTSIDE RECORDS SUMMARY | 2024-07-27 22:10 | XMS_ITS | Continuity of Care Document ---
Author Organization [facility] Tk lt Address [address] [place] [address]- Care Team Providers Care Off Track Betting Manager Name Role Phone Francesco Dobbins MD Primary Care Physician Encounter [facility] Date(s): 09/26/21 - 10/03/21 [facility] Adult [address] [place] [address]- Encounter Diagnosis Diabetes Mellitus without Mention of Complication(Discharge Diagnosis) - 09/19/21 Hypercholesterolemia(Discharge Diagnosis) - 09/19/21 Aortic stenosis mild(Discharge Diagnosis) - 09/19/21 Insulin long-term use(Discharge Diagnosis) - 09/19/21 Attending Physician: Francesco Dobbins MD Allergies, Adverse [...] tablet, 1 Refills, Maintenance, 07/20/21 11:01:00 EDT, [facility], 176, cm, 05/02/21 10:38:00 [...] 5, 01/14/06 17:13:54, daily, diabetes, ADS [facility], [address] [place] [address] Start Date: 01/14/06 Status: Ordered insulin lispro 100 u/ml subcutaneous injection See Instructions, generic insulin lispro ONLY use with V-go up to 100 units per day, # 60 mL, 11 Refills, Maintenance, 10/10/20 12:29:00 EST, [facility], generic insulin lispro ONLY;replacing brand name humalog, meredith Noonan, 09/01/20 11... Start Date: 10/10/20 Status: Ordered [...] TO GIVE INSULIN, 11/23/09 13:35:21, Bethel Cummings [facility] Start Date: 11/23/09 Status: Ordered [...] 11/15/17 Stop Date: 02/13/18 Status: Ordered Pen [place], 31 G x 5 mm BD Ultra Fine III See Instructions, # 30 pack/packet, Refills 11, Tot. Refills 11, use with lantus solostar, diabetes, 07/13/09 15:43:10, [facility] Start Date: 07/13/09 Status: Ordered sildenafil 100 mg oral tablet 1 tablet = 100 mg, By Mouth, Daily, Take 1 hour before sexual activity as instructed. Start with 1/2 tablet. Use not more than once daily, # 10 tablet, 3 Refills, Maintenance, 05/02/21 15:56:00 EDT, Tablet, [facility], Partial fill... Start [...] V- GO delivery 30 O pharmacy contact [phone] to be used daily with Novolog, 07/18/21 [...] Mellitus without Mention of Complication Discharge Diagnosis 09/19/21 Hypercholesterolemia Discharge Diagnosis 09/19/21 Aortic stenosis mild Discharge Diagnosis 09/19/21 Insulin long-term use Discharge Diagnosis 09/19/21 Vital Signs Most recent to oldest [Reference Range]: 1 2 Height 176.00 cm (09/26/21 3:44 PM) 176.00 cm (09/26/21 3:24 PM) Weight 98.9 kg (09/26/21 3:24 PM) Oxygen Saturation [94-100 %] 98 % (09/26/21 3:24 PM) Pulse Rate [55-90 bpm] 78 bpm (09/26/21 3:24 PM) Body Mass Index [18.5-24.99] 31.93 *>HHI* (09/26/21 3:24 PM) Blood Pressure [90-138/55-84 mm Hg] 130/ 68mm Hg (09/26/21 3:44 PM) 158/70mm Hg *H* (09/26/21 3:24 PM) Respiratory Rate [16-30 br/min] 14 br/mi n *L* (09/26/21 3:24 PM) Blood pressure sites Arm, left (09/26/21 3:44 PM) Arm, left (09/26/21 3:24 PM) Social History Social History Type Response Smoking Status Former smoker; Type: Cigarettes; Other: quit 2015; Tobacco use times per day: 0.5 PPD; Number of years: 28; Total pack years: 14; Started at age: 25; entered on: 07/03/16 Sex
--- OUTSIDE RECORDS SUMMARY | 2024-07-27 22:10 | XMS_ITS | Continuity of Care Document ---
Author Organization [facility] Carmelo Freeman Tk lt Address [address] [place] [address]- Care Team Providers Care Tender Coordinator Name Role Phone Lali BARBER, Eduardo Clayton Primary Care Physician En[facility] Date(s): 09/11/22 - 10/11/22 [facility] Adult [address] [place] [address]- Allergies, Adverse Reactions, Alerts Substance Reaction Severity [...] tetanus-diphtheria toxoids (Td) 08/04/07 Given 1Result Comment: [facility] [id number] 2Admin Note: pt declines 3Admin Note: rcvd elsewhere Medications aspirin 81 mg oral enteric coated tablet See Instructions, 0, 0, 01/14/06 17:25:16, By Mouth Daily, Print LISSET Number, Constant Indicator Start Date: 01/14/06 Status: Ordered atorvastatin 80 mg oral tablet 1 tablet, By Mouth, Daily, # 90 tablet, 1 Refills, Maintenance, 05/23/22 12:26:00 EDT, [facility] #[id number], 176, cm, 04/04/22 11:11:00 EDT, Height Start [...] , E11.9, 05/15/22 10:31:00 EDT, emailed the [facility] also, Supply, 176, cm, 04/04/22 11:11:00... [...] daily, diabetes, [facility], [address] [place] [address] Start Date: 01/14/06 Status: Ordered Humalog 100 u/ml subcutaneous injection See Instructions, use with VGO 30 up to 100 units a day vials LISPRO please dispense lispro generic, # 90 mL, 11 Refills, Maintenance, 03/07/22 13:34:00 EDT, [facility] #[id number], Partial fillupon patient request if the prescription [...] mL, 0 Refills, Maintenance, 06/26/22 11:46:00 EDT, [facility] #[id number],Partial fill upon patient request if the prescript... [...] 11/15/17 Stop Date: 02/13/18 Status: Ordered Pen [place], 31 G x 5 mm BD Ultra [...] 3 Refills, Maintenance, 08/29/22 14:04:00 EDT, Tablet, [facility] # [id number], Partial fill upon [...] V- GO delivery 30 VGO pharmacy contact [phone] to be used daily with Novolog, 10/04/22 [...] Personnel Name: Osei CHURCHILL, Elin Lang Position: [facility] PCO Associate Professional Member Role: Lifetime Consulting Provider Address: Address: [address] [place] [address]- Name: Eduardo Escalera MD Position: [facility] Primary Care Physician Member Role: PCP Address: Address: [address] [place] [address]- Care Team Related Persons Name: BEBETO WIN Address: [address] [place] [address]
--- OUTSIDE RECORDS SUMMARY | 2024-07-27 22:10 | XMS_ITS | Continuity of Care Document ---
Author Organization [facility] Kt lt Address [address] [place] [address]- Care Team Providers Care Landscaper Name Role Phone Mu BARBER, Francesco Llanes Primary Care Physician Encounter [facility] Date(s): 11/28/21 - 12/28/21 [facility] Adult [address] [place] [address]- Allergies, Adverse Reactions, Alerts Substance Reaction Severity [...] 5, 5, 01/14/06 17:13:54, daily, diabetes, [facility], [address] [place] [address] Start Date: 01/14/06 Status: Ordered Humalog 100 u/ml subcutaneous injection See Instructions, use with VGO 30 up to 100 units a day replaces lispro, # 60 mL, 11 Refills, Maintenance, 11/28/21 14:25:00 EST, [facility], Partial fill upon patient [...] opioid drug. Start Date: 03/13/21 Status: Ordered [facility] Rx Jardiance 10mg, See [...] 11/15/17 Stop Date: 02/13/18 Status: Ordered Pen [place], 31 G x 5 mm BD Ultra [...] V- GO delivery 30 VGO pharmacy contact [phone] to be used daily with Novolog, 07/18/21 [...]
--- OUTSIDE RECORDS SUMMARY | 2024-07-27 22:10 | XMS_ITS | Continuity of Care Document ---
Author Organization [facility] Carmelo Green Tk Address [address] [place] [address]- Care Team Providers Care Rolloff Truck Driver Name Role Phone Lali BARBER, Eduardo Clayton Primary Care Physician Encounter [facility] Date(s): 09/06/22 - 10/06/22 [facility] Adult [address] [place] [address]- Allergies, Adverse Reactions, Alerts Substance Reaction Severity [...] 1Result Comment: [facility] [id number] 2Admin Note: pt declines 3Admin Note: rcvd elsewhere Medications aspirin 81 mg oral enteric coated tablet See Instructions, 0, 0, 01/14/06 17:25:16, By Mouth Daily, Print LISSET Number, Constant Indicator Start Date: 01/14/06 Status: Ordered atorvastatin 80 mg oral tablet 1 tablet, By Mouth, Daily, # 90 tablet, 1 Refills, Maintenance, 05/23/22 12:26:00 EDT, [facility] #[id number], 176, cm, 04/04/22 11:11:00 EDT, Height Start [...] 5, 01/14/06 17:13:54, daily, diabetes, [facility], [address] [place] [address] Start Date: 01/14/06 Status: Ordered Humalog 100 u/ml subcutaneous injection See Instructions, use with VGO 30 up to 100 units a day vials LISPRO please dispense lispro generic, # 90 mL, 11 Refills, Maintenance, 03/07/22 13:34:00 EDT, [id number], Partial fillupon patient request if the prescription [...] mL, 0 Refills, Maintenance, 06/26/22 11:46:00 EDT, [facility] #[id number],Partial fill upon patient request if the prescript... [...] 11/15/17 Stop Date: 02/13/18 Status: Ordered Pen [place], 31 G x 5 mm BD Ultra Fine III See Instructions, # 30 pack/packet, Refills 11, Tot. Refills 11, use with lantus solostar, diabetes, 07/13/09 15:43:10, Herb and Ike Girard [facility] Start Date: 07/13/09 Status: Ordered sildenafil 100 mg oral tablet 1 tablet = 100 mg, By Mouth, Daily, Take 1 hour before sexual activity as instructed. Start with 1/2 tablet. Use not more than once daily, # 30 tablet, 3 Refills, Maintenance, 08/29/22 14:04:00 EDT, Tablet, [facility] # [id number], Partial fill upon p... [...] V- GO delivery 30 VGO pharmacy contact [phone] to be used daily with Novolog, 10/04/22 [...] Sex Patient Care team information Personnel Name: Eduardo Escalera MD Address: Address: [address] [place] [id number]
--- OUTSIDE RECORDS SUMMARY | 2024-07-27 22:10 | XMS_ITS | Continuity of Care Document ---
Author Organization [facility] Peter Tk lt Address [address] [place] [address]- Care Team Providers Care Retort Unloader Name Role Phone Lali BARBER, Eduardo Clayton Primary Care Physician Encounter [facility] Date(s): 07/31/23 - 08/30/23 [facility] Adult [address] [place] [address]- Allergies, Adverse Reactions, Alerts Substance Reaction Severity [...] (Td) 08/04/07 Given 1Result Comment: [facility] [id number] 2Admin Note: pt declines 3Admin Note: rcvd [...] , E11.9, 04/17/23 11:12:00 EDT, emailed the [facility] also, Supply, 177.8, cm, 04/12/23 6:48:00... [...] 5, 01/14/06 17:13:54, daily, diabetes, ADS [facility], [address] [place] [address] Start Date: 01/14/06 Status: Ordered Humalog 100 u/ml subcutaneous injection See Instructions, use with VGO 30 up to 100 units a day vials LISPRO please dispense lispro generic, # 90 mL, 11 Refills, Maintenance, 08/01/23 7:46:00 EDT, [facility] #[id number], Partial fill upon patient request if the prescription is for a... Start Date: 08/01/23 Status: Ordered insulin lispro 100 u/ml subcutaneous injection See Instructions, USE WITH VGO 30 UP TO 100 UNITS A DAY, # 90 mL, 0 Refills, Maintenance, 08/02/23 5:04:00 EDT, [facility] #[id number], 177.8, cm, 04/12/23 6:48:00 EDT, Height Start [...] 3 Refills, Maintenance, 04/12/23 7:26:00 EDT, Tablet, [facility], Partial fill upon patient request if the prescription is for a schedule II opioid drug., 177.8, cm, 04/12/23 6:48:00 EDT... Start Date: 04/12/23 Status: Ordered [facility] Rx Jardiance 10mg, [...] 11/15/17 Stop Date: 02/13/18 Status: Ordered Pen [place], 31 G x 5 mm BD Ultra [...] 3 Refills, Maintenance, 08/29/23 13:18:00 EDT, Tablet, [facility] # [id number], Partial fill upon p... Start Date: 08/29/23 Status: Ordered Sinemet 25 mg-100 mg oral tablet 2 tablet, By Mouth, 3 times a day, # 90 tablet, 0 Refills, Maintenance, 08/19/17 7:00:26, Tablet Start Date: 08/19/17 Status: Ordered V-GO 30 V-GO 30, See Instructions, # 90 each, Refills 6, Tot. Refills 6, Maintenance, V- GO delivery 30 VGO pharmacy contact [phone] to be used daily with Novolog, 10/04/22 [...] Team Personnel Name: Elin Franz NP Position: [facility] PCO Associate Professional Member Role: Lifetime Consulting Provider Address: Address: [address] [place] [address]- Name: Eduardo Escalera MD Position: [facility] Physician - Primary Care Member Role: PCP Address: Address: [address] [place] [address]- Care Team Related Persons Name: CELESTERUDYSHONNA BEBETO Address: home [address] [place] [address]
--- OUTSIDE RECORDS SUMMARY | 2024-07-27 22:10 | XMS_ITS | Continuity of Care Document ---
Author Organization [facility] Carmelo Green Tk lt Address [address] [place] [address]- Care Team Providers Care Customer Sales Representative Name Role Phone Francesco Dobbins MD Primary Care Physician Encounter [facility] Date(s): 02/17/20 - 02/24/20 [facility] Carmelo Green Adult [address] [place] [address]- [facility] Encounter Diagnosis Peripheral edema(Discharge Diagnosis) - 02/17/20 Aortic stenosis mild(Discharge Diagnosis) - 02/17/20 Attending Physician: Francesco Dobbins MD Allergies, Adverse [...] 5, 01/14/06 17:13:54, daily, diabetes, ADS [facility], [address] [place] [address] Start Date: 01/14/06 Status: Ordered Humalog 100 u/ml subcutaneous injection See Instructions, MAX DOSE 100 to be used daily with VGO 30 DX: E11.9, # 15 mL, 11 Refills, Maintenance, 02/15/20 8:15:00 EDT, [facility]/pharmacy #[id number], 176, cm, 01/07/20 14:33:00 EST, Height Start Date: 02/15/20 Status: Ordered Insulin Syringe, BD Ultra-Fine 1 cc 31 G x 8 mm (516in) See Instructions, # 300 applicator, Refills 1, Tot. Refills 1, Maintenance, dx: 250.00 for insulin use 3-4x/day, 08/22/15 16:14:18, Compound Start Date: 08/22/15 Status: Ordered Insulin Syringe, BD Ultra-Fine 1 cc 31 G x 8 mm (5/16in) See Instructions, # 100 units, Refills 6, Tot. Refills 6, USE TO GIVE INSULIN, 11/23/09 13:35:21, [place] [facility], [place] Start Date: 11/23/09 Status: Or[place] [facility] [place]ardiance 10mg, See [...] 05/27/14 Stop Date: 05/27/15 Status: Ordered Pen Dietrich, 31 G x 5 mm BD Ultra Fine III See Instructions, # 30 pack/packet, Refills 11, Tot. Refills 11, use with lantus solostar, diabetes, 07/13/09 15:43:10, Herb and Ike Girard [facility] Start Date: 07/13/09 Status: Ordered Sinemet 25 [...] Refills 6, Maintenance, V- GO delivery 40 [facility] pharmacy contact [phone] to be used daily with humalog, 08/27/19 [...] Effective Dates Health Status Clinical Service Informant Peripheral edema Discharge Diagnosis 02/17/20 Aortic stenosis mild Discharge Diagnosis 02/17/20 Vital Signs Most recent to oldest [Reference Range]: 1 Height 176.00 cm (02/17/20 3:52 PM) Weight 103.7 kg (02/17/20 3:52 PM) Oxygen Saturation [94-100 %] 98 % (02/17/20 3:52 PM) Pulse Rate [55-90 bpm] 68 bpm (02/17/20 3:52 PM) Body Mass Index [18.5-24.99] 33.48 *>HHI* (02/17/20 3:52 PM) Blood Pressure [90-138/55-84 mm Hg] 120/ 82mm Hg (02/17/20 3:52 PM) Respiratory Rate [16-30 br/min] 16 br/mi n (02/17/20 3:52 PM) Temperature [96.8-100.4 DegF] 97.6 DegF (02/17/20 3:52 PM) Mode of Delivery (Oxygen) Room air (02/17/20 3:52 PM) Blood pressure sites Arm, left (02/17/20 3:52 PM) Temperature Route Oral (02/17/20 3:52 PM) Weight Obtained Via Standing scale (02/17/20 3:52 PM) Social History Social History Type Response Smoking Status Former smoker; Type: Cigarettes; Other: quit 2015; Tobacco use times per day: 0.5 PPD; Number of years: 28; Total pack years: 14; Started at age: 25; entered on: 07/03/16 Sex
--- OUTSIDE RECORDS SUMMARY | 2024-07-27 22:10 | XMS_ITS | Continuity of Care Document ---
Author Organization [facility] Address [address] [facility] [place] [address]- Care Team Providers Care Mandolin Repair Person Name Role Phone Francesco Dobbins MD Primary Care Physician [phone] Encounter [facility] Date(s): 07/05/22 - 08/31/22 [facility] [address] [place] [address]- Attending Physician: Tong Cedeno MD Admitting Physician: [...] tablet, 1 Refills, Maintenance, 05/23/22 12:26:00 EDT, [facility] #[id number], 176, cm, 04/04/22 11:11:00 EDT, Height Start [...] 5, 01/14/06 17:13:54, daily, diabetes, [facility], [address] [place] [address] Start Date: 01/14/06 Status: Ordered Humalog 100 u/ml subcutaneous injection See Instructions, use with VGO 30 up to 100 units a day vials LISPRO please dispense lispro generic, # 90 mL, 11 Refills, Maintenance, 03/07/22 13:34:00 EDT, [facility] #[id number], Partial fillupon patient request if the prescription [...] mL, 0 Refills, Maintenance, 06/26/22 11:46:00 EDT, [facility] #[id number],Partial fill upon patient request if the prescript... [...] 11/15/17 Stop Date: 02/13/18 Status: Ordered Pen [place], 31 G x 5 mm BD Ultra Fine III See Instructions, # 30 pack/packet, Refills 11, Tot. Refills 11, use with lantus solostar, diabetes, 07/13/09 15:43:10, Herb and Ike Girard [facility] Start Date: 07/13/09 Status: Ordered sildenafil 100 mg oral tablet 1 tablet = 100 mg, By Mouth, Daily, Take 1 hour before sexual activity as instructed. Start with 1/2 tablet. Use not more than once daily, # 30 tablet, 3 Refills, Maintenance, 08/29/22 14:04:00 EDT, Tablet, [facility] # [id number], Partial fill upon p... [...] V- GO delivery 30 V[facility] pharmacy contact [phone] to be used daily with Novolog, 07/18/21 [...] Name: Mu BARBER, Francesco Llanes Address: Address: [address] [place] [address]
--- OUTSIDE RECORDS SUMMARY | 2024-07-27 22:10 | XMS_ITS | Continuity of Care Document ---
Author Organization [facility] Carmelo Green Tk Address [address] [place] [address]- Care Team Providers Care Director Weights And Measures Name Role Phone Lali BARBER, Eduardo Clayton Primary Care Physician Encounter [facility] Date(s): 04/17/23 - 05/17/23 [facility] Adult [address] [place] [address]- Allergies, Adverse Reactions, Alerts Substance Reaction Severity [...] Given 1Result Comment: [facility] [id number] 2Admin Note: pt declines 3Admin Note: rcvd elsewhere Medications aspirin 81 mg oral enteric coated tablet See Instructions, 0, 0, 01/14/06 17:25:16, By Mouth Daily, Print LISSET Number, Constant Indicator Start Date: 01/14/06 Status: Ordered atorvastatin 80 mg oral tablet 1 tablet, By Mouth, Daily, # 90 tablet, 1 Refills, Maintenance, 12/14/22 13:31:00 EST, [facility] #[id number], 177.8, cm, 11/30/22 8:00:00 EST, Height Start [...] , E11.9, 04/17/23 11:12:00 EDT, emailed the [facility] also, Supply, 177.8, cm, 04/12/23 6:48:00... [...] [facility], [address] [place] [address] Start Date: 01/14/06 Status: Ordered Humalog 100 u/ml subcutaneous injection See Instructions, use with VGO 30 up to 100 units a day vials LISPRO please dispense lispro generic, # 90 mL, 11 Refills, Maintenance, 04/12/23 7:00:00 EDT, [facility] #[id number], Partial fill upon patient request if the [...] 3 Refills, Maintenance, 04/12/23 7:26:00 EDT, Tablet, [facility], Partial fill upon [...] 11/15/17 Stop Date: 02/13/18 Status: Ordered Pen [place], 31 G x 5 mm BD Ultra Fine III See Instructions, # 30 pack/packet, Refills 11, Tot. Refills 11, use with lantus solostar, diabetes, 07/13/09 15:43:10, [facility] Ike Gir[facility] Start Date: 07/13/09 Status: Ordered sildenafil 100 mg oral tablet 1 tablet = 100 mg, By Mouth, Daily, Take 1 hour before sexual activity as instructed. Start with 1/2 tablet. Use not more than once daily, # 30 tablet, 3 Refills, Maintenance, 08/29/22 14:04:00 EDT, Tablet, [facility] # 302, Partial fill upon p... Start Date: 08/29/22 Status: Ordered Sinemet 25 mg-100 mg oral tablet 2 tablet, By Mouth, 3 times a day, # 90 tablet, 0 Refills, Maintenance, 08/19/17 7:00:26, Tablet Start Date: 08/19/17 Status: Ordered V-GO 30 V-GO 30, See Instructions, # 90 each, Refills 6, Tot. Refills 6, Maintenance, V- GO delivery 30 [facility] pharmacy contact [phone] to be used daily with Novolog, 10/04/22 [...] Personnel Name: Osei CHURCHILL, Elin Lang Position: [facility] PCO Associate Professional Member Role: Lifetime Consulting Provider Address: Address: [address] [place] [address]- Name: Eduardo Escalera MD Position: [facility] Physician - Primary Care Member Role: PCP Address: Address: [address] [place] [address]- Care Team Related Persons Name: BEBETO WIN Address: home [address] [place] [address]
--- OUTSIDE RECORDS SUMMARY | 2024-07-27 22:10 | XMS_ITS | Continuity of Care Document ---
Author Organization [facility] Carmelo Green Tk lt Address [address] [place] [address]- Care Team Providers Care Registered Nurse Nursery Name Role Phone Francesco Dobbins MD Primary Care Physician Encounter [facility] Date(s): 03/30/20 - 04/06/20 [facility] Adult [address] [place] [address]- [facility] Encounter Diagnosis Rib pain on left side(Discharge Diagnosis) - 03/30/20 Attending Physician: Francesco Dobbins MD Allergies, Adverse [...] Refills, Maintenance, 03/10/20 11:48:00 EDT, [id number], 176, cm, 02/17/20 15:52:00 EDT, Height Start [...] 5, 01/14/06 17:13:54, daily, diabetes, ADS [facility], [address] [place] [address] Start Date: 01/14/06 Status: Ordered Humalog 100 u/ml subcutaneous injection See Instructions, MAX DOSE 100 to be used daily with VGO 30 DX: E11.9, # 15 mL, 11 Refills, Maintenance, 02/15/20 8:15:00 EDT, [facility]/pharmacy #[id number], 176, cm, 01/07/20 14:33:00 EST, [...] Singer [place] Start Date: 11/23/09 Status: Ordered [facility] [place] Jardiance 10mg, See Instructions, # 90 [...] 0 Refills, Maintenance, 01/07/20 14:50:00 EST, Tablet, [facility]/pharmacy #[id number], 176... Start Date: 01/07/20 Status: [...] 05/27/14 Stop Date: 05/27/15 Status: Ordered Pen Cameron, 31 G x 5 mm BD Ultra [...] V- GO delivery 40 [facility] pharmacy contact [phone] to be used daily with humalog, 08/27/19 [...] Dates Health Status Cl inical Service Informant Rib pain on left side Discharge Diagnosis 03/30/20 Social History Social History Type Response Smoking Status Former smoker; Type: Cigarettes; Other: quit 2015; Tobacco use times per day: 0.5 PPD; Number of years: 28; Total pack years: 14; Started at age: 25; entered on: 07/03/16 Sex
--- OUTSIDE RECORDS SUMMARY | 2024-07-27 22:10 | XMS_ITS | Continuity of Care Document ---
Author Organization [facility] Tk lt Address [address] [place] [address]- Care Team Providers Care Technical Services Librarian Name Role Phone Mu BARBER, Francesco Llanes Primary Care Physician [phone] [place] [facility] 06/13[place]21 - 07/13/21 [facility] Adult [address] [place] [address]- Allergies, Adverse Reactions, Alerts Substance Reaction Severity [...] tablet, 1 Refills, Maintenance, 01/11/21 10:48:00 EST, [facility], 176, cm, 09/01/20 11:23:00 EDT, [...] 01/14/06 17:13:54, daily, diabetes, [facility], [address] [place] [address] Start Date: 01/14/06 Status: Ordered insulin lispro 100 u/ml subcutaneous injection See Instructions, generic insulin lispro ONLY use with V-go up to 100 units per day, # 60 mL, 11 Refills, Maintenance, 10/10/20 12:29:00 EST, [facility], generic insulin lispro ONLY;replacing brand [...] opioid drug. Start Date: 03/13/21 Status: Ordered [facility] [place] Jardiance 10mg, See Instructions, # 90 [...] 11/15/17 Stop Date: 02/13/18 Status: Ordered Pen Monon, 31 G x 5 mm BD Ultra [...] V-GO 30 V-GO 30, See Instructions, # 30 each, Refills 0, Tot. Refills 0, Maintenance, V- GO delivery 30 [facility] pharmacy contact [phone] to be used daily with Novolog, 06/13/21 10:17:00 EDT, he is switching to VGO 30, Compound, 176, cm, 05/02/21 10:38:00 ED... Start Date: 06/13/21 Status: Ordered Problem List Condition Effective Dates [...]
--- OUTSIDE RECORDS SUMMARY | 2024-07-27 22:11 | XMS_ITS | Continuity of Care Document ---
Author Organization [facility] Carmelo Green Tk lt Address [address] [place] [address]- Care Team Providers Care Instrumentation Engineering Technician Name Role Phone Lali BARBER, Eduardo Clayton Primary Care Physician [phone] Encounter [facility] Date(s): 12/14/22 - 01/13/23 [facility] Adult [address] [place] [address]- Allergies, Adverse Reactions, Alerts Substance Reaction Severity [...] tetanus-diphtheria toxoids (Td) 08/04/07 Given 1Result Comment: [facility] [id number] 2Admin Note: pt declines 3Admin Note: rcvd elsewhere Medications aspirin 81 mg oral enteric coated tablet See Instructions, 0, 0, 01/14/06 17:25:16, By Mouth Daily, Print LISSET Number, Constant Indicator Start Date: 01/14/06 Status: Ordered atorvastatin 80 mg oral tablet 1 tablet, By Mouth, Daily, # 90 tablet, 1 Refills, Maintenance, 12/14/22 13:31:00 EST, [facility] #[id number], 177.8, cm, 11/30/22 8:00:00 EST, Height Start [...] , E11.9, 05/15/22 10:31:00 EDT, emailed the [facility] also, Supply, 176, cm, 04/04/22 11:11:00... Start [...] 5, 5, 01/14/06 17:13:54, daily, diabetes, [facility], [address] [place] [address] Start Date: 01/14/06 Status: Ordered Humalog 100 u/ml subcutaneous injection See Instructions, use with VGO 30 up to 100 units a day vials LISPRO please dispense lispro generic, # 90 mL, 11 Refills, Maintenance, 03/07/22 13:34:00 EDT, [facility] #[id number], Partial fillupon patient request if the prescription [...] 11/15/17 Stop Date: 02/13/18 Status: Ordered Pen [place], 31 G x 5 mm BD Ultra Fine III See Instructions, # 30 pack/packet, Refills 11, Tot. Refills 11, use with lantus mahajan, diabetes, 07/13/09 15:43:10, [facility] Start Date: 07/13/09 Status: Ordered sildenafil 100 mg oral tablet 1 tablet = 100 mg, By Mouth, Daily, Take 1 hour before sexual activity as instructed. Start with 1/2 tablet. Use not more than once daily, # 30 tablet, 3 Refills, Maintenance, 08/29/22 14:04:00 EDT, Tablet, [facility] # 302, Partial fill upon p... Start Date: 08/29/22 Status: Ordered Sinemet 25 mg-100 mg oral tablet 2 tablet, By Mouth, 3 times a day, # 90 tablet, 0 Refills, Maintenance, 08/19/17 7:00:26, Tablet Start Date: 08/19/17 Status: Ordered V-GO 30 V-GO 30, See Instructions, # 90 each, Refills 6, Tot. Refills 6, Maintenance, V- GO delivery 30 [facility] pharmacy contact [phone] to be used daily with Novolog, 10/04/22 [...] Member Role: Lifetime Consulting Provider Address: Address: [address] [place] [address]- Name: Eduardo Escalera MD Position: [facility] Primary Care Physician Member Role: PCP Address: Address: [address] [place] [address]- Care Team Related Persons Name: BEBETO WIN Address: home [address] [place] [address]
--- OUTSIDE RECORDS SUMMARY | 2024-07-27 22:11 | XMS_ITS | Continuity of Care Document ---
Author Organization [facility] Carmelo Green Tk lt Address [address] [place] [address]- Care Team Providers Care Therapist Name Role Phone Lali BARBER, Eduardo Clayton Primary Care Physician [place] [facility] [place](s): 08/01/23 - 08/31/23 [facility] Adult [address] [place] [address]- Allergies, Adverse Reactions, Alerts Substance Reaction Severity [...] tetanus-diphtheria toxoids (Td) 08/04/07 Given 1Result Comment: [facility] [id number] 2Admin Note: pt declines 3Admin Note: rcvd [...] , E11.9, 04/17/23 11:12:00 EDT, emailed the [facility] also, Supply, 177.8, cm, 04/12/23 6:48:00... [...] 5, 01/14/06 17:13:54, daily, diabetes, ADS [facility], [address] [place] [address] Start Date: 01/14/06 Status: Ordered Humalog 100 u/ml subcutaneous injection See Instructions, use with VGO 30 up to 100 units a day vials LISPRO please dispense lispro generic, # 90 mL, 11 Refills, Maintenance, 08/01/23 7:46:00 EDT, [email or web address] #[id number], Partial fill upon patient request if the prescription is for a... Start Date: 08/01/23 Status: Ordered insulin lispro 100 u/ml subcutaneous injection See Instructions, USE WITH VGO 30 UP TO 100 UNITS A DAY, # 90 mL, 0 Refills, Maintenance, 08/02/23 5:04:00 EDT, [email or web address] #[id number], 177.8, cm, 04/12/23 6:48:00 EDT, Height Start [...] 3 Refills, Maintenance, 04/12/23 7:26:00 EDT, Tablet, [facility], Partial fill upon patient request if the prescription is for a schedule II opioid drug., 177.8, cm, 04/12/23 6:48:00 EDT... Start Date: 04/12/23 Status: Ordered [facility] Rx Jardiance 10mg, See Instructions, # 90 [...] 11/15/17 Stop Date: 02/13/18 Status: Ordered Pen [place], 31 G x 5 mm BD Ultra [...] 3 Refills, Maintenance, 08/29/23 13:18:00 EDT, Tablet, [facility] # 302, Partial fill [...] V- GO delivery 30 [facility] pharmacy contact [phone] to be used daily with Novolog, 10/04/22 [...] Team Personnel Name: Elin Franz NP Position: [facility] PC[facility] Associate Professional Member Role: Lifetime Consulting Provider Address: Address: [address] [place] [address]- Name: Eduardo Escalera MD Position: [facility] Physician - Primary Care Member Role: PCP Address: Address: [address] [place] [address]- Care Team Related Persons Name: CELESTERUDYSHONNA BEBETO Address: home [address] [place] [address]
--- OUTSIDE RECORDS SUMMARY | 2024-07-27 22:11 | XMS_ITS | Continuity of Care Document ---
Author Organization [facility] Tk lt Address [address] [place] [address]- Care Team Providers Care Latex Foam Worker Name Role Phone Mu BARBER, Francesco Llanes Primary Care Physician [place] [facility](s[place] 04/08/22 - 05/08/22 [facility] Adult [address] [place] [address]- Allergies, Adverse Reactions, Alerts Substance Reaction Severity [...] tablet, 1 Refills, Maintenance, 07/20/21 11:01:00 EDT, [facility], 176, cm, 05/02/21 10:38:00 [...] 5, 5, 01/14/06 17:13:54, daily, diabetes, [facility] [address] [place] [address] Start Date: 01/14/06 Status: Ordered Humalog 100 u/ml subcutaneous injection See Instructions, use with VGO 30 up to 100 units a day vials LISPRO please dispense lispro generic, # 90 mL, 11 Refills, Maintenance, 03/07/22 13:34:00 EDT, [facility] #[id number], Partial fillupon patient request if the prescription [...] GIVE INSULIN, 11/23/09 13:35:21, Carmelo Singer [facility], [facility] Start Date: 11/23/09 Status: Ordered memantine [...] 11/15/17 Stop Date: 02/13/18 Status: Ordered Pen Captiva, 31 G x 5 mm BD Ultra [...] 3 Refills, Maintenance, 05/02/21 15:56:00 EDT, Tablet, [facility], Partial fill... Start Date: [...] V- GO delivery 30 [facility] pharmacy contact [phone] to be used daily with Novolog, 07/18/21 [...]
--- OUTSIDE RECORDS SUMMARY | 2024-07-27 22:11 | XMS_ITS | Continuity of Care Document ---
Author Organization [facility] Carmelo Green Tk lt Address [address] [place] [address]- Care Team Providers Care Yield Improvement Engineer Name Role Phone Lali BARBER, Eduardo Clayton Primary Care Physician En[facility] Date(s): 04/01/23 - 05/01/23 [facility] Adult [address] [place] [address]- Allergies, Adverse Reactions, Alerts Substance Reaction Severity [...] toxoids (Td) 08/04/07 Given 1Result Comment: [facility] [id number] 2Admin Note: pt declines 3Admin Note: rcvd elsewhere Medications aspirin 81 mg oral enteric coated tablet See Instructions, 0, 0, 01/14/06 17:25:16, By Mouth Daily, Print LISSET Number, Constant Indicator Start Date: 01/14/06 Status: Ordered atorvastatin 80 mg oral tablet 1 tablet, By Mouth, Daily, # 90 tablet, 1 Refills, Maintenance, 12/14/22 13:31:00 EST, [facility] #[id number], 177.8, cm, 11/30/22 8:00:00 EST, Height Start [...] E11.9, 04/17/23 11:12:00 EDT, emailed the [facility] also, Supply, 177.8, cm, 04/12/23 6:48:00... [...] 5, 5, 01/14/06 17:13:54, daily, diabetes, [facility], [address] [place] [address] Start Date: 01/14/06 Status: Ordered Humalog 100 u/ml subcutaneous injection See Instructions, use with VGO 30 up to 100 units a day vials LISPRO please dispense lispro generic, # 90 mL, 11 Refills, Maintenance, 04/12/23 7:00:00 EDT, [facility] #[id number], Partial fill upon patient request if the [...] 3 Refills, Maintenance, 04/12/23 7:26:00 EDT, Tablet, [facility], Partial fill upon patient [...] 11/15/17 Stop Date: 02/13/18 Status: Ordered Pen [place], 31 G x 5 mm BD Ultra Fine III See Instructions, # 30 pack/packet, Refills 11, Tot. Refills 11, use with lantus solostar, diabetes, 07/13/09 15:43:10, Herb and Ike Girard [facility] Start Date: 07/13/09 Status: Ordered sildenafil 100 mg oral tablet 1 tablet = 100 mg, By Mouth, Daily, Take 1 hour before sexual activity as instructed. Start with 1/2 tablet. Use not more than once daily, # 30 tablet, 3 Refills, Maintenance, 08/29/22 14:04:00 EDT, Tablet, [facility] # 302, Partial fill upon p... Start Date: 08/29/22 Status: Ordered Sinemet 25 mg-100 mg oral tablet 2 tablet, By Mouth, 3 times a day, # 90 tablet, 0 Refills, Maintenance, 08/19/17 7:00:26, Tablet Start Date: 08/19/17 Status: Ordered V-GO 30 V-GO 30, See Instructions, # 90 each, Refills 6, Tot. Refills 6, Maintenance, V- GO delivery 30 [facility] pharmacy contact [phone] to be used daily with Novolog, 10/04/22 [...] information Care Team Personnel Name: Osei CHURCHILL, Elni Lang Position: [facility] PCO Associate Professional Member Role: Lifetime Consulting Provider Address: Address: [address] [place] [address]- Name: Eduardo Escalera MD Position: [facility] Physician - Primary Care Member Role: PCP Address: Address: [address] [place] [address]- Care Team Related Persons Name: BEBETO WIN Address: home [address] [place] [address]
--- OUTSIDE RECORDS SUMMARY | 2024-07-27 22:11 | XMS_ITS | Continuity of Care Document ---
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 Name Role Phone Eduardo Escalera MD Primary Care Physician Encounter [facility] Date(s): 11/30/22 - 11/30/[address] [address] Discharge Disposition: A-D/C Home Attending Physician: Jase Cedeno MD Admitting Physician: Jase Cedeno MD Referring Physician: Jase Cedeno MD Allergies, Adverse Reactions, Alerts Substance Reaction [...] toxoids (Td) 08/04/07 Given 1Result Comment: [facility] [id number] 2Admin Note: pt declines 3Admin Note: rcvd elsewhere Medications aspirin 81 mg oral enteric coated tablet See Instructions, 0, 0, 01/14/06 17:25:16, By Mouth Daily, Print LISSET Number, Constant Indicator Start Date: 01/14/06 Status: Ordered atorvastatin 80 mg oral tablet 1 tablet, By Mouth, Daily, # 90 tablet, 1 Refills, Maintenance, 05/23/22 12:26:00 EDT, [facility] #[id number], 176, cm, 04/04/22 11:11:00 EDT, Height Start [...] , E11.9, 05/15/22 10:31:00 EDT, emailed the [facility] also, Supply, 176, cm, 04/04/22 11:11:00... [...] 5, 5, 01/14/06 17:13:54, daily, diabetes, [facility], [address] [place] [id number] Start Date: 01/14/06 Status: Ordered Humalog 100 u/ml subcutaneous injection See Instructions, use with VGO 30 up to 100 units a day vials LISPRO please dispense lispro generic, # 90 mL, 11 Refills, Maintenance, 03/07/22 13:34:00 EDT, [facility] #[id number], Partial fillupon patient request if the prescription [...] 11/15/17 Stop Date: 02/13/18 Status: Ordered Pen [place], 31 G x 5 mm BD Ultra Fine III See Instructions, # 30 pack/packet, Refills 11, Tot. Refills 11, use with lantus solostar, diabetes, 07/13/09 15:43:10[facility] Start Date: 07/13/09 Status: Ordered sildenafil 100 mg oral tablet 1 tablet = 100 mg, By Mouth, Daily, Take 1 hour before sexual activity as instructed. Start with 1/2 tablet. Use not more than once daily, # 30 tablet, 3 Refills, Maintenance, 08/29/22 14:04:00 EDT, Tablet, [facility] # [facility], Partial fill upon p... Start Date: 08/29/22 Status: Ordered Sinemet 25 mg-100 mg oral tablet 2 tablet, By Mouth, 3 times a day, # 90 tablet, 0 Refills, Maintenance, 08/19/17 7:00:26, Tablet Start Date: 08/19/17 Status: Ordered V-GO 30 V-GO 30, See Instructions, # 90 each, Refills 6, Tot. Refills 6, Maintenance, V- GO delivery 30 O pharmacy contact [phone] to be used daily with Novolog, 10/04/22 [...] 4diagnosed by neurology 09/2016. started on azilect Procedures Procedure Date Related Diagnosis Body Site Status Colonoscopy and extirpation of lesion of colon 11/30/22 Completed Vital Signs Most recent to oldest [Reference Range]: 1 2 3 Height 177.8 cm (11/30/22 7:59 AM) Weight 91.5 kg (11/30/22 7:59 AM) Oxygen Saturation [94-100 %] 100 % (11/30/22 9:39 AM) 100 % (11/30/22 9:26 AM) 100 % (11/30/22 7:59 AM) Pulse Rate [55-90 bpm] 72 bpm (11/30/22 9:39 AM) 73 bpm (11/30/22 9:26 AM) 66 bpm (11/30/22 7:59 AM) Body Mass Index [18.5-24.99 kg/m2] 28.94 kg/m2 *H* (11/30/22 7:59 AM) Blood Pressure [90-138/55-84 mm Hg] 132/77mm Hg (11/30/22 9:39 AM) 131/40mm Hg (11/30/22 9:26 AM) 136/60mm Hg (11/30/22 7:59 AM) Respiratory Rate [16-30 br/min] 20 br/min (11/30/22 9:39 AM) 20 br/min (11/30/22 9:26 AM) 18 br/min (11/30/22 7:59 AM) Temperature [96.8-100.4 DegF] 97.5 DegF (11/30/22 7:59 AM) Mode of Delivery (Oxygen) Room air (11/30/22 9:39 AM) Room air (11/30/22 9:26 AM) Room air (11/30/22 7:59 AM) Blood pressure sites Arm, left (11/30/22 9:39 AM) Arm, left (11/30/22 9:26 AM) Arm, left (11/30/22 7:59 AM) Temperature Route Temporal (11/30/22 7:59 AM) Weight Obtained Via Patient/family state d (11/30/22 7:59 AM) Social History Social History Type Response Smoking Status Former smoker; Type: Cigarettes; Other: quit 2015; Tobacco use times per day: 0.5 PPD; Number of years: 28; Total pack years: 14; Started at age: 25; entered on: 07/03/16 Sex Note * Marlen Armando RN: PERFORM Event Display: Discharge/Transfer Note Hospital Authored Date: [id number] Nursing Discharge Note Entered On: 11/30/2022 9:26 EST Performed On: 11/30/2022 9:26 EST by Marlen Armando RN Nursing Discharge Note 2 Discharge Time : 11/30/2022 10:00 EST Marlen Armando RN - 11/30/2022 10:00 EST Discharge Level of Care at Discharge : Home/Jail/Foster Care Patient Left Unit Via : Wheelchair Patient Accompanied Off Unit with : Responsible adult DC Instructions Provided & Signed by Pt : Yes Patient Understands D/C Instructions : Yes Patient Instructions Discharge Signed : Yes Did Pt have Specialty Bed or Wound Vac : No Marlen Armando RN - 11/30/2022 9:26 EST * Marlen Armando RN: PERFORM Event Display: Patient Education/Instruction Authored Date: [id number] Inpatient Adult Discharge Instructions [address] [address] Name: MILKA DE DIOS : 1955 Visit: 11/30/2022 07:47:00 Current Date: 11/30/2022 09:31 Account: [id number] Inpatient Adult Discharge Instructions We would like [...] and their families. Surveys are administered by Ayannah. ?? If further treatment with your primary care physician or another doctor is recommended, it is important for you to keep the appointment. Call your primary care physician or return to the Emergency Department immediately if your condition worsens, fails to improve, or new symptoms develop. If you need to find a doctor, you can call [facility] for a referral at [phone] or toll free at [phone]) or log in to [email or web address]... ?? You can view and manage your care through the patient portal or by using a health care alida of your choosing. SitScape is a website that allows you to securely view your medical information including your hospital discharge summary, office visit summaries, medications and follow-up visits. You can also request appointments, renew medications, and request access to your medical information using a health care alida of your choosing, or just ask a question. You can enroll at [email or web address] or register during your next office visit. You have been discharged from [facility], Patient Care Unit: ENDO. If you have any questions regarding these instructions after you leave, please call us and we will be happy to assist you. [facility] Your Care Team Attending Physician Jase Cedeno MD Reason for Admission BOWEL CHG CONST BLD Tests Performed Below is a partial list of the tests performed during your hospitalization. You may have had other tests and procedures not included in this list. Please discuss all test results with your provider. Primary Care Provider Lali BARBER, Eduardo Clayton Advance Directive Health Care Proxy on File Yes - Health Care Proxy No qualifying data available. Discharge Vitals Temperature: 97.5 DegF Height: 177.8 cm Pulse Rate: 73 bpm Weight: 91.5 kg Respiratory Rate: 20 br/min Body Mass Index:??28.94 kg/m2??High Systolic Blood Pressure: 131 mm Hg Body surface area: 2.13 Diastolic Blood Pressure:??40 mm Hg??Low ?? Oxygen Saturation: 100 % ?? Studies Pending All tests and labs ordered during this hospital stay have been completed unless listed below. Please discuss all pending results with your provider listed above in these instructions. ?? No incomplete studies found What to do next Instructions From Your Doctor Discharge Orders You Need to Schedule the Following Appointments Follow Up with??Please follow-up with primary care provider When?? Follow Up with??Eduardo Escalera When??In 0 days Discharge Medications MILKA SANTORO :1955 Visit Date:11/30/2022 Medications: Please continue your medications until treatment is completed or stopped by your provider. Medications not listed below should be discontinued. Discuss any questions related to medications with your provider. What How Much When Why Instructions Next Dose Unchanged Aspirin (aspirin 81 mg oral enteric coated tablet) See Instructions By Mouth Daily ?? Unchanged Atorvastatin (atorvastatin 80 mg oral tablet) 1 tab(s) Oral Daily Unchanged Carbidopa-Levodopa (Sinemet 25 mg-100 mg oral [...] 250.00 ?? Unchanged Durable Medical Equipment (Pen [place], 31 G x 5 mm BD Ultra Fine III) See Instructions diabetes use with lantus solostar ?? Unchanged Durable Medical Equipment (V-GO 30) See instructions V-GO delivery 30 VGO pharmacy contact [phone] to be used daily with Novolog ?? Unchanged Insulin Lispro (Humalog 100 u/ ml subcutaneous injection) See instructions use with VGO 30 up to 100 units a day vials LISPRO please dispense lispro generic ?? Unchanged Memantine (memantine 10 mg oral tablet) 1 tab(s) Oral Daily Unchanged Miscellaneous Rx (Free Style 14 day reader) See instructions DM2 E11.9 REPLACING 7 DAY READER ?? Unchanged Miscellaneous Rx (Freestyle Vickie 14 [...] DAY SUPPLY ?? Unchanged onabotulinumtoxinA (Botox) Unchanged Sildenafil (sildenafil 100 mg oral tablet) 1 tab(s) Oral Daily Take 1 hour before sexual activity as instructed. ??Start with 1/ 2 tablet. ??Use not more than once daily ?? Test Results Below is a partial list of the most recent Laboratory test results done prior to this discharge. You may have had other tests and procedures not included in this list. Please discuss all test resultswith your provider. Allergies (NKA means No Known Allergies) Jardiance Problems Active Problems??(9) Aortic insufficiency trace?? Aortic stenosis mild echo 2019 2021?? Diabetes Mellitus without Mention of Complication?? Diverticulosis?? Erectile dysfunction/urology?? History of herpes zoster c& RT?? Hypercholesterolemia?? Insulin long-term use?? PD (Parkinson's disease)?? Education Materials Below is the list of Educational Leaflet Providered with your Discharge Instructions. Surgery Medical Daystay Surgical Overnight Discharge Instructions?? Colon Polypectomy Discharge Instructions?? Hemorrhoids Discharge Instructions?? Diverticulosis Discharge Instructions?? Valuables and Belongings I fully understand and agree that [facility] accepts no responsibility for all my personal [...] Review of Valuable and Belonging List: With patient Date for Pt to Sign Valuables/Belongings: 11/30/22 08:00:00 ?? Valuables & Belongings ?? Clothes Electronic devices Jewelry Monetary Items Personal devices Miscellaneous Medications (Valuables) Valuables at Bedside Pants, Shirt, Shoes, Undergarments ? Glasses ? Valuables Sent Home ? Valuables Sent to Security ? Other Discharge Information ? Case Management Discharge Plan?? Discharge Plan?? Discharge Level of Care at Discharge: Home/Jail/Foster Care ?? Pulmonary Rehab Status?? Pulmonary Rehab Discharge Status?? Respiratory Rate: 20 br/min ? Common Emergency Awareness Tips IS [...] are strongly encouraged to quit. Please call [facility] | VIP Link at [phone] or [phone] ([phone]) or log in to [email or web address] for referrals to smoking cessation programs. ?? The National Suicide Prevention Hotline is available 24/06 if you or someone you know needs to find a reason to keep living. By calling 3-381-657-Robotgalaxy (4582) you'll be connected to a skilled, trained counselor at a crisis center in your area. INPATIENT DISCHARGE INSTRUCTIONS SIGNATURE PAGE MILKA SANTORO Location:[facility] Registration Date and Time:11/30/2022 07:47 EST Primary Care Physician: Lali BARBER, Eduardo Clayton, I MILKA SANTORO, have received the above patient education materials/instructions and have verbalized understanding. If ambulance or transport services are being used I further acknowledge being given a choice of service. ?? If you need to contact me, please call me at this number: . Patient/Spray Stainer Name: Patient/Spray Stainer Signature: Relationship to Patient: Witness Name/Signature: Date: * Marlen Armando RN: PERFORM, SIGN, VERIFY Event Display: Patient Education Handout Authored Date: * Marlen Armando RN: PERFORM Event Display: Patient Education Leaflets Authored Date: Surgery Medical Daystay Surgical Overnight Discharge Instructions ?? 295 Medical Daystay/Surgical Overnight Discharge Instructions ? Since your coordination and judgment may be altered by medication and/or anesthesia, a responsible adult must drive you home from the hospital. ? If you have received medication for pain or sedation while under our care, you should not drive, operate machinery, drink alcohol, or sign any legal documents for 24 hours.?? You should have someone with you at home tonight. ? Remain at home the day of discharge.?? You may be up and about unless otherwise instructed by your physician. ? You may resume your daily prescription medication schedule.?? Any depressant medication should be avoided for 24 hours unless otherwise instructed by your surgeon or anesthesiologist. ? Call your physician for a follow-up appointment.? If you experience unusual or severe pain not relied by your pain medication, excessive bleedingor drainage, persistent nausea and vomiting, excessive swelling or redness, foul odor from incisionsite or fever over 100.6F, you need to call your physician. ? A follow-up phone call by a nurse will be made the day after your procedure.?? If you have stayed with us over night, you will not be receiving a follow-up phone call. ? Nausea and vomiting are a common side effect of prescription pain medication.?? We recommend that pills are not taken on an empty stomach.?? While taking any prescription pain medication you should not drive or drink alcohol. ? * Prabha MARIE, Marlen Rascon: PERFORM Event Display: Patient Education Leaflets Authored Date: [id number] Colon Polypectomy Discharge Instructions ?? 682 ?? Colon Polypectomy Discharge Instructions ??You must carefully read the Consumer Information Use and Disclaimer below in order to understand and correctly use this information??About this topicThe colon is also called the large intestine. It is a long, hollow tube at the end of your digestive tract. It absorbs water from solid waste and changes it from liquid to a solid bowel movement.??A colon polyp is a growth of extra tissue that is not normally in your colon. Colon polyps do not often cause any signs. Most colon polyps are not cancer, but some polyps may turn into cancer. The doctor takes the polyps out during a procedure called a colonoscopy and sends them to the lab for a check to make sure there is no cancer.??You may have a colon polyp or multiple polyps removed. The doctor will send them to the lab to see what type they are. If a polyp is very large, it may need to be removed by surgery.??What care is needed at home? Ask your doctor what you need to do when you go home. Make sure??you ask questions if you do not understand what the doctor says. ??? Do not drive for 24 hours after a colonoscopy. ??? Take your drugs as ordered by your doctor. ??? Go back to your normaldiet unless your doctor has told you to make? some changes in your diet. ??? Rest ??What follow-up care is needed? Your doctor may ask you to make visits to the office to check on your??progress. Be sure to keep these visits. ??? Your doctor may suggest you get tested regularly. People with colon??polyps need to have a colonoscopy regularly to check for the growth??of new polyps. ??? Some polyps may not be removed, and more surgery may be needed. ??? The results of the polyp testing will be given to you at one of these??visits. ??What drugs may be needed?The doctor may order drugs to: ??? Prevent hard stools ??? Help with pain ??? Reduce your risk of colon polyps or colon cancer ??Will physical activity be limited?You may feel sleepy after the colonoscopy. Try to get some rest.??What can be done to prevent this health problem? Have regular colonoscopies.? Eat foods high in fiber. ??? Eat foods low in fat. ??? Limit your intake of beer, wine, and mixed drinks (alcohol). ??? Ask your doctor or dietitian for a diet that is right for you. Include??calcium in your diet. Good sources of calcium include milk, cheese,??and yogurt. ??When do I need to call the doctor? Signs of infection. These include a fever of 100.4??F (38??C) or higher,??chills, and anal itching or pain. ??? Bleeding from rectum that gets worse? Belly becomes swollen and sore ??? Upset stomach and throwing up continues after you return home ??? Not being able to move your bowels ??? Weight loss without trying ??? Blood in your stool ??Teach Back: Helping You UnderstandThe Teach Back Method helps you understand the information we are giving you. After you talk with the staff, tell them in your own words what you learned. This helps to make sure the staff has described each thing clearly. It also helps to explain things that mayhave been confusing. Before going home, make sure you can do these:? I can tell you about my co ndition. ??? I can tell you what changes I need to make with my diet. ??? I can tell you what I will do if my stomach is swollen, I have belly pain,??or there is blood in my stool. ??Where can I learn more?BetterHealthhttps://www.betterhealth.cindy.gov.au/health/ConditionsAndTreatme nts/colonoscopyNHSh ttps://www.nhs.uk/conditions/bowel-polyps/UpToDatehttps://www.RingCentral/yuri nts/qifpj-dqticx-gcmqoq-the-basics??Last Reviewed [id number] Information Use and Disclaimer:This generalized information is a limited summary of diagnosis, treatment, and/or medication information. It is notmeant to be comprehensive and should be used as a tool to help the user understand and/or assess potential diagnostic and treatment options. It does NOT include all information about conditions, treatments, medications, side effects, or risks that may apply to a specific patient. It is not intendedto be medical advice or a substitute for the medical advice, diagnosis, or treatment of a health care provider based on the health care provider's examination and assessment of a patient???s specificand unique circumstances. Patients must speak with a health care provider for complete information about their health, medical questions, and treatment options, including any risks or benefits regarding use of medications. This information does not endorse any treatments or medications as safe, effective, or approved for treating a specific patient. [employer]. and its affiliates disclaim any warranty or liability relating to this information or the use thereof. The use of this information is governed by the Terms of Use, available at??https://www.JetSuite.Shnergle/en/know/clinical-effectiveness- termsLast Updated 01/24/22? * Prabha MARIE, Marlen Rascon: PERFORM Event Display: Patient Education Leaflets Authored Date: [id number] Hemorrhoids Discharge Instructions ?? 672 ??Hemorrhoids Discharge Instructions ??You must carefully read the Consumer Information Use and Disclaimer below in order to understand and correctly use this information?? About this topic Hemorrhoids are swollen veins in the rectum. Your rectum is where stool leaves your body. You may be able to see or feel your hemorrhoids outside of your body, but some hemorrhoids are inside of yourrectum and cannot be seen. Hemorrhoids can cause itching, pain, and bleeding. Being constipated or having hard stools can make your hemorrhoids worse.?? What care is needed at home? Ask your doctor what you need to do when you go home. Make sure??you ask questions if you do not understand what the doctor says. This??way you will know what you need to do. ??? Soak your bottomin a few inches of warm water for 10 to 15 minutes??at a time. You can do this 2 to 3 times each day. Do not add soap,??bubble bath, or anything to the water. ??? Use tagh-eyt-xcfsqar medicines to treat your hemorrhoids. These??include ointments and creams to help with pain and swelling. You can??also use a product like witch maria luisa to help dry out the skin in the area. ??? To help with constipation: ??? Use stool softeners when needed. ??? Eat high-fiber foods. These include whole grains, fruits, and??vegetables. ??? Drink plenty of water and other fluids each day. This helps to??keep your stools soft. ??? Set a regular schedule to try and have a bowel movement. Do??not ignore the urge to go to the bathroom. Don???t hold it in. ??? Give yourself plenty of time to have a bowel movement, but do not linger on the toilet either, by sitting and reading for a long time. ??? Do mild exercise each day like taking a walk. ??? Avoid heavy lifting or straining while the hemorrhoid is healing. ?? What follow-up care is needed? If your problem does not get better, other care may be needed. Your doctor may ask you to make visits to the office to check on your progress. Be sure to keep these visits.?? What drugs may be needed? The doctor may order drugs to: ??? Help with pain and swelling ??? Ease itching ??? Soften stools ?? Will physical activity be limited? Working out can help with digestion. It might help keep you from having hard stools. Ask your doctor about the best kind of exercise for you. ?? What problems could happen? You may have very bad bleeding. ??? Sometimes, treatments do not work. Some hemorrhoids are very??large. You might need surgery for either of these. ?? When do I need to call the doctor? You have a lot of bleeding from your rectum. ??? Your bowel movement looks like tar. ??? You are not able to pass stool because of pain from your??hemorrhoids. ??? Your pain gets worse and is nothelped by quqg-ikh-ijlkmna??medicines, warm water, or your home care. ??? You have a fever of 100.4??F (38??C) or higher. ?? Teach Back: Helping You Understand The Teach Back Method helps you understand the information we are giving you. After you talk with the staff, tell them in your own words what you learned. This helps to make sure the staff has described each thing clearly. It also helps to explain things that may have been confusing. Before going home, make sure you can do these: ??? I can tell you about my condition. ??? I can tell you what may help ease my pain. ??? I can tell you what I will do if I have blood in my rectum. Where can I learn more?[employer] [employer]https://familydoctor.or g/condition/hemorrhoids/National Digestive Disease Information Clearinghousehttps://www.niddk.nih.go v/health-information/digestive-diseases/hemorrhoids/definition-factsLast Reviewed Hthj6846-19-57Xglifvby Information Use and Disclaimer:This generalized information is a limited summary of diagnosis,treatment, and/or medication information. It is not meant to be comprehensive and should be used asa tool to help the user understand and/or assess potential diagnostic and treatment options. It does NOT include all information about conditions, treatments, medications, side effects, or risks thatmay apply to a specific patient. It is not intended to be medical advice or a substitute for the medical advice, diagnosis, or treatment of a health care provider based on the health care provider's examination and assessment of a patient???s specific and unique circumstances. Patients must speak with a health care provider for complete information about their health, medical questions, and treatment options, including any risks or benefits regarding use of medications. This information does not endorse any treatments or medications as safe, effective, or approved for treating a specific patient. [employer] and its affiliates disclaim any warranty or liability relating to this information or the use thereof. The use of this information is governed by the Terms of Use, available at??htt ps://www.JetSuite.Shnergle/en/know/boctkine-jpdwluqyymdil-xbjkuWzmu Updated 01/24/22? Patient Care team information Care Team Personnel Name: Elin Franz NP Position: [facility] Associate Professional Member Role: [employer] Provider Address: Address: [address] [place] [address]- Name: Eduardo Escalera MD Position: [facility] Primary Care Physician Member Role: PCP Address: Address: [address] [place] [address]- Care Team Related Persons Name: BEBETO WIN Address: [address] [address]"
--- OUTSIDE RECORDS SUMMARY | 2024-07-27 22:11 | XMS_ITS | Continuity of Care Document ---
Author Organization [facility] Carmelo Green Tk lt Address [address] [place] [address]- Care Team Providers Care Air Conditioning Unit Assembler Name Role Phone Lali BARBER, Eduardo Clayton Primary Care Physician [place] [facility] [place](s[place] 04/12/23 - 05/12/23 [facility] Adult [address] [place] [address]- Allergies, Adverse Reactions, Alerts Substance Reaction Severity [...] tetanus-diphtheria toxoids (Td) 08/04/07 Given 1Result Comment: [facility] [id number] 2Admin Note: pt declines 3Admin Note: rcvd elsewhere Medications aspirin 81 mg oral enteric coated tablet See Instructions, 0, 0, 01/14/06 17:25:16, By Mouth Daily, Print LISSET Number, Constant Indicator Start Date: 01/14/06 Status: Ordered atorvastatin 80 mg oral tablet 1 tablet, By Mouth, Daily, # 90 tablet, 1 Refills, Maintenance, 12/14/22 13:31:00 EST, [id number], 177.8, cm, 11/30/22 8:00:00 EST, Height Start [...] , E11.9, 04/17/23 11:12:00 EDT, emailed the [facility] also, Supply, 177.8, cm, 04/12/23 6:48:00... [...] daily, diabetes, [facility] [address] [place] [address] Start Date: 01/14/06 Status: Ordered Humalog 100 u/ml subcutaneous injection See Instructions, use with VGO 30 up to 100 units a day vials LISPRO please dispense lispro generic, # 90 mL, 11 Refills, Maintenance, 04/12/23 7:00:00 EDT, [id number], Partial fill upon patient request if the [...] 3 Refills, Maintenance, 04/12/23 7:26:00 EDT, Tablet, [facility], Partial fill upon [...] 11/15/17 Stop Date: 02/13/18 Status: Ordered Pen [place], 31 G x 5 mm BD Ultra Fine III See Instructions, # 30 pack/packet, Refills 11, Tot. Refills 11, use with lantus solostar, diabetes, 07/13/09 15:43:10, [facility] Start Date: 07/13/09 Status: Ordered sildenafil 100 mg oral tablet 1 tablet = 100 mg, By Mouth, Daily, Take 1 hour before sexual activity as instructed. Start with 1/2 tablet. Use not more than once daily, # 30 tablet, 3 Refills, Maintenance, 08/29/22 14:04:00 EDT, Tablet, [facility] # [id number], Partial fill upon p... Start Date: 08/29/22 Status: Ordered Sinemet 25 mg-100 mg oral tablet 2 tablet, By Mouth, 3 times a day, # 90 tablet, 0 Refills, Maintenance, 08/19/17 7:00:26, Tablet Start Date: 08/19/17 Status: Ordered V-GO 30 V-GO 30, See Instructions, # 90 each, Refills 6, Tot. Refills 6, Maintenance, V- GO delivery 30 [facility] pharmacy contact [phone] to be used daily with Novolog, 10/04/22 [...] Personnel Name: Osei CHURCHILL, Elin Lang Position: [facility]O Associate Professional Member Role: Lifetime Consulting Provider Address: Address: [address] [place] [address]- Name: Eduardo Escalera MD Position: [facility] Physician - Primary Care Member Role: PCP Address: Address: [address] [place] [address]- Care Team Related Persons Name: BEBETO WIN Address: home [address] [place] [address]
--- OUTSIDE RECORDS SUMMARY | 2024-07-27 22:11 | XMS_ITS | Continuity of Care Document ---
Author Organization [facility] Carmelo Green Tk lt Address [address] [place] [address]- Care Team Providers Care Plate Fitter Name Role Phone Mu BARBER, Francesco Llanes Primary Care Physician Encounter [facility] Date(s): 06/07/21 - 07/07/21 [facility] Adult [address] [place] [address]- Allergies, Adverse Reactions, Alerts Substance Reaction Severity [...] Refills, Maintenance, 01/11/21 10:48:00 EST, [facility], 176, cm, 09/01/20 11:23:00 EDT, [...] 5, 5, 01/14/06 17:13:54, daily, diabetes, [facility], [address] [place] [address] Start Date: 01/14/06 Status: Ordered insulin lispro 100 u/ml subcutaneous injection See Instructions, generic insulin lispro ONLY use with V-go up to 100 units per day, # 60 mL, 11 Refills, Maintenance, 10/10/20 12:29:00 EST, [facility], generic insulin lispro ONLY;replacing brand [...] GIVE INSULIN, 11/23/09 13:35:21, Carm[facility] Start Date: 11/23/09 Status: Ordered memantine 10 mg oral tablet 1 tablet = 10 mg, By Mouth, Daily, # 30 tablet, 0 Refills, Maintenance, 03/13/21 13:52:00 EDT, Tablet, Partial fill upon patient request if the prescription is for a schedule II opioid drug. Start Date: 03/13/21 Status: Ordered [facility] [...] 11/15/17 Stop Date: 02/13/18 Status: Ordered Pen [place], 31 G x 5 mm BD Ultra [...] Maintenance, 05/02/21 15:56:00 EDT, Tablet, [facility], Partial fill... Start Date: 05/02/21 [...] V- GO delivery 30 [facility] pharmacy contact [phone] to be used daily with Novolog, 06/13/21 [...]
--- OUTSIDE RECORDS SUMMARY | 2024-07-27 22:11 | XMS_ITS | Continuity of Care Document ---
Author Organization [facility] Tk lt Address [address] [place] [address]- Care Team Providers Care Principal Network Engineer Name Role Phone Mu BARBER, Francesco Llanes Primary Care Physician [phone] [place] [facility] [place]20[place]21 - 08/19/21 [facility] Adult [address] [place] [address]- Allergies, Adverse Reactions, Alerts Substance Reaction Severity [...] tablet, 1 Refills, Maintenance, 07/20/21 11:01:00 EDT, [facility], 176, cm, 05/02/21 10:38:00 [...] 5, 5, 01/14/06 17:13:54, daily, diabetes, [facility] [address] [place] [address] Start Date: 01/14/06 Status: Ordered insulin lispro 100 u/ml subcutaneous injection See Instructions, generic insulin lispro ONLY use with V-go up to 100 units per day, # 60 mL, 11 Refills, Maintenance, 10/10/20 12:29:00 EST, [facility], generic insulin lispro ONLY;replacing [...] opioid drug. Start Date: 03/13/21 Status: Ordered [facility] Rx Jardiance 10mg, See Instructions, # 90 [...] 11/15/17 Stop Date: 02/13/18 Status: Ordered Pen [place], 31 G x 5 mm BD Ultra [...] 3 Refills, Maintenance, 05/02/21 15:56:00 EDT, Tablet, [facility], Partial fill... Start Date: [...] V- GO delivery 30 [facility] pharmacy contact [phone] to be used daily with Novolog, 07/18/21 [...]
--- OUTSIDE RECORDS SUMMARY | 2024-07-27 22:11 | XMS_ITS | Continuity of Care Document ---
Author Organization [facility] Tk lt Address [address] [place] [address]- Care Team Providers Care Meat Team Lead Name Role Phone Mu BARBER, Francesco Llanes Primary Care Physician [place] [facility] [place] 04/05/22 - 05/05/22 [facility] Adult [address] [place] [address]- Allergies, Adverse Reactions, Alerts Substance Reaction Severity [...] tablet, 1 Refills, Maintenance, 07/20/21 11:01:00 EDT, [facility], 176, cm, 05/02/21 10:38:00 [...] 5, 5, 01/14/06 17:13:54, daily, diabetes, [facility], [address] [place] [address] Start Date: 01/14/06 Status: Ordered Humalog 100 u/ml subcutaneous injection See Instructions, use with VGO 30 up to 100 units a day vials LISPRO please dispense lispro generic, # 90 mL, 11 Refills, Maintenance, 03/07/22 13:34:00 EDT, [facility] #[id number], Partial fillupon patient request if the prescription [...] GIVE INSULIN, 11/23/09 13:35:21, Carmelo Singer [facility], [facility] Start Date: 11/23/09 Status: Ordered [...] 11/15/17 Stop Date: 02/13/18 Status: Ordered Pen [place], 31 G x 5 mm BD Ultra [...] 3 Refills, Maintenance, 05/02/21 15:56:00 EDT, Tablet, [facility], Partial fill... Start Date: [...] V- GO delivery 30 [facility] pharmacy contact [phone] to be used daily with Novolog, 07/18/21 [...]
--- OUTSIDE RECORDS SUMMARY | 2024-07-27 22:11 | XMS_ITS | Continuity of Care Document ---
Author Organization [facility] Tk lt Address [address] [place] [address]- Care Team Providers Care Outsole Flexer Name Role Phone Mu BARBER, Francesco Llanes Primary Care Physician [phone] En[place] [facility] Date(s): 09/22/21 - 10/22/21 [facility] Adult [address] [place] [address]- Allergies, Adverse Reactions, Alerts Substance Reaction Severity [...] tablet, 1 Refills, Maintenance, 07/20/21 11:01:00 EDT, [facility], 176, cm, 05/02/21 10:38:00 [...] 01/14/06 17:13:54, daily, diabetes, ADS [facility], [address] [place] [address] Start Date: 01/14/06 Status: Ordered insulin lispro 100 u/ml subcutaneous injection See Instructions, generic insulin lispro ONLY use with V-go up to 100 units per day, # 60 mL, 11 Refills, Maintenance, 10/10/20 12:29:00 EST, [facility], generic insulin lispro ONLY;replacing [...] drug. Start Date: 03/13/21 Status: Ordered [facility] Rx Jardiance 10mg, See Instructions, # 90 [...] 11/15/17 Stop Date: 02/13/18 Status: Ordered Pen [place], 31 G x 5 mm BD Ultra [...] 3 Refills, Maintenance, 05/02/21 15:56:00 EDT, Tablet, [facility], Partial fill... Start Date: [...] V- GO delivery 30 [facility] pharmacy contact [phone] to be used daily with Novolog, 07/18/21 [...]
--- OUTSIDE RECORDS SUMMARY | 2024-07-27 22:11 | XMS_ITS | Continuity of Care Document ---
Author Organization [facility] Carmelo Green Tk lt Address [address] [place] [address]- Care Team Providers Care Agricultural Loan Officer Name Role Phone Lali BARBER, Eduardo Clayton Primary Care Physician En[place] [facility] [place] Date(s): 06/03/24 - 07/03/24 [facility] Adult [address] [place] [address]- Allergies, Adverse Reactions, Alerts Substance Reaction Severity Status Jardiance Active Immunizations Given and Recorded Vaccine Date Status Refusal Reason influenza virus vaccine, inactivated 09/11/23 Bernabe rded influenza virus vaccine, inactivated 1 09/07/22 Gi janelle influenza virus vaccine, inactivated 09/26/21 Give n influenza virus vaccine, inactivated 09/01/20 Give n influenza virus vaccine, inactivated 2 10/26/13 Gi janelle SARS-CoV-2(COVID-19)mRNA-LNP vac([id number]) 09/11/23 Recorded [id number] bivalent booster vax 08/23/22 Recorded SARS-CoV-2 (COVID-19) [...] toxoids (Td) 08/04/07 Given 1Result Comment: [facility] [id number] 2Admin Note: pt declines 3Admin Note: rcvd [...] Weight Start Date: 06/23/24 Status: Ordered Freestyle Vcikie 14 sensor Freestyle Vickie 14 sensor, See [...] 3 Refills, Maintenance, 04/12/23 7:26:00 EDT, Tablet, [facility], Partial fill upon patient [...] Role: Lifetime Consulting Provider Address: Address: [address] [place] [address]- Name: Jonny Portillo RN Position: S RN Member Role: Primary Care Nurse Name: Eduardo Escalera MD Position: [facility] Physician - Primary Care Member Role: PCP Address: Address: [address] [place] [address]- Name: Doris Hamilton RN Position: S RN Member Role: Primary Care Nurse Name: Manuel Melgar RN Position: S RN Member Role: Primary Care Nurse Name: Aliza Lorenzo RN Position: S RN Member Role: Primary Care Nurse Care Team Related Persons Name: GABINOYANNI KILPATRICKSujata Address: home [address] [place] [address]
--- OUTSIDE RECORDS SUMMARY | 2024-07-27 22:11 | XMS_ITS | Continuity of Care Document ---
Author Organization [facility] Peter Tk lt Address [address] [place] [address]- Care Team Providers Care Computer Science Teacher Name Role Phone Lali BARBER, Eduardo Clayton Primary Care Physician Encounter [facility] Date(s): 07/24/23 - 08/23/23 [facility] Adult [address] [place] [address]- Allergies, Adverse Reactions, Alerts Substance Reaction Severity [...] toxoids (Td) 08/04/07 Given 1Result Comment: [facility] [id number] 2Admin Note: pt declines 3Admin Note: rcvd [...] , E11.9, 04/17/23 11:12:00 EDT, emailed the [facility] also, Supply, 177.8, cm, 04/12/23 6:48:00... [...] 5, 01/14/06 17:13:54, daily, diabetes, ADS [facility], [address] [place] [address] Start Date: 01/14/06 Status: Ordered Humalog 100 u/ml subcutaneous injection See Instructions, use with VGO 30 up to 100 units a day vials LISPRO please dispense lispro generic, # 90 mL, 11 Refills, Maintenance, 08/01/23 7:46:00 EDT, [email or web address] #[id number], Partial fill upon patient request if the prescription is for a... Start Date: 08/01/23 Status: Ordered insulin lispro 100 u/ml subcutaneous injection See Instructions, USE WITH VGO 30 UP TO 100 UNITS A DAY, # 90 mL, 0 Refills, Maintenance, 08/02/23 5:04:00 EDT, [email or web address] #[id number], 177.8, cm, 04/12/23 6:48:00 EDT, Height Start [...] 3 Refills, Maintenance, 04/12/23 7:26:00 EDT, Tablet, [facility], Partial fill upon patient request if the prescription is for a schedule II opioid drug., 177.8, cm, 04/12/23 6:48:00 EDT... Start Date: 04/12/23 Status: Ordered [facility] [...] 11/15/17 Stop Date: 02/13/18 Status: Ordered Pen [place], 31 G x 5 mm BD Ultra [...] 3 Refills, Maintenance, 08/29/22 14:04:00 EDT, Tablet, [facility] # 302, Partial [...] V- GO delivery 30 [facility] pharmacy contact [phone] to be used daily with Novolog, 10/04/22 [...] Team Personnel Name: Elin Franz NP Position: [facility] PCO Associate Professional Member Role: Lifetime Consulting Provider Address: Address: [address] [place] [address]- Name: Eduardo Escalera MD Position: [facility] Physician - Primary Care Member Role: PCP Address: Address: [address] [place] [address]- Care Team Related Persons Name: CELESTEBEBETO COTO Address: home [address] [place] [address]
--- OUTSIDE RECORDS SUMMARY | 2024-07-27 22:11 | XMS_ITS | Continuity of Care Document ---
Author Organization [facility] Tk Address [address] [place] [address]- Care Team Providers Care Burning Supervisor Name Role Phone Mu BARBER, Francesco Llanes Primary Care Physician [place] [facility] [place](s): 05/15/22 - 06/14/22 [facility] Adult [address] [place] [address]- Allergies, Adverse Reactions, Alerts Substance Reaction Severity [...] tablet, 1 Refills, Maintenance, 05/23/22 12:26:00 EDT, [facility] #[id number], 176, cm, 04/04/22 11:11:00 EDT, Height Start [...] E11.9, 05/15/22 10:31:00 EDT, emailed the [facility] also, Supply, 176, cm, 04/04/22 11:11:00... [...] 01/14/06 17:13:54, daily, diabetes, ADS [facility], [address] [place] [address] Start Date: 01/14/06 Status: Ordered Humalog 100 u/ml subcutaneous injection See Instructions, use with VGO 30 up to 100 units a day vials LISPRO please dispense lispro generic, # 90 mL, 11 Refills, Maintenance, 03/07/22 13:34:00 EDT, [facility] #[id number], Partial fillupon patient request if the prescription [...] TO GIVE INSULIN, 11/23/09 13:35:21, [place] , [facility] Start Date: 11/23/09 Status: Ordered [...] 11/15/17 Stop Date: 02/13/18 Status: Ordered Pen [place], 31 G x 5 mm BD Ultra Fine III See Instructions, # 30 pack/packet, Refills 11, Tot. Refills 11, use with lantus solostar, diabetes, 07/13/09 15:43:10, [facility] Ike Gir[facility] Start Date: 07/13/09 Status: Ordered sildenafil 100 mg oral tablet 1 tablet = 100 mg, By Mouth, Daily, Take 1 hour before sexual activity as instructed. Start with 1/2 tablet. Use not more than once daily, # 10 tablet, 3 Refills, Maintenance, 05/02/21 15:56:00 EDT, Tablet, [facility], Partial fill... Start Date: [...] Refills 6, Maintenance, V- GO delivery 30 [facility] pharmacy contact [phone] to be used daily with Novolog, 07/18/21 [...]
--- OUTSIDE RECORDS SUMMARY | 2024-07-27 22:11 | XMS_ITS | Continuity of Care Document ---
Author Organization [facility] Carmelo Green Tk Address [address] [place] [address]- Care Team Providers Care Courtesy Clerk Name Role Phone Lali BARBER, Eduardo Clayton Primary Care Physician [place] [facility] [place] Date(s): 09/03/22 - 10/03/22 [facility] [address] [place] [address]- Allergies, Adverse Reactions, Alerts Substance Reaction Severity [...] tetanus-diphtheria toxoids (Td) 08/04/07 Given 1Result Comment: [facility] [id number] 2Admin Note: pt declines 3Admin Note: rcvd elsewhere Medications aspirin 81 mg oral enteric coated tablet See Instructions, 0, 0, 01/14/06 17:25:16, By Mouth Daily, Print LISSET Number, Constant Indicator Start Date: 01/14/06 Status: Ordered atorvastatin 80 mg oral tablet 1 tablet, By Mouth, Daily, # 90 tablet, 1 Refills, Maintenance, 05/23/22 12:26:00 EDT, [facility] #[id number], 176, cm, 04/04/22 11:11:00 EDT, Height Start [...] , E11.9, 05/15/22 10:31:00 EDT, emailed the [facility] also, Supply, 176, cm, 04/04/22 11:11:00... [...] 5, 5, 01/14/06 17:13:54, daily, diabetes, ADS [facility], [address] [place] [address] Start Date: 01/14/06 Status: Ordered Humalog 100 u/ml subcutaneous injection See Instructions, use with VGO 30 up to 100 units a day vials LISPRO please dispense lispro generic, # 90 mL, 11 Refills, Maintenance, 03/07/22 13:34:00 EDT, [id number], Partial fillupon patient request if the prescription [...] mL, 0 Refills, Maintenance, 06/26/22 11:46:00 EDT, [facility] #[id number],Partial fill upon patient request if the prescript... [...] 11/15/17 Stop Date: 02/13/18 Status: Ordered Pen [place], 31 G x 5 mm BD Ultra Fine III See Instructions, # 30 pack/packet, Refills 11, Tot. Refills 11, use with lantus solostar, diabetes, 07/13/09 15:43:10, [facility] Start Date: 07/13/09 Status: Ordered sildenafil 100 mg oral tablet 1 tablet = 100 mg, By Mouth, Daily, Take 1 hour before sexual activity as instructed. Start with 1/2 tablet. Use not more than once daily, # 30 tablet, 3 Refills, Maintenance, 08/29/22 14:04:00 EDT, Tablet, [facility] # 302, Partial fill upon [...] V- GO delivery 30 [facility] pharmacy contact [phone] to be used daily with Novolog, 10/02/22 16:37:00 EDT, he is switching to VGO 30, Compound, 176, cm, 09/07/22 7:30:00 EDT... Start Date: 10/02/22 Status: Ordered Problem List Condition Confirmation Course [...] Personnel Name: Eduardo Escalera MD Address: Address: [address] [place] [id number]
== END 2024-07-28 00:55 | disposition left against medical advice (07) ==
LOC: HO.ED 22:06
PROVIDERS: Emergency Provider Emergency Medicine; PCP Family Medicine
DX: R51.9 Headache, unspecified (principal); M54.2 Cervicalgia
CPT/HCPCS: 70450; 72125; 99281

== ENCOUNTER 2024-08-23 11:44 | Emergency (ER) | payer MEDICARE, OTHER, SELFPAY ==
--- NOTE | ~2024-08-23 | XR_ITS ---
EXAMINATION: XR ABDOMEN KUB CLINICAL INDICATION: Constipation. Question small bowel obstruction. COMPARISON: None available. TECHNIQUE: AP view of the abdomen. FINDINGS: The bowel gas pattern appears unremarkable, with no evidence of ileus or obstruction. Mild to moderate amount of stool throughout the colon and rectal vault. No evidence of soft tissue mass or organomegaly. No unusual soft tissue calcifications are noted. Mild degenerative changes of the lumbar spine.. XR/XR KUB IMPRESSION: No acute finding. Electronically signed by: Reuben Nava MD 08/23/2024 02:26 PM EDT
[2024-08-23 11:55] VITALS: BP 126/65; PULSE 90; RESP 18; TEMP 36.3; O2SAT 98; BMI 27.9
--- NOTE | 2024-08-23 12:00 | ED.GENADULT ---
HPI - General Adult General Chief complaint: Abdominal Pain Stated complaint: Abd pain Time Seen by Provider: 08/23/24 16:04 Source: patient, family, RN notes reviewed and old records reviewed Mode of arrival: ambulatory Limitations: no limitations History of Present Illness ED Provider: Shelly GARCIA narrative: 68-year-old male past medical history significant for diabetes, parkinsonism, recent CVA presents for evaluation of abdominal pain and constipation. Per family, the patient has had chronic constipation. The symptoms have been worse over the last week. He has been taking Dulcolax and MiraLax with some improvement. However family stopped his laxative 4 days ago because ?he was always going to the bathroom and ?mud was coming out. ? The patient denies any history abdominal surgeries He denies any current abdominal pain Denies any black or bloody stool The patient is fairly inactive currently due to his recent CVA and weakness. He is in the process of physical therapy Related Data Home Medications ?Medication ?Instructions ?Recorded ?Confirmed aspirin 81 mg tablet 81 mg PO DAILY 03/31/22 03/31/22 atorvastatin 80 mg tablet (Lipitor) 80 mg PO DAILY 03/31/22 03/31/22 carbidopa 25 mg-levodopa 100 mg 2 tab PO TID 03/31/22 03/31/22 tablet (Sinemet) clonazepam 0.5 mg tablet 0.5 mg PO BEDTIME 03/31/22 03/31/22 insulin lispro 100 unit/mL 1 sliding scale dose subcut 03/31/22 03/31/22 subcutaneous cartridge (Humalog USEASDIRECTD U-100 Insulin) memantine 10 mg tablet 10 mg PO QPM 03/31/22 03/31/22 Allergies Allergy/AdvReac Type Severity Reaction Status Date / Time No Known Allergies Allergy Verified 08/23/24 11:59 Review of Systems Constitutional: Constitutional: Denies body ache(s), Denies chills, Denies fever(s) and Denies frequent falls Eyes: Eyes: Denies blurry vision ENT: Denies sore throat Cardiovascular: Cardiovascular: Denies chest pain and Denies dyspnea Respiratory: Respiratory: Denies cough and Denies dyspnea Gastrointestinal: Gastrointestinal: Reports abdominal pain (intermittent, but not currently), Denies hematochezia and Reports constipation Musculoskeletal: Musculoskeletal: Denies back pain Integumentary/Breasts: Skin/Breast: Denies rash Neurologic: Denies frequent falls Psychiatric: Psychiatric: Denies depression [facility] Past Medical History Medical History Hypertension Parkinsons disease Social History Social History Smoked in Last 30 Days: No Use of substances other than those prescribed or required for medical reasons: No Advance Directives: No Advance Directives Information Provided: No Physical Exam ED Vital Signs: Vital Signs - 24 hr 08/23/24 11:55 08/23/24 17:07 08/23/24 18:06 Temperature 97.3 F 97.8 F 97.8 F Pulse Rate 90 72 72 Respiratory Rate 18 16 16 Blood Pressure 126/65 115/55 L 115/55 L Pulse Oximetry 98 97 97 Oxygen Delivery Method Room Air Room Air Room Air BMI result Body Mass Index 27.9 Const General: healthy appearing, comfortable, no acute distress, alert and awake Nutritional Appearance: well nourished Orientation/consciousness: patient oriented x3 HENMT Head: Yes normocephalic and Yes atraumatic Eyes Eyelids: Yes eyelids normal Conjunctivae: conjunctivae normal Sclerae: sclerae normal Corneas: corneas normal Pupils: Equal, round and reactive pupils present EOM: EOMs intact bilaterally Neck Neck: Yes full ROM Resp Effort & Inspection: normal respiratory effort, able to speak in complete sentences and not labored Cardio Rate: regular rate Rhythm: regular rhythm GI Other: Insulin pump left midabdomen Inspection: No distended Palpation (GI): Soft to palpation, not firm, nontender, no guarding and not rigid Skin General skin exam: elasticity normal Neuro General: patient oriented x3 Cranial nerves: Yes Equal, round and reactive pupils present and Yes Bilaterally intact EOM present Cognition (Neuro): normal cognition Extrem Other: Moving all extremities well without any obvious deformities Course Course Course Narrative: RME: Done by Michael Juarez. 68 yold male with pmh of CVA Hemmorgaging stroke and Parkinson's presents ED for lower bilateral abdominal pain. Patient states small amounts of bowel movement drops. Patient denies any fever, chills, upper abdominal pain, chest pain, or shortness of breath. positrive for bilateral lower abdominal tendrenss on palpation. labs and KUB ordered Reevaluation(s) Reevaluation #1: Patient reports that he had a bowel movement after the enema, he feels better and is requesting discharge home. I reiterated constipation education the patient will follow-up Time: 17:48 Medications Administered Discontinued Medications Generic Name Dose Route Start Last Admin Trade Name Nya PRN Reason Stop Dose Admin Mineral Oil 133 ml 08/23/24 16:29 08/23/24 17:28 Mineral Oil Enema 133 Ml Enema [place] 08/23/24 16:30 133 ml ONCE ONE Administration Medical Decision Making Medical Decision Making [facility] Narrative: 68-year-old male presents for evaluation abdominal pain, cramping and constipation. The patient is quite well appearing, he has a benign exam currently. His labs show no concerning abnormalities. He has no leukocytosis. That is likely infectious process. His glucose is elevated to 17 but no evidence of DKA. His calcium is just above normal which may reflect mild dehydration. Renal function is within normal limits. Discussed treatment options with the family, plan to perform mineral oil enema in the emergency department. Patient and family were educated on chronic constipation treatment including fiber supplementation, increase fluid intake and MiraLax daily with as needed laxatives. The patient is still passing gas, his x-ray shows no evidence of obstruction Differential Diagnosis Differential Diagnoses: The differential diagnosis associated with the presentation includes Chronic constipation Gastroparesis Abdominal pain UTI Bowel obstruction less likely Lab Data [facility] Lab Attestation statement: I reviewed the patient's lab results. 08/23/24 12:06 08/23/24 12:06 Labs: Lab Results 08/23/24 08/23/24 Range/Units 12:06 17:09 WBC 8.7 (4.8-10.8) X10*3/uL RBC 4.28 L (4.60-5.80) X10*6/uL Hgb 13.0 L (14.0-18.0) g/dl Hct 38.0 L (42.0-52.0) % MCV 88.8 (80.0-98.0) fL MCH 30.4 (27.0-33.0) pg MCHC 34.2 (31.0-36.0) g/dl RDW 13.1 (11.0-16.0) % Plt Count 203 D (160-400) X10*3/uL MPV 11.1 (9.4-12.4) fL Immature Gran % (Auto) 0.3 (0.0-0.4) % Neut % (Auto) 76.2 H (45-73) % Lymph % (Auto) 15.0 L (20-40) % [place] % (Auto) 6.2 (2-11) % Eos % (Auto) 1.7 (0-4) % Baso % (Auto) 0.6 (0-2) % Lymph # (Auto) 1.3 (1.2-4.9) X10*3/uL [place] # (Auto) 0.5 (0.1-1.2) X10*3/uL Eos # (Auto) 0.2 (0.0-0.4) X10*3/uL Baso # (Auto) 0.1 (0.0-0.2) X10*3/uL Abs Immat Gran (auto) 0.03 (0.00-0.03) X10*3/uL Absolute Neuts (auto) 6.7 (2.0-8.3) x10*3/uL Absolute Nucleated RBC 0.000 (0.0-0.012) X10*3/uL Nucleated RBC % (auto) 0.0 (0.0-0.2) /100WBC PT 10.6 L (10.9-12.4) SEC INR 0.9 (0.9-1.1) APTT 30.6 (26.0-36.8) SEC Sodium 140 (135-145) mmol/L Potassium 4.6 (3.3-5.1) mmol/L Chloride 104 (96-108) mmol/L Carbon Dioxide 26 (22-29) mmol/L Anion Gap 15 (12-20) BUN 16 (9-16) mg/dL Creatinine 1.11 (0.5-1.4) mg/dL Estim Creat Clear Calc 74.4 Estimated GFR > 60 Random Glucose 217 H (60-115) mg/dL Calcium 10.4 H D (8.4-10.2) mg/dL Total Bilirubin 0.4 (0.0-1.0) mg/dL AST 15 (5-37) U/L ALT 6 (0-40) U/L Alkaline Phosphatase 91 (39-117) U/L Total Protein 7.4 (6.5-8.0) g/dL Albumin 4.0 (3.5-5.0) g/dL Urine Color Dark Yellow Urine Appearance Cloudy Urine pH 5.0 (5.0-9.0) Ur Specific He[place] >= 1.030 H (1.005-1.025) Urine Protein 100 (2+) H (Neg-Trace) mg/dL Urine Glucose (UA) Negative (Negative) mg/dL Urine Ketones 40 (Negative) mg/dL Urine Blood Negative (Negative) Urine Nitrite Negative (Negative) Ur Leukocyte Esterase Trace H (Negative) Urine RBC 0-2 (0-2) /HPF Urine WBC 0-5 (0-5) /HPF Ur Squamous Epith Cells 3-5 (0-2) /HPF Calcium Oxalate Crystal Present Urine Bacteria Trace (None Seen) Hyaline Casts 3-5 (0-2) /LPF Independent Interpretation I performed an independent interpretation of an: Plain X-Ray (Moderate constipation, agree with Radiology) Radiology Impression Discussion of test interpretation with radiology: I have reviewed the radiologist's reading. Radiologist Impression: FINDINGS: The bowel gas pattern appears unremarkable, with no evidence of ileus or obstruction. Mild to moderate amount of stool throughout the colon and rectal vault. No evidence of soft tissue mass or organomegaly. No unusual soft tissue calcifications are noted. Mild degenerative changes of the lumbar spine.. XR/XR KUB IMPRESSION: No acute finding. Discharge Plan Discharge Clinical Impression: Constipation Patient Disposition: Home, Self-Care Instructions: Constipation (ED), High Fiber Diet (ED), Fleet Enema (ED) Additional Instructions: Your x-ray shows constipation mostly on the right side of your abdomen but throughout your colon. I recommend MiraLax every night for at least the next 2 weeks I recommend increasing fluid and fiber intake in your diet or with supplementation through Metamucil You may use Dulcolax or magnesium citrate as needed for further constipation Follow-up with your primary doctor, return for new or worsening symptoms Prescriptions: No Action atorvastatin [Lipitor] 80 mg Tablet 80 mg PO DAILY clonazepam 0.5 mg Tablet 0.5 mg PO BEDTIME Rx Instructions: administer 30 minutes before bedtime aspirin 81 mg Tablet 81 mg PO DAILY carbidopa-levodopa [Sinemet] 25-100 mg Tablet 2 tab PO TID Humalog U-100 Insulin 100 unit/mL Cartridge 1 sliding scale dose SUBCUT USEASDIRECTD memantine 10 mg Tablet 10 mg PO QPM Interventions: ED Discharge Assessment Last Done: 08/23/24 18:06 Discharge Date/Time: 08/23/24 18:06 Print Language: Armenian
[2024-08-23 12:10] LABS: MANUAL DIFF FLAG NO
--- OUTSIDE RECORDS SUMMARY | 2024-08-23 12:13 | XMS_ITS | Continuity of Care Document ---
Author Organization [facility] Carmelo Green Tk lt Address [address] [place] [address]- Care Team Providers Care Salon Receptionist Name Role Phone Lali BARBER, Eduardo Clayton Primary Care Physician Encounter [facility] Date(s): 07/20/24 - 08/19/24 [facility] Peter Adult [address] [place] [address]- Allergies, Adverse Reactions, Alerts Substance Reaction Severity Status Jardiance Active Immunizations Given and Recorded Vaccine Date Status Refusal Reason influenza virus vaccine, inactivated 09/11/23 Bernabe rded influenza virus vaccine, inactivated 1 09/07/22 Gi janelle influenza virus vaccine, inactivated 09/26/21 Give n influenza virus vaccine, inactivated 09/01/20 Give n influenza virus vaccine, inactivated 2 10/26/13 Gi janelle SARS-CoV-2(COVID-19)mRNA-LNP vac([id number]) 09/11/23 Recorded [id number] bivalent booster vax 08/23/22 Recorded SARS-CoV-2 (COVID-19) [...] tetanus-diphtheria toxoids (Td) 08/04/07 Given 1Result Comment: [facility] [id number] 2Admin Note: pt declines 3Admin Note: rcvd elsewhere Medications amLODIPine 10 mg oral tablet 10 mg, By Mouth, Daily, # 90 tablet, Refills 3, Tot. Refills 3, Maintenance, 08/15/24 6:02:00 EDT, Route to Pharmacy Electronically, [facility] #[id number], Partial fill upon patient request if the prescription is for a schedule II opioid drug.,... Start Date: 08/15/24 Stop Date: 08/10/25 Status: Ordered atorvastatin 80 mg oral tablet See Instructions, TAKE ONE TABLET BY MOUTH EVERY DAY, # 90 tablet, 3 Refills, Maintenance, 244:14:00 EST, [facility], 177.8, cm, 10/16/23 15:08:00 EST, Height Start Date: 02/08/24 Status: Ordered BACLOFEN 10 MG TABS BACLOFEN 10 MG TABS, 0 Refills, Maintenance, 07/17/24 13:07:00 EDT Start Date: 07/17/24 Status: Ordered baclofen 10 mg oral tablet 5 mg, 0.5, tablet, By Mouth, 3 times a day, # 45 tablet, Refills 3, Tot. Refills 3, Maintenance, 08/17/24 20:06:00 EDT, Route to Pharmacy Electronically, [facility] #[id number], Partial fill upon patient request if the prescription is for a sched... Start Date: 08/17/24 Status: Ordered Clonazepam = 0.25 mg, By Mouth, Daily at bedtime, 0 Refills, Maintenance, 12/03/17 6:47:50 Start Date: 12/03/17 Status: Ordered docusate sodium 100 mg oral capsule 100 mg, 1, capsule, By Mouth, 2 times a day, Refills 0, Maintenance, 07/17/24 13:04:00 EDT, Partialfill upon patient request if the prescription is for a schedule II opioid drug. Start Date: 07/17/24 Status: Ordered FreeStyle Vickie 2 Monitor See Instructions, # 1 each, Refills 0, Tot. Refills 0, Maintenance, Use to test BS 4x/day per PCP E11.9 IDDM *Replaces Freestyle 14 day. Pt will pay [facility] if not covered by ins., 07/21/24 16:00:00 EDT, Supply, 175, cm, 07/17/24 12:46:00 EDT, Height... Start Date: 07/21/24 Status: Ordered FreeStyle Vickie 2 Sensors See Instructions, # 2 each, Refills 11, Tot. Refills 11, Maintenance, Use to test BS's tid E11.9 IDDM Replaces Freestyle 14 day, 07/21/24 16:04:00 EDT, Supply, 175, cm, 07/17/24 12:46:00 EDT, Height, 94.5, kg, 06/20/24 3:40:00 EDT, Dry Weight Start Date: 07/21/24 Status: Ordered Glucagon 1 mg/0.2 mL subcutaneous solution = 1 mg, Subcutaneous Infusion, Once, 0 Refills, Maintenance, 07/17/24 13:05:00 EDT, Partial fill upon patient request if the prescription is for a schedule II opioid drug. Start Date: 07/17/24 Status: Ordered glucose 15 g/31 g oral gel = 15 mg, 0 Refills, Maintenance, 07/17/24 13:06:00 EDT, Partial fill upon patient request if the prescription is for a schedule II opioid drug. Start Date: 07/17/24 Status: Ordered hydrALAZINE 50 mg oral tablet 1 tablet = 50 mg, By Mouth, 4 times a day, # 360 tablet, 3 Refills, Maintenance, 08/15/24 6:00:00 EDT, Tablet, [facility] #[id number], Partial fill upon patient request if the prescription is for a schedule II opioid drug., 175, cm, 07/22/24 16:5... Start Date: 08/15/24 Status: Ordered Insulin Glargine Inj 0.42 mL = 42 units, Subcutaneous Injection, Daily, 0 Refills, Maintenance, 06/27/24 12:05:00 EDT, Injection, Partial fill upon patient request if the prescription is for a schedule II opioid drug. Start Date: 06/27/24 Status: Ordered insulin lispro 100 u/ml subcutaneous injection See Instructions, USE WITH VGO 30 UP TO 100 UNITS A DAY, # 90 mL, 3 Refills, Maintenance, 08/13/24 6:01:00 EDT, [facility] #[id number], 175, cm, 07/22/24 16:53:00 EDT, Height, 94.5, kg, 243:40:00 EDT, Dry Weight Start Date: 08/13/24 Status: Ordered lisinopril 20 mg oral tablet 40 mg, 2, tablet, By Mouth, Daily, # 180 tablet, Refills 3, Tot. Refills 3, Maintenance, 08/15/24 6:03:00 EDT, Route to Pharmacy Electronically, [facility] #[id number], Partial fill upon patientrequest if the prescription is for a schedule II op... Start Date: 08/15/24 Status: Ordered LORazepam 1 mg oral tablet See Instructions, 1 tablet By Mouth 30-60 minutes prior to procedure; may repeat x 1 prn persistentanxiety, # 5 tablet, 0 Refills, Acute 09/05/24 14:57:00 EDT, 08/06/24 14:56:00 EDT, [facility] #[id number], Partial fill upon patient request if t... Start Date: 08/06/24 Stop Date: 09/05/24 Status: Ordered melatonin 3 mg oral tablet [...] 3 Refills, Maintenance, 04/12/23 7:26:00 EDT, Tablet, [facility], Partial fill upon patient request if the prescription is for a schedule II opioid drug., 177.8, cm, 04/12/23 6:48:00 EDT... Start Date: 04/12/23 Status: Ordered Sinemet 25 mg-100 mg oral tablet 2 tablet, By Mouth, 3 times a day, # 90 tablet, 0 Refills, Maintenance, 08/19/17 7:00:26, Tablet Start Date: 08/19/17 Status: Ordered traMADol 50 mg oral tablet 1 tablet = 50 mg, By Mouth, Every 6 hours, 0 Refills, Maintenance, 07/17/24 13:09:00 EDT, Partial fill upon patient request if the prescription is for a schedule II opioid drug. Start Date: 07/17/24 Status: Ordered traZODone 50 mg oral tablet 25 mg, 0.5, tablet, By Mouth, Daily at bedtime, # 45 tablet, Refills 3, Tot. Refills 3, Maintenance, 08/15/24 6:02:00 EDT, Route to Pharmacy Electronically, [facility] #[id number], Partial fill upon patient request if the prescription is for a sc... Start Date: 08/15/24 Status: Ordered Tylenol 325 mg oral tablet 325 mg, By Mouth, Every 4 hours, PRN, Refills 0, Maintenance, Pain , Mild, 06/27/24 12:04:00 EDT, Partial fill upon patient request if the prescription is for a schedule II opioid drug. Start Date: 06/27/24 Status: Ordered Zoloft 100 mg oral tablet 1 tablet = 100 mg, By Mouth, Daily, # 90 tablet, 3 Refills, Maintenance, 08/15/24 6:01:00 EDT, Tablet, [facility] #[id number], Partial fill upon patient request if the prescription is for a schedule II opioid drug., 175, cm, 07/22/24 16:53:00 EDT... Start Date: 08/15/24 Status: Ordered Problem List Condition Confirmation Course [...] 3, 4 Confirmed Active 1refer echocardiogram 2DR [facility] Endocrinology managing 3MRI brain and JAYJAY scan [...] Team Personnel Name: Elin Franz NP Position: [facility] PCO Associate Professional Member Role: Lifetime Consulting Provider Address: Address: [address] [place] [id number]- Name: Jonny Portillo RN Position: [facility] RN Member Role: Primary Care Nurse Name: Lali BARBER, Eduardo Clayton Position: [facility] Physician - Primary Care Member Role: PCP Address: Address: [address] [place] [id number]- Name: Doris Hamilton RN Position: S RN Member Role: Primary Care Nurse Name: Manuel Melgar RN Position: [facility] RN Member Role: Primary Care Nurse Name: Aliza Lorenzo RN Position: S RN Member Role: Primary Care Nurse Care Team Related Persons Name: AUDELIA BEBETO Address: [address] [address]
--- OUTSIDE RECORDS SUMMARY | 2024-08-23 12:13 | XMS_ITS | Continuity of Care Document ---
Author Organization [facility] Carmelo Green Tk lt Address [address] [place] [address]- Care Team Providers Care Potato Chip Cooker Machine Name Role Phone Lali BARBER, Eduardo Clayton Primary Care Physician Encounter [facility] Date(s): 07/22/24 - 08/21/24 [facility] Carmelo Green Adult [address] [place] [address]- Allergies, Adverse Reactions, Alerts Substance Reaction Severity Status Jardiance Active Immunizations Given and Recorded Vaccine Date Status Refusal Reason influenza virus vaccine, inactivated 09/11/23 Bernabe rded influenza virus vaccine, inactivated 1 09/07/22 Gi janelle influenza virus vaccine, inactivated 09/26/21 Give n influenza virus vaccine, inactivated 09/01/20 Give n influenza virus vaccine, inactivated 2 10/26/13 Gi janelle SARS-CoV-2(COVID-19)mRNA-LNP vac([id number]) 09/11/23 Recorded [id number] bivalent booster vax 08/23/22 Recorded SARS-CoV-2 (COVID-19) [...] tetanus-diphtheria toxoids (Td) 08/04/07 Given 1Result Comment: [facility] [id number] 2Admin Note: pt declines 3Admin Note: rcvd elsewhere Medications amLODIPine 10 mg oral tablet 10 mg, By Mouth, Daily, # 90 tablet, Refills 3, Tot. Refills 3, Maintenance, 08/15/24 6:02:00 EDT, Route to Pharmacy Electronically, [facility] #[id number], Partial fill upon patient request if the [...] 08/17/24 20:06:00 EDT, Route to Pharmacy Electronically, [facility] #[id number], Partial fill upon patient request if the [...] 3 Refills, Maintenance, 08/15/24 6:00:00 EDT, Tablet, [facility] #[id number], Partial fill upon patient request if the [...] mL, 3 Refills, Maintenance, 08/13/24 6:01:00 EDT, [facility] #[id number], 175, cm, 07/22/24 16:53:00 EDT, Height, 94.5, kg, 243:40:00 EDT, Dry Weight Start Date: 08/13/24 Status: Ordered lisinopril 20 mg oral tablet 40 mg, 2, tablet, By Mouth, Daily, # 180 tablet, Refills 3, Tot. Refills 3, Maintenance, 08/15/24 6:03:00 EDT, Route to Pharmacy Electronically, [facility] #[id number], Partial fill upon patientrequest if the prescription is for a schedule II op... Start Date: 08/15/24 Status: Ordered LORazepam 1 mg oral tablet See Instructions, 1 tablet By Mouth 30-60 minutes prior to procedure; may repeat x 1 prn persistentanxiety, # 5 tablet, 0 Refills, Acute 09/05/24 14:57:00 EDT, 08/06/24 14:56:00 EDT, [facility] #[id number], Partial fill upon patient request if t... [...] 3 Refills, Maintenance, 04/12/23 7:26:00 EDT, Tablet, [facility], Partial fill upon [...] 08/15/24 6:02:00 EDT, Route to Pharmacy Electronically, [facility] #[id number], Partial fill upon patient request if the [...] 3 Refills, Maintenance, 08/15/24 6:01:00 EDT, Tablet, [facility] #[id number], Partial fill upon patient request if the [...] 3, 4 Confirmed Active 1refer echocardiogram 2DR [facility] Endocrinology managing 3MRI brain and JAYJAY [...] Team Personnel Name: Elin Franz NP Position: [facility] PCO Associate Professional Member Role: Lifetime Consulting Provider Address: Address: [address] [place] [address]- Name: Jonny Portillo RN Position: [facility] RN Member Role: Primary Care Nurse Name: Eduardo Escalera MD Position: [facility] Physician - Primary Care Member Role: PCP Address: Address: [address] [place] [id number]- Name: Doris Hamilton RN Position: S RN Member Role: Primary Care Nurse Name: Manuel Melgar RN Position: S RN Member Role: Primary Care Nurse Name: Aliza Lorenzo RN Position: S RN Member Role: Primary Care Nurse Care Team Related Persons Name: BEBETO WIN Address: [address] [address]
[2024-08-23 12:14] LABS: Basophils Absolute Auto 0.1 X10*3/uL (0.0-0.2); Basophils Percent Auto 0.6 % (0-2); Eosinophils Absolute Auto 0.2 X10*3/uL (0.0-0.4); Eosinophils Percent Auto 1.7 % (0-4); Imm Gran Abs Auto 0.03 X10*3/uL (0.00-0.03); Imm Gran Pct Auto 0.3 % (0.0-0.4); Lymphocytes Absolute Auto 1.3 X10*3/uL (1.2-4.9); Mean Corpuscular HGB Conc 34.2 g/dl (31.0-36.0); Mean Corpuscular Hemoglobin 30.4 pg (27.0-33.0); Mean Corpuscular Volume 88.8 fL (80.0-98.0); Mean Platelet Volume 11.1 fL (9.4-12.4); Monocytes Absolute Auto 0.5 X10*3/uL (0.1-1.2); Monocytes Percent Auto 6.2 % (2-11); Neutrophils Absolute Auto 6.7 x10*3/uL (2.0-8.3); Neutrophils Percent Auto 76.2 % (45-73); Platelet Count 203 X10*3/uL (160-400); Red Blood Count 4.28 X10*6/uL (4.60-5.80); Red Cell Distribution Width 13.1 % (11.0-16.0); White Blood Count 8.7 X10*3/uL (4.8-10.8)
--- OUTSIDE RECORDS SUMMARY | 2024-08-23 12:14 | XMS_ITS | Continuity of Care Document ---
Author Organization [facility] Carmelo Green Tk lt Address [address] [place] [address]- Care Team Providers Care Literacy Education Professor Name Role Phone Lali BARBER, Eduardo Clayton Primary Care Physician [phone] [place] [facility] [place] 08/16/24 [facility] Peter Adult [address] [place] [address]- Allergies, Adverse Reactions, Alerts Substance Reaction Severity Status Jardiance Active Immunizations Given and Recorded Vaccine Date Status Refusal Reason influenza virus vaccine, inactivated 09/11/23 Bernabe rded influenza virus vaccine, inactivated 1 09/07/22 Gi janelle influenza virus vaccine, inactivated 09/26/21 Give n influenza virus vaccine, inactivated 09/01/20 Give n influenza virus vaccine, inactivated 2 10/26/13 Gi janelle SARS-CoV-2(COVID-19)mRNA-LNP vac([id number]) 09/11/23 Recorded [id number] bivalent booster vax 08/23/22 Recorded SARS-CoV-2 (COVID-19) [...] 08/04/07 Given 1Result Comment: [facility] [id number] 2Admin Note: pt declines 3Admin Note: rcvd elsewhere Medications amLODIPine 10 mg oral tablet 10 mg, By Mouth, Daily, # 90 tablet, Refills 3, Tot. Refills 3, Maintenance, 08/15/24 6:02:00 EDT, Route to Pharmacy Electronically, [facility] #[id number], Partial fill upon patient request if the [...] 13:07:00 EDT Start Date: 07/17/24 Status: Ordered Clonazepam = 0.25 mg, By [...] 3 Refills, Maintenance, 08/15/24 6:00:00 EDT, Tablet, [facility] #[id number], Partial fill upon patient request if the [...] mL, 3 Refills, Maintenance, 08/13/24 6:01:00 EDT, [facility] #[id number], 175, cm, 07/22/24 16:53:00 EDT, Height, 94.5, kg, 07/20/243:40:00 EDT, Dry Weight Start Date: 08/13/24 Status: Ordered lisinopril 20 mg oral tablet 40 mg, 2, tablet, By Mouth, Daily, # 180 tablet, Refills 3, Tot. Refills 3, Maintenance, 08/15/24 6:03:00 EDT, Route to Pharmacy Electronically, [facility] #[id number], Partial fill upon patientrequest if the prescription is for a schedule II op... Start Date: 08/15/24 Status: Ordered LORazepam 1 mg oral tablet See Instructions, 1 tablet By Mouth 30-60 minutes prior to procedure; may repeat x 1 prn persistentanxiety, # 5 tablet, 0 Refills, Acute 09/05/24 14:57:00 EDT, 08/06/24 14:56:00 EDT, [facility] #[id number], Partial fill upon patient request if t... [...] 3 Refills, Maintenance, 04/12/23 7:26:00 EDT, Tablet, [facility], Partial fill upon patient [...] 08/15/24 6:02:00 EDT, Route to Pharmacy Electronically, [facility] #[id number], Partial fill upon patient request if the [...] 3 Refills, Maintenance, 08/15/24 6:01:00 EDT, Tablet, [facility] #[id number], Partial fill upon patient request if the [...] Member Role: Lifetime Consulting Provider Address: Address: [address] [place] [address]- [place] Name: Jonny Portillo RN Position: S RN Member Role: Primary Care Nurse Name: Eduardo Escalera MD Position: S Physician - Primary Care Member Role: PCP Address: Address: [address] [place] [address]- Name: Doris Hamilton RN Position: S RN Member Role: Primary Care Nurse Name: Manuel Melgar RN Position: S RN Member Role: Primary Care Nurse Name: Aliza Lorenzo RN Position: S RN Member Role: Primary Care Nurse Care Team Related Persons Name: AUDELIAYANNISujata Address: home [address] [place] [address]
--- OUTSIDE RECORDS SUMMARY | 2024-08-23 12:14 | XMS_ITS | Continuity of Care Document ---
Author Organization [facility] Carmelo Green Tk lt Address [address] [place] [address]- Care Team Providers Care Building Code Administrator Name Role Phone Lali BARBER, Eduardo Clayton Primary Care Physician Encounter [facility] [place] Date(s): 07/20/24 - 08/19/24 [facility] Peter Adult [address] [place] [address]- Allergies, Adverse Reactions, Alerts Substance Reaction Severity Status Jardiance Active Immunizations Given and Recorded Vaccine Date Status Refusal Reason influenza virus vaccine, inactivated 09/11/23 Bernabe rded influenza virus vaccine, inactivated 1 09/07/22 Gi janelle influenza virus vaccine, inactivated 09/26/21 Give n influenza virus vaccine, inactivated 09/01/20 Give n influenza virus vaccine, inactivated 2 10/26/13 Gi janelle SARS-CoV-2(COVID-19)mRNA-LNP vac([id number]) 09/11/23 Recorded [id number] bivalent booster vax 08/23/22 Recorded SARS-CoV-2 (COVID-19) [...] tetanus-diphtheria toxoids (Td) 08/04/07 Given 1Result Comment: [facility] [id number] 2Admin Note: pt declines 3Admin Note: rcvd elsewhere Medications amLODIPine 10 mg oral tablet 10 mg, By Mouth, Daily, # 90 tablet, Refills 3, Tot. Refills 3, Maintenance, 08/15/24 6:02:00 EDT, Route to Pharmacy Electronically, [facility] #[id number], Partial fill upon patient request if the [...] 08/17/24 20:06:00 EDT, Route to Pharmacy Electronically, [facility] #[id number], Partial fill upon patient request if the [...] 3 Refills, Maintenance, 08/15/24 6:00:00 EDT, Tablet, [facility] #[id number], Partial fill upon patient request if the [...] mL, 3 Refills, Maintenance, 08/13/24 6:01:00 EDT, [facility] #[id number], 175, cm, 07/22/24 16:53:00 EDT, Height, 94.5, kg, 243:40:00 EDT, Dry Weight Start Date: 08/13/24 Status: Ordered lisinopril 20 mg oral tablet 40 mg, 2, tablet, By Mouth, Daily, # 180 tablet, Refills 3, Tot. Refills 3, Maintenance, 08/15/24 6:03:00 EDT, Route to Pharmacy Electronically, [facility] #[id number], Partial fill upon patientrequest if the prescription is for a schedule II op... Start Date: 08/15/24 Status: Ordered LORazepam 1 mg oral tablet See Instructions, 1 tablet By Mouth 30-60 minutes prior to procedure; may repeat x 1 prn persistentanxiety, # 5 tablet, 0 Refills, Acute 09/05/24 14:57:00 EDT, 08/06/24 14:56:00 EDT, [facility] #[id number], Partial fill upon patient request if t... [...] 3 Refills, Maintenance, 04/12/23 7:26:00 EDT, Tablet, [facility], Partial fill upon [...] 08/15/24 6:02:00 EDT, Route to Pharmacy Electronically, [facility] #[id number], Partial fill upon patient request if the [...] 3 Refills, Maintenance, 08/15/24 6:01:00 EDT, Tablet, [facility] #[id number], Partial fill upon patient request if the [...] 3, 4 Confirmed Active 1[facility]er echocardiogram 2[facility] 3MRI brain and JAYJAY scan [...] Team Personnel Name: Elin Franz NP Position: [facility] PCO Associate Professional Member Role: Lifetime Consulting Provider Address: Address: [address] [place] [address]- Name: Jonny Portillo RN Position: [facility] RN Member Role: Primary Care Nurse Name: Lali BARBER, Eduardo Clayton Position: [facility] Physician - Primary Care Member Role: PCP Address: Address: [address] [place] [address]- Name: Doris Hamilton RN Position: S RN Member Role: Primary Care Nurse Name: Manuel Melgar RN Position: [facility] RN Member Role: Primary Care Nurse Name: Aliza Lorenzo RN Position: S RN Member Role: Primary Care Nurse Care Team Related Persons Name: AUDELIA BEBETO Address: [address] [address]
--- OUTSIDE RECORDS SUMMARY | 2024-08-23 12:15 | XMS_ITS | Continuity of Care Document ---
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 [place] Date(s): 07/20/24 - 08/19/24 [facility] Adult [address] [place] [address]- Allergies, Adverse Reactions, Alerts Substance Reaction Severity Status Jardiance Active Immunizations Given and Recorded Vaccine Date Status Refusal Reason influenza virus vaccine, inactivated 09/11/23 Bernabe rded influenza virus vaccine, inactivated 1 09/07/22 Gi janelle influenza virus vaccine, inactivated 09/26/21 Give n influenza virus vaccine, inactivated 09/01/20 Give n influenza virus vaccine, inactivated 2 10/26/13 Gi janelle SARS-CoV-2(COVID-19)mRNA-LNP vac([id number]) 09/11/23 Recorded [id number] bivalent booster vax 08/23/22 Recorded SARS-CoV-2 (COVID-19) [...] toxoids (Td) 08/04/07 Given 1Result Comment: [facility] [id number] 2Admin Note: pt declines 3Admin Note: rcvd elsewhere Medications amLODIPine 10 mg oral tablet 10 mg, By Mouth, Daily, # 90 tablet, Refills 3, Tot. Refills 3, Maintenance, 08/15/24 6:02:00 EDT, Route to Pharmacy Electronically, [facility] #[id number], Partial fill upon patient request if the [...] 08/17/24 20:06:00 EDT, Route to Pharmacy Electronically, [facility] #[id number], Partial fill upon patient request if the [...] 3 Refills, Maintenance, 08/15/24 6:00:00 EDT, Tablet, [facility] #[id number], Partial fill upon patient request if the [...] mL, 3 Refills, Maintenance, 08/13/24 6:01:00 EDT, [facility] #[id number], 175, cm, 07/22/24 16:53:00 EDT, Height, 94.5, kg, 243:40:00 EDT, Dry Weight Start Date: 08/13/24 Status: Ordered lisinopril 20 mg oral tablet 40 mg, 2, tablet, By Mouth, Daily, # 180 tablet, Refills 3, Tot. Refills 3, Maintenance, 08/15/24 6:03:00 EDT, Route to Pharmacy Electronically, [facility] #[id number], Partial fill upon patientrequest if the prescription is for a schedule II op... Start Date: 08/15/24 Status: Ordered LORazepam 1 mg oral tablet See Instructions, 1 tablet By Mouth 30-60 minutes prior to procedure; may repeat x 1 prn persistentanxiety, # 5 tablet, 0 Refills, Acute 09/05/24 14:57:00 EDT, 08/06/24 14:56:00 EDT, [facility] #[id number], Partial fill upon patient request if t... [...] Refills, Maintenance, 04/12/23 7:26:00 EDT, Tablet, [facility], Partial fill upon [...] 08/15/24 6:02:00 EDT, Route to Pharmacy Electronically, [facility] #[id number], Partial fill upon patient request if the [...] 3 Refills, Maintenance, 08/15/24 6:01:00 EDT, Tablet, [facility] #[id number], Partial fill upon patient request if the [...] 3, 4 Confirmed Active 1refer echocardiogram 2[facility] [place] 3MRI brain and JAYJAY scan [...] Team Personnel Name: Elin Franz NP Position: [facility] PCO Associate Professional Member Role: Lifetime Consulting Provider Address: Address: [address] [place] [address]- Name: Jonny Portillo RN Position: [facility] RN Member Role: Primary Care Nurse Name: Eduardo Escalera MD Position: [facility] Physician - Primary Care Member Role: PCP Address: Address: [address] [place] [address]- Name: Doris Hamilton RN Position: S RN Member Role: Primary Care Nurse Name: Manuel Melgar RN Position: S RN Member Role: Primary Care Nurse Name: Aliza Lorenzo RN Position: S RN Member Role: Primary Care Nurse Care Team Related Persons Name: BEBETO WIN Address: [address] [address]
--- OUTSIDE RECORDS SUMMARY | 2024-08-23 12:15 | XMS_ITS | Continuity of Care Document ---
Author Organization [facility] Peter Tk lt Address [address] [place] [address]- Care Team Providers Care Director Perioperative Name Role Phone Eduardo Escalera MD Primary Care Physician Encounter [facility] Date(s): 07/22/24 - 07/29/24 [facility] Adult [address] [place] [address]- Attending Physician: Eduardo Escalera MD Allergies, Adverse Reactions, Alerts Substance Reaction Severity Status Jardiance Active Immunizations Given and Recorded Vaccine Date Status Refusal Reason influenza virus vaccine, inactivated 09/11/23 Bernabe rded influenza virus vaccine, inactivated 1 09/07/22 Gi janelle influenza virus vaccine, inactivated 09/26/21 Give n influenza virus vaccine, inactivated 09/01/20 Give n influenza virus vaccine, inactivated 2 10/26/13 Gi janelle SARS-CoV-2(COVID-19)mRNA-LNP vac([id number]) 09/11/23 Recorded [id number] bivalent booster vax 08/23/22 Recorded SARS-CoV-2 (COVID-19) [...] tetanus-diphtheria toxoids (Td) 08/04/07 Given 1Result Comment: [facility] [id number] 2Admin Note: pt declines 3Admin Note: rcvd [...] mg, By Mouth, 4 times a day, 0 Refills, Maintenance, 07/17/24 13:04:00 EDT, Partial fill upon patient request if the prescription is for a schedule II opioid drug. Start Date: 07/17/24 Status: Ordered Insulin Glargine Inj 0.42 mL = 42 units, Subcutaneous Injection, Daily, 0 Refills, Maintenance, 06/27/24 12:05:00 EDT, Injection, Partial fill upon patient request if the prescription is for a schedule II opioid drug. Start Date: 06/27/24 Status: Ordered insulin lispro 100 u/ml subcutaneous injection 0 Refills, Maintenance, 07/17/24 13:07:00 EDT, Partial fill upon patient request if the prescription is for a schedule II opioid drug. Start Date: 07/17/24 Status: Ordered insulin lispro 100 units/mL injectable [...] 3 Refills, Maintenance, 04/12/23 7:26:00 EDT, Tablet, [facility], Partial fill upon [...] recent to oldest [Reference Range]: 1 Height 175 cm (07/22/24 4:53 PM) Weight 89.81 kg (07/22/24 4:53 PM) Body Mass Index [18.5-24.99 kg/m2] 29.33 kg/m2 *H* (07/22/24 4:53 PM) Blood Pressure [90-138/55-84 mm Hg] 110/ 63mm Hg (07/22/24 4:53 PM) Blood pressure sites Arm, left (07/22/24 4:53 PM) Weight Obtained Via Patient/family state d (07/22/24 4:53 PM) Social History Social History Type Response Smoking Status Former smoker; Type: Cigarettes; Other: quit 2015; Tobacco use times per day: 0.5 PPD; Number of years: 28; Total pack years: 14; Started at age: 25; entered on: 07/03/16 Sex Patient Care team information Care Team Personnel Name: Elin Franz NP Position: S PCO Associate Professional Member Role: Lifetime Consulting Provider Address: Address: [address] [place], [place] [address] [address]- [place] Name: Jonny Portillo RN Position: S RN Member Role: Primary Care Nurse Name: Eduardo Escalera MD Position: S Physician - Primary Care Member Role: PCP Address: Address: [address] [place] [address]- [place] Name: Doris Hamilton RN Position: S RN Member Role: Primary Care Nurse Name: Manuel Melgar RN Position: S RN Member Role: Primary Care Nurse Name: Aliza Lorenzo RN Position: S RN Member Role: Primary Care Nurse Care Team Related Persons Name: GABINOBEBETO KILPATRICK Address: home [address] [place] [address]
--- OUTSIDE RECORDS SUMMARY | 2024-08-23 12:16 | XMS_ITS | Continuity of Care Document ---
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 Name Role Phone Lali BARBER, Eduardo Clayton Primary Care Physician [place] [facility] [place]s): 07/22/24 - 08/21/24 [facility] Carmelo Green Adult [address] [place] [address]- Allergies, Adverse Reactions, Alerts Substance Reaction Severity Status Jardiance Active Immunizations Given and Recorded Vaccine Date Status Refusal Reason influenza virus vaccine, inactivated 09/11/23 Bernabe rded influenza virus vaccine, inactivated 1 09/07/22 Gi janelle influenza virus vaccine, inactivated 09/26/21 Give n influenza virus vaccine, inactivated 09/01/20 Give n influenza virus vaccine, inactivated 2 10/26/13 Gi janelle SARS-CoV-2(COVID-19)mRNA-LNP vac([id number]) 09/11/23 Recorded [id number] bivalent booster vax 08/23/22 Recorded SARS-CoV-2 (COVID-19) [...] 08/04/07 Given 1Result Comment: [facility] [id number] 2Admin Note: pt declines 3Admin Note: rcvd elsewhere Medications amLODIPine 10 mg oral tablet 10 mg, By Mouth, Daily, # 90 tablet, Refills 3, Tot. Refills 3, Maintenance, 08/15/24 6:02:00 EDT, Route to Pharmacy Electronically, [facility] #[id number], Partial fill upon patient request if the [...] 08/17/24 20:06:00 EDT, Route to Pharmacy Electronically, [facility] #[id number], Partial fill upon patient request if the [...] 3 Refills, Maintenance, 08/15/24 6:00:00 EDT, Tablet, [facility] #[id number], Partial fill upon patient request if the [...] mL, 3 Refills, Maintenance, 08/13/24 6:01:00 EDT, [facility] #[id number], 175, cm, 07/22/24 16:53:00 EDT, Height, 94.5, kg, 243:40:00 EDT, Dry Weight Start Date: 08/13/24 Status: Ordered lisinopril 20 mg oral tablet 40 mg, 2, tablet, By Mouth, Daily, # 180 tablet, Refills 3, Tot. Refills 3, Maintenance, 08/15/24 6:03:00 EDT, Route to Pharmacy Electronically, [facility] #[id number], Partial fill upon patientrequest if the prescription is for a schedule II op... Start Date: 08/15/24 Status: Ordered LORazepam 1 mg oral tablet See Instructions, 1 tablet By Mouth 30-60 minutes prior to procedure; may repeat x 1 prn persistentanxiety, # 5 tablet, 0 Refills, Acute 09/05/24 14:57:00 EDT, 08/06/24 14:56:00 EDT, [facility] #[id number], Partial fill upon patient request if t... [...] Maintenance, 04/12/23 7:26:00 EDT, Tablet, [facility], Partial fill upon patient [...] 08/15/24 6:02:00 EDT, Route to Pharmacy Electronically, [facility] #[id number], Partial fill upon patient request if the [...] 3 Refills, Maintenance, 08/15/24 6:01:00 EDT, Tablet, [facility] #[id number], Partial fill upon patient request if the [...] Confirmed Active 1refer echocardiogram 2[facility] 3MRI brain and JAYJAY scan [...] Team Personnel Name: Elin Franz NP Position: [facility] PCO Associate Professional Member Role: Lifetime Consulting Provider Address: Address: [address] [place] [address]- Name: Jonny Portillo RN Position: [facility] RN Member Role: Primary Care Nurse Name: Eduardo Escalera MD Position: [facility] Physician - Primary Care Member Role: PCP Address: Address: [address] [place] [address]- Name: Doris Hamilton RN Position: S RN Member Role: Primary Care Nurse Name: Manuel Melgar RN Position: S RN Member Role: Primary Care Nurse Name: Aliza Lorenzo RN Position: S RN Member Role: Primary Care Nurse Care Team Related Persons Name: BEBETO WIN Address: [address] [address]
--- OUTSIDE RECORDS SUMMARY | 2024-08-23 12:16 | XMS_ITS | Continuity of Care Document ---
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 Role Phone aLli BARBER, Eduardo Clayton Primary Care Physician Encounter [facility] [place] Date(s): 07/15/24 - 08/14/24 [facility] Adult [address] [place] [address]- Allergies, Adverse Reactions, Alerts Substance Reaction Severity Status Jardiance Active Immunizations Given and Recorded Vaccine Date Status Refusal Reason influenza virus vaccine, inactivated 09/11/23 Bernabe rded influenza virus vaccine, inactivated 1 09/07/22 Gi janelle influenza virus vaccine, inactivated 09/26/21 Give n influenza virus vaccine, inactivated 09/01/20 Give n influenza virus vaccine, inactivated 2 10/26/13 Gi janelle SARS-CoV-2(COVID-19)mRNA-LNP vac([id number]) 09/11/23 Recorded [id number] bivalent booster vax 08/23/22 Recorded SARS-CoV-2 (COVID-19) [...] toxoids (Td) 08/04/07 Given 1Result Comment: [facility] [id number] 2Admin Note: pt declines 3Admin Note: rcvd [...] mL, 3 Refills, Maintenance, 08/13/24 6:01:00 EDT, [facility] #[id number], 175, cm, 07/22/24 16:53:00 EDT, Height, 94.5, kg, 243:40:00 EDT, Dry Weight Start Date: 08/13/24 Status: Ordered lisinopril 20 mg oral tablet 40 mg, By Mouth, Daily, Refills 0, Maintenance, 06/27/24 12:03:00 EDT, Partial fill upon patient request if the prescription is for a schedule II opioid drug. Start Date: 06/27/24 Status: Ordered LORazepam 1 mg oral tablet See Instructions, 1 tablet By Mouth 30-60 minutes prior to procedure; may repeat x 1 prn persistentanxiety, # 5 tablet, 0 Refills, Acute 09/05/24 14:57:00 EDT, 08/06/24 14:56:00 EDT, [facility] #[id number], Partial fill upon patient request if t... [...] 3 Refills, Maintenance, 04/12/23 7:26:00 EDT, Tablet, [facility], Partial fill upon [...] Team Personnel Name: Elin Franz NP Position: [facility] PCO Associate Professional Member Role: Lifetime Consulting Provider Address: Address: [address] [place] [address]- Name: Jonny oPrtillo RN Position: [facility] RN Member Role: Primary Care Nurse Name: Eduardo Escalera MD Position: [facility] Physician - Primary Care Member Role: PCP Address: Address: [address] [place] [address]- Name: Doris Hamilton RN Position: S RN Member Role: Primary Care Nurse Name: Manuel Melgar RN Position: S RN Member Role: Primary Care Nurse Name: Aliza Lorenzo RN Position: S RN Member Role: Primary Care Nurse Care Team Related Persons Name: BEBETO WIN Address: home [address] [place] [address]
[2024-08-23 12:21] LABS: INTERNATIONAL NORM RATIO 0.9 (0.9-1.1); Prothrombin Time 10.6 SEC (10.9-12.4)
[2024-08-23 12:24] LABS: Partial Thromboplastin Time 30.6 SEC (26.0-36.8)
[2024-08-23 12:33] LABS: Alanine Aminotransferase 6 U/L (0-40); Alkaline Phosphatase 91 U/L (39-117); Anion Gap 15 (12-20); Aspartate Amino Transferase 15 U/L (5-37); Bilirubin Total 0.4 mg/dL (0.0-1.0); Blood Urea Nitrogen 16 mg/dL (9-16); Calcium 10.4 mg/dL (8.4-10.2); Carbon Dioxide 26 mmol/L (22-29); Chloride 104 mmol/L (96-108); Creatinine Clr Calc Pharmacy 74.4; Estimated Glomerular Filt Rate > 60; Glucose Random 217 mg/dL (60-115); Potassium 4.6 mmol/L (3.3-5.1); Sodium 140 mmol/L (135-145); Total Protein 7.4 g/dL (6.5-8.0)
[2024-08-23 17:07] VITALS: BP 115/55; PULSE 72; RESP 16; TEMP 36.6; O2SAT 97
[2024-08-23 17:16] LABS: Appearance Urine Cloudy; Color Urine Dark Yellow; Glucose Urine UA Negative (Negative); Leukocyte Esterase Urine Trace (Negative); Nitrite Urine Negative (Negative); Specific Gravity - Urine >= 1.030 (1.005-1.025); UMIC TRIGGER UACC YES; Urine Blood Negative (Negative); Urine Ketones 40 mg/dL (Negative); Urine Protein 100 (2+) mg/dL (Neg-Trace)
[2024-08-23] MEDS: Mineral OiL enema 133 ML ENEMA PR (17:28)
[2024-08-23 17:35] LABS: Bacteria Urine Trace (None Seen); Calcium Oxalate Crystals Urine Present; RBC Urine 0-2 /HPF (0-2); WBC Urine 0-5 /HPF (0-5)
[2024-08-23 18:06] VITALS: BP 115/55; PULSE 72; RESP 16; TEMP 36.6; O2SAT 97
== END 2024-08-23 18:06 | disposition home or self-care (01) ==
PROVIDERS: Physician Assistant; Emergency Provider Emergency Medicine; PCP Family Medicine
DX: K59.00 Constipation, unspecified (principal); R10.30 Lower abdominal pain, unspecified; Z79.899 Other long term (current) drug therapy
CPT/HCPCS: 36415; 74018; 80053; 81001; 85025; 85610; 85730; 99284